=== PATIENT | male | born 1945 | race African-American/Black ===

== ENCOUNTER 2023-05-22 06:09 | Emergency (ER) | payer OTHER ==
--- OUTSIDE RECORDS SUMMARY | 2023-05-22 06:15 | XMS REPORT | Continuity of Care Document ---
:[address] [facility] t Address [address] [place] [address] Care Team Providers Name Role Phone Jada OLIVER, Yimi Primary Care Physician Kira OLIVER, Cameron Attending Clinician Cole ROD BENDING MACHINE OPERATOR, Li Attending Clinician Gualberto CASTANO, Concepcion Attending Clinician Unavailable Greg CASTANO, Jasmin Attending Clinician Unavailable Michelle Sapp RN Attending Clinician Unavailable Pob, Adc Lab Main Attending Clinician Unavailable George Holloway MD Attending Clinician GEORGE HOLLOWAY Attending Clinician Unavailable Doctor Unassigned, Minor Attending Clinician Unavailable Jose OLIVER, Zelda Attending Clinician ROBEL RAMOS Attending Clinician Unavailable WALE COLEY Attending Clinician Unavailable Wale Coley DO Attending Clinician BLANCHE BERMUDEZ Attending Clinician Unavailable Blanche Bermudez DO Attending Clinician Yimi Elias MD Attending Clinician TORI ANNE Attending Clinician Unavailable Omid OLIVER, Tori Mcnally Attending Clinician Julio CASTANO, Jennifer Attending Clinician Unavailable ROMANA ADAN Attending Clinician Unavailable Amarjit Reddy MD Attending Clinician Manohar Garcia DO Attending Clinician Romana Adan MD Attending Clinician DANTE SCOTT Attending Clinician Unavailable TESSY LOWERY Attending Clinician Unavailable Tessy Lowery NP Attending Clinician CAROLYN MCCRARY Attending Clinician Unavailable WALE RIVERA Attending Clinician Unavailable MD CAROLYN MCCRARY Attending Clinician Unavailable SANDRINE SESAY Attending Clinician Unavailable Sandrine Sesay DO Attending Clinician TODD CANCHOLA Attending Clinician Unavailable UNKNOWN, ATTENDING Attending Clinician Unavailable Unknown, Attending Attending Clinician Unavailable WALE COLEY Admitting Clinician Unavailable BLANCHE BERMUDEZ Admitting Clinician Unavailable TORI ANNE Admitting Clinician Unavailable ROMANA ADAN Admitting Clinician Unavailable Romana Adan MD Admitting Clinician TESSY LOWERY Admitting Clinician Unavailable MD CAROLYN MCCRARY Admitting Clinician Unavailable Payers Payer Name Policy Type Policy Number Effective Date Expiration Date S ource Problems Condition Condition Condition Status Onset Resolution Last Treating Co mments Source Name Details Category Date Date Treatment Clinician Date Encounter Encounter Disease Active [facility] for for 6-10 [facility] immunother immunother 00:00: [facility] apy apy 00 l Malignant Malignant Disease Active [facility] neoplasm neoplasm 2-17 [facility] upper of upper 00:00: Hospit a lobe of lobe of 00 l right lung right lung Chest pain Chest pain 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 U nivers 2-30 ity of 00:00: [place] 00 [facility] Branch Status Status 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 Methodi post post 1-[address] chemothera chemothera 00:00: [facility] py py 00 l 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[address] adenocarci adenocarci 00:00: [facility] spita noma noma 00 l Mass of Mass of 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 Methodi lower lobe lower lobe 0-25 st of left of left 00:00: Hospita lung lung 00 l Hilar Hilar 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 Methodi adenopathy adenopathy 0-25 st 00:00: Hospita 00 l Right Right Disease Active Univers sided sided 1- ity of weakness weakness 00:00: [address] Tobacco Tobacco Disease Active Methodi use use [facility]osp[facility] l Hypothyroi Hypothyroi Disease Active M ethodi dism due dism due st to to Hospita medication medication l Allergies, Adverse Reactions, Alerts Allergy Allergy Status Severity Reaction(s) Onset Inactive Treating Comm ents Source Name Type Date Date Clinician NO KNOWN Drug Active Univers ALLERGIE Class ity of S [facility] Family History Family Member Diagnosis Comments Start Date Stop Date Source Natural brother Colon cancer [facility] Natural mother Breast cancer [facility] Social History Social Habit Start Date Stop Date Quantity Comments Source History of tobacco Current smoker [facility] Sexual orientation [facility] Alcohol intake 2022-06-07 2022-06-07 Ex-drinker [facility] 00:00:00 00:00:00 (finding) Hospital History of Social 2022-06-07 2022-06-[address] function 00:00:00 00:00:00 Hospital Tobacco use and 2021-11-29 2021-11-29 Smokeless [facility] exposure 00:00:00 00:00:00 tobacco non-user Hospital Exposure to 2021-09-08 2021-10-08 Not sure [facility] SARS-CoV-2 (event) 00:00:00 09:42:00 [facility] Tobacco Comment 2021-05-31 2021-05-31 smoking for 60 [facility] 00:00:00 00:00:00 years Hospital Sex Assigned At [birth year] [facility] 00:00:00 00:00:00 Hospital Smoking Status Start Date Stop Date Source Ex-smoker 2021-11-29 00:00:00 2021-11-29 00:00:00 [facility] Current every day 2016-08-08 00:00:00 [facility] smoker [facility] Medications Ordered Filled Start Stop Current Ordering Indication Dosage Frequency Signature Comments Components Source Medication Medication Date Date Medication? Clinician (SIG) Name Name aspirin 81 2021-08 Yes 81mg Chew 81 Meth francisco mg chewable 2-[address] tablet 12:17: Hospita 02 l losartan 2021-08 Yes 25mg Take 25 mg Met hodi (COZAAR) 25 2-[address] MG tablet 12:17: Hospita 02 l acetaminoph 2021-08 Yes Take by Met hodi en 2-[address] (TYLENOL) 12:17: Hospita 500 MG 02 l tablet lisinopriL 2021-08 Yes 10mg QD Take 1 Metho di (PRINIVIL) 2-12 tablet (10 st 10 mg 12:17: mg total) Hospita tablet 02 by mouth l daily. glycerin/mi 2021- No 225mL 225 mL, U nivers neral oil 10-08 Rectal, ity of (AGLO 20:30: 19:39 ONCE, 1 [place] ENEMA) 00 :00 dose, On Medical (COMPOUNDED 10/08/21 Br anch ) Enem 225 at 1430, mL Routine iopamidol No [id number] 100mL 100 mL, Univers (ISOVUE 10-08 Intravenou ity o f 370-500 mL) 17:45: 16:57 s, ONCE, 1 [place] injection 00 :00 dose, On Medica l 100 mL Mon10/08/21 Branch at 1145, Routine methylnaltr No 12mg 12 mg, Uni vers exone 10-08 Subcutaneo ity of (RELISTOR) 16:45: 16:02 us, ONCE, [place] 12 mg/0.6 00 :00 1 dose, On Medi sonja mL Mon10/08/21 Branch injection at 1045, 12 mg Routine magnesium No 300mL 300 mL, Uni vers citrate 10-08 Oral, ity of solution 16:45: 15:57 ONCE, 1 [place] 300 mL 00 :00 dose, On Medical Mon10/08/21 Branch at 1045, DANNIE lactulose 2021- No 30mL 30 mL, Unive rs (CEPHULAC) 10-08 Oral, ity of solution 30 16:45: 15:56 ONCE, 1 [place] mL 00 :00 dose, On Medical Mon10/08/21 Branch at 1045, DANNIE NaCl 0.9% 2021- No 1000mL at 999 Uni vers (NS) bolus 3-04 03-04 mL/hr, ity of infusion 15:45: 19:22 1,000 mL, [place] as 1,000 mL 00 :00 IV Medical Infusion, Branch ONCE, 1 dose, On Mon10/08/21 at 0945, STAT benadryl/li 0 Yes 10mL Q6H Swish and M ethodi docaine/maa 09-[address] lox (MAGIC 00:00: mL every 6 H ospita MOUTHWASH) 00 (six) l 1:1:1 hours as suspension needed suspension (moderate throat pain). pantoprazol 0 Yes 40mg QD Take 1 Meth francisco e 2-22 tablet (40 st (Protonix) 00:00: mg total) Ho spita 40 MG EC 00 by mouth l tablet daily. sucralfate 0 Yes 1g Q.25D Take 1 Meth [place] (CARAFATE) 2-22 tablet (1 st 1 gram 00:00: g total) Hospita tablet 00 by mouth 4 l (four) times a day before meals and nightly. sodium 2021- No 1{enema 1 Enema, Uni vers phosphates 09-20 } Rectal, ity o f (READY-TO-U 23:15: 22:23 ONCE, 1 [place] ENEMA) 00 :00 dose, On Medica l 19-7 Mon Branch gram/118 mL 09/20/21 at enema 1 1715, Enema Routine lactulose 2021- No 30mL 30 mL, Unive rs (CEPHULAC) 09-20 Oral, ity of solution 30 23:15: 22:22 ONCE, 1 [place] mL 00 :00 dose, On Medical Mon Branch 09/20/21 at 1715, DANNIE iopamidol 2021- No [id number] 100mL 100 mL, Univers (ISOVUE 09-20 Intravenou ity o f 370-500 mL) 22:00: 20:43 s, ONCE, 1 [place] injection 00 :00 dose, On Medica l 100 mL Mon Branch 09/20/21 at 1600, Routine magnesium 2022-0 2022- No 2g 2 g, IV Univ ers sulfate in 09-20 Piggyback, it y of water 2 21:30: 22:25 ONCE, 1 [place] gram/50 mL 00 :00 dose, On Medic al (4 %) Mon Branch infusion 2 09/20/21 at g 1530, Routine famotidine 2021- No 20mg 20 mg, Univ ers (PEPCID 09-20 Slow IV ity of (PF)) 21:00: 19:52 Push, [place] injection 00 :00 ONCE, 1 Medical 20 mg dose, On Branch 09/20/21 at 1500, Routine ondansetron 2021- No 4mg 4 mg, Slow Univers (ZOFRAN 09-20 IV Push, ity of (PF)) 20:45: 19:51 ONCE, 1 [place] injection 4 00 :00 dose, On Medi sonja mg Mon Branch 09/20/21 at 1445, DANNIE NaCl 0.9% 2021- No 1000mL at 999 Uni vers (NS) bolus 09-20 mL/hr, ity of infusion 20:45: 21:10 1,000 mL, [place] as 1,000 mL 00 :00 IV Medical Infusion, Branch ONCE, 1 dose, On Mon09/20/21 at 1445, DANNIE docusate Yes [id number] 100mg Take 1 Un jn (COLACE) 2-14 capsule by ity o f 100 mg 00:00: mouth [place] capsule 00 daily. [facility] docusate Yes [id number] 100mg Take 1 Un jn (COLACE) 2-14 capsule by ity o f 100 mg 00:00: mouth [place] capsule 00 daily. [facility] docusate Yes [id number] 100mg Take 1 Un jn (COLACE) 2-14 capsule by ity o f 100 mg 00:00: mouth [place] capsule 00 daily. [facility] docusate Yes [id number] 100mg Take 1 Un jn (COLACE) 2-14 capsule by ity o f 100 mg 00:00: mouth [place] capsule 00 daily. [facility] docusate Yes [id number] 100mg Take 1 Un jn (COLACE) 2-14 capsule by ity o f 100 mg 00:00: mouth [place] capsule 00 daily. Medical Branch docusate Yes [id number] 100mg Take 1 Un jn (COLACE) 2-14 capsule by ity o f 100 mg 00:00: mouth [place] capsule 00 daily. [facility] Branch docusate Yes [id number] 100mg Take 1 Un jn (COLACE) 2-14 capsule by ity o f 100 mg 00:00: mouth [place] capsule 00 daily. Medical Branch maalox:diph 2020-08- No 15mL 15 mL, Uni vers enhydrAMINE 08-06 Oral, ity of :lidocaine 21:15: 20:15 ONCE, 1 [place] 2 % viscous 00 :00 dose, On Medi sonja 1:1:1 Fri Branch (FIRST-MOUT 08/06/21 [facility]) at 1515, oral Routine suspension 15 mL sennosides- 2020-08 Yes 1{tbl} 1 tablet, Univers docusate Oral, ity of sodium 15:00: DAILY, [place] (SENOKOT-S) 00 First dose Me dical 8.6-50 mg on Mon Branch per tablet 08/06/21 1 tablet at 0900, Until Discontinu ed, Routine polyethylen 2020-08 Yes 17g 17 g, Unive rs e glycol Oral, ity of 3350 powder 15:00: DAILY, [place] 17 g 00 First dose Medical on Mon Branch 08/06/21 at 0900, Until Discontinu ed, Routine pantoprazol 2020-08 Yes 20mg 20 mg, Univ ers e Oral, QAM, ity of (PROTONIX) 15:00: First dose [place] EC tablet 00 on Mon Medical 20 mg 08/06/21 Branch at 0900, Until Discontinu ed, Routine losartan 2020-08 Yes 25mg 25 mg, Univers (COZAAR) Oral, ity of tablet 25 15:00: DAILY, [place] mg 00 First dose Medical on Mon Branch 08/06/21 at 0900, Until Discontinu ed, Routine foLIC acid 2020-08 Yes 1mg 1 mg, Univer s (FOLATE) Oral, ity of tablet 1 mg 15:00: DAILY, [place] 00 First dose Medical on Mon Branch 08/06/21 at 0900, Until Discontinu ed, Routine aspirin 2020-08 Yes 81mg 81 mg, Univers chewable 2-31 Oral, ity of tablet 81 15:00: DAILY, [place] mg 00 First dose Medical on Mon Branch 08/06/21 at 0900, Until Discontinu ed, Routine heparin 2020-08 Yes 5000U 5,000 Univers (porcine) 2-31 Units, ity of injection 02:00: Subcutaneo [place] 5,000 Units 00 us, Q12H, Med ical First dose Branch on [place] 08/05/21 at 2000, Until Discontinu ed, Routine pantoprazol 2020-08 Yes [id number] 20mg Take 1 Univers e 20 mg EC 2-31 tablet by ity of tablet 00:00: mouth [place] 00 every Medical morning. Branch sucralfate 2020-08 Yes [id number] 1g Take 1 Univers 1 gram 2-31 tablet by ity of tablet 00:00: mouth [place] 00 before Medical meals and Branch at bedtime. pantoprazol 2020-08 Yes [id number] 20mg Take 1 Univers e 20 mg EC 2-31 tablet by ity of tablet 00:00: mouth [place] 00 every Medical morning. Branch sucralfate 2020-08 Yes [id number] 1g Take 1 Univers 1 gram 2-31 tablet by ity of tablet 00:00: mouth [place] 00 before Medical meals and Branch at bedtime. pantoprazol 2020-08 Yes [id number] 20mg Take 1 Univers e 20 mg EC 2-31 tablet by ity of tablet 00:00: mouth [place] 00 every Medical morning. Branch sucralfate 2020-08 Yes [id number] 1g Take 1 Univers 1 gram 2-31 tablet by ity of tablet 00:00: mouth [place] 00 before Medical meals and Branch at bedtime. pantoprazol 2020-08 Yes [id number] 20mg Take 1 Univers e 20 mg EC 2-31 tablet by ity of tablet 00:00: mouth [place] 00 every Medical morning. Branch sucralfate 2020-08 Yes [id number] 1g Take 1 Univers 1 gram 2-31 tablet by ity of tablet 00:00: mouth [place] 00 before Medical meals and Branch at bedtime. pantoprazol 2020-08 Yes [id number] 20mg Take 1 Univers e 20 mg EC 2-31 tablet by ity of tablet 00:00: mouth [place] 00 every Medical morning. Branch sucralfate 2020-08 Yes [id number] 1g Take 1 Univers 1 gram 2-31 tablet by ity of tablet 00:00: mouth [place] 00 before Medical meals and Branch at bedtime. pantoprazol 2020-08 Yes [id number] 20mg Take 1 Univers e 20 mg EC 2-31 tablet by ity of tablet 00:00: mouth [place] 00 every Medical morning. Branch sucralfate 2020-08 Yes [id number] 1g Take 1 Univers 1 gram 2-31 tablet by ity of tablet 00:00: mouth [place] 00 before Medical meals and Branch at bedtime. pantoprazol 2020-08 Yes [id number] 20mg Take 1 Univers e 20 mg EC 2-31 tablet by ity of tablet 00:00: mouth [place] 00 every Medical morning. Branch sucralfate 2020-08 Yes [id number] 1g Take 1 Univers 1 gram 2-31 tablet by ity of tablet 00:00: mouth [place] 00 before Medical meals and Branch at bedtime. pantoprazol 2020-08 Yes [id number] 20mg Take 1 Univers e 20 mg EC 2-31 tablet by ity of tablet 00:00: mouth [place] 00 every Medical morning. Branch sucralfate 2020-08 Yes [id number] 1g Take 1 Univers 1 gram 2-31 tablet by ity of tablet 00:00: mouth [place] 00 before Medical meals and Branch at bedtime. pantoprazol 2020-08 Yes [id number] 20mg Take 1 Univers e 20 mg EC 2-31 tablet by ity of tablet 00:00: mouth [place] 00 every Medical morning. Branch sucralfate 2020-08 Yes [id number] 1g Take 1 Univers 1 gram 2-31 tablet by ity of tablet 00:00: mouth [place] 00 before Medical meals and Branch at bedtime. pantoprazol 2020-08 Yes [id number] 20mg Take 1 Univers e 20 mg EC 2-31 tablet by ity of tablet 00:00: mouth [place] 00 every Medical morning. Branch sucralfate 2020-08 Yes [id number] 1g Take 1 Univers 1 gram 2-31 tablet by ity of tablet 00:00: mouth [place] 00 before Medical meals and Branch at bedtime. pantoprazol 2020-08 Yes [id number] 20mg Take 1 Univers e 20 mg EC 2-31 tablet by ity of tablet 00:00: mouth [place] 00 every Medical morning. Branch sucralfate 2020-08 Yes [id number] 1g Take 1 Univers 1 gram 2-31 tablet by ity of tablet 00:00: mouth [place] 00 before Medical meals and Branch at bedtime. pantoprazol 2020-08 Yes [id number] 20mg Take 1 Univers e 20 mg EC 2-31 tablet by ity of tablet 00:00: mouth [place] 00 every Medical morning. Branch sucralfate 2020-08 Yes [id number] 1g Take 1 Univers 1 gram 2-31 tablet by ity of tablet 00:00: mouth [place] 00 before Medical meals and Branch at bedtime. polyethylen 2020-08- No [id number] 17g Take 1 Univers e glycol 2-31 -16 Packet by ity o f 3350 17 00:00: 05:59 mouth [place] gram powder 00 :00 daily for Med ical 15 days. Branch sodium 2020-08- No [id number] 1{enema Insert 1 Univers phosphates 2-31 08-07 } Enema into it y of (FLEET 00:00: 05:59 rectum [place] ENEMA) 19-7 00 :00 once now Medi sonja gram/118 mL for 1 Branch enema dose. Follow package directions aspirin 81 2020-08 Yes 81mg Take 81 mg U nivers mg chewable 2-30 by mouth ity of tablet 18:33: daily. [address] dexAMETHaso 2020-08 Yes 4mg Take 4 mg U nivers ne 2-30 by mouth ity of (DECADRON) 18:33: daily. [place] 4 mg tablet [address] [place] [address] losartan 25 2020-08 Yes 25mg Take 25 mg Univers mg tablet 2-30 by mouth ity of 18:33: daily. [address] ondansetron 2020-08 Yes 8mg Take 8 mg U nivers 8 mg tablet 2-30 by mouth ity of 18:33: every 8 [place] [address] (eight) Medical hours as Branch needed for Nausea and Vomiting (N/V). aspirin 81 2020-08 Yes 81mg Take 81 mg U nivers mg chewable 2-30 by mouth ity of tablet 18:33: daily. [place] [address] Medical Branch dexAMETHaso 2020-08 Yes 4mg Take 4 mg U nivers ne 2-30 by mouth ity of (DECADRON) 18:33: daily. [place] 4 mg tablet 50 Medical Branch losartan 25 2020-08 Yes 25mg Take 25 mg Univers mg tablet 2-30 by mouth ity of 18:33: daily. [place] [address] Medical Branch ondansetron 2020-08 Yes 8mg Take 8 mg U nivers 8 mg tablet 2-30 by mouth ity of 18:33: every 8 [place] [address] (eight) Medical hours as Branch needed for Nausea and Vomiting (N/V). aspirin 81 2020-08 Yes 81mg Take 81 mg U nivers mg chewable 2-30 by mouth ity of tablet 18:33: daily. [address] Branch dexAMETHaso 2020-08 Yes 4mg Take 4 mg U nivers ne 2-30 by mouth ity of (DECADRON) 18:33: daily. [place] 4 mg tablet 50 Medical Branch losartan 25 2020-08 Yes 25mg Take 25 mg Univers mg tablet 2-30 by mouth ity of 18:33: daily. [address] Branch ondansetron 2020-08 Yes 8mg Take 8 mg U nivers 8 mg tablet 2-30 by mouth ity of 18:33: every 8 [place] [address] (eight) Medical hours as Branch needed for Nausea and Vomiting (N/V). aspirin 81 2020-08 Yes 81mg Take 81 mg U nivers mg chewable 2-30 by mouth ity of tablet 18:33: daily. [address] Branch dexAMETHaso 2020-08 Yes 4mg Take 4 mg U nivers ne 2-30 by mouth ity of (DECADRON) 18:33: daily. [place] 4 mg tablet 50 Medical Branch losartan 25 2020-08 Yes 25mg Take 25 mg Univers mg tablet 2-30 by mouth ity of 18:33: daily. [place] [address] Medical Branch ondansetron 2020-08 Yes 8mg Take 8 mg U nivers 8 mg tablet 2-30 by mouth ity of 18:33: every 8 [place] 50 (eight) Medical hours as Branch needed for Nausea and Vomiting (N/V). aspirin 81 2020-08 Yes 81mg Take 81 mg U nivers mg chewable 2-30 by mouth ity of tablet 18:33: daily. [place] [address] Medical Branch dexAMETHaso 2020-08 Yes 4mg Take 4 mg U nivers ne 2-30 by mouth ity of (DECADRON) 18:33: daily. [place] 4 mg tablet 50 Medical Branch losartan 25 2020-08 Yes 25mg Take 25 mg Univers mg tablet 2-30 by mouth ity of 18:33: daily. [place] [address] Medical Branch ondansetron 2020-08 Yes 8mg Take 8 mg U nivers 8 mg tablet 2-30 by mouth ity of 18:33: every 8 [place] [address] (eight) Medical hours as Branch needed for Nausea and Vomiting (N/V). aspirin 81 2020-08 Yes 81mg Take 81 mg U nivers mg chewable 2-30 by mouth ity of tablet 18:33: daily. [place] [address] Medical Branch dexAMETHaso 2020-08 Yes 4mg Take 4 mg U nivers ne 2-30 by mouth ity of (DECADRON) 18:33: daily. [place] 4 mg tablet 50 Medical Branch losartan 25 2020-08 Yes 25mg Take 25 mg Univers mg tablet 2-30 by mouth ity of 18:33: daily. [place] [address] Medical Branch ondansetron 2020-08 Yes 8mg Take 8 mg U nivers 8 mg tablet 2-30 by mouth ity of 18:33: every 8 [place] [address] (eight) Medical hours as Branch needed for Nausea and Vomiting (N/V). aspirin 81 2020-08 Yes 81mg Take 81 mg U nivers mg chewable 2-30 by mouth ity of tablet 18:33: daily. [place] [address] Medical Branch dexAMETHaso 2020-08 Yes 4mg Take 4 mg U nivers ne 2-30 by mouth ity of (DECADRON) 18:33: daily. [place] 4 mg tablet 50 Medical Branch losartan 25 2020-08 Yes 25mg Take 25 mg Univers mg tablet 2-30 by mouth ity of 18:33: daily. [place] [address] Medical Branch ondansetron 2020-08 Yes 8mg Take 8 mg U nivers 8 mg tablet 2-30 by mouth ity of 18:33: every 8 [place] [address] (eight) Medical hours as Branch needed for Nausea and Vomiting (N/V). aspirin 81 2020-08 Yes 81mg Take 81 mg U nivers mg chewable 2-30 by mouth ity of tablet 18:33: daily. [place] [address] Medical Branch dexAMETHaso 2020-08 Yes 4mg Take 4 mg U nivers ne 2-30 by mouth ity of (DECADRON) 18:33: daily. [place] 4 mg tablet 50 Medical Branch losartan 25 2020-08 Yes 25mg Take 25 mg Univers mg tablet 2-30 by mouth ity of 18:33: daily. [place] [address] Medical Branch ondansetron 2020-08 Yes 8mg Take 8 mg U nivers 8 mg tablet 2-30 by mouth ity of 18:33: every 8 [place] [address] (eight) Medical hours as Branch needed for Nausea and Vomiting (N/V). aspirin 81 2020-08 Yes 81mg Take 81 mg U nivers mg chewable 2-30 by mouth ity of tablet 18:33: daily. [place] [address] Medical Branch dexAMETHaso 2020-08 Yes 4mg Take 4 mg U nivers ne 2-30 by mouth ity of (DECADRON) 18:33: daily. [place] 4 mg tablet 50 Medical Branch losartan 25 2020-08 Yes 25mg Take 25 mg Univers mg tablet 2-30 by mouth ity of 18:33: daily. [place] [address] Medical Branch ondansetron 2020-08 Yes 8mg Take 8 mg U nivers 8 mg tablet 2-30 by mouth ity of 18:33: every 8 [place] [address] (eight) Medical hours as Branch needed for Nausea and Vomiting (N/V). aspirin 81 2020-08 Yes 81mg Take 81 mg U nivers mg chewable 2-30 by mouth ity of tablet 18:33: daily. [place] [address] Medical Branch dexAMETHaso 2020-08 Yes 4mg Take 4 mg U nivers ne 2-30 by mouth ity of (DECADRON) 18:33: daily. [place] 4 mg tablet 50 Medical Branch losartan 25 2020-08 Yes 25mg Take 25 mg Univers mg tablet 2-30 by mouth ity of 18:33: daily. [place] [address] Medical Branch ondansetron 2020-08 Yes 8mg Take 8 mg U nivers 8 mg tablet 2-30 by mouth ity of 18:33: every 8 [place] [address] (eight) Medical hours as Branch needed for Nausea and Vomiting (N/V). aspirin 81 2020-08 Yes 81mg Take 81 mg U nivers mg chewable 2-30 by mouth ity of tablet 18:33: daily. [place] [address] Medical Branch dexAMETHaso 2020-08 Yes 4mg Take 4 mg U nivers ne 2-30 by mouth ity of (DECADRON) 18:33: daily. [place] 4 mg tablet 50 Medical Branch losartan 25 2020-08 Yes 25mg Take 25 mg Univers mg tablet 2-30 by mouth ity of 18:33: daily. [place] [address] Medical Branch ondansetron 2020-08 Yes 8mg Take 8 mg U nivers 8 mg tablet 2-30 by mouth ity of 18:33: every 8 [place] [address] (eight) Medical hours as Branch needed for Nausea and Vomiting (N/V). aspirin 81 2020-08 Yes 81mg Take 81 mg U nivers mg chewable 2-30 by mouth ity of tablet 18:33: daily. [place] [address] Medical Branch dexAMETHaso 2020-08 Yes 4mg Take 4 mg U nivers ne 2-30 by mouth ity of (DECADRON) 18:33: daily. [place] 4 mg tablet 50 Medical Branch losartan 25 2020-08 Yes 25mg Take 25 mg Univers mg tablet 2-30 by mouth ity of 18:33: daily. [place] [address] Medical Branch ondansetron 2020-08 Yes 8mg Take 8 mg U nivers 8 mg tablet 2-30 by mouth ity of 18:33: every 8 [place] [address] (eight) Medical hours as Branch needed for Nausea and Vomiting (N/V). aspirin 81 2020-08 Yes 81mg Take 81 mg U nivers mg chewable 2-30 by mouth ity of tablet 18:33: daily. [place] [address] Medical Branch dexAMETHaso 2020-08 Yes 4mg Take 4 mg U nivers ne 2-30 by mouth ity of (DECADRON) 18:33: daily. [place] 4 mg tablet 50 Medical Branch losartan 25 2020-08 Yes 25mg Take 25 mg Univers mg tablet 2-30 by mouth ity of 18:33: daily. [place] [address] Medical Branch ondansetron 2020-08 Yes 8mg Take 8 mg U nivers 8 mg tablet 2-30 by mouth ity of 18:33: every 8 [place] [address] (eight) Medical hours as Branch needed for Nausea and Vomiting (N/V). aspirin 81 2020-08 Yes 81mg Take 81 mg U nivers mg chewable 2-30 by mouth ity of tablet 18:33: daily. [address] dexAMETHaso 2020-08 Yes 4mg Take 4 mg U nivers ne 2-30 by mouth ity of (DECADRON) 18:33: daily. [place] 4 mg tablet [address] [place] [address] Branch losartan 25 2020-08 Yes 25mg Take 25 mg Univers mg tablet 2-30 by mouth ity of 18:33: daily. [address] ondansetron 2020-08 Yes 8mg Take 8 mg U nivers 8 mg tablet 2-30 by mouth ity of 18:33: every 8 [place] [address] (eight) Medical hours as Branch needed for Nausea and Vomiting (N/V). ondansetron 2020-08 Yes 4mg 4 mg, Slow Univers (ZOFRAN 2-30 IV Push, ity of (PF)) 18:26: Q6HPRN, [place] injection 4 08 Starting Medi sonja mg on [facility] Branch 08/05/21 at 1226, Until Discontinu ed, DANNIE, Nausea and Vomiting (N/V) sucralfate 2020-08 Yes 1g 1 g, Oral, U nivers (CARAFATE) 2-30 AC+HS, ity of tablet 1 g 17:30: First dose [place] 00 on [facility] 08/05/21 Branch at 1130, Until Discontinu ed, Routine methocarbam 2020-08 Yes 500mg 500 mg, Un jn oL 2-30 Oral, TID, ity of (ROBAXIN) 17:15: First dose [place] tablet 500 00 on [facility] Medical mg 08/05/21 Branch at 1115, Until Discontinu ed, Routine glycerin/mi 2020-08 No 225mL 225 mL, U nivers neral oil 2-30 12-30 Rectal, ity of (AGLO 17:00: 18:14 ONCE, 1 [place] ENEMA) 00 :00 dose, On Medical ([facility]OUND[facility] ) Enem 225 08/05/21 mL at 1100, Routine nitroglycer 2020-08 Yes .4mg 0.4 mg, Uni vers in 2-30 Sublingual ity of (NITROSTAT) 15:39: , Q5MIN [place] as sublingual 36 PRN, Medical tablet 0.4 Starting Branc h mg on [place] 08/05/21 at 0939, Until Discontinu ed, Routine, Chest pain acetaminoph 2020-08 Yes 650mg 650 mg, Un jn en 2-30 Oral, ity of (TYLENOL) 15:39: Q6HPRN, [place] tablet 650 18 Starting Medic al mg on [facility] 08/05/21 at 0939, Until Discontinu ed, Routine, Pain (scale 1-3) albuterol 2020-08 Yes 2{puff} 2 Puff, Un jn (VENTOLIN) 2-30 Inhalation ity of inhaler 2 15:34: , Q6HPRN, [place] as Puff 28 Starting Medical on [facility] 08/05/21 at 0934, Until Discontinu ed, Routine, Shortness of Breath ondansetron 2020-08- No 4mg 4 mg, Slow Univers (ZOFRAN 2-30 12-30 IV Push, ity of (PF)) 15:00: 13:59 ONCE, 1 [place] injection 4 00 :00 dose, On Medi sonja mg [facility] 08/05/21 at 0900, DANNIE morpHINE 2020-08- No 4mg 4 mg, Slow Un jn injection 4 2-30 12-30 IV Push, ity of mg 15:00: 13:59 ONCE, 1 [place] 00 :00 dose, On Medical [facility] 08/05/21 at 0900, STAT colchicine 2020-08- No .6mg Take 0.6 Un jn 0.6 mg Cap 2-30 12-30 mg by ity of 09:42: 00:00 mouth [place] 14 :00 daily. Medical Branch methocarbam 2020-08- No [id number] 500mg Take 1 Univers oL 500 mg 2-30 01-10 tablet by ity of tablet 00:00: 05:59 mouth 3 [place] 00 :00 (three) Medical times Branch daily for 10 days. methocarbam 2020-08- No [id number] 500mg Take 1 Univers oL 500 mg 2-30 01-10 tablet by ity of tablet 00:00: 05:59 mouth 3 [place] 00 :00 (three) Medical times [place] daily for 10 days. methocarbam 2020-08- No [id number] 500mg Take 1 Univers oL 500 mg 2-30 01-10 tablet by ity of tablet 00:00: 05:59 mouth 3 [place] 00 :00 (three) Medical times Branch daily for 10 days. polyethylen 2020-08- No 17g Take 17 g Univers e glycol 10-04 by mouth ity of 3350 17 00:00: 05:59 daily. [place] gram powder 00 :00 Medical Branch sennosides- 2020-08- No 1{tbl} Take 1 U nivers docusate 10-04 tablet by ity o f sodium 00:00: 05:59 mouth [place] 8.6-50 mg 00 :00 daily. Medical per tablet Branch polyethylen 2020-08- No 17g Take 17 g Univers e glycol 10-04 by mouth ity of 3350 17 00:00: 05:59 daily. [place] gram powder 00 :00 Medical Branch [facility] 2020-08- No 1{tbl} Take 1 U nivers docusate 10-04 tablet by ity o f sodium 00:00: 05:59 mouth [place] 8.6-50 mg 00 :00 daily. Medical per tablet Branch [facility] 2020-08- No 1{tbl} Take 1 U nivers docusate 10-04 tablet by ity o f sodium 00:00: 05:59 mouth [place] 8.6-50 mg 00 :00 daily. Medical per tablet Branch polyethylen 2020-08- No 17g Take 17 g Univers e glycol 10-04 by mouth ity of 3350 17 00:00: 00:00 daily. [place] gram powder 00 :00 Medical Branch iopamidol 2020-08- No [id number] 120mL 120 mL, Univers (ISOVUE 2-25 12-25 Intravenou ity o f 370-500 mL) 19:15: 19:10 s, ONCE, 1 [place] injection 00 :00 dose, On Medica l 120 mL Sat Branch 07/31/21 at 1315, Routine colchicine 2020-08 Yes .6mg Take 0.6 Uni vers 0.6 mg Cap 2-25 mg by ity of 14:57: mouth [place] 15 daily. Medical Branch dexAMETHaso 2020-08 Yes 4mg Take 4 mg U nivers ne 2-25 by mouth ity of (DECADRON) 14:57: daily. [place] 4 mg tablet 15 Medical Branch aspirin 81 2020-08- No 81mg Take 81 mg Univers mg chewable 2-25 12-25 by mouth. it y of tablet 14:57: 00:00 [place] 15 :00 Medical Branch sucralfate 2020-08 Yes [id number] 1g Take 1 Univers 1 gram 2-25 tablet by ity of tablet 00:00: mouth [place] 00 before Medical meals and Branch at bedtime. sucralfate 2020-08 Yes [id number] 1g Take 1 Univers 1 gram 2-25 tablet by ity of tablet 00:00: mouth [place] 00 before Medical meals and Branch at bedtime. sucralfate 2020-08 Yes [id number] 1g Take 1 Univers 1 gram 2-25 tablet by ity of tablet 00:00: mouth [place] 00 before Medical meals and Branch at bedtime. pantoprazol 2020-08- No [id number] 20mg Take 1 Univers e 20 mg EC 2-25 01-16 tablet by ity of tablet 00:00: 05:59 mouth [place] 00 :00 daily for Medical 21 days. Branch pantoprazol 2020-08- No 1{tbl} Take 1 U nivers e 20 mg EC 2-25 01-16 tablet by ity of tablet 00:00: 05:59 mouth [place] 00 :00 every Medical morning. Branch pantoprazol 2020-08- No 1{tbl} Take 1 U nivers e 20 mg EC 2-25 01-16 tablet by ity of tablet 00:00: 05:59 mouth [place] 00 :00 every Medical morning. Branch sucralfate 2020-08- No [id number] 1g Take 1 Univers 1 gram 2-25 12-31 tablet by ity of tablet 00:00: 00:00 mouth [place] 00 :00 before Medical meals and Branch at bedtime. pantoprazol 2020-08- No 1{tbl} Take 1 U nivers e 20 mg EC 2-25 12-31 tablet by ity of tablet 00:00: 00:00 mouth [place] 00 :00 every Medical morning. Branch pantoprazol 2020-08- No [id number] 20mg Take 1 Univers e 20 mg EC 2-25 12-30 tablet by ity of tablet 00:00: 00:00 mouth [place] 00 :00 daily for Medical 21 days. Branch OLANZapine 2020- Yes 5mg Take 5 mg Un jn 5 mg tablet 2-01 by mouth. ity of 00:00: [place] [facility] OLANZapine 2020-1 Yes 5mg Take 5 mg Un jn 5 mg tablet 2-01 by mouth. ity of 00:00: [place] [facility] Branch OLANZapine 2020- Yes 5mg Take 5 mg Un jn 5 mg tablet 2-01 by mouth. ity of 00:00: [place] [facility] Branch OLANZapine 2020- Yes 5mg Take 5 mg Un jn 5 mg tablet 2-01 by mouth. ity of 00:00: [place] [facility] Branch OLANZapine 2020- Yes 5mg Take 5 mg Un jn 5 mg tablet 2-01 by mouth. ity of 00:00: [place] [facility] OLANZapine 2020- Yes 5mg Take 5 mg Un jn 5 mg tablet 2-01 by mouth. ity of 00:00: [place] [facility] OLANZapine 2020- Yes 5mg Take 5 mg Un jn 5 mg tablet 2-01 by mouth. ity of 00:00: [place] [facility] OLANZapine 2020- Yes 5mg Take 5 mg Un jn 5 mg tablet 2-01 by mouth. ity of 00:00: [place] [facility] Branch OLANZapine 2020- Yes 5mg Take 5 mg Un jn 5 mg tablet 2-01 by mouth. ity of 00:00: [place] [facility] OLANZapine 2020-1 Yes 5mg Take 5 mg Un jn 5 mg tablet 2-01 by mouth. ity of 00:00: [place] [facility] OLANZapine 2020- Yes 5mg Take 5 mg Un jn 5 mg tablet 2-01 by mouth. ity of 00:00: [place] [facility] Branch OLANZapine 2020- Yes 5mg Take 5 mg Un jn 5 mg tablet 2-01 by mouth. ity of 00:00: [address] Branch OLANZapine 2020- Yes 5mg Take 5 mg Un jn 5 mg tablet 2-01 by mouth. ity of 00:00: [address] Branch OLANZapine 2020-1 Yes 5mg Take 5 mg Un jn 5 mg tablet 2-01 by mouth. ity of 00:00: 00 Medical Branch OLANZapine 2020- Yes 5mg Take 5 mg Un jn 5 mg tablet 09-07 by mouth. ity of 00:00: [place] 00 Medical Branch OLANZapine 2020- Yes 5mg QD Take 1 Metho di (ZYPREXA) 5 09-07 tablet (5 st MG tablet 00:00: mg total) Hos srikanth 00 by mouth l nightly as needed (chemo-ind uced nausea). foLIC acid 2020- 2022- No 1mg Take 1 mg U nivers 1 mg tablet 09-07 by mouth. it y of 00:00: 05:59 [place] 00 :00 Medical Branch foLIC acid 2020-1 2022- No 1mg Take 1 mg U nivers 1 mg tablet 09-07 by mouth. it y of 00:00: 05:59 [place] 00 :00 Medical Branch foLIC acid 2020-1 2022- No 1mg Take 1 mg U nivers 1 mg tablet 09-07 by mouth. it y of 00:00: 05:59 [place] 00 :00 Medical Branch foLIC acid 2020-1 2022- No 1mg Take 1 mg U nivers 1 mg tablet 09-07 by mouth. it y of 00:00: 05:59 [place] 00 :00 Medical Branch foLIC acid 2020-1 2022- No 1mg Take 1 mg U nivers 1 mg tablet 09-07 by mouth. it y of 00:00: 05:59 [place] 00 :00 Medical Branch foLIC acid 202-1 2022- No 1mg Take 1 mg U nivers 1 mg tablet 09-07 by mouth. it y of 00:00: 05:59 [place] 00 :00 Medical Branch foLIC acid 2020-1 2022- No 1mg Take 1 mg U nivers 1 mg tablet 09-07 by mouth. it y of 00:00: 05:59 [place] 00 :00 Medical Branch foLIC acid 2020-1 2022- No 1mg Take 1 mg U nivers 1 mg tablet 09-07 by mouth. it y of 00:00: 05:59 [place] 00 :00 Medical Branch foLIC acid 202-1 2022- No 1mg Take 1 mg U nivers 1 mg tablet 09-07 by mouth. it y of 00:00: 05:59 [place] 00 :00 Medical Branch foLIC acid 2020-2021- No 1mg Take 1 mg U nivers 1 mg tablet 09-07 by mouth. it y of 00:00: 05:59 [place] 00 :00 Medical Branch foLIC acid 2020-2021- No 1mg Take 1 mg U nivers 1 mg tablet 09-07 by mouth. it y of 00:00: 05:59 [place] 00 :00 Medical Branch foLIC acid 2020-2021- No 1mg Take 1 mg U nivers 1 mg tablet 09-07 by mouth. it y of 00:00: 05:59 [place] 00 :00 Medical Branch foLIC acid 2020-2021- No 1mg Take 1 mg U nivers 1 mg tablet 09-07 by mouth. it y of 00:00: 05:59 [place] 00 :00 Medical Branch foLIC acid 2020-2021- No 1mg Take 1 mg U nivers 1 mg tablet 09-07 by mouth. it y of 00:00: 05:59 [place] 00 :00 Medical Branch foLIC acid 2020-2021- No 1mg Take 1 mg U nivers 1 mg tablet 09-07 by mouth. it y of 00:00: 05:59 [place] 00 :00 Medical Branch folic acid 2020-2021- No 1mg QD Take 1 Meth [place] (FOLVITE) 1 09-07 tablet (1 st MG tablet 00:00: 05:59 mg total) Ho spita 00 :00 by mouth l daily. lidocaine-p 2020-08- No Apply Meth [place] rilocaine 09-[address] (EMLA) 00:00: 05:59 as needed Hospi ta 2.5-2.5 % 00 :00 for mild l cream pain. Apply 1/2 gram to the skin over the port 1 hour prior to chemo albuterol Yes 2{puff} Inhale 2 U nivers 90 6-29 Puffs ity of mcg/actuati 00:00: every 6 [place] on inhaler 00 (six) Medical hours as Branch needed. albuterol Yes 2{puff} Inhale 2 U nivers 90 6-29 Puffs ity of mcg/actuati 00:00: every 6 [place] on inhaler 00 (six) Medical hours as Branch needed. albuterol Yes 2{puff} Inhale 2 U nivers 90 6-29 Puffs ity of mcg/actuati 00:00: every 6 [place] on inhaler 00 (six) Medical hours as Branch needed. albuterol Yes 2{puff} Inhale 2 U nivers 90 6-29 Puffs ity of mcg/actuati 00:00: every 6 [place] on inhaler 00 (six) Medical hours as Branch needed. albuterol Yes 2{puff} Inhale 2 U nivers 90 6-29 Puffs ity of mcg/actuati 00:00: every 6 [place] on inhaler 00 (six) Medical hours as Branch needed. albuterol Yes 2{puff} Inhale 2 U nivers 90 6-29 Puffs ity of mcg/actuati 00:00: every 6 [place] on inhaler 00 (six) Medical hours as Branch needed. albuterol Yes 2{puff} Inhale 2 U nivers 90 6-29 Puffs ity of mcg/actuati 00:00: every 6 [place] on inhaler 00 (six) Medical hours as Branch needed. albuterol Yes 2{puff} Inhale 2 U nivers 90 6-29 Puffs ity of mcg/actuati 00:00: every 6 [place] on inhaler 00 (six) Medical hours as Branch needed. albuterol Yes 2{puff} Inhale 2 U nivers 90 6-29 Puffs ity of mcg/actuati 00:00: every 6 [place] on inhaler 00 (six) Medical hours as Branch needed. albuterol Yes 2{puff} Inhale 2 U nivers 90 6-29 Puffs ity of mcg/actuati 00:00: every 6 [place] on inhaler 00 (six) Medical hours as Branch needed. albuterol Yes 2{puff} Inhale 2 U nivers 90 6-29 Puffs ity of mcg/actuati 00:00: every 6 [place] on inhaler 00 (six) Medical hours as Branch needed. albuterol Yes 2{puff} Inhale 2 U nivers 90 6-29 Puffs ity of mcg/actuati 00:00: every 6 [place] on inhaler 00 (six) Medical hours as Branch needed. albuterol Yes 2{puff} Inhale 2 U nivers 90 6-29 Puffs ity of mcg/actuati 00:00: every 6 [place] on inhaler 00 (six) Medical hours as Branch needed. albuterol Yes 2{puff} Inhale 2 U nivers 90 6-29 Puffs ity of mcg/actuati 00:00: every 6 [place] on inhaler 00 (six) Medical hours as Branch needed. acetaminoph 0 Yes 1{tbl} Take 1 Un jn en-codeine 3-06 tablet by ity of (TYLENOL-CO 00:00: mouth [place] DEINE #3) 00 every 8 Medical 300-30 mg (eight) Branch tablet hours as needed for Pain (scale 7-10) (MAY NOT TAKE AND WORK OR DRIVE VEHICLE). acetaminoph 2017-0 Yes 1{tbl} Take 1 Un jn en-codeine 3-06 tablet by ity of (TYLENOL-CO 00:00: mouth [place] DEINE #3) 00 every 8 Medical 300-30 mg (eight) Branch tablet hours as needed for Pain (scale 7-10) (MAY NOT TAKE AND WORK OR DRIVE VEHICLE). acetaminoph 2018-0 Yes 1{tbl} Take 1 Un jn en-codeine 3-06 tablet by ity of (TYLENOL-CO 00:00: mouth [place] DEINE #3) 00 every 8 Medical 300-30 mg (eight) Branch tablet hours as needed for Pain (scale 7-10) (MAY NOT TAKE AND WORK OR DRIVE VEHICLE). acetaminoph 2018-0 Yes 1{tbl} Take 1 Un jn en-codeine 3-06 tablet by ity of (TYLENOL-CO 00:00: mouth [place] DEINE #3) 00 every 8 Medical 300-30 mg (eight) Branch tablet hours as needed for Pain (scale 7-10) (MAY NOT TAKE AND WORK OR DRIVE VEHICLE). acetaminoph 2018-0 Yes 1{tbl} Take 1 Un jn en-codeine 3-06 tablet by ity of (TYLENOL-CO 00:00: mouth [place] DEINE #3) 00 every 8 Medical 300-30 mg (eight) Branch tablet hours as needed for Pain (scale 7-10) (MAY NOT TAKE AND WORK OR DRIVE VEHICLE). acetaminoph Yes 1{tbl} Take 1 Un jn en-codeine 3-06 tablet by ity of (TYLENOL-CO 00:00: mouth [place] DEINE #3) 00 every 8 Medical 300-30 mg (eight) Branch tablet hours as needed for Pain (scale 7-10) (MAY NOT TAKE AND WORK OR DRIVE VEHICLE). acetaminoph Yes 1{tbl} Take 1 Un jn en-codeine 3-06 tablet by ity of (TYLENOL-CO 00:00: mouth [place] DEINE #3) 00 every 8 Medical 300-30 mg (eight) Branch tablet hours as needed for Pain (scale 7-10) (MAY NOT TAKE AND WORK OR DRIVE VEHICLE). acetaminoph Yes 1{tbl} Take 1 Un jn en-codeine 3-06 tablet by ity of (TYLENOL-CO 00:00: mouth [place] DEINE #3) 00 every 8 Medical 300-30 mg (eight) Branch tablet hours as needed for Pain (scale 7-10) (MAY NOT TAKE AND WORK OR DRIVE VEHICLE). acetaminoph 2020- No 1{tbl} Take 1 U nivers en-codeine 3-06 12-30 tablet by ity of (TYLENOL-CO 00:00: 00:00 mouth [place] DEINE #3) 00 :00 every 8 Medical 300-30 mg (eight) Branch tablet hours as needed for Pain (scale 7-10) (MAY NOT TAKE AND WORK OR DRIVE VEHICLE). aspirin 81 2017- Yes 81mg Take 81 mg U nivers mg chewable 1-24 by mouth ity of tablet 03:35: daily. [address] aspirin 81 2017-0 Yes 81mg Take 81 mg U nivers mg chewable 1-24 by mouth ity of tablet 03:35: daily. [address] aspirin 81 2016-0 Yes 81mg Take 81 mg U nivers mg chewable 1-24 by mouth ity of tablet 03:35: daily. [address] aspirin 81 2016- Yes 81mg Take 81 mg U nivers mg chewable 1-24 by mouth ity of tablet 03:35: daily. [address] aspirin 81 2016- Yes 81mg Take 81 mg U nivers mg chewable 1-24 by mouth ity of tablet 03:35: daily. [address] aspirin 81 Yes 81mg Take 81 mg U nivers mg chewable 1-24 by mouth ity of tablet 03:35: daily. [address] aspirin 81 Yes 81mg Take 81 mg U nivers mg chewable 1-24 by mouth ity of tablet 03:35: daily. [address] aspirin 81 Yes 81mg Take 81 mg U nivers mg chewable 1-23 by mouth ity of tablet 21:35: daily. [address] Immunizations Ordered Immunization Filled Immunization Date Status Commen ts Source Name Name PFIZER COVID-19 MRNA Unknown Completed [facility] [facility] PFIZER COVID-19 MRNA Unknown Completed [facility] [facility] Vital Signs Vital Name Observation Time Observation Value Comments Source Systolic blood 2021-10-08 20:00:00 156 mm[Hg] Univer [facility] Diastolic blood 2021-10-08 20:00:00 88 mm[Hg] Unive rsity of [facility] Heart rate 2021-10-08 20:00:00 80 /min [facility] Respiratory rate 2021-10-08 20:00:00 22 /min [facility] Oxygen saturation in 2021-10-08 20:00:00 97 /min [facility] Arterial blood by [facility] [place] Pulse oximetry Branch Body temperature 2021-10-08 15:37:00 35.67 Carlita [facility] Body height 2021-10-08 15:37:00 182.9 cm [facility] Body weight 2021-10-08 15:37:00 68.493 kg [facility] BMI 2021-10-08 15:37:00 20.48 kg/m2 [facility] Systolic blood 2021-09-20 22:07:00 128 mm[Hg] Univer sity of pressure [place] [facility] Diastolic blood 2021-09-20 22:07:00 80 mm[Hg] Unive rsity of pressure [place] [facility] Heart rate 2021-09-20 22:00:00 64 /min [facility] [place] [facility] Respiratory rate 2021-09-20 22:00:00 15 /min [facility] [place] [facility] Oxygen saturation in 2021-09-20 22:00:00 100 /min University of Arterial blood by [place] [facility] [facility] Pulse oximetry Branch Body temperature 2021-09-20 19:32:04 36.61 Carlita [facility] [place] [facility] Body weight 2021-09-20 19:03:00 68.493 kg [facility] [place] [facility] BMI 2021-09-20 19:03:00 19.92 kg/m2 [facility] [place] [facility] Systolic blood 2021-08-06 21:19:00 149 mm[Hg] Univer sity of pressure [place] [facility] Diastolic blood 2021-08-06 21:19:00 110 mm[Hg] Unive rsity of pressure [place] [facility] Heart rate 2021-08-06 21:19:00 75 /min [facility] [place] [facility] Oxygen saturation in 2021-08-06 21:19:00 98 /min University of Arterial blood by [place] [employer] sonja Pulse oximetry Branch Respiratory rate 2021-08-06 20:00:00 23 /min [facility] [place] [facility] Body height 2021-08-06 19:59:00 185.4 cm [facility] [place] [facility] Body weight 2021-08-06 19:59:00 70.308 kg [facility] [place] [facility] BMI 2021-08-06 19:59:00 20.45 kg/m2 [facility] [place] [facility] Systolic blood 2021-08-05 20:04:00 115 mm[Hg] Univer sity of pressure [place] [facility] Diastolic blood 2021-08-05 20:04:00 64 mm[Hg] Unive rsity of pressure [place] [facility] Heart rate 2021-08-05 20:04:00 64 /min [facility] [place] [facility] Body temperature 2021-08-05 20:04:00 36.67 Carlita [facility] [place] [facility] Respiratory rate 2021-08-05 20:04:00 18 /min [facility] [place] [facility] Oxygen saturation in 2021-08-05 20:04:00 95 /min University of Arterial blood by [facility] sonja Pulse oximetry Branch Body height 2021-08-05 15:38:00 185.4 cm [facility]i [facility] of [place] [facility] [place] Body weight 2021-08-05 15:38:00 70.308 kg Universi ty of [facility] BMI 2021-08-05 15:38:00 20.45 kg/m2 Universi ty of [facility] Systolic blood 2021-07-31 20:00:00 133 mm[Hg] Univer sity of pressure [facility] Diastolic blood 2021-07-31 20:00:00 73 mm[Hg] Unive rsity of pressure [facility] Heart rate 2021-07-31 20:00:00 65 /min Universi ty of [facility] Respiratory rate 2021-07-31 20:00:00 16 /min [facility] 2021-07-31 20:00:00 100 /min University of Arterial blood by [facility] [place] Pulse oximetry Branch Body temperature 2021-07-31 17:02:00 36.28 Carlita Univ ersity of [facility] Body height 2021-07-31 17:02:00 185.4 cm Universi ty of [facility] Body weight 2021-07-31 17:02:00 75.751 kg Universi ty of [facility] BMI 2021-07-31 17:02:00 22.03 kg/m2 Universi ty [facility] Systolic blood 2022-07-18 18:15:00 111 mm[Hg] Method ist [facility] pressure Diastolic blood 2022-07-18 18:15:00 55 mm[Hg] [facility] pressure Heart rate 2022-07-18 18:15:00 75 /min [facility] Body temperature 2022-07-18 18:15:00 36.67 Carlita [facility] Body weight 2022-07-18 18:15:00 78.835 kg [facility] BMI 2022-07-18 18:15:00 22.93 kg/m2 [facility] Oxygen saturation in 2022-07-18 18:15:00 95 /min [facility] Arterial blood by Pulse oximetry Respiratory rate 2022-07-13 21:24:38 18 /min [facility] Procedures Procedure Date / Time Performing Clinician Source Performed ABSOLUTE NEUTROPHIL 2022-07-13 17:49:00 [facility] CBC WITH PLATELET AND 2022-07-13 17:49:00 Jose Manuel Mendoza [facility] DIFFERENTIAL Ovi COMPREHENSIVE METABOLIC 2022-07-13 17:49:00 Jose Manuel Mendoza [facility] PANEL Ovi MAGNESIUM LEVEL 2022-07-13 17:49:00 Jose Manuel Mendoza ossuraj Dior THYROID STIMULATING 2022-07-13 17:49:00 Jose Manuel Mendoza [facility] HORMONE Ovi T3 2022-07-13 17:49:00 Jose Manuel Mendoza T4, FREE 2022-07-13 17:49:00 Jose Manuel Mendoza ospidaquan Dior ESTIMATED GFR 2022-07-13 17:49:00 Jose Manuel Mendoza MANUAL DIFFERENTIAL 2022-07-13 17:49:00 [facility] T4, FREE 2022-06-15 17:27:00 Cameron Ceballos spital ESTIMATED GFR 2022-06-15 17:27:00 Cameron Ceballos spital MANUAL DIFFERENTIAL 2022-06-15 17:27:00 Kira [facility] [facility] ABSOLUTE NEUTROPHIL 2022-06-15 17:27:00 Kira [facility] COUNT CBC WITH PLATELET AND 2022-06-15 17:27:00 Cameron Ceballos [facility] DIFFERENTIAL COMPREHENSIVE METABOLIC 2022-06-15 17:27:00 Cameron Ceballos [facility] PANEL MAGNESIUM LEVEL 2022-06-15 17:27:00 Cameron Ceballos spital THYROID STIMULATING 2022-06-15 17:27:00 Kira [facility] HORMONE T3 2022-06-15 17:27:00 CeballosCameron perez Ho spital ASSIGNMENT OF BENEFITS 2022-02-23 21:25:46 Doctor Unassigned, No [facility] HOME HEALTH - OTHER 2022-01-17 05:01:00 Doctor Unassigned, No Un [facility]ity [facility] Medical [place] HOME HEALTH - OTHER 2021-12-13 05:01:00 Doctor Unassigned, No Un iversity of [facility] Medical [place] CT ABDOMEN PELVIS W 2021-10-08 17:02:16 Wale Coley [facility] CONTRAST Medical Branch LIPASE 2021-10-08 15:48:00 Singer [facility] [place] [facility] COMP. METABOLIC PANEL 2021-10-08 15:48:00 Wale Coley [facility] sity [facility] ([id number]) Medical Branch CBC WITH DIFF 2021-10-08 15:48:00 Coley, [facility] o [facility] URINALYSIS 2021-09-20 21:08:00 Blanche Bermudez [facility] CT ABDOMEN PELVIS W 2021-09-20 20:50:51 Blanche [facility]ermudez [facility] MAGNESIUM 2021-09-20 19:53:00 Blanche Bermudez [facility] TROPONIN I 2021-09-20 19:53:00 Blanche Bermudez [facility] COMP. METABOLIC PANEL 2021-09-20 19:53:00 [id number] [place] CBC WITH DIFF 2021-09-20 19:53:00 Blanche Bermudez [facility] NOTICE OF PRIVACY 2021-09-20 18:56:11 Doctor Unassigned, No [facility] CONSENT/REFUSAL FOR 2021-09-20 18:55:46 Doctor Unassigned, No Un [facility] [place] [facility]NOSIS [facility] TREAT[facility] HOME HEALTH - OTHER 2021-08-12 06:01:00 Doctor Unassigned, No Un [facility] [place] [facility] HOME HEALTH 485 2021-08-10 06:01:00 Doctor Unassigned, No [facility]iver [facility] [place] [facility] XR CHEST 1 VW 2021-08-06 20:19:38 Tori Anne [facility] TROPONIN I 2021-08-06 20:11:00 Tori Anne [facility] COMP. METABOLIC PANEL 2021-08-06 20:11:00 Tori Anne [facility] ([id number]) Medical Branch CBC WITH DIFF 2021-08-06 20:11:00 Tori Anne [facility] CONSENT/REFUSAL FOR 2021-08-06 20:05:45 Doctor Unassigned, No Un [facility] DIAGNOSIS AND TREATMENT Name Medical Branch TROPONIN I 2021-08-05 19:21:00 [facility] TRANSTHORACIC ECHO (TTE) 2021-08-05 16:35:[facility] XR KUB 2021-08-05 15:50:00 [facility] XR CHEST 1 VW 2021-08-05 11:41:57 Barry Amarjit [facility] LIPASE 2021-08-05 11:32:00 Amarjit Reddy [facility] TROPONIN I 2021-08-05 11:32:00 Amarjit Reddy [facility] THYROID STIMULATING 2021-08-05 11:32:00 Jose [facility] HORMONE [facility] Branch COMP. METABOLIC PANEL 2021-08-05 11:32:00 Amarjit Reddy [facility] ([id number]) [facility] Branch LIPID PANEL 2021-08-05 11:32:00 [id number] Medical Branch CHOLESTEROL, TRIGLYCERIDES, HDL) CBC WITH DIFF 2021-08-05 11:32:00 Amarijt Reddy [facility] GLYCOSYLATED HEMOGLOBIN 2021-08-05 11:32:00 Jose [facility] (A1C) Medical Branch PROTHROMBIN TIME / INR 2021-08-05 11:32:00 Amarjit Reddy [facility] ACTIVATED PARTIAL 2021-08-05 11:32:00 Amarjit Reddy [facility] THRMPLAS ANISH [facility] N-TERMINAL PRO-BNP 2021-08-05 11:32:00 Amarjit Reddy [facility] COVID-19 (ID NOW RAPID 2021-08-05 11:32:00 Amarjit Reddy [facility] TESTING) Medical Branch URINALYSIS 2021-07-31 19:44:00 Tessy Lowery [facility] CT ABDOMEN PELVIS W 2021-07-31 19:24:25 Tessy Lowery [facility] CONTRAST [facility] CT THORAX W CONTRAST 2021-07-31 19:24:25 Tessy Lowery [facility] LIPASE 2021-07-31 17:36:00 Tessy Lowery [facility] TROPONIN I 2021-07-31 17:36:00 Tessy Lowery [facility] COMP. METABOLIC PANEL 2021-07-31 17:36:00 Tessy Lowery [facility] ([id number]) [facility] CBC WITH DIFF 2021-07-31 17:36:00 Tessy Lowery [facility] CONSENT/REFUSAL FOR 2021-07-31 16:42:16 Doctor Unassigned, No [facility] DIAGNOSIS AND TREATMENT Name [facility] NOTICE OF PRIVACY 2021-07-31 16:41:28 Doctor Unassigned, No [facility] PRACTICES Name [facility] URIC ACID 2021-03-08 13:05:00 Dixie [facility] MAGNESIUM 2021-03-08 13:05:[facility] SPECIFIC 2021-03-08 13:05:00 Dixie [facility] ANTIGEN SCREEN [facility] Branch FOLATE 2021-03-08 13:05:00 abilio [facility] HEPATIC FUNCTION PANEL 2021-03-08 13:05:00 Dixie [facility] ([id number]) (ALB,T.PRO,BILI [facility] T,BU/BC,ALT,AST,ALK PHOS) BASIC METABOLIC PANEL 2021-03-08 13:05:00 [facility] (NA, K, CL, CO2, Medical [place] GLUCOSE, BUN, CREATININE, CA) SEDIMENTATION RATE 2021-03-08 13:05:00 Dixie [facility] CBC WITH DIFF 2021-03-08 13:05:00 Dixie [facility] ADV BENEFICIARY NOTICE 2021-03-08 05:01:00 Doctor Unassigned, No [facility] OF NONCOVERAGE ([facility]) Name Medical [facility] PHYSICIAN ORDERS 2021-02-09 05:01:00 Doctor Unassigned, No Unive [facility] Name Medical Branch ASSIGNMENT OF BENEFITS 2020-10-21 13:47:27 Doctor Unassigned, No [facility] Medical [place] Plan of Care Planned Activity Planned Date Details Comments Source Future Scheduled 2023-05-09 65+ PNEUMOCOCCAL Methodi [facility] Test 16:56:47 VACCINE (1 - PCV) [code = 65+ PNEUMOCOCCAL VACCINE (1 - PCV)] Future Scheduled 2023-05-[address] [facility] Test 16:56:47 (procedure) [code = 454723549] Future Scheduled 2023-05-09 SHINGLES VACCINES (1 [facility] Test 16:56:47 of 2) [code = SHINGLES VACCINES (1 of 2)] Future Scheduled 2023-05-09 COVID-19 VACCINE (3 - [facility] Test 16:56:47 Pfizer risk series) [code = COVID-19 VACCINE (3 - Pfizer risk series)] Future Scheduled 2023-05-09 INFLUENZA VACCINE (#1) [facility] Test 16:56:47 [code = INFLUENZA VACCINE (#1)] Encounters Start End Encounter Admission Attending Care Care Encounter Source Date/Time Date/Time Type Type Clinicians Facility Department ID 2022-07-22 2022-07-22 Orders Ceballos, 1.2.840.1 [id number] Methodi 00:00:00 00:00:00 Only Cameron [address]184.1.[address] 3.430.2.7 Hospit a .3.766855 l .8 2022-07-18 2022-07-18 Office Ceballos, 1.2.840.1 [id number] 9888 Methodi 11:30:00 12:20:31 Visit Cameron 18560.1.[address] 3.430.2.7 Hospit a .3.874706 l .8 2022-07-18 2022-07-18 Outpatient CEBALLOS, [facility] [id number] [place] 00:00:00 00:00:00 CAMERON [address] 2022-07-18 2022-07-18 Orders Bubela, 1.2.840.1 [id number] 0238 Methodi 00:00:00 00:00:00 [place] [address].1.[address] 3.430.2.7 Hospit a .3.138426 l .8 2022-07-18 2022-07-18 Travel 1.2.840.1 1.2.092.000 5398 882201 Methodi 00:00:00 00:00:[address] 3.430.2.7 0.2.7.3.698 Ho spita .3.834923 084.8 l .8 2022-07-13 2022-07-13 Infusion Ceballos, 1.2.840.1 [id number] Methodi 11:30:00 14:30:[address] 3.430.2.7 Hospit a .3.673961 l .8 2022-07-13 2022-07-13 Outpatient CEBALLOS, [facility] [id number] [address] [place] [address] 00:00:00 00:00:[address] CAMERON [address] 2022-07-13 2022-07-13 Travel 1.2.840.1 1.2.325.368 1771 [id number] Methodi 00:00:00 00:00:[address] 3.430.2.7 0.2.7.3.698 Ho spita .3.053672 084.8 l .8 2022-07-12 2022-07-12 Orders Gualberto, 1.2.840.1 [id number] Methodi 00:00:00 00:00:00 Only Concepcion 83773.1.[address] 3.430.2.7 Hospit a .3.627020 l .8 2022-06-15 2022-06-15 Infusion Ceballos, 1.2.840.1 [id number] 48619 Methodi 11:30:00 14:30:[address] 3.430.2.7 Hospit a .3.629850 l .8 2022-06-15 2022-06-15 Outpatient CEBALLOS, [facility] [id number] 709 [place] 00:00:00 00:00:00 CAMERON [address] 2022-06-15 2022-06-15 Oncology [place], 1.2.840.1 [id number] [id number] Methodi 00:00:00 00:00:00 [facility] Jasmin 44971.1.1 347 s t ip 3.430.2.7 Hospit a .3.845481 l .8 2022-06-15 2022-06-15 Travel 1.2.840.1 1.2.323.495 0523 733478 Methodi 00:00:00 00:00:[address] 3.430.2.7 0.2.7.3.698 spita .3.102843 084.8 l .8 2022-06-14 2022-06-14 Orders Ceballos, 1.2.840.1 [id number] 1750 Methodi 00:00:00 00:00:00 Only Cameron 05370.1.[address] 3.430.2.7 Hospit a .3.038455 l .8 2022-06-07 2022-06-07 Office Ceballos, 1.2.840.1 [id number] 2920 Methodi 09:45:00 10:40:15 Visit Cameron 00642.1.[address] 3.430.2.7 Hospit a .3.501278 l .8 2022-06-07 2022-06-07 Outpatient CEBALLOS, [facility] [id number] 701 [place] 00:00:00 00:00:00 CAMERON [address] 2022-06-07 2022-06-07 Travel 1.2.840.1 1.2.736.080 2026 [id number] Methodi 00:00:00 00:00:[address] 3.430.2.7 0.2.7.3.698 spita .3.461231 084.8 l .8 2022-06-06 2022-06-06 Orders Senait, 1.2.840.1 [id number] 3036 Methodi 00:00:00 00:00:00 Only 13966.1.1 567 3.430.2.7 Hospit a .3.573160 l .8 2022-05-11 2022-05-11 Outpatient CEBALLOS, [facility] [id number] [place] 00:00:00 00:00:00 CAMERON 949 Method i 2022-05-10 2022-05-10 Outpatient CEBALLOS, [facility] [id number] 764 [place] 00:00:00 00:00:00 CAMERON 779 Method i 2022-05-10 2022-05-10 Outpatient CEBALLOS, [facility] [id number] 786 [place] 00:00:00 00:00:00 CAMERON 631 Method i 2022-05-06 2022-05-06 Outpatient CEBALLOS, [facility] [id number] 874 [place] 00:00:00 00:00:00 CAMERON 039 Method i 2022-04-13 2022-04-13 Outpatient CEBALLOS, [facility] [id number] 420 [place] 00:00:00 00:00:00 CAMERON 239 Method i 2022-04-12 2022-04-12 Outpatient CEBALLOS, [facility] [id number] 523 [place] 00:00:00 00:00:00 CAMERON 050 Method i 2022-04-12 2022-04-12 Outpatient CEBALLOS, [facility] [id number] 768 [place] 00:00:00 00:00:00 CAMERON 581 Method i 2022-03-16 2022-03-16 Outpatient CEBALLOS, [facility] [id number] 416 [place] 00:00:00 00:00:00 CAMERON 964 Method i 2022-02-23 2022-02-23 Licsw Ofelia, Millicent Lab Main [facility] 1.2.8 40.114 [id number] [facility] 17:00:00 17:15:00 Visit George Holloway 350.1.13.10 ity of [place] PROF[place] [id number] [place] dical NAL 353 Branch [facility] 2022-02-23 2022-02-23 Outpatient R AMIE [facility] [id number] [facility] 17:00:00 17:00:00 GEORGE ity of [facility] 2022-02-23 2022-02-23 Orders Doctor DESI 1.2.840.114 [id number] Univers 00:00:00 00:00:00 Only Unassigned, BERNA 350.1.13.10 ity of Minor [facility] 4.2.7.2.686 Woody as [phone] [facility] sonja 009 [place] 2022-01-17 2022-01-17 Orders Doctor DESI 1.2.840.[id number] [place] [address] 00:00:00 00:00:00 Only Unassigned, BERNA 350.1.13.10 ity of Minor [facility] 4.2.7.2.686 [place] as [phone] [facility] sonja 009 [place] 2022-01-10 2022-01-10 Outpatient [facility], [facility] [id number] 790 [place] 00:00:00 00:00:00 CAMERON 387 Method i 2022-01-10 2022-01-10 Outpatient [facility] [id number] 915 [place] 00:00:00 00:00:00 CAMERON [address] 2021-12-13 2021-12-13 Orders Doctor WEEKS 1.2.840.114 [id number] [facility] 00:00:00 00:00:00 Only Unassigned, BERNA 350.1.13.10 ity of Minor [facility] 4.2.7.2.686 Woody as [phone] [facility] sonja 009 [place] 2021-11-30 2021-11-30 Telephone [facility] 1.2.840.114 [id number] [facility] 00:00:00 00:00:00 Zelda PRIMARY 350.1.13.10 it y of [place]2.[place].2.686 [place] [phone] [place] dical 388 Branch 2021-11-29 2021-11-29 [facility] [id number] 003 [place] 00:00:00 00:00:00 CAMERON 578 Method i 2021-11-29 2021-11-29 Outpatient CEBALLOS, [facility] [id number] [place] 00:00:00 00:00:00 CAMERON 079 Method i 2021-11-15 2021-11-15 Outpatient CEBALLOS, [facility] [id number] 298 [place] 00:00:00 00:00:00 CAMERON 460 Method i 2021-11-15 2021-11-15 Outpatient SHKEDY, [facility] [id number] 907 [place] 00:00:00 00:00:00 ROBEL 726 Method i 2021-11-02 2021-11-02 Outpatient CEBALLOS, [facility] [id number] 422 [place] 00:00:00 00:00:00 CAMERON 520 Method i 2021-10-18 2021-10-18 Outpatient CEBALLOS, [facility] [id number] 702 [place] 00:00:00 00:00:00 CAMERON 195 Method i 2021-10-08 2021-10-08 Emergency X [facility] ERT [id number] Univers 09:34:00 14:40:00 WALE crespo [facility] 2021-10-08 2021-10-08 Emergency [facility] 1.2.549.581 [id number] 4086 [facility] 09:34:00 14:40:00 Wale DIAMOND 350.1.13.10 [facility] 4.2.7.2.686 [facility] [id number] [address] 2021-10-05 2021-10-05 Outpatient SHKEDY, [facility] [id number] 647 [place] 00:00:00 00:00:00 ROBEL 880 Method i 2021-10-01 2021-10-01 Outpatient SHKEDY, [facility] [id number] 892 [place] 00:00:00 00:00:00 ROBEL 044 Method i 2021-10-01 2021-10-01 Outpatient SHKEDY, [facility] [id number] 141 [place] 00:00:00 00:00:00 ROBEL 902 Method i 2021-09-29 2021-09-29 Outpatient SHKEDY, [facility] [id number] 891 [place] 00:00:00 00:00:00 ROBEL 970 Method i 2021-09-29 2021-09-29 Outpatient SHCHRIS, [facility] [id number] 141 [place] 00:00:00 00:00:00 ROBEL 794 Method i 2021-09-28 2021-09-28 Outpatient CEBALLOS, [facility] [id number] 270 [place] 00:00:00 00:00:00 CAMERON 199 Method i 2021-09-28 2021-09-28 Outpatient CEBALLOS, [facility] [id number] 826 [place] 00:00:00 00:00:00 CAMERON 325 Method i 2021-09-27 2021-09-27 Outpatient SHCHRIS, [facility] [id number] 891 [place] 00:00:00 00:00:00 ROBEL 910 Method i 2021-09-27 2021-09-27 Outpatient RACHEL, [facility] [id number] 141 [place] 00:00:00 00:00:00 ROBEL 677 Method i 2021-09-23 2021-09-23 Outpatient SHKEDY, [facility] [id number] 891 [place] 00:00:00 00:00:00 ROBEL 908 Method i 2021-09-23 2021-09-23 Outpatient SHROSADY, [facility] [id number] 068 [place] 00:00:00 00:00:00 ROBEL 576 Method i 2021-09-21 2021-09-21 Outpatient RACHEL, [facility] [id number] 141 [place] 00:00:00 00:00:00 ROBEL 355 Method i 2021-09-20 2021-09-20 Emergency [facility] [id number] Univers 13:04:00 16:25:00 BLANCHE crespo [facility] 2021-09-20 2021-09-20 Emergency Aidan [facility] 1.2.840.114 [id number] Univers 13:04:00 16:25:00 Blanche DIAMOND 350.1.13.10 cherie [facility] 4.2.7.2.686 [facility] [id number] [place] [address] Branch 2021-09-20 2021-09-20 Orders Doctor WEEKS 1.2.840.[id number] [place] [address] 00:00:00 00:00:00 Only Unassigned, BERNA 350.1.13.10 [facility] 4.2.7.2.686 Woody alina [phone] [facility] 009 Branch 2021-09-20 2021-09-20 Outpatient CEBALLOS, [facility] [id number] 412 [place] 00:00:00 00:00:00 CAMERON 463 Method i 2021-09-15 2021-09-15 Telephone Jada, [facility] 1.2.354.576 [id number] 4274 [facility] 00:00:00 00:00:00 Yimi PRIMARY 350.1.13.10 it y of [facility] 4.2.7.2.686 Theresa KENT [phone] Oh dicri 388 [place] 2021-09-14 2021-09-14 Outpatient SHKEDY, [facility] [id number] 209 [place] 00:00:00 00:00:00 ROBEL 716 Method i 2021-09-07 2021-09-07 Outpatient SHKEDY, [facility] [id number] 789 [place] 00:00:00 00:00:00 ROBEL 999 Method i 2021-08-30 2021-08-30 Outpatient CEBALLOS, [facility] [id number] 100 [place] 00:00:00 00:00:00 CAMERON 646 Method i 2021-08-24 2021-08-24 Outpatient [facility] [id number] 201 [place] 00:00:00 00:00:00 313 Method i 2021-08-24 2021-08-24 Outpatient SHKEDY, [facility] [id number] 197 [place] 00:00:00 00:00:00 ROBEL 719 Method i 2021-08-23 2021-08-23 Outpatient CEBALLOS, [facility] [id number] 594 [place] 00:00:00 00:00:00 CAMERON [address] 2021-08-23 2021-08-23 Outpatient [facility] [id number] [place] 00:00:00 00:00:[address] 2021-08-20 2021-08-20 Outpatient SHKEDY, [facility] [id number] 776 [place] 00:00:00 00:00:00 ROBEL [address] 2021-08-19 2021-08-19 Outpatient [facility] [id number] 580 [place] 00:00:00 00:00:[address] 2021-08-18 2021-08-18 Outpatient [facility] [id number] 580 [place] 00:00:00 00:00:[address] 2021-08-17 2021-08-17 Outpatient [facility] [id number] 580 [place] 00:00:00 00:00:[address] 2021-08-16 2021-08-16 Outpatient [facility] [id number] 580 [place] 00:00:00 00:00:[address] 2021-08-16 2021-08-16 Outpatient CEBALLOS, [facility] [id number] 594 [place] 00:00:00 00:00:00 CAMERON [address] 2021-08-13 2021-08-13 Outpatient [facility] [id number] 304 [place] 00:00:00 00:00:[address] 2021-08-13 2021-08-13 Outpatient SHKEDY, [facility] [id number] 278 [place] 00:00:00 00:00:00 ROBEL [address] 2021-08-12 2021-08-12 Orders Doctor DESI 1.2.840.[id number] [place] [address] 00:00:00 00:00:00 Only Unassigned, BERNA 350.1.13.10 ity of Minor [facility] 4.2.7.2.686 Woody as [phone] Medi sonja 009 Branch 2021-08-12 2021-08-12 Outpatient [facility] [id number] 295 [place] 00:00:00 00:00:[address] 2021-08-12 2021-08-12 Outpatient CEBALLOS, [facility] [id number] [place] 00:00:00 00:00:00 CAMERON [address] 2021-08-10 2021-08-10 Orders Doctor DESI Nieves2.840.[id number] [place] [address] 00:00:00 00:00:00 Only Unassigned, BERNA 350.1.13.10 [facility] 4.2.7.2.686 Woody as [phone] Medi sonja 009 Branch 2021-08-10 2021-08-10 Outpatient [facility] [id number] 580 [place] 00:00:00 00:00:00 028 Method i 2021-08-10 2021-08-10 Outpatient SHCHRIS, [facility] [id number] 160 [place] 00:00:00 00:00:00 ROBEL 825 Method i 2021-08-09 2021-08-09 Outpatient SHCHIRS, [facility] [id number] 107 [place] 00:00:00 00:00:00 ROBEL 774 Method i 2021-08-09 2021-08-09 Outpatient SHCHRIS, [facility] [id number] 063 [place] 00:00:00 00:00:00 ROBEL 020 Method i 2021-08-09 2021-08-09 Outpatient [facility] [id number] 580 [place] 00:00:00 00:00:00 027 Method i 2021-08-06 2021-08-06 Emergency X OMID [facility] ERT [id number] Univers 13:53:00 15:20:00 TORI [facility] 2021-08-06 2021-08-06 Emergency Omid [facility] 1.2.613.854 [id number] Univers 13:53:00 15:20:00 Tori DIAMOND 350.1.13.10 ity [facility] 4.2.7.2.686 [place] [facility] [phone] [facility] 084 Branch 2021-08-06 2021-08-06 Transition BALDO Kim 1.2.840.114 [id number] Univers 00:00:00 00:00:00 of Care Jennifer SANTIAGO 350.1.13.10 it y of [place] 4.2.7.2.686 [place] [phone] [facility] 403 Branch 2021-08-05 2021-08-05 Outpatient X ANTIONETTE [facility] IVAN [id number] Univers 05:20:00 16:34:00 [facility] 2021-08-05 2021-08-05 Emergency Amarjit Reddy 1.2.840. 114 [id number] Univers 05:20:00 16:34:00 Manohar Garcia 350.1.13. 10 ity [facility] 4.2.7.2.686 [place] [phone] [facility] 094 Branch 2021-08-03 2021-08-03 Outpatient [facility] [id number] 580 [place] 00:00:00 00:00:00 024 Method i 2021-08-03 2021-08-03 Outpatient SHCHRIS, [facility] [id number] [place] 00:00:00 00:00:00 ROBEL 833 Method i 2021-08-03 2021-08-03 Emergency EGBERS, [facility] [id number] [place] 00:00:00 00:00:00 DANTE 955 Method i 2021-08-02 2021-08-02 Outpatient [facility] [id number] 580 [place] 00:00:00 00:00:00 023 Method i 2021-07-31 2021-07-31 Emergency [facility] ERT [id number] [facility] 10:57:00 14:57:00 TESSY crespo [facility] 2021-07-31 2021-07-31 [facility] 1.2.402.213 [id number] [facility] 10:57:00 14:57:00 Tessy DIAMOND 350.1.13.10 ity [facility] 4.2.7.2.686 [facility] [phone] [facility] 084 [place] 2021-07-29 2021-07-29 Outpatient [facility] [id number] 580 [place] 00:00:00 00:00:00 022 Method i 2021-07-29 2021-07-29 Outpatient SHROSADY, [facility] [id number] 322 [place] 00:00:00 00:00:00 ROBEL 573 Method i 2021-07-28 2021-07-28 Outpatient [facility] [id number] 580 [place] 00:00:00 00:00:00 021 Method i 2021-07-27 2021-07-27 Outpatient [facility] [id number] 580 [place] 00:00:00 00:00:00 020 Method i 2021-07-26 2021-07-26 Outpatient CEBALLOS, [facility] [id number] 594 [place] 00:00:00 00:00:00 CAMERON 001 Method i 2021-07-26 2021-07-26 Outpatient [facility] [id number] 580 [place] 00:00:00 00:00:[address] 2021-07-23 2021-07-23 Outpatient [facility] [id number] 580 [place] 00:00:00 00:00:[address] 2021-07-22 2021-07-22 Outpatient [facility] [id number] 580 [place] 00:00:00 00:00:[address] 2021-07-22 2021-07-22 Outpatient SHCHRIS, H [facility] [id number] [place] 00:00:00 00:00:00 ROBEL [address] 2021-07-21 2021-07-21 Outpatient [facility] [id number] 580 [place] 00:00:00 00:00:[address] 2021-07-20 2021-07-20 Outpatient [facility] [id number] 580 [place] 00:00:00 00:00:[address] 2021-07-20 2021-07-20 Outpatient CEBALLOS, H [facility] [id number] 545 [place] 00:00:00 00:00:00 CAMERON [address] 2021-07-19 2021-07-19 Outpatient [facility] [id number] 580 [place] 00:00:00 00:00:[address] 2021-07-16 2021-07-16 Outpatient [facility] [id number] 580 [place] 00:00:00 00:00:[address] 2021-07-15 2021-07-15 Outpatient [facility] [id number] 580 [place] 00:00:00 00:00:[address] 2021-07-14 2021-07-14 Outpatient [facility] [id number] 580 [place] 00:00:00 00:00:[address] 2021-07-13 2021-07-13 Outpatient HMH [facility] [id number] 580 [place] 00:00:00 00:00:[address] 2021-07-13 2021-07-13 Outpatient SHCHRIS, H [facility] [id number] 358 [place] 00:00:00 00:00:00 ROBEL [address] 2021-07-12 2021-07-12 Outpatient [facility] [id number] 580 [place] 00:00:00 00:00:[address] 2021-07-09 2021-07-09 Outpatient [facility] H [id number] 580 [place] 00:00:00 00:00:[address] 2021-07-08 2021-07-08 Outpatient [facility] [id number] 580 [place] 00:00:00 00:00:[address] 2021-07-08 2021-07-08 Outpatient SHKEDY, H [facility] [id number] 059 [place] 00:00:00 00:00:00 ROBEL [address] 2021-07-07 2021-07-07 Outpatient SHKEDY, H [facility] [id number] 753 [place] 00:00:00 00:00:[address] ROBEL [address] 2021-07-07 2021-07-07 Outpatient CEBALLOS, [facility] [id number] 593 [place] 00:00:00 00:00:00 CAMERON [address] 2021-07-07 2021-07-07 Outpatient H [facility] [id number] 580 [place] 00:00:00 00:00:[address] 2021-07-06 2021-07-06 Outpatient [facility] H [id number] 580 [place] 00:00:00 00:00:[address] 2021-07-05 2021-07-05 Outpatient H [facility] [id number] 580 [place] 00:00:00 00:00:[address] 2021-06-29 2021-06-29 Outpatient SHKEDY, [facility] [id number] 306 [place] 00:00:00 00:00:00 ROBEL [address] 2021-06-29 2021-06-29 Outpatient CEBALLOS, [facility] [id number] [place] 00:00:00 00:00:00 CAMERON [address] 2021-06-25 2021-06-25 Outpatient SHKEDY, [facility] [id number] [place] 00:00:00 00:00:00 ROBEL [address] [facility] 2021-06-25 2021-06-25 Outpatient SHKEDY, H [facility] [id number] [place] 00:00:00 00:00:00 ROBEL [address] 2021-06-23 2021-06-23 Outpatient CEBALLOS, [facility] [id number] [place] 00:00:00 00:00:00 CAMERON 566 [facility] 2021-06-23 2021-06-23 Outpatient CEBALLOS, [facility] [id number] [place] 00:00:00 00:00:00 CAMERON 565 [facility] 2021-06-21 2021-06-21 Outpatient CEBALLOS, [facility] [id number] [place] 00:00:00 00:00:00 CAMERON 895 [facility] 2021-05-31 2021-05-31 Outpatient CEBALLOS, [facility] [id number] [place] 00:00:00 00:00:00 CAMERON 026 [facility] 2021-05-31 2021-05-31 Outpatient OOLUT, [facility] [id number] [place] 00:00:00 00:00:00 CAROLYN 172 [facility] 2021-04-27 2021-04-27 Outpatient OOLUT, [facility] [id number] [place] 00:00:00 00:00:00 CAROLYN 102 [facility] 2021-04-14 2021-04-14 Outpatient OOLUT, [facility] [id number] [place] 00:00:00 00:00:00 CAROLYN 229 [facility] 2021-04-14 2021-04-14 Outpatient PARMET, [facility] [id number] [place] 00:00:00 00:00:00 WALE 629 [facility] 2021-04-13 2021-04-13 Outpatient OOLUT, [facility] [id number] [place] 00:00:00 00:00:00 CAROLYN 682 [facility] 2021-04-01 2021-04-01 Outpatient OOLUT, [facility] [id number] [place] 00:00:00 00:00:00 CAROLYN 447 [facility] 2021-03-31 2021-03-31 Outpatient OOLUT, [facility] [id number] [place] 00:00:00 00:00:00 CAROLYN 630 [facility] 2021-03-08 2021-03-08 Licsw [facility] [id number] [facility] 07:44:04 07:59:04 Visit George Holloway [id number] [facility]y [place] [id number] [id number] [place] dical nal 353 [facility] 2021-03-08 2021-03-08 Outpatient R AMIE, [facility] [id number] [facility] 07:45:00 07:45:00 GEORGE [facility] 2021-03-08 2021-03-08 Orders Doctor DESI [id number] [facility] 00:00:00 00:00:00 Only Unassigned, BERNA [id number] ity of Minor [facility] 4.2.7.2.686 Woody as [id number] [address] 2021-02-19 2021-02-19 Outpatient [facility] [id number] 961 [place] 00:00:00 00:00:00 CAROLYN 055 Method i 2021-02-09 2021-02-09 Outpatient Niesha SESAY, [facility] [id number] Univers 16:45:00 16:45:00 SANDRINE [facility] 2021-02-09 2021-02-09 Licsw Ofelia, Adc Lab Main [facility] 1.2.8 40.114 [id number] Univers 16:22:14 16:37:14 Visit Sandrine Sesay 350.1.13.10 ity of [place] 4.2.7.2.686 [place] Profess[place] [phone] Oh dical nal 353 [facility] 2021-02-09 2021-02-09 Orders Doctor WEEKS 1.2.840.114 [id number] Univers 00:00:00 00:00:00 Only Unassigned, BERNA 350.1.13.10 ity of Minor [facility] 4.2.7.2.686 [place] as [id number] [address] 2021-02-02 2021-02-02 Outpatient [facility] [id number] 530 [place] 00:00:00 00:00:00 CAROLYN [address] 2021-02-02 2021-02-02 Outpatient [facility] [id number] 010 [place] 00:00:00 00:00:[address] 2021-02-02 2021-02-02 Outpatient [facility] [id number] 010 [place] 00:00:00 00:00:[address] 2021-02-02 2021-02-02 Outpatient OOLUT, [facility] [id number] 010 [place] 00:00:00 00:00:00 CAROLYN 479 Method i 2021-01-14 2021-01-14 Outpatient SEPTIMUS, [facility] [id number] 63883 [place] 00:00:00 00:00:00 TODD 242 Method i 2020-12-24 2020-12-24 Outpatient OOLUT, [facility] [id number] 635 [place] 00:00:00 00:00:00 CAROLYN 345 Method i 2020-12-24 2020-12-24 Outpatient [facility] [id number] 012 [place] 00:00:00 00:00:00 610 Method i 2020-11-28 2020-11-28 [facility] 1.2.462.057 [id number] Univers 10:50:00 23:59:00 Encounter Sandrine Diamond 350.1.13.10 itjo-ann [place] [address] [facility] [phone] [address] 2020-11-28 2020-11-28 Outpatient R LÁZARO [facility] [id number] Univers 00:00:00 00:00:00 [facility]-10-21 2020-10-21 Outpatient R UNKNOWN, [facility] [id number] Univers 09:15:00 09:15:00 ATTENDING cherie [facility] 2020-10-21 2020-10-21 Licsw Ofelia, Millicent Lab Main [facility] 1.2.8 40.114 [id number] Univers 08:53:13 09:08:13 Visit Unknown, Desiree Diamond 350.1.13.1 0 cherie [place] 4.2.7.2.686 [facility] [id number] Oh [address] 2020-10-21 2020-10-21 Orders Doctor WEEKS 1.2.840.114 [id number] Univers 00:00:00 00:00:00 Only Unassigned, BERNA 350.1.13.10 ity of [facility] 4.2.7.2.686 [place] [id number] [place] [address] Branch Results Test Description Test Time Test Comments Results Result Comments Source CBC WITH DIFF 2021-10-08 16:30:41 Test Item Value Reference Range Interpretation Comme nts WBC (test code = 6690-2) See_Comment LL [A utomated message] The system which ge nerated this result transmit joseph reference range: 4.20 - 1 0.70 10*3/?L. The reference r costa was not used to interpr et this result as normal/abnor mal. RBC (test code = 789-8) See_Comment L [Au tomated message] The system which ge nerated this result transmit joseph reference range: 4.26 - 5 .52 10*6/?L. The reference r costa was not used to interpr et this result as normal/abnor mal. HGB (test code = 718-7) 8.4 g/dL 12.2-16.4 L HCT (test code = 4544-3) 26.6 % 38.4-49.3 L MCV (test code = 787-2) 92.7 fL 81.7-95.6 MCH (test code = 785-6) 29.3 pg 26.1-32.7 MCHC (test code = 786-4) 31.6 g/dL 31.2-35.0 RDW-SD (test code = 26192-1) 71.0 fL 38.5-51.6 H RDW-CV (test code = 788-0) 21.2 % 12.1-15.4 H PLT (test code = 777-3) See_Comment L [Au tomated message] The system which ge nerated this result transmit joseph reference range: 150 - 32 8 10*3/?L. The reference range was not used to interpret th is result as normal/abnormal . MPV (test code = 45513-3) 9.0 fL 9.8-13.0 L NRBC/100 WBC (test code = See_Comment [ Automated message] The 2300229770) system which ge nerated this result transmit joseph reference range: 0.0 - 10 .0 /100 WBCs. The reference r costa was not used to interpr et this result as normal/abnor mal. NRBC x10^3 (test code = <0.01 See_Comment [Au tomated message] The 7726855821) system which ge nerated this result transmit joseph reference range: 10*3/?L. The reference range was not u sed to interpret this result as normal/abnormal . GRAN MAT (NEUT) % (test code 55.3 % = 770-8) IMM GRAN % (test code = 0.00 % 6975262010) LYMPH % (test code = 736-9) 17.1 % MONO % (test code = 5905-5) 27.1 % EOS % (test code = 713-8) 0.5 % BASO % (test code = 706-2) 0.0 % GRAN MAT x10^3(ANC) (test 1.10 10*3/uL 1.99-6.95 L code = 2202106138) IMM GRAN x10^3 (test code = <0.03 0.00-0.06 7190733112) LYMPH x10^3 (test code = 0.34 10*3/uL 1.09-3.23 L 731-0) MONO x10^3 (test code = 0.54 10*3/uL 0.36-1.02 742-7) EOS x10^3 (test code = <0.03 0.06-0.53 L 711-2) BASO x10^3 (test code = <0.03 0.01-0.09 704-7) Lab Interpretation (test Abnormal code = 12814-5) [facility] ([id number])2021-10-08 16:25:27 Test Item Value Reference Range Interpretation Comments NA (test code = 143 mmol/L 135-145 4461899118) K (test code = 3.3 mmol/L 3.5-5.0 L 1005471483) CL (test code = 110 mmol/L 98-108 H 1378883256) CO2 TOTAL (test code = 26 mmol/L 23-31 8371144681) AGAP (test code = 2-16 5907877445) BUN (test code = 10 mg/dL 7-23 4508232367) GLUCOSE (test code = 111 mg/dL 70-110 H 5485002799) CREATININE (test code = 0.86 mg/dL 0.60-1.25 0232383103) TOTAL BILI (test code = 0.6 mg/dL 0.1-1.5 6227874478) CALCIUM (test code = 9.2 mg/dL 8.6-10.6 2868013951) T PROTEIN (test code = 7.6 g/dL 6.3-8.2 1489039013) ALBUMIN (test code = 3.6 g/dL 3.5-5.0 0373000922) ALK PHOS (test code = 98 U/L 34-122 5628656367) ALTv (test code = 15 U/L 5-50 2-6) AST(SGOT) (test code = 36 U/L 13-40 6405934153) eGFR (test code = mL/min/1.73m2 3450684633) ZOË (test code = ZOË) Association of Glomerular Filtration Rate (GFR) and Staging of Kidney Disease* + --+ --+ ------+| GFR (mL/min/1.73 m2) ?| With Kidney Damage ?| ?Without Kidney Damage+ --------+ --------+ +| ?>90 ?| ?Stage one ?| ? Normal ?+ ---+ ---+ -------+| ?60-89 ?| ?Stage two ?| ? Decreased GFR ? + --+ --+ ------+| ?30-59 ?| ?Stage three ?| ? Stage three ? + --+ --+ ------+| ?15-29 ?| ?Stage four ? | ? Stage four ?+ ---+ ---+ -------+| ?<15 (or dialysis) ? ?| ?Stage five ? | ? Stage five ?+ ---+ ---+ -------+ *Each stage assumes the associated GFR level has been in effect for at least three months. ?Stages 1 to 5, with or without kidney disease, indicate chronic kidney disease. Notes: Determination of stages one and two (with eGFR >59mL/min/1.73 m2) requires estimation of kidney damage for at least three months as defined by structural or functional abnormalities of the kidney, manifested by either:Pathological abnormalities or Markers of kidney damage (including abnormalities in the composition of the blood or urine or abnormalities in imaging tests). Lab Interpretation Abnormal (test code = 25260-1) [facility] 16:24:51 Test Item Value Reference Range Interpretation Comments LIPASE (test code = 3595052770) 53 U/L 0-220 Lab Interpretation (test code = Normal 50234-5) [facility] [id number] 20:45:09 Test Item Value Reference Range Interpretation Comments WBC (test code = See_Comment L [Automated 6690-2) message] The sy stem which generated this result transmitted reference range : 4.20 - 10.70 10*3/?L. The reference range was not used to interpret this result as normal/abnormal . RBC (test code = See_Comment L [Automated 789-8) message] The sy stem which generated this result transmitted reference range : 4.26 - 5.52 10*6/?L. The reference range was not used to interpret this result as normal/abnormal . HGB (test code = 9.4 g/dL 12.2-16.4 L 718-7) HCT (test code = 30.4 % 38.4-49.3 L 4544-3) MCV (test code = 91.8 fL 81.7-95.6 787-2) MCH (test code = 28.4 pg 26.1-32.7 785-6) MCHC (test code = 30.9 g/dL 31.2-35.0 L 786-4) RDW-SD (test code = 63.5 fL 38.5-51.6 H 67588-9) RDW-CV (test code = 19.6 % 12.1-15.4 H 788-0) PLT (test code = See_Comment L [Automated 777-3) message] The sy stem which generated this result transmitted reference range : 150 - 328 10*3/ ?L. The reference r costa was not used to interpret this result as normal/abnormal . MPV (test code = 10.3 fL 9.8-13.0 13141-6) IPF % (test code = 2.0 % 1.2-10.7 Platelet count 4884038950) measured by fluorescence method. NRBC/100 WBC (test See_Comment [Automat ed code = 8198409864) message] The system which generated this result transmitted reference range : 0.0 - 10.0 /100 WBCs. The refer ence range was not u sed to interpret th is result as normal/abnormal . NRBC x10^3 (test code <0.01 See_Comment [Auto mated = 8321731711) message] The s ystem which generated this result transmitted reference range : 10*3/?L. The reference range was not used to interpret this result as normal/abnormal . GRAN MAT (NEUT) % 33.0 % (test code = 770-8) IMM GRAN % (test code 0.40 % = 4697758359) LYMPH % (test code = 36.4 % 736-9) MONO % (test code = 29.8 % 5905-5) EOS % (test code = 0.0 % 713-8) BASO % (test code = 0.4 % 706-2) GRAN MAT x10^3(ANC) 0.74 10*3/uL 1.99-6.95 L (test code = 6937679440) IMM GRAN x10^3 (test <0.03 0.00-0.06 code = 4787216486) LYMPH x10^3 (test code 0.82 10*3/uL 1.09-3.23 L = 731-0) MONO x10^3 (test code 0.67 10*3/uL 0.36-1.02 = 742-7) EOS x10^3 (test code = <0.03 0.06-0.53 L 711-2) BASO x10^3 (test code <0.03 0.01-0.09 = 704-7) ELLIPTO/OVAL (test 2+ See_Comment A [Automat ed code = 92195-6) message] The system which generated this result transmitted reference range : (none). The reference range was not used to interpret this result as normal/abnormal . PLT ESTIMATE (test Decreased Normal A code = 9317-9) Lab Interpretation Abnormal (test code = 34120-1) [facility] [id number] 20:30:22 Test Item Value Reference Interpretation Comments Range TROPONIN I (test 0.010 ng/mL See_Comment [Automated code = 8942128800) message] The system which generated this result transmitted reference range : <=0.034. The reference range was not used to interpret this result as normal/abnormal . ZOË (test code = Reference (Normal) ZOË) Range (defined by the 99th percentile reference limit): <= 0.034 ng/mL Note: Cardiac troponin begins to rise 3-4 hours after the onset of ischemia. Repeat in 4-6 hours if the sample was drawn within 3-4 hours of the onset of the symptom and found normal. Diagnosis of myocardial injury is made with acute changes in cTn concentrations with at least one serial sample above the 99th percentile upper reference limit (URL), taken together with the patient's clinical presentation. Biotin has been reported to cause a negative bias, interpret results relative to patient's use of biotin. Lab Interpretation Normal (test code = 53992-5) [facility] 20:19:38 Test Item Value Reference Range Interpretation Comments MAGNESIUM (test code = 2516913237) 1.6 mg/dL 1.7-2.4 L Lab Interpretation (test code = Abnormal 84352-4) [facility] ([id number])2021-09-20 20:19:18 Test Item Value Reference Range Interpretation Comments NA (test code = 140 mmol/L 135-145 7687267840) K (test code = 4.4 mmol/L 3.5-5.0 5408543812) CL (test code = 108 mmol/L 98-108 6748575554) CO2 TOTAL (test code = 28 mmol/L 23-31 7914672859) AGAP (test code = 2-16 6785233979) BUN (test code = 16 mg/dL 7-23 4861654712) GLUCOSE (test code = 96 mg/dL 70-110 8984361220) CREATININE (test code = 0.76 mg/dL 0.60-1.25 6946802651) TOTAL BILI (test code = 0.5 mg/dL 0.1-1.8 3769173213) CALCIUM (test code = 10.0 mg/dL 8.6-10.6 8022483305) T PROTEIN (test code = 9.0 g/dL 6.3-8.2 H 1933839806) ALBUMIN (test code = 4.3 g/dL 3.5-5.0 0401920701) ALK PHOS (test code = 107 U/L 34-122 7201419185) ALTv (test code = 16 U/L 5-50 1742-6) AST(SGOT) (test code = 24 U/L 13-40 5339368540) eGFR (test code = mL/min/1.73m2 2976513381) ZOË (test code = ZOË) Association of Glomerular Filtration Rate (GFR) and Staging of Kidney Disease* + --+ --+ ------+| GFR (mL/min/1.73 m2) ?| With Kidney Damage ?| ?Without Kidney Damage+ --------+ --------+ +| ?>90 ?| ?Stage one ?| ? Normal ?+ ---+ ---+ -------+| ?60-89 ?| ?Stage two ?| ? Decreased GFR ? + --+ --+ ------+| ?30-59 ?| ?Stage three ?| ? Stage three ? + --+ --+ ------+| ?15-29 ?| ?Stage four ? | ? Stage four ?+ ---+ ---+ -------+| ?<15 (or dialysis) ? ?| ?Stage five ? | ? Stage five ?+ ---+ ---+ -------+ *Each stage assumes the associated GFR level has been in effect for at least three months. ?Stages 1 to 5, with or without kidney disease, indicate chronic kidney disease. Notes: Determination of stages one and two (with eGFR >59mL/min/1.73 m2) requires estimation of kidney damage for at least three months as defined by structural or functional abnormalities of the kidney, manifested by either:Pathological abnormalities or Markers of kidney damage (including abnormalities in the composition of the blood or urine or abnormalities in imaging tests). Lab Interpretation Abnormal (test code = 06874-1) [facility] [id number] 20:57:32 Test Item Value Reference Interpretation Comments Range TROPONIN I (test 0.011 ng/mL See_Comment [Automated code = 9581161381) message] The system which generated this result transmitted reference range : <=0.034. The reference range was not used to interpret this result as normal/abnormal . ZOË (test code = Reference (Normal) ZOË) Range (defined by the 99th percentile reference limit): <= 0.034 ng/mL Note: Cardiac troponin begins to rise 3-4 hours after the onset of ischemia. Repeat in 4-6 hours if the sample was drawn within 3-4 hours of the onset of the symptom and found normal. Diagnosis of myocardial injury is made with acute changes in cTn concentrations with at least one serial sample above the 99th percentile upper reference limit (URL), taken together with the patient's clinical presentation. Biotin has been reported to cause a negative bias, interpret results relative to patient's use of biotin. Lab Interpretation Normal (test code = 61267-8) [facility]. METABOLIC PANEL (10173)2021-08-06 20:46:53 Test Item Value Reference Range Interpretation Comments NA (test code = 135 mmol/L 135-145 3249556299) K (test code = 3.5 mmol/L 3.5-5.0 3316441548) CL (test code = 103 mmol/L 98-108 6430365621) CO2 TOTAL (test code = 25 mmol/L 23-31 0871905551) AGAP (test code = 2-16 9549972845) BUN (test code = 13 mg/dL 7-23 2092807833) GLUCOSE (test code = 117 mg/dL 70-110 H 2432814710) CREATININE (test code = 0.89 mg/dL 0.60-1.25 8068989875) TOTAL BILI (test code = 0.4 mg/dL 0.1-1.2 1540061298) CALCIUM (test code = 9.5 mg/dL 8.6-10.6 8567374510) T PROTEIN (test code = 8.4 g/dL 6.3-8.2 H 6723118029) ALBUMIN (test code = 3.8 g/dL 3.5-5.0 1570948389) ALK PHOS (test code = 128 U/L 34-122 H 4017589938) ALTv (test code = 17 U/L 5-50 1742-6) AST(SGOT) (test code = 21 U/L 13-40 1792457720) eGFR (test code = mL/min/1.73m2 1961961995) ZOË (test code = ZOË) Association of Glomerular Filtration Rate (GFR) and Staging of Kidney Disease* + --+ --+ ------+| GFR (mL/min/1.73 m2) ?| With Kidney Damage ?| ?Without Kidney Damage+ --------+ --------+ +| ?>90 ?| ?Stage one ?| ? Normal ?+ ---+ ---+ -------+| ?60-89 ?| ?Stage two ?| ? Decreased GFR ? + --+ --+ ------+| ?30-59 ?| ?Stage three ?| ? Stage three ? + --+ --+ ------+| ?15-29 ?| ?Stage four ? | ? Stage four ?+ ---+ ---+ -------+| ?<15 (or dialysis) ? ?| ?Stage five ? | ? Stage five ?+ ---+ ---+ -------+ *Each stage assumes the associated GFR level has been in effect for at least three months. ?Stages 1 to 5, with or without kidney disease, indicate chronic kidney disease. Notes: Determination of stages one and two (with eGFR >59mL/min/1.73 m2) requires estimation of kidney damage for at least three months as defined by structural or functional abnormalities of the kidney, manifested by either:Pathological abnormalities or Markers of kidney damage (including abnormalities in the composition of the blood or urine or abnormalities in imaging tests). Lab Interpretation Abnormal (test code = 81639-6) [facility] [place] [id number] 20:10:47 Test Item Value Reference Interpretation Comments Range TROPONIN I (test 0.011 ng/mL See_Comment [Automated code = 3812712952) message] The system which generated this result transmitted reference range : <=0.034. The reference range was not used to interpret this result as normal/abnormal . ZOË (test code = Reference (Normal) ZOË) Range (defined by the 99th percentile reference limit): <= 0.034 ng/mL Note: Cardiac troponin begins to rise 3-4 hours after the onset of ischemia. Repeat in 4-6 hours if the sample was drawn within 3-4 hours of the onset of the symptom and found normal. Diagnosis of myocardial injury is made with acute changes in cTn concentrations with at least one serial sample above the 99th percentile upper reference limit (URL), taken together with the patient's clinical presentation. Biotin has been reported to cause a negative bias, interpret results relative to patient's use of biotin. Lab Interpretation Normal (test code = 87861-3) [facility] Horm[facility] (TSH)2021-08-05 17:22:42 Test Item Value Reference Range Interpretation Comments TSH (test code = See_Comment [Automated message] 8713122505) The system Sarbari generated this result transmitted ref erence range: 0.45 - 4 .70 mIU/L. The refe rence range was not u sed to interpret this result as normal/abnor mal. Lab Interpretation (test Normal code = 45809-8) [facility] Hem[facility] (A1C)2021-08-05 16:47:01 Test Item Value Reference Range Interpretation Comments HGB A1C (test code = 6.4 % 4.0-5.7 H 4548-4) ZOË (test code = ZOË) Reference RangesNormal: <5.7%Prediabetes: 5.7 - 6.4%Diabetes: > 6.5% Lab Interpretation (test Abnormal code = 55101-8) [facility] (Total Cholesterol, Triglycerides, HDL)2021-08-05 16:46:16 Test Item Value Reference Range Interpretation Comments CHOL (test code = 156 mg/dL 120-200 4401789699) HDL (test code = 51 mg/dL >40 7852170408) HDLC RATIO (test code = See_Comment [Au tomated message] 4561718939) The system Sarbari generated this result transmit joseph reference range : <=5.0. The refe rence range was not u sed to interpret th is result as normal/abnormal . TRIG (test code = 84 mg/dL 30-170 2086982013) LDL CHOL (test code = 88 mg/dL See_Comment [Auto mated message] 12754-8) The system Sarbari generated this result transmit joseph reference range : <=160. The refe rence range was not u sed to interpret th is result as normal/abnormal . VLDL (test code = 17 mg/dL 5-60 7954860356) Lab Interpretation (test Normal code = 85854-1) [facility] WITH [id number] 12:37:41 Test Item Value Reference Range Interpretation Comments WBC (test code = See_Comment LL [Automated 6690-2) message] The sy stem which generated this result transmitted reference range : 4.20 - 10.70 10*3/?L. The reference range was not used to interpret this result as normal/abnormal . RBC (test code = See_Comment L [Automated 789-8) message] The sy stem which generated this result transmitted reference range : 4.26 - 5.52 10*6/?L. The reference range was not used to interpret this result as normal/abnormal . HGB (test code = 10.3 g/dL 12.2-16.4 L 718-7) HCT (test code = 31.5 % 38.4-49.3 L 4544-3) MCV (test code = 86.1 fL 81.7-95.6 787-2) MCH (test code = 28.1 pg 26.1-32.7 785-6) MCHC (test code = 32.7 g/dL 31.2-35.0 786-4) RDW-SD (test code = 44.4 fL 38.5-51.6 64077-5) RDW-CV (test code = 14.6 % 12.1-15.4 788-0) PLT (test code = See_Comment L [Automated 777-3) message] The sy stem which generated this result transmitted reference range : 150 - 328 10*3/ ?L. The reference r costa was not used to interpret this result as normal/abnormal . MPV (test code = 9.1 fL 9.8-13.0 L 97503-6) IPF % (test code = 1.3 % 1.2-10.7 Platelet count 4013757465) measured by fluorescence method. NRBC/100 WBC (test See_Comment [Automat ed code = 9130162710) message] The system which generated this result transmitted reference range : 0.0 - 10.0 /100 WBCs. The refer ence range was not u sed to interpret th is result as normal/abnormal . NRBC x10^3 (test code <0.01 See_Comment [Auto mated = 3144310105) message] The s [employer] which generated this result transmitted reference range : 10*3/?L. The reference range was not used to interpret this result as normal/abnormal . GRAN MAT (NEUT) % 20.9 % (test code = 770-8) IMM GRAN % (test code 0.80 % = 9860397148) LYMPH % (test code = 45.0 % 736-9) MONO % (test code = 32.5 % 5905-5) EOS % (test code = 0.8 % 713-8) BASO % (test code = 0.0 % 706-2) GRAN MAT x10^3(ANC) 0.25 10*3/uL 1.99-6.95 L (test code = 3622305023) IMM GRAN x10^3 (test <0.03 0.00-0.06 code = 7648915989) LYMPH x10^3 (test code 0.54 10*3/uL 1.09-3.23 L = 731-0) MONO x10^3 (test code 0.39 10*3/uL 0.36-1.02 = 742-7) EOS x10^3 (test code = <0.03 0.06-0.53 L 711-2) BASO x10^3 (test code <0.03 0.01-0.09 = 704-7) REACT LYMPHS (test Rare code = 8345926098) Lab Interpretation Abnormal (test code = 06454-9) [id number] 12:04:45 Test Item Value Reference Interpretation Comments Range TROPONIN I (test 0.034 ng/mL See_Comment [Automated code = 7154955180) message] The system which generated this result transmitted reference range : <=0.034. The reference range was not used to interpret this result as normal/abnormal . ZOË (test code = Reference (Normal) ZOË) Range (defined by the 99th percentile reference limit): <= 0.034 ng/mL Note: Cardiac troponin begins to rise 3-4 hours after the onset of ischemia. Repeat in 4-6 hours if the sample was drawn within 3-4 hours of the onset of the symptom and found normal. Diagnosis of myocardial injury is made with acute changes in cTn concentrations with at least one serial sample above the 99th percentile upper reference limit (URL), taken together with the patient's clinical presentation. Biotin has been reported to cause a negative bias, interpret results relative to patient's use of biotin. Lab Interpretation Normal (test code = 10938-2) [facility] [id number] 12:01:43 Test Item Value Reference Range Interpretation Comments NT-proBNP (test code 64 pg/mL See_Comment [Autom ated = 8994301768) message] The system which generated this result transmitted reference range : <=450. The reference range was not used to interpret this result as normal/abnormal . ZOË (test code = ZOË) Biotin has been reported to cause a negative bias, interpret results relative to patient's use of biotin. Lab Interpretation Normal (test code = 55286-3) [facility]OL[facility] ([id number])2021-08-05 11:52:39 Test Item Value Reference Range Interpretation Comments NA (test code = 136 mmol/L 135-145 6672602104) K (test code = 3.8 mmol/L 3.5-5.0 6134128253) CL (test code = 104 mmol/L 98-108 7357948412) CO2 TOTAL (test code = 28 mmol/L 23-31 1437117788) AGAP (test code = 2-16 1957617984) BUN (test code = 10 mg/dL 7-23 1152081896) GLUCOSE (test code = 111 mg/dL 70-110 H 8455252039) CREATININE (test code = 0.73 mg/dL 0.60-1.25 0263756943) TOTAL BILI (test code = 0.5 mg/dL 0.1-1.7 2214640996) CALCIUM (test code = 8.9 mg/dL 8.6-10.6 6098120238) T PROTEIN (test code = 7.8 g/dL 6.3-8.2 6400039250) ALBUMIN (test code = 3.4 g/dL 3.5-5.0 L 2440082535) ALK PHOS (test code = 119 U/L 34-122 4032503298) ALTv (test code = 16 U/L 5-50 1742-6) AST(SGOT) (test code = 21 U/L 13-40 8657825798) eGFR (test code = mL/min/1.73m2 7753521158) ZOË (test code = ZOË) Association of Glomerular Filtration Rate (GFR) and Staging of Kidney Disease* + --+ --+ ------+| GFR (mL/min/1.73 m2) ?| With Kidney Damage ?| ?Without Kidney Damage+ --------+ --------+ +| ?>90 ?| ?Stage one ?| ? Normal ?+ ---+ ---+ -------+| ?60-89 ?| ?Stage two ?| ? Decreased GFR ? + --+ --+ ------+| ?30-59 ?| ?Stage three ?| ? Stage three ? + --+ --+ ------+| ?15-29 ?| ?Stage four ? | ? Stage four ?+ ---+ ---+ -------+| ?<15 (or dialysis) ? ?| ?Stage five ? | ? Stage five ?+ ---+ ---+ -------+ *Each stage assumes the associated GFR level has been in effect for at least three months. ?Stages 1 to 5, with or without kidney disease, indicate chronic kidney disease. Notes: Determination of stages one and two (with eGFR >59mL/min/1.73 m2) requires estimation of kidney damage for at least three months as defined by structural or functional abnormalities of the kidney, manifested by either:Pathological abnormalities or Markers of kidney damage (including abnormalities in the composition of the blood or urine or abnormalities in imaging tests). Lab Interpretation Abnormal (test code = 67955-7) [facility] Test Item Value Reference Range Interpretation Comments LIPASE (test code = 8468195548) 42 U/L 0-220 Lab Interpretation (test code = Normal 05552-0) [facility] [id number] 11:51:04 Test Item Value Reference Range Interpretation Comments APTT Patient (test See_Comment [Automat ed code = 3173-2) message] The system which generated this result transmitted reference range : 23 - 38 Seconds . The reference range was not used to interpr et this result as normal/abnormal . ZOË (test code = ZOË) The [facility] patient population mean normal value for aPTT is 30 seconds. Lab Interpretation Normal (test code = 13449-3) [facility] / [id number] 11:49:03 Test Item Value Reference Range Interpretation Comments PROTIME PATIENT (test See_Comment [Auto mated message] code = 5964-2) The system wh ich generated this result transmitted ref erence range: 12.0 - 1 4.7 Seconds. The re ference range was not u sed to interpret this result as normal/abnor mal. INR (test code = 6301-6) Nor mal INR <1.1; Warfarin Therap eutic range 2.0 to 3. 0 or 2.5 to 3.5, dep ending upon the indica tions. Lab Interpretation (test Normal code = 26773-3) [facility] [id number] 19:12:08 Test Item Value Reference Range Interpretation Comments WBC (test code = See_Comment LL [Automated 6690-2) message] The sy stem which generated this result transmitted reference range : 4.20 - 10.70 10*3/?L. The reference range was not used to interpret this result as normal/abnormal . RBC (test code = See_Comment L [Automated 789-8) message] The sy stem which generated this result transmitted reference range : 4.26 - 5.52 10*6/?L. The reference range was not used to interpret this result as normal/abnormal . HGB (test code = 10.0 g/dL 12.2-16.4 L 718-7) HCT (test code = 30.5 % 38.4-49.3 L 4544-3) MCV (test code = 84.7 fL 81.7-95.6 787-2) MCH (test code = 27.8 pg 26.1-32.7 785-6) MCHC (test code = 32.8 g/dL 31.2-35.0 786-4) RDW-SD (test code = 45.7 fL 38.5-51.6 82699-5) RDW-CV (test code = 15.1 % 12.1-15.4 788-0) PLT (test code = See_Comment L [Automated 777-3) message] The sy stem which generated this result transmitted reference range : 150 - 328 10*3/ ?L. The reference r costa was not used to interpret this result as normal/abnormal . MPV (test code = 8.8 fL 9.8-13.0 L 19070-6) NRBC/100 WBC (test See_Comment [Automat ed code = 4221898279) message] The system which generated this result transmitted reference range : 0.0 - 10.0 /100 WBCs. The refer ence range was not u sed to interpret th is result as normal/abnormal . NRBC x10^3 (test code <0.01 See_Comment [Auto mated = 4670333687) message] The s ystem which generated this result transmitted reference range : 10*3/?L. The reference range was not used to interpret this result as normal/abnormal . SEG % (test code = 54 % 33-76 63724-9) BAND % (test code = 1 % 0-1 90657-1) LYMPH % (test code = 35 % 14-54 32477-9) ATYP LYMPH % (test 5 % See_Comment H [Automat ed code = 5563917381) message] The system which generated this result transmitted reference range : <=0. The refere nce range was not u sed to interpret th is result as normal/abnormal . MONO % (test code = 5 % 0-4 H 46926-3) ANC (test code = 0.71 10*3/uL 1.99-6.95 L 753-4) ELLIPTO/OVAL (test 2+ See_Comment A [Automat ed code = 09138-1) message] The system which generated this result transmitted reference range : (none). The reference range was not used to interpret this result as normal/abnormal . Lab Interpretation Abnormal (test code = 04108-2) [facility] [id number] 18:33:21 Test Item Value Reference Interpretation Comments Range TROPONIN I (test 0.014 ng/mL See_Comment [Automated code = 2277115318) message] The system which generated this result transmitted reference range : <=0.034. The reference range was not used to interpret this result as normal/abnormal . ZOË (test code = Reference (Normal) ZOË) Range (defined by the 99th percentile reference limit): <= 0.034 ng/mL Note: Cardiac troponin begins to rise 3-4 hours after the onset of ischemia. Repeat in 4-6 hours if the sample was drawn within 3-4 hours of the onset of the symptom and found normal. Diagnosis of myocardial injury is made with acute changes in cTn concentrations with at least one serial sample above the 99th percentile upper reference limit (URL), taken together with the patient's clinical presentation. Biotin has been reported to cause a negative bias, interpret results relative to patient's use of biotin. Lab Interpretation Normal (test code = 58260-2) [facility]. METABOLIC PANEL (19332)2021-07-31 18:21:39 Test Item Value Reference Range Interpretation Comments NA (test code = 135 mmol/L 135-145 8378625929) K (test code = 3.7 mmol/L 3.5-5.0 9128249402) CL (test code = 104 mmol/L 98-108 7194724882) CO2 TOTAL (test code = 29 mmol/L 23-31 0420088276) AGAP (test code = 2-16 5539998167) BUN (test code = 15 mg/dL 7-23 9284322496) GLUCOSE (test code = 103 mg/dL 70-110 7375818019) CREATININE (test code = 0.69 mg/dL 0.60-1.25 5854385468) TOTAL BILI (test code = 0.7 mg/dL 0.1-1.0 1670391510) CALCIUM (test code = 9.0 mg/dL 8.6-10.6 9276583839) T PROTEIN (test code = 7.3 g/dL 6.3-8.2 2406050548) ALBUMIN (test code = 3.3 g/dL 3.5-5.0 L 9797090450) ALK PHOS (test code = 103 U/L 34-122 4942553541) ALTv (test code = 17 U/L 5-50 1742-6) AST(SGOT) (test code = 22 U/L 13-40 7361781182) eGFR (test code = mL/min/1.73m2 7940411710) ZOË (test code = ZOË) Association of Glomerular Filtration Rate (GFR) and Staging of Kidney Disease* + --+ --+ ------+| GFR (mL/min/1.73 m2) ?| With Kidney Damage ?| ?Without Kidney Damage+ --------+ --------+ +| ?>90 ?| ?Stage one ?| ? Normal ?+ ---+ ---+ -------+| ?60-89 ?| ?Stage two ?| ? Decreased GFR ? + --+ --+ ------+| ?30-59 ?| ?Stage three ?| ? Stage three ? + --+ --+ ------+| ?15-29 ?| ?Stage four ? | ? Stage four ?+ ---+ ---+ -------+| ?<15 (or dialysis) ? ?| ?Stage five ? | ? Stage five ?+ ---+ ---+ -------+ *Each stage assumes the associated GFR level has been in effect for at least three months. ?Stages 1 to 5, with or without kidney disease, indicate chronic kidney disease. Notes: Determination of stages one and two (with eGFR >59mL/min/1.73 m2) requires estimation of kidney damage for at least three months as defined by structural or functional abnormalities of the kidney, manifested by either:Pathological abnormalities or Markers of kidney damage (including abnormalities in the composition of the blood or urine or abnormalities in imaging tests). Lab Interpretation Abnormal (test code = 90354-1) [facility] 18:21[facility]39 Test Item Value Reference Range Interpretation Comments LIPASE (test code = 4131504338) 53 U/L 0-220 Lab Interpretation (test code = Normal 22412-7) [facility] RNA [Presence] in Respiratory specimen by KENDRA with probe [id number] 17:25:13 Test Item Value Reference Range Interpretation Comments SARS-CoV-2 (COVID-19) RNA Not detected Not-Detected [Presence] in Respiratory specimen by KENDRA with probe detection (test code = 86858-9) Whether patient is employed in a healthcare setting (test code = 14537-1) Whether the patient has symptoms related to condition of interest (test code = 40307-5) Patient was hospitalized because of this condition (test code = 26041-1) Whether the patient was admitted to intensive care unit (ICU) for condition of interest (test code = 08222-7) Whether patient resides in a congregate care setting (test code = 98892-7) [facility] Test Item Value Reference Range Interpretation Comments FOLATE SER (test code = 5.0 ng/mL 3.0-20.0 Biot in has been 3336427033) reported to cau se a positive bias, interpret resul ts relative to patient's use o f biotin. Lab Interpretation (test Normal code = 02835-7) [facility] WITH [id number] 14:07:55 Test Item Value Reference Range Interpretation Comments WBC (test code = See_Comment L [Automated 1190-2) message] The sy stem which generated this result transmitted reference range : 4.20 - 10.70 10*3/?L. The reference range was not used to interpret this result as normal/abnormal . RBC (test code = See_Comment L [Automated 789-8) message] The sy stem which generated this result transmitted reference range : 4.26 - 5.52 10*6/?L. The reference range was not used to interpret this result as normal/abnormal . HGB (test code = 11.7 g/dL 12.2-16.4 L 718-7) HCT (test code = 37.1 % 38.4-49.3 L 4544-3) MCV (test code = 88.3 fL 81.7-95.6 787-2) MCH (test code = 27.9 pg 26.1-32.7 785-6) MCHC (test code = 31.5 g/dL 31.2-35.0 786-4) RDW-SD (test code = 52.4 fL 38.5-51.6 H 52624-6) RDW-CV (test code = 16.2 % 12.1-15.4 H 788-0) PLT (test code = See_Comment [Automated 777-3) message] The sy stem which generated this result transmitted reference range : 150 - 328 10*3/ ?L. The reference r costa was not used to interpret this result as normal/abnormal . MPV (test code = 9.0 fL 9.8-13.0 L 48584-3) NRBC/100 WBC (test See_Comment [Automat ed code = 2519450552) message] The system which generated this result transmitted reference range : 0.0 - 10.0 /100 WBCs. The refer ence range was not u sed to interpret th is result as normal/abnormal . NRBC x10^3 (test code <0.01 See_Comment [Auto mated = 8333830907) message] The s ystem which generated this result transmitted reference range : 10*3/?L. The reference range was not used to interpret this result as normal/abnormal . GRAN MAT (NEUT) % 34.1 % (test code = 770-8) IMM GRAN % (test code 0.00 % = 0620875809) LYMPH % (test code = 54.3 % 736-9) MONO % (test code = 11.0 % 5905-5) EOS % (test code = 0.3 % 713-8) BASO % (test code = 0.3 % 706-2) GRAN MAT x10^3(ANC) 1.12 10*3/uL 1.99-6.95 L (test code = 5291555022) IMM GRAN x10^3 (test <0.03 0.00-0.06 code = 7865665020) LYMPH x10^3 (test code 1.78 10*3/uL 1.09-3.23 = 731-0) MONO x10^3 (test code 0.36 10*3/uL 0.36-1.02 = 742-7) EOS x10^3 (test code = <0.03 0.06-0.53 L 711-2) BASO x10^3 (test code <0.03 0.01-0.09 = 704-7) REACT LYMPHS (test Rare code = 5495138402) Lab Interpretation Abnormal (test code = 24157-8) [facility] [id number] 14:06:34 Test Item Value Reference Range Interpretation Comments PSA (test code = 2.62 ng/mL See_Comment [Automated 3128237262) message] The system which generated this result transmitted reference range : <=4.00. The reference range was not used to interpret this result as normal/abnormal . ZOË (test code = ZOË) Biotin has been reported to cause a negative bias, interpret results relative to patient's use of biotin. Lab Interpretation Normal (test code = 49303-8) [facility]SED[facility] [id number] 13:55:57 Test Item Value Reference Range Interpretation Comments ESR (test code = See_Comment H [Automated message] 5145908756) The system Sarbari generated this result transmitted ref erence range: 0 - 10 m m/HR. The reference r costa was not used to interpret this result as normal/abnor mal. Lab Interpretation (test Abnormal code = 84587-3) [facility] 13:36:52 Test Item Value Reference Range Interpretation Comments MAGNESIUM (test code = 5905269584) 1.8 mg/dL 1.7-2.4 Lab Interpretation (test code = Normal 09684-0) [facility] METABOLIC PANEL (NA, K, CL, CO2, GLUCOSE, BUN, CREATININE, CA)2021-03-08 13:36:32 Test Item Value Reference Range Interpretation Comments NA (test code = 139 mmol/L 135-145 6507570458) K (test code = 4.0 mmol/L 3.5-5.0 3556976106) CL (test code = 107 mmol/L 98-108 0237702040) CO2 TOTAL (test code 25 mmol/L 23-31 = 1410817228) AGAP (test code = 2-16 2762241605) BUN (test code = 19 mg/dL 7-23 8403287127) GLUCOSE (test code = 101 mg/dL 70-110 6554280442) CREATININE (test code 0.83 mg/dL 0.60-1.25 = 4949323931) CALCIUM (test code = 9.7 mg/dL 8.6-10.6 7956865684) eGFR (test code = mL/min/1.73m2 0243117485) ZOË (test code = ZOË) Association of Glomerular Filtration Rate (GFR) and Staging of Kidney Disease* + + +- +| GFR (mL/min/1.73 m2) ?| With Kidney Damage ?| ?Without Kidney Damage+ ------+ ----+ ------+| ?>90 ?| ?Stage one ?| ? Normal ?+ -+ + -+| ?60-89 ?| ?Stage two ?| ? Decreased GFR ? + + +- +| ?30-59 ?| ?Stage three ?| ? Stage three ? + + +- +| ?15-29 ?| ?Stage four ? | ? Stage four ?+ -+ + -+| ?<15 (or dialysis) ? ?| ?Stage five ? | ? Stage five ?+ -+ + -+ *Each stage assumes the associated GFR level has been in effect for at least three months. ?Stages 1 to 5, with or without kidney disease, indicate chronic kidney disease. Notes: Determination of stages one and two (with eGFR >59mL/min/1.73 m2) requires estimation of kidney damage for at least three months as defined by structural or functional abnormalities of the kidney, manifested by either:Pathological abnormalities or Markers of kidney damage (including abnormalities in the composition of the blood or urine or abnormalities in imaging tests). [facility] [id number] 13:36:31 Test Item Value Reference Range Interpretation Comments URIC ACID (test code = 3596096919) 4.6 mg/dL 3.6-8.0 Lab Interpretation (test code = Normal 79326-8) [facility]HEPAT[facility] (43438[facility] (ALB,T.PRO,BILI T,BU/BC,ALT,AST,ALK PHOS)2021-03-08 13:36:31 Test Item Value Reference Range Interpretation Comments TOTAL BILI (test code = 8504175844) 0.6 mg/dL 0.1-1.1 BILI UNCON (test code = 8940246053) 0.4 mg/dL 0.1-1.1 BILI CONJ (test code = 5465747607) 0.0 mg/dL 0.0-0.3 T PROTEIN (test code = 6493073748) 8.1 g/dL 6.3-8.2 ALBUMIN (test code = 8696536181) 3.6 g/dL 3.5-5.0 ALK PHOS (test code = 5813441152) 100 U/L 34-122 ALTv (test code = 1742-6) 15 U/L 5-50 AST(SGOT) (test code = 8555819082) 21 U/L 13-40 Lab Interpretation (test code = Normal 18044-3) [facility]"
[2023-05-22] MEDS ORDERED: LORazepam 2 MG/ML VIAL ONE ×2 (06:20→06:33)
[2023-05-22] MEDS ORDERED: LEVETIRACETAM 500 MG/5 ML VIAL IV ONE (06:26)
[2023-05-22] MEDS ORDERED: NA CHLORIDE 0.9% 100 ML ONE ×2 (06:27→07:02)
[2023-05-22] MEDS ORDERED: FOSPHENYTOIN PE 500 MG/10 ML VIAL ONE (07:02)
[2023-05-22 07:06] LABS: Absolute Lymphocytes (CBC) 0.6 K/uL (0.7-4.9); Hematocrit 36.8 % (39.6-49.0); Lymphocytes % 12.6 % (15.3-44.8); MCV 91.5 fL (80-100); MPV 7.1 fL (7.6-11.3); Platelets 204 thou/uL (152-406); RBC Red Blood Cell Count 4.02 M/uL (4.33-5.43)
[2023-05-22] MEDS ORDERED: SUCCINYLCHOLINE 20 MG/ML (10 ML) IV ONE (07:07)
[2023-05-22] MEDS ORDERED: ETOMIDATE 20 MG/10 ML VIAL IV ONE (07:07)
[2023-05-22] MEDS ORDERED: propofoL 1,000 MG/100 ML VIAL IV ONE (07:14)
--- NOTE | 2023-05-22 07:19 | EDPHYS ---
Physician Documentation [facility] Name: James Calvo Age: 78 yrs Sex: Male : 1945 Arrival Date: 05/22/2023 Time: 06:09 Bed 4 Private MD: ED Physician Claudia Rg HPI: 05/22 06:24 This 78 yrs old Black Male presents to ER via Unassigned with complaints of seizure kdr like activity on right side. 06:24 EMS was called to the scene on the street where the police and encountered an kdr individual who was acting strangely. The patient appears to be having a seizure confined to the right side of his body but is still able to converse. Patient states that the seizure-like activity which involves both upper and lower extremity and his head began about 30 minutes prior to the encounter with the police. Patient states he has not had this before and he does not know what is causing it. He denies drug use or any other contributing factors including head trauma. In reviewing the patient's visit history there is no evidence of similar complaints in the past. Patient is otherwise nontoxic-appearing. Onset: The symptoms/episode began/occurred suddenly, just prior to arrival. Severity of symptoms: At their worst the symptoms were moderate severe incapacitating just prior to arrival, in the emergency department the symptoms have improved mildly. The patient has not experienced similar symptoms in the past. The patient has not recently seen a physician. Patient was given 2 mg of Ativan by EMS. They indicated this contributed to some moderate improvement of his symptoms prior to arrival in the ED. Historical: - Allergies: 06:27 No Known Allergies; jb4 - PMHx: 06:27 None; jb4 - PSHx: 06:27 None; jb4 ROS: 06:24 Constitutional: Negative for fever, chills, and weight loss, Eyes: Negative for injury, kdr pain, redness, and discharge, Neck: Negative for injury, pain, and swelling, Cardiovascular: Negative for chest pain, palpitations, and edema, Respiratory: Negative for shortness of breath, cough, wheezing, and pleuritic chest pain, Abdomen/GI: Negative for abdominal pain, nausea, vomiting, diarrhea, and constipation, Back: Negative for injury and pain, : Negative for injury, bleeding, discharge, and swelling, MS/Extremity: Negative for injury and deformity, Skin: Negative for injury, rash, and discoloration, Psych: Negative for depression, anxiety, suicide ideation, homicidal ideation, and hallucinations, Allergy/Immunology: Negative for hives, rash, and allergies, Endocrine: Negative for neck swelling, polydipsia, polyuria, polyphagia, and marked weight changes, Hematologic/Lymphatic: Negative for swollen nodes, abnormal bleeding, and unusual bruising, 06:24 Neuro: Positive for seizure activity, weakness, Seizure activity seems to be confined to the right side of his body. Patient may have decreased movement and sensation on the left but difficult to fully determine given the tremors on the right. The patient is able to move his extremities with apparently 4-5 or 5 strength on the left side. He also does not have decreased gross sensation on the left. Patient's head and eyes are deviated to the right., Exam: 06:24 Constitutional: This is a well developed, well nourished patient who is awake, alert, kdr and in moderate distress. Patient responds to questions appropriately he is moving all extremities with the right side evidencing tonic-clonic movement Head/Face: Normocephalic, atraumatic. Eyes: Pupils equal round and reactive to light, extra-ocular motions intact. Lids and lashes normal. Conjunctiva and sclera are non-icteric and not injected. Cornea within normal limits. Periorbital areas with no swelling, redness, or edema. Neck: Trachea midline, no thyromegaly or masses palpated, and no cervical lymphadenopathy. Supple, full range of motion without nuchal rigidity, or vertebral point tenderness. No Meningismus. Chest/axilla: Normal chest wall appearance and motion. Nontender with no deformity. No lesions are appreciated. Cardiovascular: Regular rate and rhythm with a normal S1 and S2. No gallops, murmurs, or rubs. Normal PMI, no JVD. No pulse deficits. Respiratory: Lungs have equal breath sounds bilaterally, clear to auscultation and percussion. No rales, rhonchi or wheezes noted. No increased work of breathing, no retractions or nasal flaring. Abdomen/GI: Soft, non-tender, with normal bowel sounds. No distension or tympany. No guarding or rebound. No evidence of tenderness throughout. Back: No spinal tenderness. No costovertebral tenderness. Full range of motion. Skin: Warm, dry with normal turgor. Normal color with no rashes, no lesions, and no evidence of cellulitis. MS/ Extremity: Pulses equal, no cyanosis. Neurovascular intact. Full, normal range of motion. Psych: Awake, alert, with orientation to person, place and time. Behavior, mood, and affect are within normal limits. 06:33 Neuro: Patient presents with right-sided tonic-clonic movements. Patient is able to kdr verbalize while evidencing this movement. Patient moves to the left side and has gross sensation on the left side. Patient's head exhibits tonic-clonic movements to the right, Vital Signs: 06:25 BP 145 / 83; Pulse 101; Resp 20; Temp 98(TE); Pulse Ox 96% on R/A; Height 6 ft. 1 in. ; jb4 Pain 0/10; 07:14 Weight 78 kg (M); jb4 07:16 BP 119 / 77; Pulse 72; Resp 16; Pulse Ox 98% on ETT vent; FiO2 100 %; jb4 07:44 BP 86 / 62; Pulse 62; Resp 18; Pulse Ox 100% on ETT vent; iw 07:47 BP 83 / 61; Pulse 61; Resp 17; Pulse Ox 100% on R/A; jb4 08:09 BP 134 / 70; Pulse 60; Resp 15; Pulse Ox 100% on ETT vent; FiO2 100 %; jb4 06:25 Pain Scale: Adult jb4 Procedures: 07:07 Intubation: Ventilated with 100% NRB prior to procedure. O2 saturation prior to kdr procedure was 97 %. Intubated orally using glidescope with 7.5 mm ETT. was successful on first attempt. Ventilated with Ambu bag. Tube secured with ETT pack Placement verified by CO2 detector with (+) color change, auscultating bilateral breath sounds, O2 saturation after procedure was 95 %. Visualized and double checked through cords. MDM: 07:09 Patient medically screened. sp3 07:15 Data reviewed: vital signs, nurses notes, radiologic studies. ED course: Patient taken sp3 over by me from night physician Dr. Gutierrez. Patient is a 78-year-old male now intubated with a left-sided parietal intraparenchymal bleed which is actively bleeding as demonstrated by air-fluid level. Laboratory values are all pending. Blood pressure is being maintained with propofol. Patient has Celebrex on Board. Vital Signs Are Otherwise within Normal Limits. We Will Initiate Transfer with Laboratory Values Pending to [facility] for Urgent Neurological Consultation and Potential Intervention. GCS Is Currently 3T.. 07:31 ED course: Patient's propofol reduced to 25 mcg. Versed drip hung and currently on hold sp3 after 2 mg bolus. Discussed case with Dr. Jack who is excepted without laboratory values being back due to urgency of bleed. We will follow-up on remaining outstanding items prior to transfer.. 05/22 06:15 Order name: Basic Metabolic Panel; Complete Time: 08:03 [facility] 05/22 06:15 Order name: CBC with Diff; Complete Time: 08:03 [facility] 05/22 06:15 Order name: LFT's; Complete Time: 08:03 kdr 05/22 06:15 Order name: Magnesium; Complete Time: 08:03 [facility] 05/22 06:15 Order name: NT PRO-BNP; Complete Time: 08:03 [facility] 05/22 06:15 Order name: Troponin HS; Complete Time: 08:03 kdr 05/22 06:32 Order name: UDS kdr 05/22 06:32 Order name: ETOH Level; Complete Time: 08:03 [facility] 05/22 06:15 Order name: XRAY Chest (1 view) kdr 05/22 06:15 Order name: CT Head Brain wo Cont kdr 05/22 06:15 Order name: EKG; Complete Time: 06:16 kdr 05/22 06:15 Order name: Cardiac monitoring; Complete Time: 06:50 [facility] 05/22 06:15 Order name: EKG - Nurse/Tech; Complete Time: 06:31 kdr 05/22 06:15 Order name: IV Saline Lock; Complete Time: 06:24 kdr 05/22 06:15 Order name: Labs collected and sent; Complete Time: 06:50 kdr 05/22 06:15 Order name: O2 Per Protocol; Complete Time: 06:24 kdr 05/22 06:15 Order name: O2 Sat Monitoring; Complete Time: 06:24 kdr Administered Medications: 08:08 Discontinued: propofol5 mcg/kg/min IV at calculated rate See Administration jb4 Instructions; Standard concentration 1000 mg / 100 mL; Recommended max rate 50 mcg/kg/min; Titrate 2 mcg/kg/min every 5 minutes to achieve goal (see titration policy); Goal parameter RASS score 0 to -2 06:08 Drug: Ativan IVP 2 mg IVP once Route: IVP; Site: left forearm; jb4 06:19 Drug: Keppra IV 1000 mg IV at calculated rate once Route: IV; Rate: calculated rate; jb4 Site: left forearm; 06:23 Drug: Ativan IVP 1 mg IVP once Route: IVP; Site: left forearm; jb4 06:34 Drug: Ativan IVP 1 mg IVP once Route: IVP; Site: left forearm; jb4 06:58 Drug: Fosphenytoin IVPB 1 grams IVPB once Route: IVPB; Site: left forearm; bp 06:58 Drug: Etomidate IVP 20 mg IVP once Route: IVP; Site: left forearm; jb4 06:58 Drug: Succinylcholine IVP 100 mg IVP once Route: IVP; Site: left forearm; jb4 07:06 Drug: Propofol IV 5 mcg/kg/min IV at calculated rate See Administration Instructions; iw Standard concentration 1000 mg / 100 mL; Recommended max rate 50 mcg/kg/min; Titrate 2 mcg/kg/min every 5 minutes to achieve goal (see titration policy); Goal parameter RASS score 0 to -2 Route: IV; Rate: calculated rate; Site: left forearm; 07:37 Follow up: IV Status: Order to discontinue infusion jb4 07:10 Drug: NS 0.9% IV 1000 ml IV at 1000 ml once Route: IV; Rate: 1000 ml; Site: left jb4 forearm; 07:35 Drug: Midazolam IVP or IV 2 mg IVP once Route: IVP; Site: left forearm; jb4 07:37 Drug: Midazolam IVP or IV 0.01 mg/kg/h IV at 4 mg/hr See Administration Instructions; jb4 (Standard concentration: 100 mg / 100 mL NS); Recommended max rate 0.1 mg/kg/hr; Titrate 0.01 mg/kg/hr as often as every 30 minutes to achieve goal (see titration policy); Goal parameter RASS 0 to -2 Route: IV; Rate: 4 mg/hr; Site: right forearm; 08:07 Drug: Midazolam IVP or IV 2 mg IVP once Route: IVP; Site: left forearm; jb4 Disposition Summary: 05/22/23 07:18 Transfer Ordered Notes: Transfer Location: [facility] sp3 Reason: Higher level of care sp3 Condition: Stable sp3 Problem: new sp3 Symptoms: have worsened sp3 Accepting Physician: 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 kdr 08:20 07:18 [facility] neurosurgical team sp3 jb4
--- NOTE | 2023-05-22 07:19 | ER ---
Nurse's Notes [facility] [place] [place] Name: James Calvo Age: 78 yrs Sex: Male : 1945 Arrival Date: 05/22/2023 Time: 06:09 Bed 4 Private MD: Diagnosis: Left parietal intraparenchymal bleed, seizure, hemorrhagic CVA, altered mental status Presentation: 05/22 06:25 Chief complaint: EMS states: Pt reports seizure like activity with tremors that started jb4 about an hour ago. Pt was given 2mg of ativan Initial b/p was 210/98. Denies pain, continues to have tremors. Coronavirus screen: At this time, the client does not indicate any symptoms associated with coronavirus-19. Ebola Screen: No symptoms or risks identified at this time. Initial Sepsis Screen: Does the patient meet any 2 criteria? HR > 90 bpm. Yes Does the patient have a suspected source of infection? No. Patient's initial sepsis screen is negative. Risk Assessment: Do you want to hurt yourself or someone else? Patient reports no desire to harm self or others. Onset of symptoms was May 22, 2023 at 05:00. Transition of care: patient was not received from another setting of care. 06:25 Method Of Arrival: EMS: [facility] jb4 06:25 Acuity: JAYA 2 jb4 Historical: - Allergies: 06:27 No Known Allergies; jb4 - PMHx: 06:27 None; jb4 - PSHx: 06:27 None; jb4 Screenin:19 [facility] ED Fall Risk Assessment (Adult) History of falling in the last 3 months, jb4 including since admission No falls in past 3 months (0 pts) Confusion or Disorientation No (0 pts) Score/Fall Risk Level 0 - 2 = Low Risk Oriented to surroundings, Maintained a safe environment. Abuse screen: Denies threats or abuse. Nutritional screening: No deficits noted. Tuberculosis screening: No symptoms or risk factors identified. Assessment: 06:25 General: Appears distressed, ill, Behavior is cooperative, anxious. Pain: Denies pain. jb4 Neuro: Pt noted to have tremors on the right, reports decreased sensation on the left, and gaze deviated to the right. Is able to turn his head to the left with difficulty, then returns to facing the right. Maintain ROM and strength on the left.. Cardiovascular: Skin is warm and diaphoretic, pt is tachycardic . Respiratory: Airway is patent Respiratory effort is even, unlabored, Respiratory pattern is regular, symmetrical. GI: No signs and/or symptoms were reported involving the gastrointestinal system. : No signs and/or symptoms were reported regarding the genitourinary system. EENT: No signs and/or symptoms were reported regarding the EENT system. Derm: Skin is intact, Skin is diaphoretic, Skin is normal, Skin temperature is warm. Musculoskeletal: Range of motion: intact in Left side. 06:45 Reassessment: Pt back to room from CT, no longer responding to verbal stimuli, jb4 difficult to arouse with painful stimuli. ER physician notified. Prepping for intubation. 07:27 Reassessment: Dr. Rg at bedside, pt on propofol 25 mcg/kg/min, NS bolus, verbal iw order for 2 mg versed IV push. 07:35 Reassessment: Pt noted to have $649 a black [employer] phone, and his wallet with cards. [facility] Personal belongings documented and witnessed by Janeen Palmer RN and Rosmery ED Director. Seal in security back. Security back ticket stapled to pt's chart. 08:08 Reassessment: Pt remains intubated. Fluids infusing without issue. Physician at the [facility] bedside. Received verbal order for another 2mg of Versed IVP. Given per physicians orders. See OCT. 08:15 Reassessment: Belongings sent with life flight. 4 Vital Signs: 06:25 BP 145 / 83; Pulse 101; Resp 20; Temp 98(TE); Pulse Ox 96% on R/A; Height 6 ft. 1 in. ; jb4 Pain 0/10; 07:14 Weight 78 kg (M); jb4 07:16 BP 119 / 77; Pulse 72; Resp 16; Pulse Ox 98% on ETT vent; FiO2 100 %; jb4 07:44 BP 86 / 62; Pulse 62; Resp 18; Pulse Ox 100% on ETT vent; iw 07:47 BP 83 / 61; Pulse 61; Resp 17; Pulse Ox 100% on R/A; jb4 08:09 BP 134 / 70; Pulse 60; Resp 15; Pulse Ox 100% on ETT vent; FiO2 100 %; jb4 06:25 Pain Scale: Adult jb4 ED Course: 06:12 Patient arrived in ED. jb4 06:12 Edin Beckman MD is Attending Physician. kdr 06:25 Ovi Caro, EYAD is Primary Nurse. jb4 06:27 Triage completed. jb4 06:27 Arm band placed on right wrist. jb4 06:36 XRAY Chest (1 view) In Process Unspecified. EDMS 06:52 CT Head Brain wo Cont In Process Unspecified. EDMS 07:09 Attending Physician role handed off by Edin Beckman MD sp3 07:09 Claudia Rg MD is Attending Physician. sp3 07:16 initiated a transfer with Dillon Cherry from the [facility]/ He says he eb will have to check beds. 07:[address] Jack the neuro preconstruction manager for [facility] with Dr. Rg for patient eb transfer consultation. 07:35 Inserted saline lock: 18 gauge in right antecubital area, using aseptic technique. jb4 forearm, using aseptic technique. 07:36 administrative approval given by Dillon Cherry/ patient has been accepted to [facility] neuro ICU bed 7405/ Dr. Jack has accepted the patient in transfer/ report to be called to the transfer center at [phone]. 07:39 [facility] called for transport ETA 26 minutes. eb 08:15 connected the patient's daughter with Dr. Rg for patient update. eb 08:19 Patient has correct armband on for positive identification. Bed in low position. Call jb4 light in reach. Side rails up X 1. 08:19 No provider procedures requiring assistance completed. Patient transferred, IV remains jb4 in place. Administered Medications: 08:08 Discontinued: propofol5 mcg/kg/min IV at calculated rate See Administration jb4 Instructions; Standard concentration 1000 mg / 100 mL; Recommended max rate 50 mcg/kg/min; Titrate 2 mcg/kg/min every 5 minutes to achieve goal (see titration policy); Goal parameter RASS score 0 to -2 06:08 Drug: Ativan IVP 2 mg IVP once Route: IVP; Site: left forearm; jb4 06:19 Drug: Keppra IV 1000 mg IV at calculated rate once Route: IV; Rate: calculated rate; jb4 Site: left forearm; 06:23 Drug: Ativan IVP 1 mg IVP once Route: IVP; Site: left forearm; jb4 06:34 Drug: Ativan IVP 1 mg IVP once Route: IVP; Site: left forearm; jb4 06:58 Drug: Fosphenytoin IVPB 1 grams IVPB once Route: IVPB; Site: left forearm; bp 06:58 Drug: Etomidate IVP 20 mg IVP once Route: IVP; Site: left forearm; jb4 06:58 Drug: Succinylcholine IVP 100 mg IVP once Route: IVP; Site: left forearm; jb4 07:06 Drug: Propofol IV 5 mcg/kg/min IV at calculated rate See Administration Instructions; iw Standard concentration 1000 mg / 100 mL; Recommended max rate 50 mcg/kg/min; Titrate 2 mcg/kg/min every 5 minutes to achieve goal (see titration policy); Goal parameter RASS score 0 to -2 Route: IV; Rate: calculated rate; Site: left forearm; 07:37 Follow up: IV Status: Order to discontinue infusion jb4 07:10 Drug: NS 0.9% IV 1000 ml IV at 1000 ml once Route: IV; Rate: 1000 ml; Site: left jb4 forearm; 07:35 Drug: Midazolam IVP or IV 2 mg IVP once Route: IVP; Site: left forearm; jb4 07:37 Drug: Midazolam IVP or IV 0.01 mg/kg/h IV at 4 mg/hr See Administration Instructions; jb4 (Standard concentration: 100 mg / 100 mL NS); Recommended max rate 0.1 mg/kg/hr; Titrate 0.01 mg/kg/hr as often as every 30 minutes to achieve goal (see titration policy); Goal parameter RASS 0 to -2 Route: IV; Rate: 4 mg/hr; Site: right forearm; 08:07 Drug: Midazolam IVP or IV 2 mg IVP once Route: IVP; Site: left forearm; jb4 Outcome: 07:18 ER care complete, transfer ordered by MD. ivan 08:19 Transferred by helicopter to [facility], Transfer form completed. jb4 X-rays sent w/ patient. 08:19 Condition: stable 08:19 Discharge instructions given to Pt intubated 08:20 Patient left the ED. jb4 Signatures: Dispatcher [employer] EDMS Edin Beckman MD MD kdr Janeen Palmer RN RN iw Bryson, James, RN RN jb4 Lito Griffith RN RN bp Botello, Elizabeth eb Patel, Setul, MD MD sp3 Corrections: (The following items were deleted from the chart) 06:28 06:27 PMHx: Unable to Obtain; jb4 jb4 07:55 06:25 BP 145 / 83; Pulse 101bpm; Resp 20bpm; Pulse Ox 96% RA; Height 6 ft. 1 in.; Pain jb4 0/10, Adult; jb4 08:05 06:13 Etomidate IVP 20 mg IVP in left forearm jb4 jb4
[2023-05-22 07:27] LABS: ALT/SGPT 20 U/L (16-61); AST/SGOT 21 U/L (15-37); Albumin 2.9 g/dL (3.4-5.0); Alkaline Phosphatase 81 U/L (45-117); BUN Blood Urea Nitrogen 21 mg/dL (7-18); Bicarbonate 26 mEq/L (21-32); Bilirubin Direct < 0.1 mg/dL (0-0.2); Bilirubin Indirect, Calculated ND mg/dL (0.2-0.8); Bilirubin Total 0.2 mg/dL (0.2-1.0); Glomerular Filtration Rate 55 ml/min (=/>90); Glucose Level 111 mg/dL (74-106); Magnesium 1.8 mg/dL (1.6-2.4); NT PRO-BNP 120 pg/mL (<450); Protein, Total 7.2 g/dL (6.4-8.2); Sodium Level 138 mEq/L (136-145); Troponin High Sensitivity 30.1 pg/mL (<58.9)
[2023-05-22] MEDS ORDERED: MIDAZOLAM HCL IN 0.9 % NACL/PF 100 MG/100 ML BAG IVPB ONE (07:35)
[2023-05-22] MEDS ORDERED: MIDAZOLAM HCL 2 MG/2 ML INJ ONE (07:36)
[2023-05-22] MEDS ORDERED: NA CHLORIDE 0.9% 1,000 ML ONE (07:36)
--- NOTE | 2023-05-22 08:22 | RAD REPORT ---
EXAM DESCRIPTION: Sheyla Single View05/22/2023 6:34 am CLINICAL HISTORY: AMS COMPARISON: No comparisons TECHNIQUE: Portable AP view of the chest. FINDINGS: Right chest wall medication port in place with catheter tip projecting at the superior cav oatrial junction. The lungs are clear. Streaky opacities in the left hilar region, favored to represe nt atelectasis/scarring. No pneumothorax or effusion. The cardiomediastinal contours are unremarkable . IMPRESSION: No acute cardiopulmonary process. Findings as above.
[2023-05-22 08:24] LABS: Barbiturates NEGATIVE (NEGATIVE); Benzodiazepines NEGATIVE (NEGATIVE); Cocaine NEGATIVE (NEGATIVE); METHAMPHETAM NEGATIVE (NEGATIVE); Opiates NEGATIVE (NEGATIVE); Phencyclidine NEGATIVE (NEGATIVE); THC Cannibis NEGATIVE (NEGATIVE)
[2023-05-22 08:35] LABS: Methadone ND (NEGATIVE)
[2023-05-22 08:47] VITALS: TEMP 98
[2023-05-22 08:49] VITALS: O2SAT 100
[2023-05-22 08:52] VITALS: BP 134/70
--- NOTE | 2023-05-22 12:28 | RAD REPORT ---
EXAM DESCRIPTION: CT - Head Brain Wo Cont - 05/22/2023 7:19 am ADDENDUM #1 These critical findings were discussed with Dr. Rg on 05/22/2023 at 7:14 AM central time. Electronically signed by: Ana Lilia Luciano POLK 05/22/2023 7:46 AM CDT End of Addendum EXAM DESCRIPTION: CT head without IV contrast CLINICAL HISTORY: 78 years Male Tremors right sided TECHNIQUE: Multiple axial CT images of the brain were performed followed by sagittal and coronal rec onstructed images. The CT study is performed according to ALARA (as low as reasonably achievable) or ALARA/IMAGE GENTLY, with automatic adjustment of mA and/or kV according to patient size. Performed on: 05/22/2023 at 6:44 AM TECHNIQUE: No prior studies were available for comparison.. FINDINGS: Brain: There is a 1.7 x 1.6 x 1.5 cm focal area of increased density in the left parietal lobe with surrounding vasogenic edema consistent with an intraparenchymal bleed. This may be due to a hemorrhagic neoplasm, vascular malformation or less likely hemorrhagic stroke. The overall size of t he bleed measures approximately 2 mL in volume. There appears to be a fluid fluid level within the he morrhagic mass concerning for active bleeding. There is no evidence of midline shift. There are no [place] extra-axial fluid collections. The cerebral sulci and ventricles are otherwise normal in size and configuration. There is mild patchy subcortical and periventricular low-attenuation likely reflectin g mild chronic microangiopathy. Paranasal Sinuses and Mastoids: There is trace mucosal thickening of the paranasal sinuses. The masto id air cells are clear. Orbits: The orbital contents are grossly unremarkable. There appears to be an old medial wall blowout fracture of the left orbit. Bones: No acute osseous abnormalities are identified. Soft Tissues: No focal soft tissue abnormalities are identified. IMPRESSION: 1. There is a 1.7 x 1.6 x 1.5 cm focal area of increased density in the left parietal lobe with surrounding vasogenic edema consistent with an intraparenchymal bleed. This may be due to a hemorrhagic neoplasm, vascular malformation or less likely hemorrhagic stroke. There appears to be a fluid fluid level within the hemorrhagic mass concerning for active bleeding. 2. Mild chronic microangiopathy. Electronically signed by: Ana Lilia Wolf DO 05/22/2023 7:13 AM CDT Due to temporary technical issues with the PACS/Fluency reporting system, reports are being signed by the in house radiologists without review as a courtesy to insure prompt reporting. The interpreting radiologist is fully responsible for the content of the report.
--- NOTE | 2023-05-23 11:22 | EKG ---
Test Date: 2023-05-22 Test Time: 06:28:04 Keyboard Teacher: SATISH MEASUREMENT RESULTS: Intervals: Rate: 165 OH: QRSD: 108 QT: 244 QTc: 404 [place]: P: OH: QRS: -59 T: 112 INTERPRETIVE STATEMENTS: Sinus tachycardia with artifact Left axis deviation Incomplete right bundle branch block Septal infarct, age undetermined Abnormal ECG Compared to ECG 07/15/2013 09:24:03 Ventricular premature complex(es) now present Left-axis deviation now present Incomplete right bundle-branch block now present Myocardial infarct finding now present Electronically Signed On 05-23-23 11:19:27 CDT by Forrest Purcell
== END 2023-05-22 08:20 | disposition short-term general hospital (02) ==
LOC: ER 06:09
PROC: 0BH17EZ Insertion of Endotracheal Airway into Trachea, Via Natural or Artificial Opening (ICD-10-PCS; principal; 2023-05-22)
PROC: 5A1935Z Respiratory Ventilation, Less than 24 Consecutive Hours (ICD-10-PCS; 2023-05-22)
DX: I61.8 Other nontraumatic intracerebral hemorrhage (principal); R56.9 Unspecified convulsions
CPT/HCPCS: 93005; 85025; 80048; 36415; 83735; 80076; 84484; 83880; 80307; 70450; 71045; 31500; 99285; 82077; 94002; J2704; Q2009; J1953; J2250 ×2; J7030

== ENCOUNTER 2023-05-30 07:20 | Inpatient (IN) | payer OTHER ==
--- OUTSIDE RECORDS SUMMARY | 2023-05-30 15:23 | XMS REPORT | Continuity of Care Document ---
:1945 Author Organization [facility] Address [address] [facility] [address] [place] [address] Care Team Providers Name Role Phone Landon MCGOWAN, Emanuel Primary Care Physician MIKE GATES Attending Clinician Unavailable TOSHIA GOLD Attending Clinician Unavailable ELISEO RICH Attending Clinician Unavailable Kira OLIVER, Cameron Attending Clinician Li Galvan NP Attending Clinician Concepcion Burciaga RN Attending Clinician Unavailable Jasmin Garza RN Attending Clinician Unavailable Michelle Sapp RN Attending Clinician Unavailable Pob, [facility] Main Attending Clinician Unavailable George Little MD Attending Clinician GEORGE LITTLE Attending Clinician Unavailable Doctor Unassigned, [place] Attending Clinician Unavailable Zelda Garcia MD Attending Clinician ROBEL RAMOS Attending Clinician Unavailable WALE BEARD Attending Clinician Unavailable Wale Beard DO Attending Clinician BLANCHE BERMUDEZ Attending Clinician Unavailable Blanche Bermudez DO Attending Clinician Yimi Elias MD Attending Clinician TORI ANNE Attending Clinician Unavailable Tori Anne MD Attending Clinician Jennifer Kim RN Attending Clinician Unavailable ROMANA ANDERSON Attending Clinician Unavailable Amarjit Reddy MD Attending Clinician Manohar Garcia DO Attending Clinician Romana Anderson MD Attending Clinician DANTE SCOTT Attending Clinician Unavailable TESSY LOWERY Attending Clinician Unavailable Tessy Lowery NP Attending Clinician CAROLYN MCCRARY Attending Clinician Unavailable WALE RIVERA Attending Clinician Unavailable MD CAROLYN MCCRARY Attending Clinician Unavailable SANDRINE MCCORD Attending Clinician Unavailable Sandrine Mccord DO Attending Clinician TODD CANCHOLA Attending Clinician Unavailable UNKNOWN, ATTENDING Attending Clinician Unavailable Unknown, Attending Attending Clinician Unavailable ELISEO RICH Admitting Clinician Unavailable WALE BEARD Admitting Clinician Unavailable BLANCHE BERMUDEZ Admitting Clinician Unavailable TORI ANNE Admitting Clinician Unavailable ROMANA ANDERSON Admitting Clinician Unavailable Romana Anderson MD Admitting Clinician TESSY LOWERY Admitting Clinician Unavailable MD CAROLYN MCCRARY Admitting Clinician Unavailable Payers Payer Name Policy Type Policy Number Effective Date Expiration Date [facility] MEDICARE A B [id number] 1992 00:00:00 Problems Condition Condition Condition Status Onset Resolution [...] Status 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 [facility]i 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 00:00: Ho spita py py 00 l 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[address] adenocarci adenocarci 00:00: Ho alden noma noma 00 l Mass of Mass of 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 [facility]i lower lobe lower lobe 0-25 st of left of left 00:00: Hospita lung lung 00 l Hilar Hilar 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 [facility]i adenopathy adenopathy 0-25 st 00:00: Hospita 00 l Right Right Disease Active Univers sided sided 08-08 ity of weakness weakness 00:00: [address] Tobacco Tobacco Disease Active Methodi use use [facility] Hospita l Hypothyroi Hypothyroi Disease Active M ethodi dism due dism due st to to Hospita medication medication l Allergies, Adverse Reactions, Alerts Allergy Allergy Status Severity Reaction(s) Onset Inactive Treating Comm ents Source Name Type Date Date Clinician NO KNOWN Drug Active Univers ALLERGIE Class ity of [facility] NO KNOWN Allergy Active [facility] Family History Family Member Diagnosis Comments Start Date Stop Date Source Natural brother Colon cancer [facility] Natural mother Breast cancer [facility] Social History Social Habit Start Date Stop Date Quantity Comments Source Sexual orientation [facility] History of tobacco Cigarette Smoker [facility] Alcohol intake 2022-06-07 2022-06-07 Ex-drinker [facility] 00:00:00 00:00:00 (finding) Hospital History of Social 2022-06-07 2022-06-07 [facility] function 00:00:00 00:00:00 Hospital Tobacco use and 2021-11-29 2021-11-29 Smokeless [facility] exposure 00:00:00 00:00:00 tobacco non-user Hospital Exposure to 2021-09-08 2021-10-08 Not sure University of SARS-CoV-2 (event) 00:00:00 09:42:00 [facility] Tobacco Comment 2021-05-31 2021-05-31 smoking for 60 [facility] 00:00:00 00:00:00 years Hospital Sex Assigned At [birth year] [facility] 00:00:00 00:00:00 Hospital Smoking Status Start Date Stop Date Source Ex-smoker 2021-11-29 00:00:00 2021-11-29 00:00:00 [facility] Current every day 2016-08-08 00:00:00 [facility] Medications Ordered Filled Start Stop Current Ordering [...] Hospita tablet 02 by mouth l daily. aspirin 81 2021-08 Yes 81mg Chew 81 [...] ENEMA) 00 :00 dose, On Medical (COMPOUNDED Mon10/08/21 Br anch ) Enem 225 at 1430, mL Routine iopamidol 2021- No [id number] 100mL 100 mL, Univers (ISOVUE 10-08 Intravenou ity o f 370-500 mL) 17:45: 16:57 s, ONCE, 1 [place] injection 00 :00 dose, On Medica l 100 mL Mon10/08/21 Branch at 1145, Routine methylnaltr 2021- No 12mg 12 mg, Uni vers exone 10-08 Subcutaneo ity of (RELISTOR) 16:45: 16:02 us, ONCE, [place] 12 mg/0.6 00 :00 1 dose, On Medi sonja mL 10/08/21 Branch injection at 1045, 12 mg Routine magnesium 2021- No 300mL 300 mL, Uni vers citrate 10-08 Oral, ity of solution 16:45: 15:57 ONCE, 1 [place] 300 mL 00 :00 dose, On Medical 10/08/21 Branch at 1045, DANNIE lactulose 2021- No 30mL 30 mL, Unive rs (CEPHULAC) 10-08 Oral, ity of solution 30 16:45: 15:56 ONCE, 1 [place] mL 00 :00 dose, On Medical Mon10/08/21 Branch at 1045, DANNIE NaCl 0.9% 2021- No 1000mL at 999 Uni vers (NS) bolus 10-08 mL/hr, ity of infusion 15:45: 19:22 1,000 mL, [place] 1,000 mL 00 :00 IV Medical Infusion, Branch ONCE, 1 dose, On Mon10/08/21 at 0945, STAT benadryl/li 0 Yes 10mL Q6H Swish and M ethodi docaine/maa 2-[address] lox (MAGIC 00:00: mL every 6 H ospita MOUTHWASH) 00 (six) l 1:1:1 hours as suspension needed suspension (moderate throat pain). pantoprazol 0 Yes 40mg QD Take 1 Meth francisco e 2-22 tablet (40 st (Protonix) 00:00: mg total) Ho spita 40 MG EC 00 by mouth l tablet daily. sucralfate 2021-0 Yes 1g Q.25D Take 1 Meth [place]isco (CARAFATE) 2-22 tablet (1 st 1 gram 00:00: g total) Hospita tablet 00 by mouth 4 l (four) times a day before meals and nightly. benadryl/li 2021-0 Yes 10mL Q6H Swish and M ethodi docaine/maa 09-[address] lox (MAGIC 00:00: mL every 6 H ospita MOUTHWASH) 00 (six) l 1:1:1 hours as suspension needed suspension (moderate throat pain). pantoprazol Yes 40mg QD Take 1 Meth francisco [...] 09/20/21 at 1715, DANNIE iopamidol 2021- No [id number] 100mL 100 mL, Univers (ISOVUE 09-20 Intravenou ity o f 370-500 mL) 22:00: 20:43 s, ONCE, 1 [place] injection 00 :00 dose, On Medica l 100 mL Mon Branch 09/20/21 at 1600, Routine magnesium 2021- No 2g 2 g, IV Univ ers [...] 1 Medical 20 mg dose, On Branch Mon09/20/21 at 1500, Routine ondansetron 2021- No 4mg 4 mg, Slow Univers (ZOFRAN 09-20 IV Push, ity of (PF)) 20:45: 19:51 ONCE, 1 [place] injection 4 00 :00 dose, On Medi sonja mg 09/20/21 at 1445, DANNIE NaCl 0.9% 2021- No 1000mL at 999 Uni vers (NS) bolus 09-20 mL/hr, ity of infusion 20:45: 21:10 1,000 mL, [place] as 1,000 mL 00 :00 IV Medical Infusion, Branch ONCE, 1 dose, On Mon09/20/21 at 1445, DANNIE docusate Yes [id number] 100mg Take 1 Un jn (COLACE) 2-14 capsule by ity o f 100 mg 00:00: mouth [place] capsule [address] [facility] docusate Yes [id number] 100mg Take 1 Un jn (COLACE) 2-14 capsule by ity o f 100 mg 00:00: mouth [place] capsule [address] [facility] docusate Yes [id number] 100mg Take 1 Un jn (COLACE) 2-14 capsule by ity o f 100 mg 00:00: mouth [place] capsule [address] [facility] docusate Yes [id number] 100mg Take 1 Un jn (COLACE) 2-14 capsule by ity o f 100 mg 00:00: mouth [place] capsule [address] [facility] docusate Yes [id number] 100mg Take 1 Un jn (COLACE) 2-14 capsule by ity o f 100 mg 00:00: mouth [place] capsule [address] [facility] docusate Yes [id number] 100mg Take 1 Un jn (COLACE) 2-14 capsule by ity o f 100 mg 00:00: mouth [place] capsule [address] [facility] docusate Yes [id number] 100mg Take 1 Un jn (COLACE) 2-14 capsule by ity o f 100 mg 00:00: mouth [place] capsule 00 daily. Medical Branch maalox:diph 2020-08 15mL 15 mL, Uni vers enhydrAMINE 08-06 Oral, ity of :lidocaine 21:15: 20:15 ONCE, 1 [place] 2 % viscous 00 :00 dose, On Medi sonja 1:1:1 Fri Branch (FIRST[facility]MOUT 08/06/21 [facility] at 1515, oral Routine suspension 15 mL [...] 2020-08 Yes 81mg 81 mg, Univers chewable Oral, ity of tablet 81 15:00: DAILY, [place] mg 00 First dose Medical on Fri Branch 08/06/21 at 0900, Until Discontinu ed, Routine heparin 2020-08 Yes 5000U 5,000 Univers (porcine) 2-31 Units, ity of injection 02:00: Subcutaneo [place] 5,000 Units 00 us, Q12H, Med ical First dose Branch on [place] 08/05/21 at 1999, Until Discontinu ed, Routine pantoprazol 2020-08 Yes [id number] 20mg Take 1 Univers e 20 mg EC 2-31 tablet by ity of tablet 00:00: mouth [place] 00 every Medical morning. Branch sucralfate 2020-08 Yes [id number] 1g Take 1 Univers 1 gram 2-31 tablet by ity of tablet 00:00: mouth [place] 00 before Medical meals and Branch at bedtime. pantoprazol 2020-08 Yes [id number] 20mg Take 1 Univers e 20 mg EC 2-31 tablet by ity of tablet 00:00: mouth [place] 00 every Medical morning. Branch sucralfate 2020-08 Yes [id number] 1g Take 1 Univers 1 gram 2-31 tablet by ity of tablet 00:00: mouth [place] 00 before Medical meals and Branch at bedtime. pantoprazol 2020-08 Yes [id number] 20mg Take 1 Univers e 20 mg EC 2-31 tablet by ity of tablet 00:00: mouth [place] 00 every Medical morning. Branch sucralfate 2020-08 Yes [id number] 1g Take 1 Univers 1 gram 2-31 tablet by ity of tablet 00:00: mouth [place] 00 before Medical meals and Branch at bedtime. pantoprazol 2020-08 Yes [id number] 20mg Take 1 Univers e 20 mg EC 2-31 tablet by ity of tablet 00:00: mouth [place] 00 every Medical morning. Branch sucralfate 2020-08 Yes [id number] 1g Take 1 Univers 1 gram 2-31 tablet by ity of tablet 00:00: mouth [place] 00 before Medical meals and Branch at bedtime. pantoprazol 2020-08 Yes [id number] 20mg Take 1 Univers e 20 mg EC 2-31 tablet by ity of tablet 00:00: mouth [place] 00 every Medical morning. Branch sucralfate 2020-08 Yes [id number] 1g Take 1 Univers 1 gram 2-31 tablet by ity of tablet 00:00: mouth [place] 00 before Medical meals and Branch at bedtime. pantoprazol 2020-08 Yes [id number] 20mg Take 1 Univers e 20 mg EC 2-31 tablet by ity of tablet 00:00: mouth [place] 00 every Medical morning. Branch sucralfate 2020-08 Yes [id number] 1g Take 1 Univers 1 gram 2-31 tablet by ity of tablet 00:00: mouth [place] 00 before Medical meals and Branch at bedtime. pantoprazol 2020-08 Yes [id number] 20mg Take 1 Univers e 20 mg EC 2-31 tablet by ity of tablet 00:00: mouth [place] 00 every Medical morning. Branch sucralfate 2020-08 Yes [id number] 1g Take 1 Univers 1 gram 2-31 tablet by ity of tablet 00:00: mouth [place] 00 before Medical meals and Branch at bedtime. pantoprazol 2020-08 Yes [id number] 20mg Take 1 Univers e 20 mg EC 2-31 tablet by ity of tablet 00:00: mouth [place] 00 every Medical morning. Branch sucralfate 2020-08 Yes [id number] 1g Take 1 Univers 1 gram 2-31 tablet by ity of tablet 00:00: mouth [place] 00 before Medical meals and Branch at bedtime. pantoprazol 2020-08 Yes [id number] 20mg Take 1 Univers e 20 mg EC 2-31 tablet by ity of tablet 00:00: mouth [place] 00 every Medical morning. Branch sucralfate 2020-08 Yes [id number] 1g Take 1 Univers 1 gram 2-31 tablet by ity of tablet 00:00: mouth [place] 00 before Medical meals and Branch at bedtime. pantoprazol 2020-08 Yes [id number] 20mg Take 1 Univers e 20 mg EC 2-31 tablet by ity of tablet 00:00: mouth [place] 00 every Medical morning. Branch sucralfate 2020-08 Yes [id number] 1g Take 1 Univers 1 gram 2-31 tablet by ity of tablet 00:00: mouth [place] 00 before Medical meals and Branch at bedtime. pantoprazol 2020-08 Yes [id number] 20mg Take 1 Univers e 20 mg EC 2-31 tablet by ity of tablet 00:00: mouth [place] 00 every Medical morning. Branch sucralfate 2020-08 Yes [id number] 1g Take 1 Univers 1 gram 2-31 tablet by ity of tablet 00:00: mouth [place] 00 before Medical meals and Branch at bedtime. pantoprazol 2020-08 Yes [id number] 20mg Take 1 Univers e 20 mg EC 2-31 tablet by ity of tablet 00:00: mouth [place] 00 every Medical morning. Branch sucralfate 2020-08 Yes [id number] 1g Take 1 Univers 1 gram 2-31 tablet by ity of tablet 00:00: mouth [place] 00 before Medical meals and Branch at bedtime. polyethylen 2020-08- No [id number] 17g Take 1 Univers e glycol 08-22 Packet by ity o f 3350 17 00:00: 05:59 mouth [place] gram powder 00 :00 daily for Med ical 15 days. Branch sodium 2020-08- No [id number] 1{enema Insert 1 Univers phosphates 08-07 } Enema into it y of (FLEET 00:00: 05:59 rectum [place] ENEMA) 19-7 00 :00 once now Medi sonja gram/118 mL for 1 Branch enema dose. Follow package directions aspirin 81 2020-08 Yes 81mg Take 81 mg U nivers mg chewable 2-30 by mouth ity of tablet 18:33: daily. [address] dexAMETHaso 2020-08 Yes 4mg Take 4 mg U nivers ne 2-30 by mouth ity of (DECADRON) 18:33: daily. [place] 4 mg tablet [address] [place] [address] losartan 25 2020-08 Yes 25mg Take 25 mg Univers mg tablet 2-30 by mouth ity of 18:33: daily. [address] ondansetron 2020-08 Yes 8mg Take 8 mg U nivers 8 mg tablet 2-30 by mouth ity of 18:33: every 8 [place] [address] (eight) Medical hours as Branch needed for Nausea and Vomiting (N/V). aspirin 81 2020-08 Yes 81mg Take 81 mg U nivers mg chewable 2-30 by mouth ity of tablet 18:33: daily. [address] dexAMETHaso 2020-08 Yes 4mg Take 4 mg U nivers ne 2-30 by mouth ity of (DECADRON) 18:33: daily. [place] 4 mg tablet [address] [place] [address] losartan 25 2020-08 Yes 25mg Take 25 mg Univers mg tablet 2-30 by mouth ity of 18:33: daily. [address] ondansetron 2020-08 Yes 8mg Take 8 mg U nivers 8 mg tablet 2-30 by mouth ity of 18:33: every 8 [place] [address] (eight) Medical hours as Branch needed for Nausea and Vomiting (N/V). aspirin 81 2020-08 Yes 81mg Take 81 mg U nivers mg chewable 2-30 by mouth ity of tablet 18:33: daily. [address] Branch dexAMETHaso 2020-08 Yes 4mg Take 4 mg U nivers ne 2-30 by mouth ity of (DECADRON) 18:33: daily. [place] 4 mg tablet 50 Medical Branch losartan 25 2020-08 Yes 25mg Take 25 mg Univers mg tablet 2-30 by mouth ity of 18:33: daily. [address] Branch ondansetron 2020-08 Yes 8mg Take 8 mg U nivers 8 mg tablet 2-30 by mouth ity of 18:33: every 8 [place] [address] (eight) Medical hours as Branch needed for Nausea and Vomiting (N/V). aspirin 2020-08 Yes 81mg Take 81 mg U nivers mg chewable 2-30 by mouth ity of tablet 18:33: daily. [address] Branch dexAMETHaso 2020-08 Yes 4mg Take 4 mg U nivers ne 2-30 by mouth ity of (DECADRON) 18:33: daily. [place] 4 mg tablet 50 Medical Branch losartan 25 2020-08 Yes 25mg Take 25 mg Univers mg tablet 2-30 by mouth ity of 18:33: daily. [address] ondansetron 2020-08 Yes 8mg Take 8 mg U nivers 8 mg tablet 2-30 by mouth ity of 18:33: every 8 [place] [address] (eight) Medical hours as Branch needed for Nausea and Vomiting (N/V). aspirin 2020-08 Yes 81mg Take 81 mg U nivers mg chewable 2-30 by mouth ity of tablet 18:33: daily. [address] Branch dexAMETHaso 2020-08 Yes 4mg Take 4 mg U nivers ne 2-30 by mouth ity of (DECADRON) 18:33: daily. [place] 4 mg tablet 50 Medical Branch losartan 25 2020-08 Yes 25mg Take 25 mg Univers mg tablet 2-30 by mouth ity of 18:33: daily. [address] ondansetron 2020-08 Yes 8mg Take 8 mg U nivers 8 mg tablet 2-30 by mouth ity of 18:33: every 8 [place] [address] (eight) Medical hours as Branch needed for Nausea and Vomiting (N/V). aspirin 81 2020-08 Yes 81mg Take 81 mg U nivers mg chewable 2-30 by mouth ity of tablet 18:33: daily. [address] Branch dexAMETHaso 2020-08 Yes 4mg Take 4 mg U nivers ne 2-30 by mouth ity of (DECADRON) 18:33: daily. [place] 4 mg tablet 50 Medical Branch losartan 25 2020-08 Yes 25mg Take 25 mg Univers mg tablet 2-30 by mouth ity of 18:33: daily. [address] Branch ondansetron 2020-08 Yes 8mg Take 8 mg U nivers 8 mg tablet 2-30 by mouth ity of 18:33: every 8 [place] [address] (eight) Medical hours as Branch needed for Nausea and Vomiting (N/V). aspirin 2020-08 Yes 81mg Take 81 mg U nivers mg chewable 2-30 by mouth ity of tablet 18:33: daily. [address] Branch dexAMETHaso 2020-08 Yes 4mg Take 4 mg U nivers ne 2-30 by mouth ity of (DECADRON) 18:33: daily. [place] 4 mg tablet 50 Medical Branch losartan 25 2020-08 Yes 25mg Take 25 mg Univers mg tablet 2-30 by mouth ity of 18:33: daily. [address] ondansetron 2020-08 Yes 8mg Take 8 mg U nivers 8 mg tablet 2-30 by mouth ity of 18:33: every 8 [place] [address] (eight) Medical hours as Branch needed for Nausea and Vomiting (N/V). aspirin 81 2020-08 Yes 81mg Take 81 mg U nivers mg chewable 2-30 by mouth ity of tablet 18:33: daily. [place] [address] Medical Branch dexAMETHaso 2020-08 Yes 4mg Take 4 mg U nivers ne 2-30 by mouth ity of (DECADRON) 18:33: daily. [place] 4 mg tablet 50 Medical Branch losartan 25 2020-08 Yes 25mg Take 25 mg Univers mg tablet 2-30 by mouth ity of 18:33: daily. [place] [address] Medical Branch ondansetron 2020-08 Yes 8mg Take 8 mg U nivers 8 mg tablet 2-30 by mouth ity of 18:33: every 8 [place] [address] (eight) Medical hours as Branch needed for Nausea and Vomiting (N/V). aspirin 81 2020-08 Yes 81mg Take 81 mg U nivers mg chewable 2-30 by mouth ity of tablet 18:33: daily. [place] [address] Medical Branch dexAMETHaso 2020-08 Yes 4mg Take 4 mg U nivers ne 2-30 by mouth ity of (DECADRON) 18:33: daily. [place] 4 mg tablet 50 Medical Branch losartan 25 2020-08 Yes 25mg Take 25 mg Univers mg tablet 2-30 by mouth ity of 18:33: daily. [place] [address] Medical Branch ondansetron 2020-08 Yes 8mg Take 8 mg U nivers 8 mg tablet 2-30 by mouth ity of 18:33: every 8 [place] [address] (eight) Medical hours as Branch needed for Nausea and Vomiting (N/V). aspirin 2020-08 Yes 81mg Take 81 mg U nivers mg chewable 2-30 by mouth ity of tablet 18:33: daily. [address] Branch dexAMETHaso 2020-08 Yes 4mg Take 4 mg U nivers ne 2-30 by mouth ity of (DECADRON) 18:33: daily. [place] 4 mg tablet 50 Medical Branch losartan 25 2020-08 Yes 25mg Take 25 mg Univers mg tablet 2-30 by mouth ity of 18:33: daily. [address] Branch ondansetron 2020-08 Yes 8mg Take 8 mg U nivers 8 mg tablet 2-30 by mouth ity of 18:33: every 8 [place] [address] (eight) Medical hours as Branch needed for Nausea and Vomiting (N/V). aspirin 81 2020-08 Yes 81mg Take 81 mg U nivers mg chewable 2-30 by mouth ity of tablet 18:33: daily. [place] [address] Medical Branch dexAMETHaso 2020-08 Yes 4mg Take 4 mg U nivers ne 2-30 by mouth ity of (DECADRON) 18:33: daily. [place] 4 mg tablet 50 Medical Branch losartan 25 2020-08 Yes 25mg Take 25 mg Univers mg tablet 2-30 by mouth ity of 18:33: daily. [address] Branch ondansetron 2020-08 Yes 8mg Take 8 mg U nivers 8 mg tablet 2-30 by mouth ity of 18:33: every 8 [place] [address] (eight) Medical hours as Branch needed for Nausea and Vomiting (N/V). aspirin 81 2020-08 Yes 81mg Take 81 mg U nivers mg chewable 2-30 by mouth ity of tablet 18:33: daily. [address] Branch dexAMETHaso 2020-08 Yes 4mg Take 4 mg U nivers ne 2-30 by mouth ity of (DECADRON) 18:33: daily. [place] 4 mg tablet 50 Medical Branch losartan 25 2020-08 Yes 25mg Take 25 mg Univers mg tablet 2-30 by mouth ity of 18:33: daily. [address] Branch ondansetron 2020-08 Yes 8mg Take 8 mg U nivers 8 mg tablet 2-30 by mouth ity of 18:33: every 8 [place] [address] (eight) Medical hours as Branch needed for Nausea and Vomiting (N/V). aspirin 2020-08 Yes 81mg Take 81 mg U nivers mg chewable 2-30 by mouth ity of tablet 18:33: daily. [address] Branch dexAMETHaso 2020-08 Yes 4mg Take 4 mg U nivers ne 2-30 by mouth ity of (DECADRON) 18:33: daily. [place] 4 mg tablet 50 Medical Branch losartan 25 2020-08 Yes 25mg Take 25 mg Univers mg tablet 2-30 by mouth ity of 18:33: daily. [address] Branch ondansetron 2020-08 Yes 8mg Take 8 mg U nivers 8 mg tablet 2-30 by mouth ity of 18:33: every 8 [place] [address] (eight) Medical hours as Branch needed for Nausea and Vomiting (N/V). aspirin 81 2020-08 Yes 81mg Take 81 mg U nivers mg chewable 2-30 by mouth ity of tablet 18:33: daily. [place] [address] Medical Branch dexAMETHaso 2020-08 Yes 4mg Take 4 mg U nivers ne 2-30 by mouth ity of (DECADRON) 18:33: daily. [place] 4 mg tablet 50 Medical Branch losartan 25 2020-08 Yes 25mg Take 25 mg Univers mg tablet 2-30 by mouth ity of 18:33: daily. [place] [address] Medical Branch ondansetron 2020-08 Yes 8mg Take 8 mg U nivers 8 mg tablet 2-30 by mouth ity of 18:33: every 8 [place] [address] (eight) Medical hours as Branch needed for Nausea and Vomiting (N/V). ondansetron 2020-08 Yes 4mg 4 mg, Slow Univers (ZOFRAN 2-30 IV Push, ity of (PF)) 18:26: Q6HPRN, [place] injection 4 08 Starting Medi sonja mg on [facility] Branch 08/05/21 at 1226, Until Discontinu ed, ADNNIE, Nausea and Vomiting (N/V) sucralfate 2020-08 Yes 1g 1 g, Oral, U nivers (CARAFATE) 2-30 AC+HS, ity of tablet 1 g 17:30: First dose [place] 00 on [facility] Medical 08/05/21 Branch at 1130, Until Discontinu ed, Routine methocarbam 2020-08 Yes 500mg 500 mg, Un jn oL 2-30 Oral, TID, ity of (ROBAXIN) 17:15: First dose [place] tablet 500 00 on [facility] Medical mg 08/05/21 Branch at 1115, Until Discontinu ed, Routine glycerin/mi 2020-08 No 225mL 225 mL, U nivers neral oil 2-30 12-30 Rectal, ity of (AGLO 17:00: 18:14 ONCE, 1 [place] ENEMA) 00 :00 dose, On Medical (COMPOUNDED [facility] ) Enem 225 08/05/21 mL at 1100, Routine nitroglycer 2020-08 Yes .4mg 0.4 mg, Uni vers in 2-30 Sublingual ity of (NITROSTAT) 15:39: , Q5MIN [place] as sublingual 36 PRN, Medical tablet 0.4 Starting Branc h mg on [facility] 08/05/21 at 0939, Until Discontinu ed, Routine, Chest pain acetaminoph 2020-08 Yes 650mg 650 mg, Un jn en 2-30 Oral, ity of (TYLENOL) 15:39: Q6HPRN, [place] tablet 650 18 Starting Medic al mg on [facility] Branch 08/05/21 at 0939, Until Discontinu ed, Routine, Pain (scale 1-3) albuterol 2020-08 Yes 2{puff} 2 Puff, Un jn (VENTOLIN) 2-30 Inhalation ity of inhaler 2 15:34: , Q6HPRN, [place] Puff 28 Starting Medical on [place] Branch 08/05/21 at 0934, Until Discontinu ed, Routine, Shortness of Breath ondansetron 2020-08- No 4mg 4 mg, Slow Univers (ZOFRAN 2-30 12-30 IV Push, ity of (PF)) 15:00: 13:59 ONCE, 1 [place] injection 4 00 :00 dose, On Medi sonja mg [facility] Branch 08/05/21 at 0900, DANNIE morpHINE 2020-08- No 4mg 4 mg, Slow Un jn injection 4 2-30 12-30 IV Push, ity of mg 15:00: 13:59 ONCE, 1 [place] 00 :00 dose, On Medical [facility] Branch 08/05/21 at 0900, STAT colchicine 2020-08- No .6mg Take 0.6 Un jn 0.6 mg Cap 2-30 12-30 mg by ity of 09:42: 00:00 mouth [place] 14 :00 daily. Medical Branch methocarbam 2020-08- No [id number] 500mg Take 1 Univers oL 500 mg 2-30 01-10 tablet by ity of tablet 00:00: 05:59 mouth 3 [place] 00 :00 (three) Medical times [place] daily for 10 days. methocarbam 2020-08- No [id number] 500mg Take 1 Univers oL 500 mg 2-30 01-10 tablet by ity of tablet 00:00: 05:59 mouth 3 [place] 00 :00 (three) Medical times [place] daily for 10 days. methocarbam 2020-08- No [id number] 500mg Take 1 Univers oL 500 mg 2-30 01-10 tablet by ity of tablet 00:00: 05:59 mouth 3 [place] 00 :00 (three) Medical times [place] daily for 10 days. polyethylen 2020-08- No 17g Take 17 g Univers e glycol -03 09- by mouth ity of 3350 17 00:00: 05:59 daily. [place] gram powder 00 :00 Medical Branch sennosides- 2020-08- No 1{tbl} Take 1 U nivers docusate -09-03 tablet by ity o f sodium 00:00: 05:59 mouth [place] 8.6-50 mg 00 :00 daily. Medical per tablet Branch polyethylen 2020-08- No 17g Take 17 g Univers e glycol 10-04- by mouth ity of 3350 17 00:00: 05:59 daily. [place] gram powder 00 :00 [facility] [place] [facility]- No 1{tbl} Take 1 U nivers docusate 10-04 tablet by ity o f sodium 00:00: 05:59 mouth [place] 8.6-50 mg 00 :00 daily. Medical [facility] No 1{tbl} Take 1 U nivers docusate 10-04 tablet by ity o f sodium 00:00: 05:59 mouth [place] 8.6-50 mg 00 :00 daily. Medical per tablet [place] polyethylen 2020-08- No 17g Take 17 g Univers e glycol -03 08-31 by mouth ity of 3350 17 00:00: 00:00 daily. [place] gram powder 00 :00 [facility] iopamidol 2020-08- No [id number] 120mL 120 mL, Univers (ISOVUE 2-25 12-25 [...] 15 :00 Medical Branch sucralfate 2020-08 Yes [id number] 1g Take 1 Univers 1 gram 2-25 tablet by ity of tablet 00:00: mouth [place] 00 before Medical meals and Branch at bedtime. sucralfate 2020-08 Yes [id number] 1g Take 1 Univers 1 gram 2-25 tablet by ity of tablet 00:00: mouth [place] 00 before Medical meals and Branch at bedtime. sucralfate 2020-08 Yes [id number] 1g Take 1 Univers 1 gram 2-25 tablet by ity of tablet 00:00: mouth [place] 00 before Medical meals and Branch at bedtime. pantoprazol 2020-08- No [id number] 20mg Take 1 Univers e 20 mg [...] every Medical morning. Branch sucralfate 2020-08- No [id number] 1g Take 1 Univers 1 gram 2-25 12-31 tablet by ity of tablet 00:00: 00:00 mouth [place] 00 :00 before Medical meals and Branch at bedtime. pantoprazol 2020-08- No 1{tbl} Take 1 U nivers e 20 mg EC 2-25 12-31 tablet by ity of tablet 00:00: 00:00 mouth [place] 00 :00 every Medical morning. Branch pantoprazol 2020-08- No [id number] 20mg Take 1 Univers e 20 mg EC 2-25 12-30 tablet by ity of tablet 00:00: 00:00 mouth [place] 00 :00 daily for Medical 21 days. Branch OLANZapine 2020-08 Yes 5mg QD Take 1 Metho di (ZYPREXA) 5 2-01 tablet (5 st MG tablet 00:00: mg total) Hos srikanth 00 by mouth l nightly as needed (chemo-ind uced nausea). OLANZapine 2020-08 Yes 5mg QD Take 1 Metho di (ZYPREXA) 5 2-01 tablet (5 st MG tablet 00:00: mg total) Hos srikanth 00 by mouth l nightly as needed (chemo-ind uced nausea). OLANZapine 2020-08 Yes 5mg Take 5 mg Un jn 5 mg tablet 2-01 by mouth. ity of 00:00: [facility] OLANZapine 2020- Yes 5mg Take 5 mg Un jn 5 mg tablet 2-01 by mouth. ity of 00:00: [facility] OLANZapine 2020- Yes 5mg Take 5 mg Un jn 5 mg tablet 2-01 by mouth. ity of 00:00: [facility] OLANZapine 2020- Yes 5mg Take 5 mg Un jn 5 mg tablet 2-01 by mouth. ity of 00:00: [place] [facility] OLANZapine 2020- Yes 5mg Take 5 mg Un jn 5 mg tablet 2-01 by mouth. ity of 00:00: [facility] OLANZapine 2020- Yes 5mg Take 5 mg Un jn 5 mg tablet 2-01 by mouth. ity of 00:00: [facility] OLANZapine 2020- Yes 5mg Take 5 mg Un nj 5 mg tablet 2-01 by mouth. ity of 00:00: [facility] OLANZapine 2020- Yes 5mg Take 5 mg Un jn 5 mg tablet 2-01 by mouth. ity of 00:00: [facility] OLANZapine 2020- Yes 5mg Take 5 mg Un jn 5 mg tablet 2-01 by mouth. ity of 00:00: [facility] OLANZapine 2020- Yes 5mg Take 5 mg Un jn 5 mg tablet 2-01 by mouth. ity of 00:00: [place] [facility] OLANZapine 2020- Yes 5mg Take 5 mg Un jn 5 mg tablet 2-01 by mouth. ity of 00:00: [facility] OLANZapine 2020- Yes 5mg Take 5 mg Un jn 5 mg tablet 2-01 by mouth. ity of 00:00: [place] [facility] OLANZapine 2020- Yes 5mg Take 5 mg Un jn 5 mg tablet 2-01 by mouth. ity of 00:00: [facility] OLANZapine 2020-08 Yes 5mg Take 5 mg Un jn 5 mg tablet 09-07 by mouth. ity of 00:00: [facility] OLANZapine 2020-08 Yes 5mg Take 5 mg Un jn 5 mg tablet 09-07 by mouth. ity of 00:00: [facility] folic acid 2020-08- No 1mg QD Take 1 Meth francisco [...] the port 1 hour prior to chemo folic acid 2020-08- No 1mg QD Take 1 Meth francisco [...] the port 1 hour prior to chemo foLIC acid 2020-08- No 1mg Take 1 mg U nivers 1 mg tablet 09-07 by mouth. it y of 00:00: 05:59 [place] 00 :00 [facility] foLIC acid 2020-08- No 1mg Take 1 mg U nivers 1 mg tablet 09-07 by mouth. it y of 00:00: 05:59 [place] 00 :00 [facility] foLIC acid 2020-08- No 1mg Take 1 mg U nivers 1 mg tablet 09-07 by mouth. it y of 00:00: 05:59 [place] 00 :00 [facility] foLIC acid 2020-2021- No 1mg Take 1 mg U nivers 1 mg tablet 09-07 by mouth. it y of 00:00: 05:59 [place] 00 :00 Medical Branch foLIC acid 2021-1 2022- No 1mg Take 1 mg U nivers 1 mg tablet 09-07 by mouth. it y of 00:00: 05:59 [place] 00 :00 Medical Branch foLIC acid 2021-1 2022- No 1mg Take 1 mg U nivers 1 mg tablet 09-07 by mouth. it y of 00:00: 05:59 [place] 00 :00 Medical Branch foLIC acid 2021-1 2022- No 1mg Take 1 mg U nivers 1 mg tablet 09-07 by mouth. it y of 00:00: 05:59 [place] 00 :00 Medical Branch foLIC acid 2021-1 2022- No 1mg Take 1 mg U nivers 1 mg tablet 09-07 by mouth. it y of 00:00: 05:59 [place] 00 :00 Medical Branch foLIC acid 2021-1 2022- No 1mg Take 1 mg U nivers 1 mg tablet 09-07 by mouth. it y of 00:00: 05:59 [place] 00 :00 Medical Branch foLIC acid 2021-1 2022- No 1mg Take 1 mg U nivers 1 mg tablet 09-07 by mouth. it y of 00:00: 05:59 [place] 00 :00 Medical Branch foLIC acid 2021-1 2022- No 1mg Take 1 mg U nivers 1 mg tablet 09-07 by mouth. it y of 00:00: 05:59 [place] 00 :00 Medical Branch foLIC acid 2021-1 2022- No 1mg Take 1 mg U nivers 1 mg tablet 09-07 by mouth. it y of 00:00: 05:59 [place] 00 :00 Medical Branch foLIC acid 2021-1 2022- No 1mg Take 1 mg U nivers 1 mg tablet 09-07 by mouth. it y of 00:00: 05:59 [place] 00 :00 Medical Branch foLIC acid 2021-1 2022- No 1mg Take 1 mg U nivers 1 mg tablet 09-07 by mouth. it y of 00:00: 05:59 [place] 00 :00 Medical Branch foLIC acid 2021-1 2022- No 1mg Take 1 mg U nivers 1 mg tablet 09-07 by mouth. it y of 00:00: 05:59 [place] 00 :00 Medical Branch albuterol Yes 2{puff} Inhale 2 U nivers [...] (six) Medical hours as Branch needed. acetaminoph 2018-0 Yes 1{tbl} Take 1 Un [...] by mouth ity of tablet 03:35: daily. [address] aspirin 81 2017- Yes 81mg Take 81 mg U nivers mg chewable 1-24 by mouth ity of tablet 03:35: daily. [address] aspirin 81 2017- Yes 81mg Take 81 mg U nivers mg chewable 1-24 by mouth ity of tablet 03:35: daily. [address] aspirin 81 2017- Yes 81mg Take 81 mg U nivers mg chewable 1-24 by mouth ity of tablet 03:35: daily. [address] aspirin 81 2017- Yes 81mg Take 81 mg U nivers mg chewable 1-24 by mouth ity of tablet 03:35: daily. [address] aspirin 81 2017- Yes 81mg Take 81 mg U nivers mg chewable 1-24 by mouth ity of tablet 03:35: daily. [address] aspirin 81 2016- Yes 81mg Take 81 mg U nivers mg chewable 1-24 by mouth ity of tablet 03:35: daily. [address] aspirin 81 2017- Yes 81mg Take 81 mg U nivers mg chewable 1-23 by mouth ity of tablet 21:35: daily. [address] Immunizations Ordered Immunization Filled Immunization Date Status Commen ts Source Name Name PFIZER COVID-19 MRNA Unknown Completed [facility] PFIZER COVID-19 MRNA Unknown Completed [facility] PFIZER COVID-19 MRNA Unknown Completed [facility] PFIZER COVID-19 MRNA Unknown Completed [facility] Vital Signs Vital Name Observation Time Observation Value Comments Source HEIGHT 2023-05-22 09:00:00 182.9 cm WEIGHT 2023-05-22 09:00:00 75 kg HEIGHT 2023-05-22 09:00:00 182.9 cm WEIGHT 2023-05-22 09:00:00 75 kg Systolic blood 2021-10-08 20:00:00 156 mm[Hg] Univer sity of pressure [facility] Diastolic blood 2021-10-08 20:00:00 88 mm[Hg] Unive rsity of pressure [facility] Heart rate 2021-10-08 20:00:00 80 /min [facility] [place] [facility] Respiratory rate 2021-10-08 20:00:00 22 /min Univ [facility] [place] [facility] Oxygen saturation in 2021-10-08 20:00:00 97 /min University of Arterial blood by [facility] Pulse oximetry Branch Body temperature 2021-10-08 15:37:00 35.67 Carlita [facility] [place] [facility] Body height 2021-10-08 15:37:00 182.9 cm [facility] [place] [facility] Body weight 2021-10-08 15:37:00 68.493 kg [facility] [place] [facility] BMI 2021-10-08 15:37:00 20.48 kg/m2 [facility] [place] [facility] Systolic blood 2021-09-20 22:07:00 128 mm[Hg] Univer sity of pressure [place] [facility] Diastolic blood 2021-09-20 22:07:00 80 mm[Hg] Unive rsity of pressure [place] [facility] Heart rate 2021-09-20 22:00:00 64 /min [facility] [place] [facility] Respiratory rate 2021-09-20 22:00:00 15 /min Univ [facility] [place] [facility] Oxygen saturation in 2021-09-20 22:00:00 100 /min University of Arterial blood by [facility] Pulse oximetry Branch Body temperature 2021-09-20 19:32:04 36.61 Carlita [facility] [place] [facility] Body weight 2021-09-20 19:03:00 68.493 kg [facility] [place] [facility] BMI 2021-09-20 19:03:00 19.92 kg/m2 [facility] [place] [facility] Systolic blood 2021-08-06 21:19:00 149 mm[Hg] Univer sity of pressure [place] [facility] Diastolic blood 2021-08-06 21:19:00 110 mm[Hg] Unive rsity of pressure [place] [facility] Heart rate 2021-08-06 21:19:00 75 /min [facility] [place] [facility] Oxygen saturation in 2021-08-06 21:19:00 98 /min University of Arterial blood by [facility] Pulse oximetry Branch Respiratory rate 2021-08-06 20:00:00 23 /min [facility] [place] [facility] Body height 2021-08-06 19:59:00 185.4 cm [facility] [place] [facility] Body weight 2021-08-06 19:59:00 70.308 kg [facility] [place] [facility] BMI 2021-08-06 19:59:00 20.45 kg/m2 [facility] [place] [facility] Systolic blood 2021-08-05 20:04:00 115 mm[Hg] Univer sity of pressure [place] [facility] Diastolic blood 2021-08-05 20:04:00 64 mm[Hg] Unive rsity of pressure [place] [facility] Heart rate 2021-08-05 20:04:00 64 /min [facility] [place] [facility] Body temperature 2021-08-05 20:04:00 36.67 Carlita [facility] [place] [facility] Respiratory rate 2021-08-05 20:04:00 18 /min [facility] [place] [facility] Oxygen saturation in 2021-08-05 20:04:00 95 /min University of Arterial blood by [place] [employer] sonja Pulse oximetry Branch Body height 2021-08-05 15:38:00 185.4 cm [facility] [place] [facility] Body weight 2021-08-05 15:38:00 70.308 kg [facility] [place] [facility] BMI 2021-08-05 15:38:00 20.45 kg/m2 [facility] [place] [facility] Systolic blood 2021-07-31 20:00:00 133 mm[Hg] Univer sity of pressure [place] [facility] Diastolic blood 2021-07-31 20:00:00 73 mm[Hg] Unive rsity of pressure [place] [facility] Heart rate 2021-07-31 20:00:00 65 /min [facility] [place] [facility] Respiratory rate 2021-07-31 20:00:00 16 /min [facility] [place] [facility] Oxygen saturation in 2021-07-31 20:00:00 100 /min University of Arterial blood by [email or web address] sonja Pulse oximetry Branch Body temperature 2021-07-31 17:02:00 36.28 Carlita [facility] [place] [facility] Body height 2021-07-31 17:02:00 185.4 cm [facility] [place] [facility] Body weight 2021-07-31 17:02:00 75.751 kg [facility] [place] [facility] BMI 2021-07-31 17:02:00 22.03 kg/m2 [facility] Systolic blood 2022-07-18 18:15:00 111 mm[Hg] [facility] pressure Diastolic blood 2022-07-18 18:15:00 55 mm[Hg] [facility] pressure Heart rate 2022-07-18 18:15:00 75 /min [facility] Body temperature 2022-07-18 18:15:00 36.67 Carlita [facility] Body weight 2022-07-18 18:15:00 78.835 kg [facility] BMI 2022-07-18 18:15:00 22.93 kg/m2 [facility] Oxygen saturation in 2022-07-18 18:15:00 95 /min [facility] Arterial blood by Pulse oximetry Respiratory rate 2022-07-13 21:24:38 18 /min [facility] Procedures Procedure Date / Time Performing Clinician Source Performed ABSOLUTE NEUTROPHIL 2022-07-13 17:49:00 Jose Manuel Mendoza [facility] COUNT Dior CBC WITH PLATELET AND 2022-07-13 17:49:00 Jose Manuel Mendoza [facility] DIFFERENTIAL Ovi COMPREHENSIVE METABOLIC 2022-07-13 17:49:00 Jose Manuel Mendoza [facility] PANEL Ovi MAGNESIUM LEVEL 2022-07-13 17:49:00 Jose Manuel Mendoza THYROID STIMULATING 2022-07-13 17:49:00 Jose Manuel Mendoza [facility] HORMONE Ovi T3 2022-07-13 17:49:00 Jose Manuel Mendoza T4, FREE 2022-07-13 17:49:00 Jose Manuel Mendoza ESTIMATED GFR 2022-07-13 17:49:00 Jose Manuel Mendoza MANUAL DIFFERENTIAL 2022-07-13 17:49:00 Jose Manuel Mendoza [facility] Ovi ABSOLUTE NEUTROPHIL 2022-06-15 17:27:00 Ceballos, [facility] COUNT CBC WITH PLATELET AND 2022-06-15 17:27:00 Kira [facility] DIFFERENTIAL COMPREHENSIVE METABOLIC 2022-06-15 17:27:00 [facility] LEV[facility] 2022-06-15 17:27:00 CeballsoRobertCameronyael Navaist Ho spital THYROID STIMULATING 2022-06-15 17:27:00 [facility] 2022-06-15 17:27:00 CeballosRobertCameronyael Navaist Julio spital T4, FREE 2022-06-15 17:27:00 CeballosRobertCameronyael Navaist Ho spital ESTIMATED GFR 2022-06-15 17:27:00 CeballosCameron [facility] Ho spital MANUAL DIFFERENTIAL 2022-06-15 17:27:00 CeballosRobertCameron [facility] ASSIGNMENT OF BENEFITS 2022-02-23 21:25:46 Doctor Unassigned, No [facility] HEALTH - OTHER 2022-01-17 05:01:00 Doctor Unassigned, No Un iversity of [facility] HEALTH - OTHER 2021-12-13 05:01:00 Doctor Unassigned, No Un iversity of [facility] CT ABDOMEN PELVIS W 2021-10-08 17:02:16 Wale Beard [facility] CONTRAST Medical Branch LIPASE 2021-10-08 15:48:00 Singer [facility] COMP. METABOLIC PANEL 2021-10-08 15:48:00 Wale Beard [facility] ([id number]) [facility] CBC WITH DIFF 2021-10-08 15:48:00 [facility] URINALYSIS 2021-09-20 21:08:00 Blanche Bermudez [facility] CT ABDOMEN PELVIS W 2021-09-20 20:50:51 Blanche Bermudez [facility] CONTRAST [facility] MAGNESIUM 2021-09-20 19:53:00 Blanche Bermudez [facility] TROPONIN I 2021-09-20 19:53:00 Blanche Bermudez [facility] COMP. METABOLIC PANEL 2021-09-20 19:53:00 Blanche Bermudez [facility] ([id number]) Medical Branch CBC WITH DIFF 2021-09-20 19:53:00 Blanche Bermudez [facility] NOTICE OF PRIVACY 2021-09-20 18:56:11 Doctor Unassigned, [facility] PR[facility]ICES Name Medical Branch CONSENT/REFUSAL FOR 2021-09-20 18:55:46 Doctor Unassigned, No Un iversity of [place] DIAGNOSIS AND TREATMENT Name Medical [place] HEALTH - OTHER 2021-08-12 06:01:00 Doctor Unassigned, No Un iversity of [facility] Medical [place] [facility] HEALTH 485 2021-08-10 06:01:00 Doctor Unassigned, No [facility] Branch XR CHEST 1 VW 2021-08-06 20:19:38 Tori Anne [facility] TROPONIN I 2021-08-06 20:11:00 Tori Anne [facility] COMP. METABOLIC PANEL 2021-08-06 20:11:00 Tori Anne [facility] ([id number]) Medical [place] CBC WITH DIFF 2021-08-06 20:11:00 Tori Anne [facility] CONSENT/REFUSAL FOR 2021-08-06 20:05:45 Doctor Unassigned, No Un iversity of [place] DI[facility]NOSIS [facility] TREATMENT [facility] TROPONIN I 2021-08-05 19:21:00 [facility] TRANSTHORACIC ECHO (TTE) 2021-08-05 16:35:00 Zelda Garcia [facility] XR KUB 2021-08-05 15:50:00 [facility] XR CHEST 1 VW 2021-08-05 11:41:57 Amarjit Reddy [facility] LIPASE 2021-08-05 11:32:00 Amarjit Redyd [facility] TROPONIN I 2021-08-05 11:32:00 Amarjit Reddy [facility] THYROID STIMULATING 2021-08-05 11:32:00 Zelda Garcia [facility] HORMONE [facility] COMP. METABOLIC PANEL 2021-08-05 11:32:00 Amarjit Reddy [facility] ([id number]) Medical Branch LIPID PANEL 2021-08-05 11:32:00 Zelda Garcia [facility] ([id number])(TOTAL Medical Branch CHOLESTEROL, TRIGLYCERIDES, HDL) CBC WITH DIFF 2021-08-05 11:32:00 Amarjit Reddy [facility] GLYCOSYLATED HEMOGLOBIN 2021-08-05 11:32:00 Zelda [facility] (A1C) [facility] PROTHROMBIN TIME / INR 2021-08-05 11:32:00 Amarjit Reddy [facility] ACTIVATED PARTIAL 2021-08-05 11:32:00 Amarjit Reddy [facility] THRMPLAS ANISH [facility] N-TERMINAL PRO-BNP 2021-08-05 11:32:00 Amarjit Reddy [facility] COVID-19 (ID NOW RAPID 2021-08-05 11:32:00 Amarjit Reddy [facility] TESTING) Medical Branch URINALYSIS 2021-07-31 19:44:00 Tessy Lowery [facility] CT ABDOMEN PELVIS W 2021-07-31 19:24:25 Tessy Lowery [facility] CONTRAST [facility] CT THORAX W CONTRAST 2021-07-31 19:24:[address] [facility] 2021-07-31 17:36:00 Tessy Lowery [facility] TROPONIN I 2021-07-31 17:36:00 Tessy Lowery [facility] COMP. METABOLIC PANEL 2021-07-31 17:36:00 Tessy Lowery [facility] ([id number]) [facility] CBC WITH DIFF 2021-07-31 17:36:00 Tessy Lowery [facility] CONSENT/REFUSAL FOR 2021-07-31 16:42:16 Doctor [facility]igned, [facility] NOTICE OF PRIVACY 2021-07-31 16:41:28 Doctor Unassigned, No [facility] PRACTICES Name Medical Branch URIC ACID 2021-03-08 13:05:00 [facility] 2021-03-08 13:05:00 Dixie [facility] PROSTATIC SPECIFIC 2021-03-08 13:05:00 Dixie [facility] ANTIGEN SCREEN Medical Branch FOLATE 2021-03-08 13:05:00 [facility] HEPATIC FUNCTION PANEL 2021-03-08 13:05:00 [facility] ([id number]) (ALB,T.PRO,BILI [facility] T,BU/BC,ALT,AST,ALK PHOS) BASIC METABOLIC PANEL 2021-03-08 13:05:00 abilio Kelsey [facility] (NA, K, CL, CO2, Medical Branch GLUCOSE, BUN, CREATININE, CA) SEDIMENTATION RATE 2021-03-08 13:05:00 [facility] CBC WITH DIFF 2021-03-08 13:05:00 [facility] ADV BENEFICIARY NOTICE 2021-03-08 05:01:00 Doctor Unassigned, No [facility] OF NONCOVERAGE ([facility]) [facility] Medical [facility] PHYSICIAN ORDERS 2021-02-09 05:01:00 Doctor Unassigned, No [facility] ASSIGNMENT OF BENEFITS 2020-10-21 13:47:27 Doctor Unassigned, No [facility] Plan of Care Planned Activity Planned Date Details Comments Source Future Scheduled 2023-05-22 65+ PNE[address]OC[address] [facility] Test 15:24:20 VACCINE (1 - PCV) [code = 65+ PNEUMOCOCCAL VACCINE (1 - PCV)] Future Scheduled 2023-05-22 Hepatitis C screening [facility] Test 15:24:20 (procedure) [code = 006199969] Future Scheduled 2023-05-22 SHINGLES VACCINES (1 Met [facility] Test 15:24:20 of 2) [code = SHINGLES VACCINES (1 of 2)] Future Scheduled 2023-05-22 RSV VACCINES > 60 YR Met [facility] Test 15:24:20 (1 - 1-dose 60+ series) [code = RSV VACCINES > 60 YR (1 - 1-dose 60+ series)] Future Scheduled 2023-05-22 COVID-19 VACCINE (3 - [facility] Test 15:24:20 Pfizer risk series) [code = COVID-19 VACCINE (3 - Pfizer risk series)] Future Scheduled 2023-05-22 INFLUENZA VACCINE (#1) [facility] Test 15:24:20 [code = INFLUENZA VACCINE (#1)] Future Scheduled 2023-05-09 65+ [facility]CCAL [facility] Test 16:56:47 VACCINE (1 - PCV) [code = 65+ PNEUMOCOCCAL VACCINE (1 - PCV)] Future Scheduled 2023-05-09 Hepatitis C screening [facility] Test 16:56:47 (procedure) [code = 529022913] Future Scheduled 2023-05-09 SHINGLES VACCINES (1 Met [facility] Test 16:56:47 of 2) [code = SHINGLES VACCINES (1 of 2)] Future Scheduled 2023-05-09 COVID-19 VACCINE (3 - [facility] Test 16:56:47 Pfizer risk series) [code = COVID-19 VACCINE (3 - Pfizer risk series)] Future Scheduled 2023-05-09 INFLUENZA VACCINE (#1) [facility] Test 16:56:47 [code = INFLUENZA VACCINE (#1)] Encounters Start End Encounter Admission Attending Care Care Encounter Source Date/Time Date/Time Type Type Clinicians Facility Department ID 2023-05-27 Inpatient EL KODY, [facility] [id number] [facility] 12:30:40 MIKE 2023-05-23 Inpatient EL [facility]H [facility] [id number] [facility] 19:16:11 2023-05-23 Inpatient EL [facility]H [facility] [id number] [facility] 19:16:00 2023-05-23 Inpatient EL SLEH [facility] [id number] [facility] 19:15:48 2023-05-23 Inpatient EL SLEH [facility] [id number] SLEH 03:56:28 2023-05-23 Inpatient EL SLEH [facility] [id number] [facility]H 03:50:55 2023-05-23 Inpatient EL SLEH [facility] [id number] SLEH 03:50:51 2023-05-22 Inpatient EL RICCARDO [facility] [id number] SLEH 14:07:24 NTOSHIA 2023-05-22 Inpatient EL SLEH [facility]H [id number] SLEH 13:46:38 2023-05-22 Inpatient EL [facility]H [facility] [id number] SLEH 13:46:16 2023-05-22 Inpatient EL SLE SLE [id number] SLE 13:46:11 2023-05-22 2023-05-30 Inpatient ER KODY, [facility] Surgery [id number] SLEH 09:08:00 13:44:00 MIKE 2023-05-22 2023-05-22 Outpatient EL [facility] SLE [id number] SLEH 18:09:30 18:09:30 A ELISEO FINCH 2023-05-22 2023-05-22 Outpatient EL [facility] SLE [id number] SLE 17:28:49 17:28:49 A ELISEO FINCH 2023-05-22 2023-05-22 Outpatient EL SLE SLE [id number] SLEH 15:40:38 15:40:38 2023-05-22 2023-05-22 Outpatient EL SLE SLE [id number] SLEH 12:38:48 12:38:48 2023-05-22 2023-05-22 Outpatient EL SLE SLE [id number] SLEH 09:21:48 09:21:48 2023-05-22 2023-05-22 Outpatient EL [facility] SLE [id number] SLEH 09:21:35 09:21:35 2022-07-22 2022-07-22 Orders Ceballos, 1.2.840.1 [id number] Methodi 00:00:00 00:00:00 Only [place] [id number] 3.430.2.7 Hospit a .3.076581 l .8 2022-07-22 2022-07-22 Orders Ceballos, 1.2.840.1 [id number] Methodi 00:00:00 00:00:00 Only [place] 92875.1.[address] 3.430.2.7 Hospit a .3.895796 l .8 2022-07-18 2022-07-18 Office Ceballos, 1.2.840.1 [id number] Methodi 11:30:00 12:20:31 Visit [place] 11978.1.[address] 3.430.2.7 Hospit a .3.580833 l .8 2022-07-18 2022-07-18 Office Ceballos, 1.2.840.1 [id number] Methodi 11:30:00 12:20:31 Visit [place] [address]9833.1.[address] 3.430.2.7 Hospit a .3.078617 l .8 2022-07-18 2022-07-18 Orders Bubela, 1.2.840.1 [id number] Methodi 00:00:00 [place]:00:[place] [address] 3.430.2.7 Hospit a .3.789701 l .8 2022-07-18 2022-07-18 Travel 1.2.840.1 1.2.280.118 [id number] Methodi 00:00:00 00:00:[address] 3.430.2.7 0.2.7.3.698 Ho spita .3.897946 084.8 l .8 2022-07-18 2022-07-18 Orders Bubela, 1.2.840.1 [id number] Methodi 00:00:00 00:00:00 [place] [address] 3.430.2.7 Hospit a .3.878385 l .8 2022-07-18 2022-07-18 Travel 1.2.840.1 1.2.408.863 [id number] Methodi 00:00:00 00:00:[address] 3.430.2.7 0.2.7.3.698 Ho spita .3.965789 084.8 l .8 2022-07-13 2022-07-13 Infusion Ceballos, 1.2.840.1 [id number] Methodi 11:30:00 14:30:[address] 3.430.2.7 Hospit a .3.882854 l .8 2022-07-13 2022-07-13 Infusion Ceballos, 1.2.840.1 [id number] 21001 05661 Methodi 11:30:00 14:30:[address] 3.430.2.7 Hospit a .3.848743 l .8 2022-07-13 2022-07-13 Travel 1.2.840.1 1.2.205.392 7304 976106 Methodi 00:00:00 00:00:[address] 3.430.2.7 0.2.7.3.698 Ho spita .3.256474 084.8 l .8 2022-07-13 2022-07-13 Travel 1.2.840.1 1.2.361.289 6466 621161 Methodi 00:00:00 00:00:[address] 3.430.2.7 0.2.7.3.698 Ho spita .3.295997 084.8 l .8 2022-07-12 2022-07-12 Orders Gualberto, 1.2.840.1 [id number] Methodi 00:00:00 00:00:00 Only Javier 27488.1.[address] 3.430.2.7 Hospit a .3.618206 l .8 2022-07-12 2022-07-12 Orders Gualberto, 1.2.840.1 48556 Methodi 00:00:00 00:00:00 Only Javier 78426.1.[address] 3.430.2.7 Hospit a .3.881146 l .8 2022-06-15 2022-06-15 Infusion Ceballos, 1.2.840.1 39218 Methodi 11:30:00 14:30:[address] 3.430.2.7 Hospit a .3.287842 l .8 2022-06-15 2022-06-15 Infusion Ceballos, 1.2.840.1 [id number] 74783 68828 Methodi 11:30:00 14:30:[address] 3.430.2.7 Hospit a .3.634393 l .8 2022-06-15 2022-06-15 Oncology Franklin, 1.2.840.1 [id number] 2099 993438 Methodi 00:00:00 00:00:00 Survivorsh Jasmin 40359.1.1 347 s t ip 3.430.2.7 Hospit a .3.740173 l .8 2022-06-15 2022-06-15 Travel 1.2.840.1 1.2.890.455 9893 096568 Methodi 00:00:00 00:00:[address] 3.430.2.7 0.2.7.3.698 Ho spita .3.697139 084.8 l .8 2022-06-15 2022-06-15 Oncology Franklin, 1.2.840.1 [id number] 2099 940402 Methodi 00:00:00 00:00:00 Survivorsh Jasmin 84381.1.1 347 s t ip 3.430.2.7 Hospit a .3.451137 l .8 2022-06-15 2022-06-15 Travel 1.2.840.1 1.2.897.240 1767 697640 Methodi 00:00:00 00:00:[address] 3.430.2.7 0.2.7.3.698 Ho spita .3.160193 084.8 l .8 2022-06-14 2022-06-14 Orders Ceballos, 1.2.840.1 [id number] 2677 Methodi 00:00:00 00:00:00 Only Cameron 26179.1.[address] 3.430.2.7 Hospit a .3.937221 l .8 2022-06-14 2022-06-14 Orders Ceballos, 1.2.840.1 [id number] 209996 2951 Methodi 00:00:00 00:00:00 Only Cameron 17163.1.[address] 3.430.2.7 Hospit a .3.786152 l .8 2022-06-07 2022-06-07 Office Ceballos, 1.2.840.1 [id number] 194319 8976 Methodi 09:45:00 10:40:15 Visit Cameron 22979.1.[address] 3.430.2.7 Hospit a .3.694189 l .8 2022-06-07 2022-06-07 Office Ceballos, 1.2.840.1 [id number] 082418 4844 Methodi 09:45:00 10:40:15 Visit Cameron 85210.1.[address] 3.430.2.7 Hospit a .3.038549 l .8 2022-06-07 2022-06-07 Travel 1.2.840.1 1.2.637.171 0071 935173 Methodi 00:00:00 00:00:[address] 3.430.2.7 0.2.7.3.698 Ho spita .3.486412 084.8 l .8 2022-06-07 2022-06-07 Travel 1.2.840.1 1.2.207.402 9885 997542 Methodi 00:00:00 00:00:[address] 3.430.2.7 0.2.7.3.698 Ho spita .3.370526 084.8 l .8 2022-06-06 2022-06-06 Orders Chable, 1.2.840.1 [id number] 387793 2134 Methodi 00:00:00 00:00:[address] 3.430.2.7 Hospit a .3.142718 l .8 2022-06-06 2022-06-06 Orders Chable, 1.2.840.1 897428033 849370 4162 Methodi 00:00:00 00:00:00 Only 76994.1.1 567 3.430.2.7 Hospit a .3.280825 l .8 2022-05-11 2022-05-11 Outpatient CEBALLOS, [facility] [id number] [place] 00:00:00 00:00:00 CAMERON 949 Method i 2022-05-10 2022-05-10 Outpatient CEBALLOS, [facility] [id number] Delta 00:00:00 00:00:00 CAMERON 779 Method i 2022-05-10 2022-05-10 Outpatient CEBALLOS, [facility] [id number] Delta 00:00:00 00:00:00 CAMERON 631 Method i 2022-05-06 2022-05-06 Outpatient CEBALLOS, [facility] [id number] Delta 00:00:00 00:00:00 CAMERON 039 Method i 2022-04-13 2022-04-13 Outpatient CEBALLOS, [facility] [id number] Delta 00:00:00 00:00:00 CAMERON 239 Method i 2022-04-12 2022-04-12 Outpatient CEBALLOS, [facility] [id number] Delta 00:00:00 00:00:00 CAMERON 050 Method i 2022-04-12 2022-04-12 Outpatient CEBALLOS, [facility] [id number] [place] 00:00:00 00:00:00 CAMERON 581 Method i 2022-03-16 2022-03-16 Outpatient CEBALLOS, [facility] [id number] [place] 00:00:00 00:00:00 CAMERON 964 Method i 2022-02-23 2022-02-23 Ferry Engineer Ofelia, Millicent Lab Main [facility] 1.2.8 40.114 [id number] [facility] 17:00:00 17:15:00 Visit George Little 350.1.13.10 [facility] 4.2.7.2.686 Theresa MCKEON [phone] [address] 2022-02-23 2022-02-23 Outpatient R [facility] [id number] [facility] 17:00:00 17:00:00 GEORGE crespo [facility] 2022-02-23 2022-02-23 Orders Doctor DESI 1.2.840.114 [id number] [facility] 00:00:00 00:00:00 Only Unassigned, BERNA 350.1.13.10 ity of [place] [facility] 4.2.7.2.686 Woody as [phone] [facility] [address] [place] 2022-01-17 2022-01-17 Orders Doctor DESI 1.2.840.114 [id number] [facility] 00:00:00 00:00:00 Only Unassigned, BERNA 350.1.13.10 [facility] [address] [facility] 4.2.7.2.686 Woody as [phone] [address] 2022-01-10 2022-01-10 Outpatient CEBALLOS, [facility] [id number] [place] 00:00:00 00:00:00 CAMERON 387 Method i 2022-01-10 2022-01-10 [facility] [id number] [place] 00:00:00 00:00:00 CAMERON 985 Method i 2021-12-13 2021-12-13 Orders Doctor DESI 1.2.840.[id number] [place] [address] 00:00:00 00:00:00 Only Unassigned, BERNA 350.1.13.10 [facility] [facility] 4.2.7.2.686 Woody as [phone] [address] 2021-11-30 2021-11-30 Telephone [facility] 1.2.840.114 [id number] [facility] 00:00:00 00:00:00 Zelda PRIMARY 350.1.13.10 it y of CARE 4.2.7.2.[place] [facility] [phone] Ar dical [address] [place] 2021-11-29 2021-11-29 Outpatient CEBALLOS, [facility] [id number] [place] 00:00:00 00:00:00 CAMERON 578 Method i 2021-11-29 2021-11-29 [facility] [id number] [place] 00:00:00 00:00:00 CAMERON 079 Method i 2021-11-15 2021-11-15 Outpatient CEBALLOS, [facility] [id number] [place] 00:00:00 00:00:00 CAMERON 460 Method i 2021-11-15 2021-11-15 Outpatient SHKESIRISHA, [facility] [id number] [place] 00:00:00 00:00:00 ROBEL 726 Method i 2021-11-02 2021-11-02 Outpatient CEBALLOS, [facility] [id number] [place] 00:00:00 00:00:00 CAMERON 520 Method i 2021-10-18 2021-10-18 Outpatient CEBALLOS, [facility] [id number] [place] 00:00:00 00:00:00 CAMERON 195 Method i 2021-10-08 2021-10-08 Emergency X SINGER [facility] ERT [id number] [facility] 09:34:00 14:40:00 WALE crespo [facility] 2021-10-08 2021-10-08 Emergency Singer [facility] 1.2.552.247 [id number] 4086 [facility] 09:34:00 14:40:00 Wale DIAMOND 350.1.13.10 i [facility] 4.2.7.2.686 [facility] [phone] [place] [id number] Branch 2021-10-05 2021-10-05 Outpatient SHCHRIS, [facility] [id number] [place] 00:00:00 00:00:00 ROBEL 880 Method i 2021-10-01 2021-10-01 Outpatient SHCHRIS, [facility] [id number] [place] 00:00:00 00:00:00 ROBEL 044 Method i 2021-10-01 2021-10-01 Outpatient SHKEDY, [facility] [id number] [place] 00:00:00 00:00:00 ROBEL 902 Method i 2021-09-29 2021-09-29 Outpatient SHKESIRISHA, [facility] [id number] [place] 00:00:00 00:00:00 ROBEL 970 Method i 2021-09-29 2021-09-29 Outpatient SHCHRIS, [facility] [id number] [place] 00:00:00 00:00:00 ROBEL 794 Method i 2021-09-28 2021-09-28 Outpatient CEBALLOS, [facility] [id number] [place] 00:00:00 00:00:00 CAMERON 199 Method i 2021-09-28 2021-09-28 Outpatient CEBALLOS, [facility] [id number] [place] 00:00:00 00:00:00 CAMERON 325 Method i 2021-09-27 2021-09-27 Outpatient SHCHRIS, [facility] [id number] [place] 00:00:00 00:00:00 ROBEL 910 Method i 2021-09-27 2021-09-27 Outpatient SHCHRIS, [facility] [id number] [place] 00:00:00 00:00:00 ROBEL 677 Method i 2021-09-23 2021-09-23 Outpatient SHCHRIS, [facility] [id number] Delta 00:00:00 00:00:00 ROBEL 908 Method i 2021-09-23 2021-09-23 Outpatient RACHEL [facility] [id number] [place] 00:00:00 00:00:00 ROBEL 576 Method i 2021-09-21 2021-09-21 Outpatient SHCHRIS, [facility] [id number] [place] 00:00:00 00:00:00 ROBEL 355 Method i 2021-09-20 2021-09-20 Emergency [facility] [id number] Univers 13:04:00 16:25:00 BLANCHE crespo [facility] 2021-09-20 2021-09-20 [facility] 1.2.840.114 [id number] Univers 13:04:00 16:25:00 Blanche DIAMOND 350.1.13.10 ity [facility] 4.2.7.2.686 [facility] [phone] [address] 2021-09-20 2021-09-20 Outpatient CEBALLOS, [facility] [id number] [place] 00:00:00 00:00:00 CAMERON 463 Method i 2021-09-20 2021-09-20 Orders Doctor WEEKS 1.2.840.[id number] [place] [address] 00:00:00 00:00:00 Only Unassigned, BERNA 350.1.13.10 ity of [facility] 4.2.7.2.686 Woody as [phone] [facility] sonja 009 Branch 2021-09-15 2021-09-15 Telephone Jada, [facility] 1.2.880.734 [id number] [facility] 00:00:00 00:00:00 Yimi PRIMARY 350.1.13.10 it y of CARE 4.2.7.2.686 [place] [phone] Ar dical [address] [place] 2021-09-14 2021-09-14 Outpatient SHKEDY, [facility] [id number] [place] 00:00:00 00:00:00 ROBEL [address] 2021-09-07 2021-09-07 Outpatient SHKEDY, [facility] [id number] [place] 00:00:00 00:00:00 ROBEL [address] 2021-08-30 2021-08-30 Outpatient CEBALLOS, [facility] [id number] [place] 00:00:00 00:00:00 CAMERON [address] 2021-08-24 2021-08-24 Outpatient [facility] [id number] [place] 00:00:00 00:00:[address] 2021-08-24 2021-08-24 Outpatient SHKEDY, [facility] [id number] [place] 00:00:00 00:00:00 ROBEL [address] 2021-08-23 2021-08-23 Outpatient CEBALLOS, [facility] [id number] [place] 00:00:00 00:00:00 CAMERON [address] 2021-08-23 2021-08-23 Outpatient [facility] [id number] [place] 00:00:00 00:00:[address] 2021-08-20 2021-08-20 Outpatient SHKEDY, [facility] [id number] [place] 00:00:00 00:00:00 ROBEL [address] 2021-08-19 2021-08-19 Outpatient [facility] [id number] [place] 00:00:00 00:00:[address] 2021-08-18 2021-08-18 Outpatient [facility] [id number] [place] 00:00:00 00:00:[address] 2021-08-17 2021-08-17 Outpatient [facility] [id number] [place] 00:00:00 00:00:[address] 2021-08-16 2021-08-16 Outpatient [facility] [id number] [place] 00:00:00 00:00:[address] 2021-08-16 2021-08-16 Outpatient CEBALLOS, [facility] [id number] [place] 00:00:00 00:00:00 CAMERON [address] 2021-08-13 2021-08-13 Outpatient [facility] [id number] [place] 00:00:00 00:00:[address] 2021-08-13 2021-08-13 Outpatient SHKEDY, [facility] [id number] [place] 00:00:00 00:00:00 ROBEL [address] 2021-08-12 2021-08-12 Outpatient [facility] [id number] [place] 00:00:00 00:00:00 889 Method i 2021-08-12 2021-08-12 Outpatient CEBALLOS, [facility] [id number] [place] 00:00:00 00:00:00 CAMERON 602 Method i 2021-08-12 2021-08-12 Orders Doctor DESI 1Mike2.840.[id number] [place] [address] 00:00:00 00:00:00 Only Unassigned, BERNA 350.1.13.10 [facility] [address] [facility] 4.2.7.2.686 Woody as [phone] [address] 2021-08-10 2021-08-10 Outpatient [facility] [id number] [place] 00:00:00 00:00:[address] 2021-08-10 2021-08-10 Outpatient SHKEDY, [facility] [id number] [place] 00:00:00 00:00:00 ROBEL [address] 2021-08-10 2021-08-10 Orders Doctor DESI Nieves2.840.[id number] [place] [address] 00:00:00 00:00:00 Only Unassigned, BERNA 350.1.13.[address] 4.2.7.2.686 Woody as [phone] [address] 2021-08-09 2021-08-09 Outpatient RACHEL, [facility] [id number] [place] 00:00:00 00:00:00 ROBEL 774 Method i 2021-08-09 2021-08-09 Outpatient RACHEL [facility] [id number] [place] 00:00:00 00:00:00 ROBEL 020 Method i 2021-08-09 2021-08-09 Outpatient [facility] [id number] [place] 00:00:00 00:00:00 027 Method i 2021-08-06 2021-08-06 Emergency [facility] [id number] Univers 13:53:00 15:20:00 TORI ity [facility] 2021-08-06 2021-08-06 Emergency Omid [facility] 1.2.233.096 [id number] Univers 13:53:00 15:20:00 Tori DIAMOND 350.1.13.10 ity [facility] 4.2.7.2.686 [facility] [phone] [facility] 084 Branch 2021-08-06 2021-08-06 Transition BALDO Kim 1.2.840.114 [id number] Univers 00:00:00 00:00:00 of Care Jennifer SANTIAGO 350.1.13.10 it y of [place] 4.2.7.2.686 [facility] [phone] [facility] 403 [address] 2021-08-05 2021-08-05 [facility] [id number] Univers 05:20:00 16:34:00 [facility] ity [facility] 2021-08-05 2021-08-05 Emergency Amarjit Reddy 1.2.840. 114 [id number] Univers 05:20:00 16:34:00 Maonhar Garcia 350.1.13. 10 [facility] 4.2.7.2.686 [place] [id number] [facility] 094 [place] 2021-08-03 2021-08-03 Outpatient [facility] [id number] [place] 00:00:00 00:00:00 024 Method i 2021-08-03 2021-08-03 Outpatient SHKEDY, [facility] [id number] [place] 00:00:00 00:00:00 ROBEL 833 Method i 2021-08-03 2021-08-03 Emergency EGBERS, [facility] [id number] [place] 00:00:00 00:00:00 DANTE 955 Method i 2021-08-02 2021-08-02 Outpatient [facility] [id number] [place] 00:00:00 00:00:00 023 Method i 2021-07-31 2021-07-31 Emergency [facility] ERT [id number] [facility] 10:57:00 14:57:00 TESSY crespo [facility] 2021-07-31 2021-07-31 [facility] 1.2.560.862 [id number] Univers 10:57:00 14:57:00 Tessy DIAMOND 350.1.13.10 cherie [facility] 4.2.7.2.686 [facility] [id number] [address] 2021-07-29 2021-07-29 Outpatient [facility] [id number] [place] 00:00:00 00:00:00 022 Method i 2021-07-29 2021-07-29 Outpatient SHROSADY, [facility] [id number] [place] 00:00:00 00:00:00 ROBEL 573 Method i 2021-07-28 2021-07-28 Outpatient [facility] [id number] [place] 00:00:00 00:00:00 021 Method i 2021-07-27 2021-07-27 Outpatient [facility] [id number] [place] 00:00:00 00:00:00 020 Method i 2021-07-26 2021-07-26 Outpatient CEBALLOS, [facility] [id number] [place] 00:00:00 00:00:00 CAMERON [address] 2021-07-26 2021-07-26 Outpatient [facility] [id number] [place] 00:00:00 00:00:[address] 2021-07-23 2021-07-23 Outpatient [facility] [id number] [place] 00:00:00 00:00:[address] 2021-07-22 2021-07-22 Outpatient [facility] [id number] [place] 00:00:00 00:00:[address] 2021-07-22 2021-07-22 Outpatient SHROSADY, [facility] [id number] [place] 00:00:00 00:00:00 ROBEL [address] 2021-07-21 2021-07-21 Outpatient [facility] [id number] [place] 00:00:00 00:00:[address] 2021-07-20 2021-07-20 Outpatient [facility] [id number] [place] 00:00:00 00:00:[address] 2021-07-20 2021-07-20 Outpatient CEBALLOS, [facility] [id number] [place] 00:00:00 00:00:00 CAMERON [address] 2021-07-19 2021-07-19 Outpatient [facility] [id number] [place] 00:00:00 00:00:[address] 2021-07-16 2021-07-16 Outpatient [facility] [id number] [place] 00:00:00 00:00:[address] 2021-07-15 2021-07-15 Outpatient [facility] [id number] [place] 00:00:00 00:00:[address] 2021-07-14 2021-07-14 Outpatient [facility] [id number] [place] 00:00:00 00:00:[address] 2021-07-13 2021-07-13 Outpatient [facility] [id number] [place] 00:00:00 00:00:[address] 2021-07-13 2021-07-13 Outpatient RACHEL, H [facility] [id number] [place] 00:00:00 00:00:00 ROBEL [address] 2021-07-12 2021-07-12 Outpatient [facility] [id number] [place] 00:00:00 00:00:[address] 2021-07-09 2021-07-09 Outpatient [facility] [id number] [place] 00:00:00 00:00:[address] 2021-07-08 2021-07-08 Outpatient [facility] [id number] [place] 00:00:00 00:00:[address] 2021-07-08 2021-07-08 Outpatient SHKEDY, [facility] [id number] [place] 00:00:00 00:00:00 ROBEL [address] 2021-07-07 2021-07-07 Outpatient SHKEDY, [facility] [id number] [place] 00:00:00 00:00:00 ROBEL [address] 2021-07-07 2021-07-07 Outpatient CEBALLOS, [facility] [id number] Delta 00:00:00 00:00:00 CAMERON [address] 2021-07-07 2021-07-07 Outpatient [facility] [id number] [place] 00:00:00 00:00:[address] 2021-07-06 2021-07-06 Outpatient [facility] [id number] [place] 00:00:00 00:00:[address] 2021-07-05 2021-07-05 Outpatient [facility] [id number] [place] 00:00:00 00:00:[address] 2021-06-29 2021-06-29 Outpatient SHKEDY, [facility] [id number] [place] 00:00:00 00:00:00 ROBEL [address] 2021-06-29 2021-06-29 Outpatient CEBALLOS, [facility] [id number] [place] 00:00:00 00:00:00 CAMERON [address] 2021-06-25 2021-06-25 Outpatient SHKEDY, [facility] [id number] [place] 00:00:00 00:00:00 ROBEL [address] 2021-06-25 2021-06-25 Outpatient SHKEDY, [facility] [id number] [place] 00:00:00 00:00:00 ROBEL [address] 2021-06-23 2021-06-23 Outpatient CEBALLOS, [facility] [id number] [place] 00:00:00 00:00:00 CAMERON [address] 2021-06-23 2021-06-23 Outpatient CEBALLOS, [facility] [id number] [place] 00:00:00 00:00:00 CAMERON [address] 2021-06-21 2021-06-21 Outpatient CEBALLOS, [facility] [id number] Delta 00:00:00 00:00:00 CAMERON 895 Method i 2021-05-31 2021-05-31 Outpatient CEBALLOS, [facility] [id number] Delta 00:00:00 00:00:00 CAMERON 026 Method i 2021-05-31 2021-05-31 Outpatient OOLUT, [facility] [id number] [place] 00:00:00 00:00:00 CAROLYN 172 Method i 2021-04-27 2021-04-27 Outpatient OOLUT, [facility] [id number] [place] 00:00:00 00:00:00 CAROLYN 102 Method i 2021-04-14 2021-04-14 Outpatient OOLUT, [facility] [id number] [place] 00:00:00 00:00:00 CAROLYN 229 Method i 2021-04-14 2021-04-14 Outpatient PARMET, [facility] [id number] Delta 00:00:00 00:00:00 WALE 629 Method i 2021-04-13 2021-04-13 Outpatient OOLUT, [facility] [id number] Delta 00:00:00 00:00:00 CAROLYN 682 Method i 2021-04-01 2021-04-01 Outpatient OOLUT, [facility] [id number] [place] 00:00:00 00:00:00 CAROLYN 447 Method i 2021-03-31 2021-03-31 Outpatient OOLUT, [facility] [id number] [place] 00:00:00 00:00:00 CAROLYN 630 Method i 2021-03-08 2021-03-08 Ferry Engineer Millicent Gilbert Lab Main [facility] 1.2.8 40.114 [id number] [facility] 07:44:04 07:59:04 Visit George Little [id number] Sal[place] [id number] Theresa Mckeon [phone] Ar dical [address] 2021-03-08 2021-03-08 Outpatient Niesha [facility] [id number] [facility] 07:45:00 07:45:00 GEORGE crespo [facility] 2021-03-08 2021-03-08 Orders Doctor DESI 1.2.840.114 [id number] [facility] 00:00:00 00:00:00 Only Unassigned, BERNA [id number] ity of [place] [facility] [id number] [place] as [phone] [address] 2021-02-19 2021-02-19 Outpatient OUT, [facility] [id number] [place] 00:00:00 00:00:00 CAROLYN 055 Method i 2021-02-09 2021-02-09 Outpatient R LÁZARO, [facility] [id number] [facility] 16:45:00 16:45:00 SANDRINE crespo [facility] 2021-02-09 2021-02-09 Ferry Engineer Ofelia, Adc Lab Main [facility] 1.2.8 40.114 [id number] Univers 16:22:14 16:37:14 Visit Sandrine Mccord [id number] ity [facility] [id number] [place] [phone] Ar dic[address] 2021-02-09 2021-02-09 Orders Doctor DESI 1.2.840.114 [id number] Univers 00:00:00 00:00:00 Only Unassigned, BERNA [id number] [facility] [address] [facility] [id number] [place] as [phone] [address] 2021-02-02 2021-02-02 Outpatient OOLUT, [facility] [id number] [place] 00:00:00 00:00:00 CAROLYN [address] 2021-02-02 2021-02-02 Outpatient [facility] [id number] [place] 00:00:00 00:00:[address] 2021-02-02 2021-02-02 Outpatient [facility] [id number] [place] 00:00:00 00:00:[address] 2021-02-02 2021-02-02 Outpatient OUT, [facility] [id number] [place] 00:00:00 00:00:00 CAROLYN [address] 2021-01-14 2021-01-14 Outpatient SEPTIMUS, [facility] [id number] [place] 00:00:00 00:00:00 TODD [address] 2020-12-24 2020-12-24 Outpatient OOLUT, [facility] [id number] [place] 00:00:00 00:00:00 CAROLYN [address] 2020-12-24 2020-12-24 Outpatient [facility] [id number] [place] 00:00:00 00:00:[address] 2020-11-28 2020-11-[address] [facility] [id number] [facility] 10:50:00 23:59:00 Encounter Sandrine Diamond [id number] ity [facility] [id number] [place] [phone] [facility] [address] 2020-11-28 2020-11-28 Outpatient R LÁZARO, [facility] [id number] Univers 00:00:00 00:00:00 SANDRINE castilloy of [facility] 2020-10-21 2020-10-21 Outpatient R UNKNOWN, [facility] [id number] Univers 09:15:00 09:15:00 ATTENDING itjo-ann [facility] 2020-10-21 2020-10-21 Ferry Engineer Ofelia, Adc Lab Main [facility] 1.2.8 40.114 [id number] Univers 08:53:13 09:08:13 Visit Unknown, Attending Brooke 350.1.13.1 0 ity [facility] [id number] [place] [phone] Ar dical nal [address] [facility] 2020-10-21 2020-10-21 Orders Doctor DESI 1.2.840.114 [id number] Univers 00:00:00 00:00:00 Only Unassigned, BERNA [id number] ity of [place] [facility] [id number] [place] as [phone] [facility] [address] Results Test Description Test Time Test Comments Results Result Comments Source POCT-GLUCOSE METER 2023-05-30 12:12:55 Test Item Value Reference Range Interpretation Comme nts POC-GLUCOSE METER (BEAKER) 126 mg/dL 70-110 H : TESTED AT [facility] [address] (test code = 1538) [place], [id number]: [employer]/Techni ranulfo ID = [id number] for Pablo Mohan (CELLAVISION MANUAL DIFF)2023-05-30 06:40:31 Test Item Value Reference Range Interpretation Comments NEUTROPHILS - REL 67 % (CELLAVISION)(BEAKER) (test code = 2816) LYMPHOCYTES - REL 2 % (CELLAVISION)(BEAKER) (test code = 2817) MONOCYTES - REL 22 % (CELLAVISION)(BEAKER) (test code = 2818) BANDS - REL (CELLAVISION)(BEAKER) 6 % 0-10 (test code = 2826) ATYPICAL LYMPHOCYTES - REL 3 % 0-0 H (CELLAVISION)(BEAKER) (test code = 2829) NEUTROPHILS - ABS 5.90 K/ul 1.78-5.38 H (CELLAVISION)(BEAKER) (test code = 2830) LYMPHOCYTES - ABS 0.18 K/ul 1.32-3.57 L (CELLAVISION)(BEAKER) (test code = 2831) MONOCYTES - ABS 1.94 K/uL 0.30-0.82 H (CELLAVISION)(BEAKER) (test code = 2832) BANDS - ABS (CELLAVISION)(BEAKER) 0.53 K/uL 0.00-0.80 (test code = 2840) ATYPICAL LYMPHOCYTES - ABS 0.26 K/uL 0.00-0.00 H (CELLAVISION)(BEAKER) (test code = 2858) TOTAL COUNTED (BEAKER) (test code = 100 1351) WBC MORPHOLOGY (BEAKER) (test code Normal = 487) PLT MORPHOLOGY (BEAKER) (test code Normal = 486) POLYCHROMATOPHILLIC RBCS(BEAKER) 1+ few (test code = 478) ANISOCYTOSIS (BEAKER) (test code = 1+ few 961) MACROCYTES (BEAKER) (test code = 1+ few 964) POIKILOCYTES (BEAKER) (test code = 1+ few 966) OVALOCYTES (BEAKER) (test code = 1+ few 477) ARTIFACT (CELLAVISION)(BEAKER) Present (test code = 3432) PLATELET CONCENTRATION Adequate (CELLAVISION)(BEAKER) (test code = 3438) [employer] ID - Cecy OverholtUser comments: Slide comments:CBC W/PLT COUNT & AUTO [id number] 06:40:30 Test Item Value Reference Range Interpretation Comments WHITE BLOOD CELL COUNT (BEAKER) 8.8 K/ L 3.5-10.5 (test code = 775) RED BLOOD CELL COUNT (BEAKER) 4.02 M/ L 4.63-6.08 L (test code = 761) HEMOGLOBIN (BEAKER) (test code = 11.6 GM/DL 13.7-17.5 L 410) HEMATOCRIT (BEAKER) (test code = 36.2 % 40.1-51.0 L 411) MEAN CORPUSCULAR VOLUME (BEAKER) 90 fL 79-92 (test code = 753) MEAN CORPUSCULAR HEMOGLOBIN 28.9 pg 25.7-32.2 (BEAKER) (test code = 751) MEAN CORPUSCULAR HEMOGLOBIN CONC 32.0 GM/DL 32.3-36.5 L (BEAKER) (test code = 752) RED CELL DISTRIBUTION WIDTH 16.5 % 11.6-14.4 H (BEAKER) (test code = 412) PLATELET COUNT (BEAKER) (test 202 K/CU MM 150-450 code = 756) MEAN PLATELET VOLUME (BEAKER) 9.6 fL 9.4-12.4 (test code = 754) NUCLEATED RED BLOOD CELLS 0 /100 WBC 0-0 (BEAKER) (test code = 413) [id number] 06:32:57 Test Item Value Reference Range Interpretation Comments PHOSPHORUS (BEAKER) 2.5 mg/dL 2.3-4.7 Specimen slightly (test code = 604) hemolyzed [employer] ID - emBASIC METABOLIC [id number] 06:32:57 Test Item Value Reference Range Interpretation Comments SODIUM (BEAKER) 136 meq/L 136-145 (test code = 381) POTASSIUM 4.6 meq/L 3.5-5.1 Specimen slight ly (BEAKER) (test hemolyzed code = 379) CHLORIDE (BEAKER) 104 meq/L 98-107 (test code = 382) CO2 (BEAKER) 25 meq/L 22-29 (test code = 355) BLOOD UREA 20 mg/dL 7-21 NITROGEN (BEAKER) (test code = 354) CREATININE 0.83 mg/dL 0.57-1.25 Specimen slight ly (BEAKER) (test hemolyzed code = 358) GLUCOSE RANDOM 98 mg/dL 70-105 (BEAKER) (test code = 652) CALCIUM (BEAKER) 10.8 mg/dL 8.4-10.2 H (test code = 697) EGFR (BEAKER) 91 Interpretatio n of eGFR (test code = mL/min/1.73 values Stage De scription 1092) sq m Result G1 Essence l or high >=90 G2 Mildly decreased 60-89 G3a Mildl y to moderately 45-5 9 G3b Moderately to s everely 30-44 G4 Severl y decreased 15-29 G5 Kidney failure <15Reported eGF R is based on the CKD-EPI 2020 equation that d oes not use a race coefficientEsti mated GFR is not as accur ate as Creatinine Millicent raquel in predicting glom erular filtration rate . Estimated GFR is not appl icable for dialysis patien ts [employer] ID - [id number] 06:32:56 Test Item Value Reference Range Interpretation Comments MAGNESIUM (BEAKER) 1.8 mg/dL 1.6-2.6 Specimen slightly (test code = 627) hemolyzed [employer] ID - emPOCT-GLUCOSE [id number] 21:47:39 Test Item Value Reference Range Interpretation Comments POC-GLUCOSE METER 119 mg/dL 70-110 H : TESTED A T [facility] 67[address] (Bench) (test code = [facility], 153) [address]: [employer]/Techni ranulfo ID = [id number] for KIRK YONASONCIPRIANOA POCT-GLUCOSE [id number] 18:13:39 Test Item Value Reference Range Interpretation Comments POC-GLUCOSE METER 97 mg/dL 70-110 : TESTED A T [facility] [address] (BEGFRANQ) (test code = [facility], 153) [address]: [employer]/Techni ranulfo ID = [id number] for Ramirez , Cathleen (Amira) POCT-GLUCOSE [id number] 17:29:46 Test Item Value Reference Range Interpretation Comments POC-GLUCOSE METER 126 mg/dL 70-110 H : TESTED A T [facility] [address] (BEAKER) (test code = [facility], 1538) [address]: [employer]/Techni ranulfo ID = [id number] for Ph am, Cathleen (Amira) POCT-GLUCOSE [id number] 08:51:08 Test Item Value Reference Range Interpretation Comments POC-GLUCOSE METER 118 mg/dL 70-110 H : TESTED A T [facility] [address] (BEAKER) (test code = [facility], 1538) [address]: [employer]/Techni ranulfo ID = [id number] for Ph am, Ctahleen (Amira) [id number] 04:44:37 Test Item Value Reference Range Interpretation Comments PHOSPHORUS (BEAKER) (test code = 2.9 mg/dL 2.3-4.7 604) [employer] ID - ADMINBASIC METABOLIC [id number] 04:44:36 Test Item Value Reference Range Interpretation Comments SODIUM (BEAKER) 135 meq/L 136-145 L (test code = 381) POTASSIUM 4.3 meq/L 3.5-5.1 (BEAKER) (test code = 379) CHLORIDE (BEAKER) 105 meq/L 98-107 (test code = 382) CO2 (BEAKER) 23 meq/L 22-29 (test code = 355) BLOOD UREA 20 mg/dL 7-21 NITROGEN (BEAKER) (test code = 354) CREATININE 0.84 mg/dL 0.57-1.25 (BEAKER) (test code = 358) GLUCOSE RANDOM 122 mg/dL 70-105 H (BEAKER) (test code = 652) CALCIUM (BEAKER) 10.9 mg/dL 8.4-10.2 H (test code = 697) EGFR (BEAKER) 91 Interpretatio n of eGFR (test code = mL/min/1.73 values Stage De scription 1092) sq m Result G1 Essence l or high >=90 G2 Mildly decreased 60-89 G3a Mildl y to moderately 45-5 9 G3b Moderately to s everely 30-44 G4 Severl y decreased 15-29 G5 Kidney failure <15Reported eGF R is based on the CKD-EPI 2020 equation that d oes not use a race coefficientEsti mated GFR is not as accur ate as Creatinine Millicent garcía in predicting glom erular filtration rate . Estimated GFR is not appl icable for dialysis patien ts [employer] ID - [id number] 04:44:36 Test Item Value Reference Range Interpretation Comments MAGNESIUM (BEAKER) (test code = 1.9 mg/dL 1.6-2.6 627) [employer] ID - ADMIN(CELLAVISION MANUAL DIFF)2023-05-29 04:27:23 Test Item Value Reference Range Interpretation Comments NEUTROPHILS - REL 68 % (CELLAVISION)(BEAKER) (test code = 2816) LYMPHOCYTES - REL 13 % (CELLAVISION)(BEAKER) (test code = 2817) MONOCYTES - REL 17 % (CELLAVISION)(BEAKER) (test code = 2818) ATYPICAL LYMPHOCYTES - REL 2 % 0-0 H (CELLAVISION)(BEAKER) (test code = 2829) NEUTROPHILS - ABS 5.92 K/ul 1.78-5.38 H (CELLAVISION)(BEAKER) (test code = 2830) LYMPHOCYTES - ABS 1.13 K/ul 1.32-3.57 L (CELLAVISION)(BEAKER) (test code = 2831) MONOCYTES - ABS 1.48 K/uL 0.30-0.82 H (CELLAVISION)(BEAKER) (test code = 2832) ATYPICAL LYMPHOCYTES - ABS 0.17 K/uL 0.00-0.00 H (CELLAVISION)(BEAKER) (test code = 2858) TOTAL COUNTED (BEAKER) (test code 100 = 1351) PLT MORPHOLOGY (BEAKER) (test Normal code = 486) SMUDGE CELLS (BEAKER) (test code Present = 1371) POLYCHROMATOPHILLIC RBCS(BEAKER) 1+ few (test code = 478) ANISOCYTOSIS (BEAKER) (test code 1+ few = 961) POIKILOCYTES (BEAKER) (test code 2+ moderate = 966) TARGET CELLS (BEAKER) (test code 1+ few = 480) OVALOCYTES (BEAKER) (test code = 1+ few 477) TEAR DROP CELLS (BEAKER) (test 1+ few code = 481) JOSE MARIA CELLS (BEAKER) (test code = 2+ moderate 474) PLATELET CONCENTRATION Adequate (CELLAVISION)(BEAKER) (test code = 3438) [employer] ID - Sid Sheehan comments: Slide comments:CBC W/PLT COUNT & AUTO [id number] 04:27:22 Test Item Value Reference Range Interpretation Comments WHITE BLOOD CELL COUNT (BEAKER) 8.7 K/ L 3.5-10.5 (test code = 775) RED BLOOD CELL COUNT (BEAKER) 4.12 M/ L 4.63-6.08 L (test code = 761) HEMOGLOBIN (BEAKER) (test code = 11.8 GM/DL 13.7-17.5 L 410) HEMATOCRIT (BEAKER) (test code = 36.4 % 40.1-51.0 L 411) MEAN CORPUSCULAR VOLUME (BEAKER) 88 fL 79-92 (test code = 753) MEAN CORPUSCULAR HEMOGLOBIN 28.6 pg 25.7-32.2 (BEAKER) (test code = 751) MEAN CORPUSCULAR HEMOGLOBIN CONC 32.4 GM/DL 32.3-36.5 (BEAKER) (test code = 752) RED CELL DISTRIBUTION WIDTH 16.9 % 11.6-14.4 H (BEAKER) (test code = 412) PLATELET COUNT (BEAKER) (test 189 K/CU MM 150-450 code = 756) MEAN PLATELET VOLUME (BEAKER) 9.3 fL 9.4-12.4 L (test code = 754) NUCLEATED RED BLOOD CELLS 0 /100 WBC 0-0 (BEAKER) (test code = 413) POCT-GLUCOSE [id number] 22:45:37 Test Item Value Reference Range Interpretation Comments POC-GLUCOSE METER 125 mg/dL 70-110 H : TESTED A T [facility] [address] (BEAKER) (test code = [place] [place], 153) [address]: [employer]/Techni ranulfo ID = [id number] for TAMIKO PAEZ POCT-GLUCOSE [id number] 17:53:50 Test Item Value Reference Range Interpretation Comments POC-GLUCOSE METER 128 mg/dL 70-110 H : TESTED A T [facility] [address] (BEAKER) (test code = [facility] [place], 1538) [address]: [employer]/Techni ranulfo ID = [id number] for FABIANO MANRIQUEZ BASIC METABOLIC [id number] 13:06:48 Test Item Value Reference Range Interpretation Comments SODIUM (BEAKER) 136 meq/L 136-145 (test code = 381) POTASSIUM 4.4 meq/L 3.5-5.1 (BEAKER) (test code = 379) CHLORIDE (BEAKER) 106 meq/L 98-107 (test code = 382) CO2 (BEAKER) 20 meq/L 22-29 L (test code = 355) BLOOD UREA 17 mg/dL 7-21 NITROGEN (BEAKER) (test code = 354) CREATININE 0.96 mg/dL 0.57-1.25 (BEAKER) (test code = 358) GLUCOSE RANDOM 131 mg/dL 70-105 H (BEAKER) (test code = 652) CALCIUM (BEAKER) 11.0 mg/dL 8.4-10.2 H (test code = 697) EGFR (BEAKER) 82 Interpretatio n of eGFR (test code = mL/min/1.73 values Stage De scription 1092) sq m Result G1 Essence l or high >=90 G2 Mildly decreased 60-89 G3a Mildl y to moderately 45-5 9 G3b Moderately to s everely 30-44 G4 Severl y decreased 15-29 G5 Kidney failure <15Reported eGF R is based on the CKD-EPI 2020 equation that d oes not use a race coefficientEsti mated GFR is not as accur ate as Creatinine Millicent garcía in predicting glom erular filtration rate . Estimated GFR is not appl icable for dialysis patien ts [employer] ID - ADMINPOCT-GLUCOSE [id number] 11:42:37 Test Item Value Reference Range Interpretation Comments POC-GLUCOSE METER 136 mg/dL 70-110 H : TESTED A T [facility] [address] (BEAKER) (test code = [facility], 153) [address]: [employer]/Techni ranulfo ID = [id number] for FABIANO MANRIQUEZ (CELLAVISION MANUAL DIFF)2023-05-28 07:08:51 Test Item Value Reference Range Interpretation Comments NEUTROPHILS - REL 78 % (CELLAVISION)(BEAKER) (test code = 2816) LYMPHOCYTES - REL 5 % (CELLAVISION)(BEAKER) (test code = 2817) MONOCYTES - REL 13 % (CELLAVISION)(BEAKER) (test code = 2818) METAMYELOCYTES - REL 1 % 0-0 H (CELLAVISION)(BEAKER) (test code = 2821) ATYPICAL LYMPHOCYTES - REL 3 % 0-0 H (CELLAVISION)(BEAKER) (test code = 2829) NEUTROPHILS - ABS 8.50 K/ul 1.78-5.38 H (CELLAVISION)(BEAKER) (test code = 2830) LYMPHOCYTES - ABS 0.55 K/ul 1.32-3.57 L (CELLAVISION)(BEAKER) (test code = 2831) MONOCYTES - ABS 1.42 K/uL 0.30-0.82 H (CELLAVISION)(BEAKER) (test code = 2832) METAMYELOCYTES - ABS 0.11 K/uL 0.00-0.00 H (CELLAVISION)(BEAKER) (test code = 2836) ATYPICAL LYMPHOCYTES - ABS 0.33 K/uL 0.00-0.00 H (CELLAVISION)(BEAKER) (test code = 2858) TOTAL COUNTED (BEAKER) (test code = 100 1351) PLT MORPHOLOGY (BEAKER) (test code Normal = 486) SMUDGE CELLS (BEAKER) (test code = Present 1371) POLYCHROMATOPHILLIC RBCS(BEAKER) 1+ few (test code = 478) ANISOCYTOSIS (BEAKER) (test code = 1+ few 961) MACROCYTES (BEAKER) (test code = 1+ few 964) POIKILOCYTES (BEAKER) (test code = 1+ few 966) OVALOCYTES (BEAKER) (test code = 1+ few 477) TEAR DROP CELLS (BEAKER) (test code 1+ few = 481) JOSE MARIA CELLS (BEAKER) (test code = 1+ few 474) PLATELET CONCENTRATION Adequate (CELLAVISION)(BEAKER) (test code = 3438) [employer] ID - namnguyenUser comments: Slide comments:CBC W/PLT COUNT & AUTO [id number] 07:08:36 Test Item Value Reference Range Interpretation Comments WHITE BLOOD CELL COUNT (BEAKER) 10.9 K/ L 3.5-10.5 H (test code = 775) RED BLOOD CELL COUNT (BEAKER) 4.15 M/ L 4.63-6.08 L (test code = 761) HEMOGLOBIN (BEAKER) (test code = 12.2 GM/DL 13.7-17.5 L 410) HEMATOCRIT (BEAKER) (test code = 37.8 % 40.1-51.0 L 411) MEAN CORPUSCULAR VOLUME (BEAKER) 91 fL 79-92 (test code = 753) MEAN CORPUSCULAR HEMOGLOBIN 29.4 pg 25.7-32.2 (BEAKER) (test code = 751) MEAN CORPUSCULAR HEMOGLOBIN CONC 32.3 GM/DL 32.3-36.5 (BEAKER) (test code = 752) RED CELL DISTRIBUTION WIDTH 16.7 % 11.6-14.4 H (BEAKER) (test code = 412) PLATELET COUNT (BEAKER) (test 164 K/CU MM 150-450 code = 756) MEAN PLATELET VOLUME (BEAKER) 8.7 fL 9.4-12.4 L (test code = 754) NUCLEATED RED BLOOD CELLS 0 /100 WBC 0-0 (BEAKER) (test code = 413) [id number] 04:48:49 Test Item Value Reference Range Interpretation Comments MAGNESIUM (BEAKER) (test code = 1.7 mg/dL 1.6-2.6 627) [employer] ID - [id number] 04:48:49 Test Item Value Reference Range Interpretation Comments PHOSPHORUS (BEAKER) (test code = 2.4 mg/dL 2.3-4.7 604) [employer] ID - ADMINBASIC METABOLIC [id number] 04:48:48 Test Item Value Reference Range Interpretation Comments SODIUM (BEAKER) 133 meq/L 136-145 L (test code = 381) POTASSIUM 4.4 meq/L 3.5-5.1 (BEAKER) (test code = 379) CHLORIDE (BEAKER) 105 meq/L 98-107 (test code = 382) CO2 (BEAKER) 19 meq/L 22-29 L (test code = 355) BLOOD UREA 11 mg/dL 7-21 NITROGEN (BEAKER) (test code = 354) CREATININE 0.80 mg/dL 0.57-1.25 (BEAKER) (test code = 358) GLUCOSE RANDOM 116 mg/dL 70-105 H (GRIFFIN) (test code = 652) CALCIUM (ISRAELAKER) 10.3 mg/dL 8.4-10.2 H (test code = 697) EGFR (GRIFFIN) 92 Interpretatio n of eGFR (test code = mL/min/1.73 values Stage De scription 1092) sq m Result G1 Essence l or high >=90 G2 Mildly decreased 60-89 G3a Mildl y to moderately 45-5 9 G3b Moderately to s everely 30-44 G4 Severl y decreased 15-29 G5 Kidney failure <15Reported eGF R is based on the CKD-EPI 2020 equation that d oes not use a race coefficientEsti mated GFR is not as accur ate as Creatinine Millicent raquel in predicting glom erular filtration rate . Estimated GFR is not appl icable for dialysis patien ts [employer] ID - ADMINPOCT-GLUCOSE [id number] 22:23:51 Test Item Value Reference Range Interpretation Comments POC-GLUCOSE METER 121 mg/dL 70-110 H : TESTED A T [facility] 6720 (GRIFFIN) (test code = [facility], 1538) [address]: [employer]/Techni ranulfo ID = [id number] for ALEXANDR REED MR BRAIN WITH & WITHOUT IV [id number] 16:44:24 [facility] 1945 Sex: MMRI Brain with and without contrastCLINICAL HISTORY: Brain mass or lesionTechnique: Multiplanar, multisequence MRI images of the brain obtainedwith and without IV contrast.Comparisons: CT head 05/23/2023, MR brain05/22/2023Findings:Status post gross total resection of left parietal lobe enhancing lesionwith incomplete trace thin marginal enhancement around the resectioncavity without nodularity. DWI signal hyperintensity along the superiormargin of the resection cavity likely related to overlying metallicartifact. Left parietal lobe edema is similar in appearance. Nosignificant midline shift or hydrocephalus.Small volume pneumocephaluswith trace Postoperative extra-axial hemorrhage. Orbits, globes, paranasal sinuses are unremarkable. IMPRESSION:Status post resection of left parietal lobe lesion without evidence ofresidual tumor. Stable left cerebral edema.No evidence of acute infarct, hemorrhage, hydrocephalus, or mass.Electronically Signed By: Edison Sharif05/27/2023 16:46 CDTWorkstation Name: [id number] 13:49:51 Test Item Value Reference Range Interpretation Comments POC-GLUCOSE METER 109 mg/dL 70-110 : TESTED A T [facility] 6720 (BEAKER) (test code = [facility], 1538) [address]: [employer]/Techni ranulfo ID = [id number] for FABIANO MANRIQUEZ POCT-GLUCOSE [id number] 07:42:10 Test Item Value Reference Range Interpretation Comments POC-GLUCOSE METER 164 mg/dL 70-110 H : TESTED A T [facility] 6720 (BEAKER) (test code = [facility], 1538) [address]: [employer]/Techni ranulfo ID = [id number] for ALEXANDR REED [id number] 04:32:10 Test Item Value Reference Range Interpretation Comments MAGNESIUM (BEAKER) (test code = 1.8 mg/dL 1.6-2.6 627) [employer] ID - [id number] 04:32:10 Test Item Value Reference Range Interpretation Comments PHOSPHORUS (BEAKER) (test code = 1.9 mg/dL 2.3-4.7 L 604) [employer] ID - ADMINBASIC METABOLIC [id number] 04:32:09 Test Item Value Reference Range Interpretation Comments SODIUM (BEAKER) 138 meq/L 136-145 (test code = 381) POTASSIUM 3.5 meq/L 3.5-5.1 (BEAKER) (test code = 379) CHLORIDE (BEAKER) 111 meq/L 98-107 H (test code = 382) CO2 (BEAKER) 22 meq/L 22-29 (test code = 355) BLOOD UREA 11 mg/dL 7-21 NITROGEN (BEAKER) (test code = 354) CREATININE 0.75 mg/dL 0.57-1.25 (BEAKER) (test code = 358) GLUCOSE RANDOM 122 mg/dL 70-105 H (BEAKER) (test code = 652) CALCIUM (BEAKER) 9.2 mg/dL 8.4-10.2 (test code = 697) EGFR (BEAKER) 93 Interpretatio n of eGFR (test code = mL/min/1.73 values Stage De scription 1092) sq m Result G1 Essence l or high >=90 G2 Mildly decreased 60-89 G3a Mildl y to moderately 45-5 9 G3b Moderately to s everely 30-44 G4 Severl y decreased 15-29 G5 Kidney failure <15Reported eGF R is based on the CKD-EPI 2020 equation that d oes not use a race coefficientEsti mated GFR is not as accur ate as Creatinine Millicent raquel in predicting glom erular filtration rate . Estimated GFR is not appl icable for dialysis patien ts [employer] ID - ADMINCBC W/PLT COUNT & AUTO [id number] 04:14:45 Test Item Value Reference Range Interpretation Comments WHITE BLOOD CELL COUNT (BEAKER) 7.2 K/ L 3.5-10.5 (test code = 775) RED BLOOD CELL COUNT (BEAKER) 3.93 M/ L 4.63-6.08 L (test code = 761) HEMOGLOBIN (BEAKER) (test code = 11.2 GM/DL 13.7-17.5 L 410) HEMATOCRIT (BEAKER) (test code = 35.5 % 40.1-51.0 L 411) MEAN CORPUSCULAR VOLUME (BEAKER) 90 fL 79-92 (test code = 753) MEAN CORPUSCULAR HEMOGLOBIN 28.5 pg 25.7-32.2 (BEAKER) (test code = 751) MEAN CORPUSCULAR HEMOGLOBIN CONC 31.5 GM/DL 32.3-36.5 L (BEAKER) (test code = 752) RED CELL DISTRIBUTION WIDTH 16.4 % 11.6-14.4 H (BEAKER) (test code = 412) PLATELET COUNT (BEAKER) (test 171 K/CU MM 150-450 code = 756) MEAN PLATELET VOLUME (BEAKER) 9.1 fL 9.4-12.4 L (test code = 754) NUCLEATED RED BLOOD CELLS 0 /100 WBC 0-0 (BEAKER) (test code = 413) NEUTROPHILS RELATIVE PERCENT 68 % (BEAKER) (test code = 429) LYMPHOCYTES RELATIVE PERCENT 13 % (BEAKER) (test code = 430) MONOCYTES RELATIVE PERCENT 19 % (BEAKER) (test code = 431) EOSINOPHILS RELATIVE PERCENT 0 % (BEAKER) (test code = 432) BASOPHILS RELATIVE PERCENT 0 % (BEAKER) (test code = 437) NEUTROPHILS ABSOLUTE COUNT 4.90 K/ L 1.78-5.38 (BEAKER) (test code = 670) LYMPHOCYTES ABSOLUTE COUNT 0.93 K/ L 1.32-3.57 L (BEAKER) (test code = 414) MONOCYTES ABSOLUTE COUNT (BEAKER) 1.33 K/ L 0.30-0.82 H (test code = 415) EOSINOPHILS ABSOLUTE COUNT 0.00 K/ L 0.04-0.54 L (BEAKER) (test code = 416) BASOPHILS ABSOLUTE COUNT (BEAKER) 0.00 K/ L 0.01-0.08 L (test code = 417) IMMATURE GRANULOCYTES-RELATIVE 0.30 % 0.00-1.00 PERCENT (BEAKER) (test code = 2801) POCT-GLUCOSE [id number] 23:58:44 Test Item Value Reference Range Interpretation Comments POC-GLUCOSE METER 109 mg/dL 70-110 : TESTED A T [facility] 6720 (BEAKER) (test code = [facility], 1538) [address]: [employer]/Techni ranulfo ID = [id number] for ALEXANDR REED POCT-GLUCOSE [id number] 16:41:01 Test Item Value Reference Range Interpretation Comments POC-GLUCOSE METER 134 mg/dL 70-110 H : TESTED A T [facility] 6720 (BEAKER) (test code = [facility], 1538) [address]: [employer]/Techni ranulfo ID = [id number] for Mitzi Bolaños POCT-GLUCOSE [id number] 13:46:07 Test Item Value Reference Range Interpretation Comments POC-GLUCOSE METER 88 mg/dL 70-110 : TESTED A T [facility] 6720 (BEAKER) (test code = [facility], 1538) [address]: [employer]/Techni ranulfo ID = [id number] for Mitzi Bolaños POCT-GLUCOSE [id number] 06:38:40 Test Item Value Reference Range Interpretation Comments POC-GLUCOSE METER 104 mg/dL 70-110 : TESTED A T [facility] 6720 (BEAKER) (test code = CIPRIANO [facility], 1538) [address]110[address]: [employer]/Techni ranulfo ID = [id number] for Tatiana Wilson BASIC METABOLIC [id number] 04:24:25 Test Item Value Reference Range Interpretation Comments SODIUM (BEAKER) 139 meq/L 136-145 (test code = 381) POTASSIUM 4.0 meq/L 3.5-5.1 (BEAKER) (test code = 379) CHLORIDE (BEAKER) 109 meq/L 98-107 H (test code = 382) CO2 (BEAKER) 24 meq/L 22-29 (test code = 355) BLOOD UREA 17 mg/dL 7-21 NITROGEN (BEAKER) (test code = 354) CREATININE 0.80 mg/dL 0.57-1.25 (BEAKER) (test code = 358) GLUCOSE RANDOM 105 mg/dL 70-105 (BEAKER) (test code = 652) CALCIUM (BEAKER) 9.9 mg/dL 8.4-10.2 (test code = 697) EGFR (BEAKER) 92 Interpretatio n of eGFR (test code = mL/min/1.73 values Stage De scription 1092) sq m Result G1 Essence l or high >=90 G2 Mildly decreased 60-89 G3a Mildl y to moderately 45-5 9 G3b Moderately to s everely 30-44 G4 Severl y decreased 15-29 G5 Kidney failure <15Reported eGF R is based on the CKD-EPI 2021 equation that d oes not use a race coefficientEsti mated GFR is not as accur ate as Creatinine Millicent raquel in predicting glom erular filtration rate . Estimated GFR is not appl icable for dialysis patien ts [employer] ID - [id number] 04:24:25 Test Item Value Reference Range Interpretation Comments MAGNESIUM (BEAKER) (test code = 1.6 mg/dL 1.6-2.6 627) [employer] ID - [id number] 04:24:25 Test Item Value Reference Range Interpretation Comments PHOSPHORUS (BEAKER) (test code = 2.4 mg/dL 2.3-4.7 604) [employer] ID - [id number] W/PLT COUNT & AUTO [id number] 04:22:48 Test Item Value Reference Range Interpretation Comments WHITE BLOOD CELL COUNT (BEAKER) 3.7 K/ L 3.5-10.5 (test code = 775) RED BLOOD CELL COUNT (BEAKER) 4.14 M/ L 4.63-6.08 L (test code = 761) HEMOGLOBIN (BEAKER) (test code = 11.8 GM/DL 13.7-17.5 L 410) HEMATOCRIT (BEAKER) (test code = 37.4 % 40.1-51.0 L 411) MEAN CORPUSCULAR VOLUME (BEAKER) 90 fL 79-92 (test code = 753) MEAN CORPUSCULAR HEMOGLOBIN 28.5 pg 25.7-32.2 (BEAKER) (test code = 751) MEAN CORPUSCULAR HEMOGLOBIN CONC 31.6 GM/DL 32.3-36.5 L (BEAKER) (test code = 752) RED CELL DISTRIBUTION WIDTH 16.4 % 11.6-14.4 H (BEAKER) (test code = 412) PLATELET COUNT (BEAKER) (test 177 K/CU MM 150-450 code = 756) MEAN PLATELET VOLUME (BEAKER) 9.4 fL 9.4-12.4 (test code = 754) NUCLEATED RED BLOOD CELLS 0 /100 WBC 0-0 (BEAKER) (test code = 413) NEUTROPHILS RELATIVE PERCENT 54 % (BEAKER) (test code = 429) LYMPHOCYTES RELATIVE PERCENT 26 % (BEAKER) (test code = 430) MONOCYTES RELATIVE PERCENT 20 % (BEAKER) (test code = 431) EOSINOPHILS RELATIVE PERCENT 0 % (BEAKER) (test code = 432) BASOPHILS RELATIVE PERCENT 0 % (BEAKER) (test code = 437) NEUTROPHILS ABSOLUTE COUNT 1.96 K/ L 1.78-5.38 (BEAKER) (test code = 670) LYMPHOCYTES ABSOLUTE COUNT 0.96 K/ L 1.32-3.57 L (BEAKER) (test code = 414) MONOCYTES ABSOLUTE COUNT (BEAKER) 0.72 K/ L 0.30-0.82 (test code = 415) EOSINOPHILS ABSOLUTE COUNT 0.01 K/ L 0.04-0.54 L (BEAKER) (test code = 416) BASOPHILS ABSOLUTE COUNT (BEAKER) 0.00 K/ L 0.01-0.08 L (test code = 417) IMMATURE GRANULOCYTES-RELATIVE 0.00 % 0.00-1.00 PERCENT (BEAKER) (test code = 2801) POCT-GLUCOSE [id number] 00:30:08 Test Item Value Reference Range Interpretation Comments POC-GLUCOSE METER 119 mg/dL 70-110 H : TESTED A T [facility] 6720 (BEAKER) (test code = [facility] Niesha [facility], 153) [address]: Cook Fish Eggs/Techni ranulfo ID = [id number] for Nadia Wilsonn [id number] 15:46:50 Test Item Value Reference Range Interpretation Comments PARTIAL THROMBOPLASTIN TIME 27.4 seconds 22.5-36.0 (BEAKER) (test code = 760) PROTHROMBIN TIME/[id number] 15:46:14 Test Item Value Reference Range Interpretation Comments PROTIME (BEAKER) (test code = 15.5 seconds 11.9-14.2 H 759) INR (BEAKER) (test code = 370) 1.23 <=5.90 RECOMMENDED COUMADIN/WARFARIN INR THERAPY RANGESSTANDARD DOSE: 2.0 - 3.0 Includes: PROPHYLAXIS for venous thrombosis, systemic embolization; TREATMENT for venous thrombosis and/or pulmonary embolus.HIGH RISK: Target INR is 2.5-3.5 for patients with mechanical heart valves.POCT-GLUCOSE [id number] 13:00:10 Test Item Value Reference Range Interpretation Comments POC-GLUCOSE METER 124 mg/dL 70-110 H : TESTED A T [facility] 6720 (BEAKER) (test code = [facility] Niesha [facility], 153) [id number]: Cook Fish Eggs/Techni ranulfo ID = [id number] for RYLAN SHERRIEAXEL, CARLOS [id number] 06:38:02 Test Item Value Reference Range Interpretation Comments MAGNESIUM (BEAKER) (test code = 1.8 mg/dL 1.6-2.6 627) [employer] ID - [id number] 06:38:02 Test Item Value Reference Range Interpretation Comments PHOSPHORUS (BEAKER) (test code = 2.2 mg/dL 2.3-4.7 L 604) [employer] ID - BSBASIC METABOLIC [id number] 06:38:01 Test Item Value Reference Range Interpretation Comments SODIUM (BEAKER) 138 meq/L 136-145 (test code = 381) POTASSIUM 3.9 meq/L 3.5-5.1 (BEAKER) (test code = 379) CHLORIDE (BEAKER) 109 meq/L 98-107 H (test code = 382) CO2 (BEAKER) 23 meq/L 22-29 (test code = 355) BLOOD UREA 14 mg/dL 7-21 NITROGEN (BEAKER) (test code = 354) CREATININE 0.81 mg/dL 0.57-1.25 (BEAKER) (test code = 358) GLUCOSE RANDOM 109 mg/dL 70-105 H (BEAKER) (test code = 652) CALCIUM (BEAKER) 9.7 mg/dL 8.4-10.2 (test code = 697) EGFR (BEAKER) 91 Interpretatio n of eGFR (test code = mL/min/1.73 values Stage De scription 1092) sq m Result G1 Essence l or high >=90 G2 Mildly decreased 60-89 G3a Mildl y to moderately 45-5 9 G3b Moderately to s everely 30-44 G4 Severl y decreased 15-29 G5 Kidney failure <15Reported eGF R is based on the CKD-EPI 1 equation that d oes not use a race coefficientEsti mated GFR is not as accur ate as Creatinine Millicent garcía in predicting glom erular filtration rate . Estimated GFR is not appl icable for dialysis patien ts [employer] ID - BSPOCT-GLUCOSE [id number] 06:01:53 Test Item Value Reference Range Interpretation Comments POC-GLUCOSE METER 98 mg/dL 70-110 : TESTED A T [facility] 6720 (BEAKER) (test code = [facility] [place], 1538) [address]: Cook [employer]/Techni ranulfo ID = [id number] for Tatiana Wright CBC W/PLT COUNT & AUTO [id number] 05:44:39 Test Item Value Reference Range Interpretation Comments WHITE BLOOD CELL COUNT (BEAKER) 4.6 K/ L 3.5-10.5 (test code = 775) RED BLOOD CELL COUNT (BEAKER) 4.34 M/ L 4.63-6.08 L (test code = 761) HEMOGLOBIN (BEAKER) (test code = 12.3 GM/DL 13.7-17.5 L 410) HEMATOCRIT (BEAKER) (test code = 39.6 % 40.1-51.0 L 411) MEAN CORPUSCULAR VOLUME (BEAKER) 91 fL 79-92 (test code = 753) MEAN CORPUSCULAR HEMOGLOBIN 28.3 pg 25.7-32.2 (BEAKER) (test code = 751) MEAN CORPUSCULAR HEMOGLOBIN CONC 31.1 GM/DL 32.3-36.5 L (BEAKER) (test code = 752) RED CELL DISTRIBUTION WIDTH 16.8 % 11.6-14.4 H (BEAKER) (test code = 412) PLATELET COUNT (BEAKER) (test 191 K/CU MM 150-450 code = 756) MEAN PLATELET VOLUME (BEAKER) 9.4 fL 9.4-12.4 (test code = 754) NUCLEATED RED BLOOD CELLS 0 /100 WBC 0-0 (BEAKER) (test code = 413) NEUTROPHILS RELATIVE PERCENT 67 % (BEAKER) (test code = 429) LYMPHOCYTES RELATIVE PERCENT 19 % (BEAKER) (test code = 430) MONOCYTES RELATIVE PERCENT 14 % (BEAKER) (test code = 431) EOSINOPHILS RELATIVE PERCENT 0 % (BEAKER) (test code = 432) BASOPHILS RELATIVE PERCENT 0 % (BEAKER) (test code = 437) NEUTROPHILS ABSOLUTE COUNT 3.07 K/ L 1.78-5.38 (BEAKER) (test code = 670) LYMPHOCYTES ABSOLUTE COUNT 0.88 K/ L 1.32-3.57 L (BEAKER) (test code = 414) MONOCYTES ABSOLUTE COUNT (BEAKER) 0.66 K/ L 0.30-0.82 (test code = 415) EOSINOPHILS ABSOLUTE COUNT 0.00 K/ L 0.04-0.54 L (BEAKER) (test code = 416) BASOPHILS ABSOLUTE COUNT (BEAKER) 0.00 K/ L 0.01-0.08 L (test code = 417) IMMATURE GRANULOCYTES-RELATIVE 0.20 % 0.00-1.00 PERCENT (BEAKER) (test code = 2801) POCT-GLUCOSE [id number] 00:54:18 Test Item Value Reference Range Interpretation Comments POC-GLUCOSE METER 99 mg/dL 70-110 : TESTED A T [facility] 6720 (GRIFFIN) (test code = [facility], 1538) [id number]: Cook Fish Eggs/Techni ranulfo ID = [id number] for Tatiana Wright POCT-GLUCOSE [id number] 17:25:03 Test Item Value Reference Range Interpretation Comments POC-GLUCOSE METER 83 mg/dL 70-110 : TESTED A T [facility] 6720 (GRIFFIN) (test code = [facility], 1538) [id number]: Cook Fish Eggs/Techni ranulfo ID = [id number] for Tony Brower MR LUMBAR SPINE WITH & WITHOUT IV [id number] 12:52:58 [facility] 1945 Sex: MMR CERVICALSPINE WITH & WITHOUT IV CONTRAST, MR THORACIC SPINE WITH& WITHOUT IV CONTRAST, MR LUMBAR SPINE WITH & WITHOUT IV CONTRASTINDICATION: Cancer of unknown primary, stagingevaluate for metastatic diseaseTECHNIQUE: Multiplanar, multisequence MR imaging of the cervical,thoracic and lumbar spine was performed with and without intravenouscontrast.COMPARISON: None.FINDINGS: CERVICAL SPINE:Alignmentof the cervical spine is within normal limits. Vertebral body height is maintained.Fusion across theand C5-C6 disc spaces.Mild multilevel disc space height loss.Marrow is heterogeneous but no enhancing metastases are demonstrated.Cervical cord is normal in signal intensityNo acute findings within theparaspinal soft tissues.Findings by level:C2/C3: No significant spinal canal or foraminal stenosis.C3/C4: Broad-based posterior disc herniation, which flattens the ventralcervical cord. Ligamentum flavum thickening. Severe spinal canalstenosis. Bilateral uncovertebral facet arthropathy with severebilateral foraminal stenosis.C4/C5: Broad-based posterior disc herniation, which flattens the ventralcervical cord. Ligamentum flavum thickening. Moderate spinal canalstenosis. Bilateral uncovertebral facetarthropathy with severebilateral foraminal stenosis.C5/C6: No significant spinal canal stenosis. No significant foraminalstenosis.C6/C7: Broad-based posterior disc herniation, which effaces the ventralthecal sac and flattens the ventral cervical cord with moderate spinalcanal stenosis. Bilateral uncovertebral and facet arthrosis with severebilateral foraminal stenosis.C7/T1: Broad-based shallow posterior disc herniation. No significantspinal canal stenosis. Bilateral uncovertebral facet arthropathy withmild bilateral foraminal stenosis.THORACIC SPINE:Alignment of the thoracic spine is within normallimits. Vertebral body height is maintained.Mild multilevel disc space height loss is present. T1 hypointense, T2 hyperintense subcentimeter foci at T6 and T2,annotated on sagittal T1 weighted images image #7. There is questionableill-defined enhancement of the T2 lesion and these are equivocal formetastatic lesions. Of note, these are small and there is no canalcompromise. The remainder of the marrow is heterogeneous without focal lesion.Thoracic cord is normal in signal intensityNo acute findings within the paraspinal soft tissues.LUMBAR SPINE:5 nonrib-bearing lumbar-type vertebral bodies are present. Alignment of the lumbar spine is within normal limits. Vertebral body height is maintained. Multilevel disc space height loss is present.Conus terminates at L1. Cauda equina demonstrates normal appearance.No acute findings in the paraspinal soft tissues.Evaluation of the individual levels demonstrates:L1/L2: No significant canal or foraminal narrowing.L2/L3: No significant canal or foraminal narrowing.L3/L4: Mild diffuse disc bulge. Moderate bilateral facet arthrosis. Mildversus moderate bilateral foraminal stenosis. No significant spinalcanal stenosis. L4/L5: Mild diffuse disc bulge. Moderatebilateral facet arthrosis.Mild versus moderate bilateral foraminal stenosis. No significant spinalcanal stenosis. L5/S1: No significant canal or foraminal narrowing. IMPRESSION:1. Mild degenerative changes of the cervical spine detailed above. Noenhancing metastases throughout the cervical levels.2. T1 hypointense, T2 hyperintense subcentimeter foci at T2 and T6,annotated on sagittal T1 weighted images image #7. There is questionableill- defined enhancement of the T2 lesion and these are equivocal forsubcentimeter metastatic lesions. Of note, these are small and there isno canal compromise. The remainder of the marrow is heterogeneouswithout focal lesion.3. Mild degenerative changes of the lumbar spine detailed above. Noenhancing metastases throughout the cervical levels.Electronically Signed By: Kinjal Ontiveros05/24/2023 12:55 CDTWorkstation Name: [id number] THORACIC SPINE WITH & WITHOUT IV [id number] 12:52:58 [facility] 1945 Sex: MMR CERVICALSPINE WITH & WITHOUT IV CONTRAST, MR THORACIC SPINE WITH& WITHOUT IV CONTRAST, MR LUMBAR SPINE WITH & WITHOUT IV CONTRASTINDICATION: Cancer of unknown primary, stagingevaluate for metastatic diseaseTECHNIQUE: Multiplanar, multisequence MR imaging of the cervical,thoracic and lumbar spine was performed with and without intravenouscontrast.COMPARISON: None.FINDINGS: CERVICAL SPINE:Alignmentof the cervical spine is within normal limits. Vertebral body height is maintained.Fusion across theand C5-C6 disc spaces.Mild multilevel disc space height loss.Marrow is heterogeneous but no enhancing metastases are demonstrated.Cervical cord is normal in signal intensityNo acute findings within theparaspinal soft tissues.Findings by level:C2/C3: No significant spinal canal or foraminal stenosis.C3/C4: Broad-based posterior disc herniation, which flattens the ventralcervical cord. Ligamentum flavum thickening. Severe spinal canalstenosis. Bilateral uncovertebral facet arthropathy with severebilateral foraminal stenosis.C4/C5: Broad-based posterior disc herniation, which flattens the ventralcervical cord. Ligamentum flavum thickening. Moderate spinal canalstenosis. Bilateral uncovertebral facetarthropathy with severebilateral foraminal stenosis.C5/C6: No significant spinal canal stenosis. No significant foraminalstenosis.C6/C7: Broad-based posterior disc herniation, which effaces the ventralthecal sac and flattens the ventral cervical cord with moderate spinalcanal stenosis. Bilateral uncovertebral and facet arthrosis with severebilateral foraminal stenosis.C7/T1: Broad-based shallow posterior disc herniation. No significantspinal canal stenosis. Bilateral uncovertebral facet arthropathy withmild bilateral foraminal stenosis.THORACIC SPINE:Alignment of the thoracic spine is within normallimits. Vertebral body height is maintained.Mild multilevel disc space height loss is present. T1 hypointense, T2 hyperintense subcentimeter foci at T6 and T2,annotated on sagittal T1 weighted images image #7. There is questionableill-defined enhancement of the T2 lesion and these are equivocal formetastatic lesions. Of note, these are small and there is no canalcompromise. The remainder of the marrow is heterogeneous without focal lesion.Thoracic cord is normal in signal intensityNo acute findings within the paraspinal soft tissues.LUMBAR SPINE:5 nonrib-bearing lumbar-type vertebral bodies are present. Alignment of the lumbar spine is within normal limits. Vertebral body height is maintained. Multilevel disc space height loss is present.Conus terminates at L1. Cauda equina demonstrates normal appearance.No acute findings in the paraspinal soft tissues.Evaluation of the individual levels demonstrates:L1/L2: No significant canal or foraminal narrowing.L2/L3: No significant canal or foraminal narrowing.L3/L4: Mild diffuse disc bulge. Moderate bilateral facet arthrosis. Mildversus moderate bilateral foraminal stenosis. No significant spinalcanal stenosis. L4/L5: Mild diffuse disc bulge. Moderatebilateral facet arthrosis.Mild versus moderate bilateral foraminal stenosis. No significant spinalcanal stenosis. L5/S1: No significant canal or foraminal narrowing. IMPRESSION:1. Mild degenerative changes of the cervical spine detailed above. Noenhancing metastases throughout the cervical levels.2. T1 hypointense, T2 hyperintense subcentimeter foci at T2 and T6,annotated on sagittal T1 weighted images image #7. There is questionableill- defined enhancement of the T2 lesion and these are equivocal forsubcentimeter metastatic lesions. Of note, these are small and there isno canal compromise. The remainder of the marrow is heterogeneouswithout focal lesion.3. Mild degenerative changes of the lumbar spine detailed above. Noenhancing metastases throughout the cervical levels.Electronically Signed By: Kinjal Ontiveros05/24/2023 12:55 CDTWorkstation Name: [id number] CERVICAL SPINE WITH & WITHOUT IV [id number] 12:52:58 [facility] 1945 Sex: MMR CERVICALSPINE WITH & WITHOUT IV CONTRAST, MR THORACIC SPINE WITH& WITHOUT IV CONTRAST, MR LUMBAR SPINE WITH & WITHOUT IV CONTRASTINDICATION: Cancer of unknown primary, stagingevaluate for metastatic diseaseTECHNIQUE: Multiplanar, multisequence MR imaging of the cervical,thoracic and lumbar spine was performed with and without intravenouscontrast.COMPARISON: None.FINDINGS: CERVICAL SPINE:Alignmentof the cervical spine is within normal limits. Vertebral body height is maintained.Fusion across theand C5-C6 disc spaces.Mild multilevel disc space height loss.Marrow is heterogeneous but no enhancing metastases are demonstrated.Cervical cord is normal in signal intensityNo acute findings within theparaspinal soft tissues.Findings by level:C2/C3: No significant spinal canal or foraminal stenosis.C3/C4: Broad-based posterior disc herniation, which flattens the ventralcervical cord. Ligamentum flavum thickening. Severe spinal canalstenosis. Bilateral uncovertebral facet arthropathy with severebilateral foraminal stenosis.C4/C5: Broad-based posterior disc herniation, which flattens the ventralcervical cord. Ligamentum flavum thickening. Moderate spinal canalstenosis. Bilateral uncovertebral facetarthropathy with severebilateral foraminal stenosis.C5/C6: No significant spinal canal stenosis. No significant foraminalstenosis.C6/C7: Broad-based posterior disc herniation, which effaces the ventralthecal sac and flattens the ventral cervical cord with moderate spinalcanal stenosis. Bilateral uncovertebral and facet arthrosis with severebilateral foraminal stenosis.C7/T1: Broad-based shallow posterior disc herniation. No significantspinal canal stenosis. Bilateral uncovertebral facet arthropathy withmild bilateral foraminal stenosis.THORACIC SPINE:Alignment of the thoracic spine is within normallimits. Vertebral body height is maintained.Mild multilevel disc space height loss is present. T1 hypointense, T2 hyperintense subcentimeter foci at T6 and T2,annotated on sagittal T1 weighted images image #7. There is questionableill-defined enhancement of the T2 lesion and these are equivocal formetastatic lesions. Of note, these are small and there is no canalcompromise. The remainder of the marrow is heterogeneous without focal lesion.Thoracic cord is normal in signal intensityNo acute findings within the paraspinal soft tissues.LUMBAR SPINE:5 nonrib-bearing lumbar-type vertebral bodies are present. Alignment of the lumbar spine is within normal limits. Vertebral body height is maintained. Multilevel disc space height loss is present.Conus terminates at L1. Cauda equina demonstrates normal appearance.No acute findings in the paraspinal soft tissues.Evaluation of the individual levels demonstrates:L1/L2: No significant canal or foraminal narrowing.L2/L3: No significant canal or foraminal narrowing.L3/L4: Mild diffuse disc bulge. Moderate bilateral facet arthrosis. Mildversus moderate bilateral foraminal stenosis. No significant spinalcanal stenosis. L4/L5: Mild diffuse disc bulge. Moderatebilateral facet arthrosis.Mild versus moderate bilateral foraminal stenosis. No significant spinalcanal stenosis. L5/S1: No significant canal or foraminal narrowing. IMPRESSION:1. Mild degenerative changes of the cervical spine detailed above. Noenhancing metastases throughout the cervical levels.2. T1 hypointense, T2 hyperintense subcentimeter foci at T2 and T6,annotated on sagittal T1 weighted images image #7. There is questionableill- defined enhancement of the T2 lesion and these are equivocal forsubcentimeter metastatic lesions. Of note, these are small and there isno canal compromise. The remainder of the marrow is heterogeneouswithout focal lesion.3. Mild degenerative changes of the lumbar spine detailed above. Noenhancing metastases throughout the cervical levels.Electronically Signed By: Kinjal Ontiveros05/24/2023 12:55 CDTWorkstation Name: [id number] METER 2023-05-24 11:56:31 Test Item Value Reference Range Interpretation Comments POC-GLUCOSE METER 112 mg/dL 70-110 H : TESTED A T [facility] 6720 (BEAKER) (test code = [facility] [place] [place], 1538) [id number]: [employer]/Techni ranulfo ID = [id number] for Jonoteresa Tony kwan [id number] 03:29:45 Test Item Value Reference Range Interpretation Comments MAGNESIUM (BEAKER) (test code = 1.8 mg/dL 1.6-2.6 627) [employer] ID - [id number] 03:29:45 Test Item Value Reference Range Interpretation Comments PHOSPHORUS (BEAKER) (test code = 2.1 mg/dL 2.3-4.7 L 604) [employer] ID - BSBASIC METABOLIC [id number] 03:29:44 Test Item Value Reference Range Interpretation Comments SODIUM (BEAKER) 139 meq/L 136-145 (test code = 381) POTASSIUM 4.0 meq/L 3.5-5.1 (BEAKER) (test code = 379) CHLORIDE (BEAKER) 109 meq/L 98-107 H (test code = 382) CO2 (BEAKER) 23 meq/L 22-29 (test code = 355) BLOOD UREA 11 mg/dL 7-21 NITROGEN (BEAKER) (test code = 354) CREATININE 0.81 mg/dL 0.57-1.25 (BEAKER) (test code = 358) GLUCOSE RANDOM 96 mg/dL 70-105 (BEAKER) (test code = 652) CALCIUM (BEAKER) 9.7 mg/dL 8.4-10.2 (test code = 697) EGFR (BEAKER) 91 Interpretatio n of eGFR (test code = mL/min/1.73 values Stage De scription 1092) sq m Result G1 Essence l or high >=90 G2 Mildly decreased 60-89 G3a Mildl y to moderately 45-5 9 G3b Moderately to s everely 30-44 G4 Severl y decreased 15-29 G5 Kidney failure <15Reported eGF R is based on the CKD-EPI 2020 equation that d oes not use a race coefficientEsti mated GFR is not as accur ate as Creatinine Millicent raquel in predicting glom erular filtration rate . Estimated GFR is not appl icable for dialysis patien ts [employer] ID - BSCBC W/PLT COUNT & AUTO [id number] 03:00:34 Test Item Value Reference Range Interpretation Comments WHITE BLOOD CELL COUNT (BEAKER) 7.2 K/ L 3.5-10.5 (test code = 775) RED BLOOD CELL COUNT (BEAKER) 4.17 M/ L 4.63-6.08 L (test code = 761) HEMOGLOBIN (BEAKER) (test code = 11.9 GM/DL 13.7-17.5 L 410) HEMATOCRIT (BEAKER) (test code = 37.3 % 40.1-51.0 L 411) MEAN CORPUSCULAR VOLUME (BEAKER) 89 fL 79-92 (test code = 753) MEAN CORPUSCULAR HEMOGLOBIN 28.5 pg 25.7-32.2 (BEAKER) (test code = 751) MEAN CORPUSCULAR HEMOGLOBIN CONC 31.9 GM/DL 32.3-36.5 L (BEAKER) (test code = 752) RED CELL DISTRIBUTION WIDTH 16.7 % 11.6-14.4 H (BEAKER) (test code = 412) PLATELET COUNT (BEAKER) (test 206 K/CU MM 150-450 code = 756) MEAN PLATELET VOLUME (BEAKER) 9.3 fL 9.4-12.4 L (test code = 754) NUCLEATED RED BLOOD CELLS 0 /100 WBC 0-0 (BEAKER) (test code = 413) NEUTROPHILS RELATIVE PERCENT 70 % (BEAKER) (test code = 429) LYMPHOCYTES RELATIVE PERCENT 18 % (BEAKER) (test code = 430) MONOCYTES RELATIVE PERCENT 12 % (BEAKER) (test code = 431) EOSINOPHILS RELATIVE PERCENT 0 % (BEAKER) (test code = 432) BASOPHILS RELATIVE PERCENT 0 % (BEAKER) (test code = 437) NEUTROPHILS ABSOLUTE COUNT 4.99 K/ L 1.78-5.38 (BEAKER) (test code = 670) LYMPHOCYTES ABSOLUTE COUNT 1.31 K/ L 1.32-3.57 L (BEAKER) (test code = 414) MONOCYTES ABSOLUTE COUNT (BEAKER) 0.87 K/ L 0.30-0.82 H (test code = 415) EOSINOPHILS ABSOLUTE COUNT 0.00 K/ L 0.04-0.54 L (BEAKER) (test code = 416) BASOPHILS ABSOLUTE COUNT (BEAKER) 0.00 K/ L 0.01-0.08 L (test code = 417) IMMATURE GRANULOCYTES-RELATIVE 0.10 % 0.00-1.00 PERCENT (BEAKER) (test code = 2801) POCT-GLUCOSE [id number] 16:27:10 Test Item Value Reference Range Interpretation Comments POC-GLUCOSE METER 136 mg/dL 70-110 H : TESTED A T [facility] 6720 (BEAKER) (test code = [facility], 153) [address]: [employer]/Techni ranulfo ID = [id number] for Eulalio Beatty POCT-GLUCOSE [id number] 11:41:17 Test Item Value Reference Range Interpretation Comments POC-GLUCOSE METER 110 mg/dL 70-110 : TESTED A T [facility] 6720 (BEAKER) (test code = [facility], 153) [address]: Cook [employer]/Techni ranulfo ID = [id number] for Eulalio Beatty POCT-GLUCOSE [id number] 06:47:20 Test Item Value Reference Range Interpretation Comments POC-GLUCOSE METER 129 mg/dL 70-110 H : TESTED A T [facility] 6720 (BEAKER) (test code = [facility], 153) [address]: [employer]/Techni ranulfo ID = [id number] for ALEXANDR REED CTA [id number] 06:32:39 [facility] : 1945 Sex: MCLINICAL HISTORY: Cerebral vascular malformation (AVM or AVF)evaluate for AVMTECHNIQUE: Contiguous contrast-enhanced axial images through the neckfollowed by axial images through the head with coronal and sagittalreformations to assess the arterial circulation. MIP technique wasperformed to better assess the vasculature. This exam was performedaccording to the departmental dose optimization program which includesautomated exposure control, adjustment of the mA and/or kV according tothe patient size, and/or use of an iterative reconstruction technique.COMPARISON: CT/MRI 05/22/2023FINDINGS:There is no large vessel occlusion. There is no critical proximal branchvessel stenosis or aneurysm. There is a right posterior communicatingartery.There is some mild hypervascularity associated with the left parietalmass, but no definite CTA evidence for AVM/AVF.The major intradural venous sinuses are patent.There is no hemodynamically significant stenosis in either cervicalinternal carotid artery by NASCET criteria.Thereis mild left vertebral artery origin stenosis. There is no rightvertebral artery stenosis. There aredorsal spondylitic changes in the cervical spine. There arescattered subcentimeter lymph nodes in the neck. There is severe biapical lung disease. A spiculated right upper lobeneoplasm measuring 1.7 cmx 1.4 cm is again seen, as described on therecent chest CT.IMPRESSION:Mild hypervascularity associated with the left parietal mass, but nodefinite CTA evidence for AVM/AVF.No large vessel occlusion.No hemodynamically significant stenosis in the cervical carotid orvertebral arteries by NASCET criteria.Right upper lobe lung mass again seen.Electronically Signed By: Jose Manuel Mata05/23/2023 06:35 CDTWorkstation Name: [id number] 06:32:39 [facility] : 1945 Sex: MCLINICAL HISTORY: Cerebral vascular malformation (AVM or AVF)evaluate for AVMTECHNIQUE: Contiguous contrast-enhanced axial images through the neckfollowed by axial images through the head with coronal and sagittalreformations to assess the arterial circulation. MIP technique wasperformed to better assess the vasculature. This exam was performedaccording to the departmental dose optimization program which includesautomated exposure control, adjustment of the mA and/or kV according tothe patient size, and/or use of an iterative reconstruction technique.COMPARISON: CT/MRI 05/22/2023FINDINGS:There is no large vessel occlusion. There is no critical proximal branchvessel stenosis or aneurysm. There is a right posterior communicatingartery.There is some mild hypervascularity associated with the left parietalmass, but no definite CTA evidence for AVM/AVF.The major intradural venous sinuses are patent.There is no hemodynamically significant stenosis in either cervicalinternal carotid artery by NASCET criteria.Thereis mild left vertebral artery origin stenosis. There is no rightvertebral artery stenosis. There aredorsal spondylitic changes in the cervical spine. There arescattered subcentimeter lymph nodes in the neck. There is severe biapical lung disease. A spiculated right upper lobeneoplasm measuring 1.7 cmx 1.4 cm is again seen, as described on therecent chest CT.IMPRESSION:Mild hypervascularity associated with the left parietal mass, but nodefinite CTA evidence for AVM/AVF.No large vessel occlusion.No hemodynamically significant stenosis in the cervical carotid orvertebral arteries by NASCET criteria.Right upper lobe lung mass again seen.Electronically Signed By: Jose Manuel Mata05/23/2023 06:35 CDTWorkstation Name: [id number] BRAIN WITHOUT IV [id number] 06:22:06[facility] 1945 Sex: MCT Head without contrastCLINICAL HISTORY: Brain mass or lesion TECHNIQUE: Contiguous axial CT images through thehead without contrast.This exam was performed according to the departmental dose optimizationprogramwhich includes automated exposure control, adjustment of the mAand/or kV according to the patient size, and/or use of an iterativereconstruction technique.COMPARISON: CT/MRI 05/22/2023FINDINGS:The 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 Mass effect narrowing the posterior horn ofthe left lateral ventricle is again seen without significant midlineshift. There is no hydrocephalus. There are no extra-axial fluidcollections. The skull is intact. The visualized paranasal sinuses arewell-aerated. IMPRESSION:Since 05/22/2023, no gross interval change in the hemorrhagic leftparietal lobe mass.Electronically Signed By: Jose Manuel Mata05/23/2023 06:24 CDTWorkstation Name: [id number] ABDOMEN/KUB 1 VIEW [id number] 04:57:08 [facility] : 1945 Sex: MCLINICAL HISTORY: NG placementCOMPARISON: Same date at 1706 hoursFINDINGS:Two supine images of the abdomen are submitted.The distal portion of a feeding tube is coiled over the left upperquadrant in the expected position of the proximal stomach. Repositioningis recommended if placement in the duodenum is intended.The abdominal bowel gas pattern is unobstructed. There is no acute bony abnormality.Electronically Signed By: Kody Francis05/23/2023 04:59 CDTWorkstation Name: [id number] 04:23:19 Test Item Value Reference Range Interpretation Comments PHOSPHORUS (BEAKER) (test code = 2.3 mg/dL 2.3-4.7 604) [employer] ID - EMBASIC METABOLIC [id number] 04:23:18 Test Item Value Reference Range Interpretation Comments SODIUM (BEAKER) 140 meq/L 136-145 (test code = 381) POTASSIUM 3.9 meq/L 3.5-5.1 (BEAKER) (test code = 379) CHLORIDE (BEAKER) 113 meq/L 98-107 H (test code = 382) CO2 (BEAKER) 23 meq/L 22-29 (test code = 355) BLOOD UREA 13 mg/dL 7-21 NITROGEN (BEAKER) (test code = 354) CREATININE 0.82 mg/dL 0.57-1.25 (BEAKER) (test code = 358) GLUCOSE RANDOM 153 mg/dL 70-105 H (BEAKER) (test code = 652) CALCIUM (BEAKER) 9.6 mg/dL 8.4-10.2 (test code = 697) EGFR (BEAKER) 91 Interpretatio n of eGFR (test code = mL/min/1.73 values Stage De scription 1092) sq m Result G1 Essence l or high >=90 G2 Mildly decreased 60-89 G3a Mildl y to moderately 45-5 9 G3b Moderately to s everely 30-44 G4 Severl y decreased 15-29 G5 Kidney failure <15Reported eGF R is based on the CKD-EPI 2020 equation that d oes not use a race coefficientEsti mated GFR is not as accur ate as Creatinine Millicent garcía in predicting glom erular filtration rate . Estimated GFR is not appl icable for dialysis patien ts [employer] ID - [id number] 04:23:18 Test Item Value Reference Range Interpretation Comments MAGNESIUM (BEAKER) (test code = 1.9 mg/dL 1.6-2.6 627) [employer] ID - EMCBC W/PLT COUNT & AUTO [id number] 04:01:52 Test Item Value Reference Range Interpretation Comments WHITE BLOOD CELL COUNT (BEAKER) 6.6 K/ L 3.5-10.5 (test code = 775) RED BLOOD CELL COUNT (BEAKER) 4.30 M/ L 4.63-6.08 L (test code = 761) HEMOGLOBIN (BEAKER) (test code = 12.4 GM/DL 13.7-17.5 L 410) HEMATOCRIT (BEAKER) (test code = 38.9 % 40.1-51.0 L 411) MEAN CORPUSCULAR VOLUME (BEAKER) 91 fL 79-92 (test code = 753) MEAN CORPUSCULAR HEMOGLOBIN 28.8 pg 25.7-32.2 (BEAKER) (test code = 751) MEAN CORPUSCULAR HEMOGLOBIN CONC 31.9 GM/DL 32.3-36.5 L (BEAKER) (test code = 752) RED CELL DISTRIBUTION WIDTH 16.5 % 11.6-14.4 H (BEAKER) (test code = 412) PLATELET COUNT (BEAKER) (test 201 K/CU MM 150-450 code = 756) MEAN PLATELET VOLUME (BEAKER) 9.5 fL 9.4-12.4 (test code = 754) NUCLEATED RED BLOOD CELLS 0 /100 WBC 0-0 (BEAKER) (test code = 413) NEUTROPHILS RELATIVE PERCENT 78 % (BEAKER) (test code = 429) LYMPHOCYTES RELATIVE PERCENT 13 % (BEAKER) (test code = 430) MONOCYTES RELATIVE PERCENT 9 % (BEAKER) (test code = 431) EOSINOPHILS RELATIVE PERCENT 0 % (BEAKER) (test code = 432) BASOPHILS RELATIVE PERCENT 0 % (BEAKER) (test code = 437) NEUTROPHILS ABSOLUTE COUNT 5.09 K/ L 1.78-5.38 (BEAKER) (test code = 670) LYMPHOCYTES ABSOLUTE COUNT 0.83 K/ L 1.32-3.57 L (BEAKER) (test code = 414) MONOCYTES ABSOLUTE COUNT (BEAKER) 0.61 K/ L 0.30-0.82 (test code = 415) EOSINOPHILS ABSOLUTE COUNT 0.00 K/ L 0.04-0.54 L (BEAKER) (test code = 416) BASOPHILS ABSOLUTE COUNT (BEAKER) 0.01 K/ L 0.01-0.08 (test code = 417) IMMATURE GRANULOCYTES-RELATIVE 0.30 % 0.00-1.00 PERCENT (BEAKER) (test code = 2801) POCT-GLUCOSE [id number] 00:52:01 Test Item Value Reference Range Interpretation Comments POC-GLUCOSE METER 148 mg/dL 70-110 H : TESTED A [facility] 6720 (BEAKER) (test code = [place], 1538) [address]: [employer]/Techni ranulfo ID = [id number] for YOBANI BOYLE XR ABDOMEN/KUB 1 VIEW [id number] 21:54:06 [facility] : 1945 Sex: MEXAM: XR ABD OMEN/KUB 1 VIEW PORTABLE, 05/22/2023 9:53 PMCLINICAL HISTORY: Enteric tube placement verificationCOMPARISON: None.FINDINGS:Two supine images of the abdomen are submitted.The abdominal bowel gas patternis nonobstructive. There is no focus ofdilated large or small bowel. Moderate colonic stool burden.There are no abnormal calcifications or evidence organomegaly..There is no acute bony abnormality.Transesophageal feeding tube tip is seen projecting over the stomach.IMPRESSION:Nonobstructive bowel gas pattern.Transesophageal feeding tube tip projects over the stomach.Electronically Signed By: Justina Wells05/22/2023 21:56 CDTWorkstation Name: [id number] 18:46:44 Test Item Value Reference Range Interpretation Comments POC-GLUCOSE METER 138 mg/dL 70-110 H : TESTED A [facility] 6720 (BEAKER) (test code = [place], 1538) [address]: [employer]/Techni ranulfo ID = [id number] for Sadia Gutierrez MR BRAIN WITH & WITHOUT IV [id number] 15:59:08 [facility] : 1945 Sex: MMR BRAIN WITH & WITHOUT IV CONTRASTINDICATION: Brain mass or lesionTechnique: MRI of the brain utilizing axial T1, T2, FLAIR, GRE, DWI,sagittal T1; and postgadolinium axial, sagittal, and coronal T1-weightedimages.COMPARISON: NoneFINDINGS:2 cm enhancing lesion (presumably metastasis) within the left parietallobe with vasogenic edema of the adjacent parietal subcortical whitematter. Mild localized mass effect without midline shift or herniation.No additional intracranial metastases.No restricted diffusion tosuggest recent infarct. No abnormalsusceptibility. Scattered T2/FLAIR hyperintense foci within theperiventricular and subcortical white matter are nonspecific, however,statistically represent chronic mi crovascular ischemic changes.No hydrocephalus.Orbits are within normal limits.No obstructive paranasal sinus disease.Additional findings: None.IMPRESSION:1. 2 cm enhancing lesion (presumably metastasis) within the leftparietal lobe with vasogenic edema of the adjacent parietal subcorticalwhite matter.Mild localized mass effect without midline shift orherniation.2. No additional intracranial metastases.Electronically Signed By: Kinjal Ontiveros05/22/2023 16:01 CDTWorkstation Name: [id number] 15:34:57 Test Item Value Reference Range Interpretation Comments RPR SCREEN (BEAKER) (test code = Nonreactive Nonreactive 420) [id number] 15:00:23 Test Item Value Reference Range Interpretation Comments PROLACTIN (BEAKER) (test code = 14.55 ng/mL 3.46-19.40 758) [employer] ID - BSHIV-1 ANTIGEN WITH HIV-1/2 [id number] 15:00:23 Test Item Value Reference Range Interpretation Comments HIV-1 ANTIGEN WITH HIV 1\\T\\2 Nonreactive Nonreactive ANTIBODY (2) (BEAKER) (test code = 2586) [employer] ID - BSCT ABDOMEN/PELVIS WITH IV [id number] 14:50:05 [facility] : 1945 Sex: MTECHNIQUE:CT of the chest, abdomen, and pelvis WITH intravenouscontrast and WITHOUT oral contrast. Dose modulation, iterativereconstruction, and/or weight-based adjustment of the mA/kV was utilizedto reduce the radiation dose to as low as reasonably achievable.INDICATION: Cancer of unknown primary, stagingnew brain metastatic lesion. Evaluate for primary.COMPARISON: None.FINDINGS:LINES/TUBES: Feeding tube terminates within the body/fundus of thestomach.LUNGS AND AIRWAYS: 1.5 x 1.3 cm irregular right upper lobe nodule withadjacent scarring. Predominantly linear scarring at the right lung apex.Mild upper lobe predominant centrilobular emphysema. Dependent areas ofconsolidation within the left lower lobe with o pacification of leftlower lobe bronchi. There is also consolidation within the posteriorsegment of the left upper lobe.PLEURA: Tiny bilateral pleural effusions.HEART AND MEDIASTINUM: The visualized thyroid gland is normal. Nosignificant mediastinal, hilar, or axillary lymphadenopathy. The heartand mc cardium are within normal limits.HEPATOBILIARY: No focal hepatic lesions. Gallbladder is unremarkable. Nobiliary ductal dilatation.SPLEEN: No splenomegaly.PANCREAS: No focal masses or ductal dilatation.ADRENALS: No adrenal nodules.KIDNEYS/URETERS: No hydronephrosis, stones, or masses. Bilateral renalco rtical cysts; no follow-up imaging recommended.PELVIC ORGANS/BLADDER: Roblero catheter within the bladder. Mildlyenlarged prostate gland..PERITONEUM/RETROPERITONEUM: No free air or fluid.LYMPH NODES: No l ymphadenopathy.VESSELS: Unremarkable.GI TRACT: Normal appendix. Circumferential wall thickening of theascending and proximal transverse colon. No bowel obstruction..BONES AND SOFT TISSUES: Unremarkable.IMPRESSION:1. Predominantly linear scarring at the right lung apex. Additionally,there are is an irregular 1.5 cm right upper lobe pulmonary nodule forwhich underlying primary bronchogenic neoplasm is not excluded.Correlation with PET/CT or tissue sampling is recommended.2. Areas of dense consolidation within the left lower lobe and to alesser extent the posterior segment of the left upper lobe. There isopacification of the left lower lobe bronchus. This may be related topneumonia. Underlying mass not excluded. No thoracic adenopathy.3. No specific evidence for metastatic disease to the abdomen or pelvis.4. Circumferential wall thickening of the ascending and proximaltransverse colon which may reflect an underlying infectious/inflammatorycolitis. No pneumatosis, obstruction, or free air.Electronically Signed By: Varinder Bell05/22/2023 14:52 CDTWorkstation Name: [id number] CHEST WITH IV [id number] 14:50:05 [facility] : 1945 Sex: MTECHNIQUE: CT of the chest, abdomen, and pelvis WITH intravenouscontrast and WITHOUT oral contrast. Dose modulation, iterativereconstruction, and/or weight-based adjustment of the mA/kV was utilizedto reduce the radiation dose to as low as reasonably achievable.INDICATION: Cancer of unknown primary, stagingnew brain metastatic lesion. Evaluate for primary.COMPARISON: None.FINDINGS:LINES/TUBES: Feeding tube terminates within the body/fundus of thestomach.LUNGS AND AIRWAYS: 1.5 x 1.3 cm irregular right upper lobenodule withadjacent scarring. Predominantly linear scarring at the right lung apex.Mild upper lobe predominant centrilobular emphysema. Dependent areas ofconsolidation within the left lower lobe with opacification of leftlower lobe bronchi. There is also consolidation within the posteriorsegment of the left upper lobe.PLEURA: Tiny bilateral pleural effusions.HEART AND MEDIASTINUM: The visualized thyroid gland is normal. Nosignificant mediastinal, hilar, or axillary lymphadenopathy. The heartand pericardium are within normal limits.HEPATOBILIARY: No focal hepatic lesions. Gallbladder is unremarkable. Nobiliary ductal dilatation.SPLEEN: No splenomegaly.PANCREAS: No focal masses or ductal dilatation.ADRENALS: No adrenal nodules.KIDNEYS/URETERS: No hydronephrosis, stones, or masses. Bilateral renalcortical cysts; no follow-up imaging recommended.PELVIC ORGANS/BLADDER: Roblero catheter within the bladder. Mildlyenlarged prostate gland..PERITONEUM/RETROPERITONEUM: No free air or fluid.LYMPH NODES: No ly mphadenopathy.VESSELS: Unremarkable.GI TRACT: Normal appendix. Circumferential wall thickening of theascending and proximal transverse colon. No bowel obstruction..BONES AND SOFT TISSUES: Unremarkable.IMPRESSION:1. Predominantly linear scarring at the right lung apex. Additionally,there are is an irregular 1.5 cm right upper lobe pulmonary nodule forwhich underlying primary bronchogenic neoplasm is not excluded.Correlation with PET/CT or tissue sampling is recommended.2. Areas of dense consolidationwithin the left lower lobe and to alesser extent the posterior segment of the left upper lobe. There isopacification of the left lower lobe bronchus. This may be related topneumonia. Underlying mass not excluded. No thoracic adenopathy.3. No specific evidence for metastatic disease to the abdomen or pelvis.4. Circumferential wall thickening of the ascending and proximaltransverse colon which may reflect an underlying infectious/inflammatorycolitis. No pneumatosis, obstruction, or free air.Electronically Signed By: Varinder Bell05/22/2023 14:52 CDTWorkstation Name: [id number] BRAIN WITHOUT IV [id number] 14:35:46 [facility] : 1945 Sex: MCT BRAIN WITHOUT IV CONTRASTCLINICAL INDICATION: Stroke, follow upMetastatic disease evaluationCOMPARISON: NoneTECHNIQUE: Noncontrast axial CT imaging of the brain and skull. Coronaland sagittal reformats obtained.DOSE REDUCTION: Dose modulation, iterative reconstruction, and/orweight-based adjustment of the mA/kV was utilized to reduce theradiation dose to as low as reasonably achievable.FINDINGS:Left parietal convexity juxtacortical, mixed hypodense and hyperdenselesion measures 2.0 x 1.8 x 2.2 cm. The lesionmay be intraparenchymalin location or extra-axial. No associated calvarial inner tablehyperostosis. There is extensive left perirolandic and parietal lobehypoattenuation compatible with vasogenic edema. No midline shift. Thereis regional sulcal effacement and mild compression of the left lateralventricle atrium. No hydrocephalus. Calvarium intact. Left orbit lamina papyracea deformity suggests oldblowout fracture. Globes intact. Left ethmoid sinus osteoma. Mastoid aircells are clear.IMPRESSION:Left parietal convexity 2.0 x 1.8 x 2.2 cm mixed density lesionsuspicious for hemorrhagic metastatic tumorwith moderate left cerebralvasogenic edema. Alternative considerations include a partiallycalcified meningioma but correlation with MRI brain with and without IVcontrast is recommended.Electronically Signed By: Edison Sharif05/22/2023 14:37 CDTWorkstation Name: [id number] 12:52:45 Test Item Value Reference Range Interpretation Comments POC-GLUCOSE METER 112 mg/dL 70-110 H : TESTED A T [facility] 6720 (BEGFRANQ) (test code = [place], 1538) [address]: [employer]/Techni ranulfo ID = [id number] for Sadia Gutierrez VITAMIN [id number] 11:45:23 Test Item Value Reference Range Interpretation Comments VITAMIN B12 (BEAKER) (test code = 261 pg/mL 213-816 774) [employer] ID - bcLACTIC ACID, [id number] 11:09:29 Test Item Value Reference Range Interpretation Comments LACTATE BLOOD 0.7 mmol/L 0.5-2.0 Specimen sligh tly ARTERIAL (2) (BEAKER) hemoly zed (test code = 2874) [employer] ID - [id number] 10:44:05 Test Item Value Reference Range Interpretation Comments PROCALCITONIN (BEAKER) (test code = < ng/mL <0.05 3036) SEPSIS RISK (ng/mL)Low: 0.05-0.50Intermediate: 0.51-2.00High: >=2.01HIGH SENSITIVITY TROPONIN [id number] 10:29:20 Test Item Value Reference Range Interpretation Comments HIGH SENSITIVITY TROPONIN I (test 31 pg/ml <=35 code = 8445963) [employer] ID - bcThe [employer]AR[employer] ATTENDANT STAT High Sensitivity Troponin-I results should be used in conjunctionwith other diagnostic information such as ECG, clinical observations and information, and patient symptoms to aid in the diagnosis of CO.PHENYTOIN LEVEL, [id number] 10:27:58 Test Item Value Reference Range Interpretation Comments PHENYTOIN (DILANTIN) (BEAKER) 12.9 ug/mL 10.0-20.0 (test code = 605) [employer] ID - bcCREATINE KINASE ([id number] 10:23:22 Test Item Value Reference Range Interpretation Comments CREATINE KINASE TOTAL (BEAKER) (test 164 U/L 29-200 code = 380) [employer] ID - bcCOMPREHENSIVE METABOLIC [id number] 10:23:21 Test Item Value Reference Range Interpretation Comments TOTAL PROTEIN 6.8 gm/dL 6.0-8.3 (BEAKER) (test code = 770) ALBUMIN (BEAKER) 3.3 g/dL 3.5-5.0 L (test code = 1145) ALKALINE 78 U/L 40-150 PHOSPHATASE (BEAKER) (test code = 346) BILIRUBIN TOTAL 0.4 mg/dL 0.2-1.2 (BEAKER) (test code = 377) SODIUM (BEAKER) 139 meq/L 136-145 (test code = 381) POTASSIUM (BEAKER) 3.7 meq/L 3.5-5.1 (test code = 379) CHLORIDE (BEAKER) 112 meq/L 98-107 H (test code = 382) CO2 (BEAKER) (test 22 meq/L 22-29 code = 355) BLOOD UREA 18 mg/dL 7-21 NITROGEN (BEAKER) (test code = 354) CREATININE 0.99 mg/dL 0.57-1.25 (BEAKER) (test code = 358) GLUCOSE RANDOM 123 mg/dL 70-105 H (BEAKER) (test code = 652) CALCIUM (BEAKER) 9.5 mg/dL 8.4-10.2 (test code = 697) AST (SGOT) 21 U/L 5-34 (BEAKER) (test code = 353) ALT (SGPT) 15 U/L 6-55 (BEAKER) (test code = 347) EGFR (BEAKER) 79 Interpretatio n of eGFR (test code = 1092) mL/min/1.[address] age Description sq m Result G1 Essence l or high >=90 G2 Mildly decreased 60-89 G3a Mildl y to moderately 45-5 9 G3b Moderately to s everely 30-44 G4 Severl y decreased 15-29 G5 Kidney failure <15Reported eGF R is based on the CKD-EPI 2020 equation that d oes not use a race coefficientEsti mated GFR is not as accur ate as Creatinine Millicent raquel in predicting glom erular filtration rate . Estimated GFR is not appl icable for dialysis patien ts [employer] ID - [id number] 10:23:21 Test Item Value Reference Range Interpretation Comments MAGNESIUM (BEAKER) (test code = 1.5 mg/dL 1.6-2.6 L 627) [employer] ID - [id number] 10:23:21 Test Item Value Reference Range Interpretation Comments PHOSPHORUS (BEAKER) (test code = 2.6 mg/dL 2.3-4.7 604) [employer] ID - [id number] 10:20:37 Test Item Value Reference Range Interpretation Comments PARTIAL THROMBOPLASTIN TIME 30.1 seconds 22.5-36.0 (BEAKER) (test code = 760) PROTHROMBIN TIME/[id number] 10:19:56 Test Item Value Reference Range Interpretation Comments PROTIME (BEAKER) (test code = 15.8 seconds 11.9-14.2 H 759) INR (BEAKER) (test code = 370) 1.27 <=5.90 RECOMMENDED COUMADIN/WARFARIN INR THERAPY RANGESSTANDARD DOSE: 2.0 - 3.0 Includes: PROPHYLAXIS for venous thrombosis, systemic embolization; TREATMENT for venous thrombosis and/or pulmonary embolus.HIGH RISK: Target INR is 2.5-3.5 for patients with mechanical heart valves.LACTIC ACID, [id number] 10:18:17 Test Item Value Reference Range Interpretation Comments LACTATE BLOOD VENOUS (2) (BEAKER) 0.63 mmol/L 0.50-2.00 (test code = 2872) [employer] ID - bcPOCT-GLUCOSE [id number] 09:58:42 Test Item Value Reference Range Interpretation Comments POC-GLUCOSE METER 119 mg/dL 70-110 H : TESTED A T [facility] 6720 (BEAKER) (test code = [place], 1538) [address]: [employer]/Techni ranulfo ID = [id number] for JOSE PICHARDO XR CHEST 1 VIEW PORTABLE / [id number] 09:56:36 [facility] 1945 Sex: MCLINICAL HISTORY: ET tube placement TECHNIQUE: 1 view of the chest.COMPARISON: NoneIMPRESSION:ETT at the clavicles and right central line at the cavoatrial junction.There is left perihilar airspace opacity. Thereare no significanteffusions or cardiomegaly.Electronically Signed By: Jose Manuel Mata05/22/2023 09:58 CD TWorkstation Name: [id number] W/PLT COUNT & AUTO [id number] 09:53:50 Test Item Value Reference Range Interpretation Comments WHITE BLOOD CELL COUNT (BEAKER) 5.0 K/ L 3.5-10.5 (test code = 775) RED BLOOD CELL COUNT (BEAKER) 3.95 M/ L 4.63-6.08 L (test code = 761) HEMOGLOBIN (BEAKER) (test code = 11.9 GM/DL 13.7-17.5 L 410) HEMATOCRIT (BEAKER) (test code = 36.8 % 40.1-51.0 L 411) MEAN CORPUSCULAR VOLUME (BEAKER) 93 fL 79-92 H (test code = 753) MEAN CORPUSCULAR HEMOGLOBIN 30.1 pg 25.7-32.2 (BEAKER) (test code = 751) MEAN CORPUSCULAR HEMOGLOBIN CONC 32.3 GM/DL 32.3-36.5 (BEAKER) (test code = 752) RED CELL DISTRIBUTION WIDTH 16.3 % 11.6-14.4 H (BEAKER) (test code = 412) PLATELET COUNT (BEAKER) (test 176 K/CU MM 150-450 code = 756) MEAN PLATELET VOLUME (BEAKER) 8.6 fL 9.4-12.4 L (test code = 754) NUCLEATED RED BLOOD CELLS 0 /100 WBC 0-0 (BEAKER) (test code = 413) NEUTROPHILS RELATIVE PERCENT 87 % (BEAKER) (test code = 429) LYMPHOCYTES RELATIVE PERCENT 10 % (BEAKER) (test code = 430) MONOCYTES RELATIVE PERCENT 3 % (BEAKER) (test code = 431) EOSINOPHILS RELATIVE PERCENT 0 % (BEAKER) (test code = 432) BASOPHILS RELATIVE PERCENT 0 % (BEAKER) (test code = 437) NEUTROPHILS ABSOLUTE COUNT 4.33 K/ L 1.78-5.38 (BEAKER) (test code = 670) LYMPHOCYTES ABSOLUTE COUNT 0.48 K/ L 1.32-3.57 L (BEAKER) (test code = 414) MONOCYTES ABSOLUTE COUNT (BEAKER) 0.16 K/ L 0.30-0.82 L (test code = 415) EOSINOPHILS ABSOLUTE COUNT 0.01 K/ L 0.04-0.54 L (BEAKER) (test code = 416) BASOPHILS ABSOLUTE COUNT (BEAKER) 0.01 K/ L 0.01-0.08 (test code = 417) IMMATURE GRANULOCYTES-RELATIVE 0.20 % 0.00-1.00 PERCENT (BEAKER) (test code = 2801) BLOOD GAS, [id number] 09:52:23 Test Item Value Reference Range Interpretation Comments PH ARTERIAL (BEAKER) (test code = 7.36 7.35-7.45 383) PCO2 ARTERIAL (BEAKER) (test code 40 mm Hg 35-45 = 384) PO2 ARTERIAL (BEAKER) (test code 186 mm Hg 80-90 H = 385) O2 SATURATION ARTERIAL (BEAKER) 99.2 % 96.0-97.0 H (test code = 386) HCO3 ARTERIAL (BEAKER) (test code 22 mmol/L 21-29 = 388) BASE EXCESS ARTERIAL (BEAKER) -2.8 mmol/L -2.0-3.0 L (test code = 387) PATIENT TEMPERATURE (BEAKER) 36.8 (test code = 1818) FIO2 (BEAKER) (test code = 1819) 30.0 CBC WITH [id number] 16:30:41 Test Item Value Reference Range Interpretation Comments [...] as normal/abnormal . HGB (test code = 8.4 g/dL 12.2-16.4 L 718-7) HCT (test code = 26.6 % 38.4-49.3 L 4544-3) MCV (test code = 92.7 fL 81.7-95.6 787-2) MCH (test code = 29.3 pg 26.1-32.7 785-6) MCHC (test code = 31.6 g/dL 31.2-35.0 786-4) RDW-SD (test code = 71.0 fL 38.5-51.6 H 60700-0) RDW-CV (test code = 21.2 % 12.1-15.4 H 788-0) PLT (test code = See_Comment L [Automated 777-3) message] The sy stem which generated this result transmitted reference range : 150 - 328 10*3/ ?L. The reference r costa was not used to interpret this result as normal/abnormal . MPV (test code = 9.0 fL 9.8-13.0 L 25724-6) NRBC/100 WBC (test See_Comment [Automat ed code = [id number]) message] The system which generated this result transmitted reference range : 0.0 - 10.0 /100 WBCs. The refer ence range was not u sed to interpret th is result as normal/abnormal . NRBC x10^3 (test code <0.01 See_Comment [Auto mated = [id number]) message] The s ystem which generated this result transmitted reference range : 10*3/?L. The reference range was not used to interpret this result as normal/abnormal . GRAN MAT (NEUT) % 55.3 % (test code = 770-8) IMM GRAN % (test code 0.00 % = 8066441408) LYMPH % (test code = 17.1 % 736-9) MONO % (test code = 27.1 % 5905-5) EOS % (test code = 0.5 % 713-8) BASO % (test code = 0.0 % 706-2) GRAN MAT x10^3(ANC) 1.10 10*3/uL 1.99-6.95 L (test code = 1711019999) IMM GRAN x10^3 (test <0.03 0.00-0.06 code = 7074433448) LYMPH x10^3 (test code 0.34 10*3/uL 1.09-3.23 L = 731-0) MONO x10^3 (test code 0.54 10*3/uL 0.36-1.02 = 742-7) EOS x10^3 (test code = <0.03 0.06-0.53 L 711-2) BASO x10^3 (test code <0.03 0.01-0.09 = 704-7) Lab Interpretation Abnormal (test code = 15347-8) [facility]. METABOLIC PANEL ([id number])2021-10-08 16:25:27 Test Item Value Reference Range Interpretation Comments NA (test code = 143 mmol/L 135-145 9519625616) K (test code = 3.3 mmol/L 3.5-5.0 L 8988535836) CL (test code = 110 mmol/L 98-108 H 8687362016) CO2 TOTAL (test code = 26 mmol/L 23-31 6263376132) AGAP (test code = 2-16 7707437630) BUN (test code = 10 mg/dL 7-23 4504179177) GLUCOSE (test code = 111 mg/dL 70-110 H 8456594445) CREATININE (test code = 0.86 mg/dL 0.60-1.25 5362151081) TOTAL BILI (test code = 0.6 mg/dL 0.1-1.2 6961353134) CALCIUM (test code = 9.2 mg/dL 8.6-10.6 0063887291) T PROTEIN (test code = 7.6 g/dL 6.3-8.2 4391618868) ALBUMIN (test code = 3.6 g/dL 3.5-5.0 9973002975) ALK PHOS (test code = 98 U/L 34-122 8040213939) ALTv (test code = 15 U/L 5-50 1742-6) AST(SGOT) (test code = 36 U/L 13-40 3779342022) eGFR (test code = mL/min/1.73m2 5079862881) ZOË (test code = ZOË) Association of [...] tests). Lab Interpretation Abnormal (test code = 13991-3) [facility] 16:24:51 Test Item Value Reference Range Interpretation Comments LIPASE (test code = 7419915837) 53 U/L 0-220 Lab Interpretation (test code = Normal 43415-4) [facility] WITH [id number] 20:45:09 Test Item Value Reference Range Interpretation [...] (test code = 63.5 fL 38.5-51.6 H 12920-0) RDW-CV (test code = 19.6 % 12.1-15.4 H 788-0) PLT (test code = See_Comment L [Automated 777-3) message] The sy stem which generated this result transmitted reference range : 150 - 328 10*3/ ?L. The reference r costa was not used to interpret this result as normal/abnormal . MPV (test code = 10.3 fL 9.8-13.0 74338-5) IPF % (test code = 2.0 % 1.2-10.7 Platelet count 7171174167) measured by fluorescence method. NRBC/100 WBC (test See_Comment [Automat ed code = 6996859019) message] The system which generated this result transmitted reference range : 0.0 - 10.0 /100 WBCs. The refer ence range was not u sed to interpret th is result as normal/abnormal . NRBC x10^3 (test code <0.01 See_Comment [Auto mated = 8529074901) message] The s ystem which generated this result transmitted reference range : 10*3/?L. The reference range was not used to interpret this result as normal/abnormal . GRAN MAT (NEUT) % 33.0 % (test code = 770-8) IMM GRAN % (test code 0.40 % = 2243434118) LYMPH % (test code = 36.4 % 736-9) MONO % (test code = 29.8 % 5905-5) EOS % (test code = 0.0 % 713-8) BASO % (test code = 0.4 % 706-2) GRAN MAT x10^3(ANC) 0.74 10*3/uL 1.99-6.95 L (test code = 7281007012) IMM GRAN x10^3 (test <0.03 0.00-0.06 code = 1199813216) LYMPH x10^3 (test code 0.82 10*3/uL 1.09-3.23 L = 731-0) MONO x10^3 (test code 0.67 10*3/uL 0.36-1.02 = 742-7) EOS x10^3 (test code = <0.03 0.06-0.53 L 711-2) BASO x10^3 (test code <0.03 0.01-0.09 = 704-7) ELLIPTO/OVAL (test 2+ See_Comment A [Automat ed code = 88136-1) message] The system which generated this result transmitted reference range : (none). The reference range was not used to interpret this result as normal/abnormal . PLT ESTIMATE (test Decreased Normal A code = 9317-9) Lab Interpretation Abnormal (test code = 29012-3) [facility]TIFFANYSHRIN[facility]IL[facility] GREENVILLERICHARD [id number] 20:30:22 Test Item Value Reference Interpretation Comments Range TROPONIN I (test 0.010 ng/mL See_Comment [Automated code = 8254924397) message] The system which generated this result [...] biotin. Lab Interpretation Normal (test code = 34720-8) [facility]MAG[facility]2022-02-14 20:19:38 Test Item Value Reference Range Interpretation Comments MAGNESIUM (test code = 2093400281) 1.6 mg/dL 1.7-2.4 L Lab Interpretation (test code = Abnormal 58549-9) [facility]COM. METABOLIC PANEL (84874)2021-09-20 20:19:18 Test Item Value Reference Range Interpretation Comments NA (test code = 140 mmol/L 135-145 3501538333) K (test code = 4.4 mmol/L 3.5-5.0 1565228267) CL (test code = 108 mmol/L 98-108 0886633040) CO2 TOTAL (test code = 28 mmol/L 23-31 4617121998) AGAP (test code = 2-16 8229562121) BUN (test code = 16 mg/dL 7-23 4572536855) GLUCOSE (test code = 96 mg/dL 70-110 9466687902) CREATININE (test code = 0.76 mg/dL 0.60-1.25 5719786894) TOTAL BILI (test code = 0.5 mg/dL 0.1-1.9 9704837014) CALCIUM (test code = 10.0 mg/dL 8.6-10.6 5807606410) T PROTEIN (test code = 9.0 g/dL 6.3-8.2 H 8094831230) ALBUMIN (test code = 4.3 g/dL 3.5-5.0 4044573475) ALK PHOS (test code = 107 U/L 34-122 4631393487) ALTv (test code = 16 U/L 5-50 1742-6) AST(SGOT) (test code = 24 U/L 13-40 9813011911) eGFR (test code = mL/min/1.73m2 9247083572) ZOË (test code = ZOË) Association of [...] tests). Lab Interpretation Abnormal (test code = 86091-5) [facility] CampusMONICA [id number] 20:57:32 Test Item Value Reference Interpretation Comments Range TROPONIN I (test 0.011 ng/mL See_Comment [Automated code = 3408573829) message] The system which generated this result [...] biotin. Lab Interpretation Normal (test code = 69789-2) [facility]. METABOLIC PANEL (78699)2021-08-06 20:46:53 Test Item Value Reference Range Interpretation Comments NA (test code = 135 mmol/L 135-145 6022200606) K (test code = 3.5 mmol/L 3.5-5.0 0245889131) CL (test code = 103 mmol/L 98-108 6465068852) CO2 TOTAL (test code = 25 mmol/L 23-31 1908930879) AGAP (test code = 2-16 0256281043) BUN (test code = 13 mg/dL 7-23 9132480755) GLUCOSE (test code = 117 mg/dL 70-110 H 1734312416) CREATININE (test code = 0.89 mg/dL 0.60-1.25 8972716940) TOTAL BILI (test code = 0.4 mg/dL 0.1-1.2 5376621055) CALCIUM (test code = 9.5 mg/dL 8.6-10.6 2105169301) T PROTEIN (test code = 8.4 g/dL 6.3-8.2 H 9392565449) ALBUMIN (test code = 3.8 g/dL 3.5-5.0 9179281347) ALK PHOS (test code = 128 U/L 34-122 H 4929521536) ALTv (test code = 17 U/L 5-50 1742-6) AST(SGOT) (test code = 21 U/L 13-40 3016410378) eGFR (test code = mL/min/1.73m2 4921720296) ZOË (test code = ZOË) Association of [...] tests). Lab Interpretation Abnormal (test code = 51908-9) [facility] CampusTrpione[facility] [id number] 20:10:47 Test Item Value Reference Interpretation Comments Range TROPONIN I (test 0.011 ng/mL See_Comment [Automated code = 4984728627) message] The system which generated this result [...] biotin. Lab Interpretation Normal (test code = 15323-2) [facility] CampusThyroid Stimulating Hormone (TSH)2021-08-05 17:22:42 Test Item Value Reference Range Interpretation Comments TSH (test code = See_Comment [Automated message] 7861905241) The system [employer] generated this result transmitted ref erence range: 0.45 - 4 .70 mIU/L. The refe rence range was not u sed to interpret this result as normal/abnor mal. Lab Interpretation (test Normal code = 15902-8) [facility] CampusGlycosylated Hemoglobin (A1C)2021-08-05 16:47:01 Test Item Value Reference Range Interpretation Comments HGB A1C (test code = 6.4 % 4.0-5.7 H 4548-4) ZOË (test code = ZOË) Reference RangesNormal: <5.7%Prediabetes: 5.7 - 6.4%Diabetes: > 6.5% Lab Interpretation (test Abnormal code = 27756-4) [facility] CampusLipid Panel (Total Cholesterol, Triglycerides, HDL)2021-08-05 16:46:16 Test Item Value Reference Range Interpretation Comments CHOL (test code = 156 mg/dL 120-200 8982812596) HDL (test code = 51 mg/dL >40 7653318712) HDLC RATIO (test code = See_Comment [Au tomated message] 1202809370) The system [employer] generated this result transmit joseph reference range : <=5.0. The refe rence range was not u sed to interpret th is result as normal/abnormal . TRIG (test code = 84 mg/dL 30-170 4071806750) LDL CHOL (test code = 88 mg/dL See_Comment [Auto mated message] 93745-4) The system [employer] generated this result transmit joseph reference range : <=160. The refe rence range was not u sed to interpret th is result as normal/abnormal . VLDL (test code = 17 mg/dL 5-60 6612816668) Lab Interpretation (test Normal code = 26518-4) [facility] CampusCBC WITH [id number] 12:37:41 Test Item Value Reference Range Interpretation [...] RDW-SD (test code = 44.4 fL 38.5-51.6 03492-8) RDW-CV (test code = 14.6 % 12.1-15.4 788-0) PLT (test code = See_Comment L [Automated 777-3) message] The sy stem which generated this result transmitted reference range : 150 - 328 10*3/ ?L. The reference r costa was not used to interpret this result as normal/abnormal . MPV (test code = 9.1 fL 9.8-13.0 L 28777-8) IPF % (test code = 1.3 % 1.2-10.7 Platelet count 0623303921) measured by fluorescence method. NRBC/100 WBC (test See_Comment [Automat ed code = 3933439819) message] The system which generated this result transmitted reference range : 0.0 - 10.0 /100 WBCs. The refer ence range was not u sed to interpret th is result as normal/abnormal . NRBC x10^3 (test code <0.01 See_Comment [Auto mated = 7954964454) message] The s ystem which generated this result transmitted reference range : 10*3/?L. The reference range was not used to interpret this result as normal/abnormal . GRAN MAT (NEUT) % 20.9 % (test code = 770-8) IMM GRAN % (test code 0.80 % = 4511846709) LYMPH % (test code = 45.0 % 736-9) MONO % (test code = 32.5 % 5905-5) EOS % (test code = 0.8 % 713-8) BASO % (test code = 0.0 % 706-2) GRAN MAT x10^3(ANC) 0.25 10*3/uL 1.99-6.95 L (test code = 8608422357) IMM GRAN x10^3 (test <0.03 0.00-0.06 code = 9064519920) LYMPH x10^3 (test code 0.54 10*3/uL 1.09-3.23 L = 731-0) MONO x10^3 (test code 0.39 10*3/uL 0.36-1.02 = 742-7) EOS x10^3 (test code = <0.03 0.06-0.53 L 711-2) BASO x10^3 (test code <0.03 0.01-0.09 = 704-7) REACT LYMPHS (test Rare code = 4066019798) Lab Interpretation Abnormal (test code = 34098-4) [facility] CampusTROPONIN [id number] 12:04:45 Test Item Value Reference Interpretation Comments Range TROPONIN I (test 0.034 ng/mL See_Comment [Automated code = 6966458841) message] The system which generated this result [...] biotin. Lab Interpretation Normal (test code = 23024-8) [facility] CampusN-TERMINAL [id number] 12:01:43 Test Item Value Reference Range Interpretation Comments NT-proBNP (test code 64 pg/mL See_Comment [Autom ated = 5072502934) message] The system which generated this result transmitted reference range : <=450. The reference range was not used to interpret this result as normal/abnormal . ZOË (test code = ZOË) Biotin has been reported to cause a negative bias, interpret results relative to patient's use of biotin. Lab Interpretation Normal (test code = 08613-7) [facility]. METABOLIC PANEL (62592)2021-08-05 11:52:39 Test Item Value Reference Range Interpretation Comments NA (test code = 136 mmol/L 135-145 4983750924) K (test code = 3.8 mmol/L 3.5-5.0 5039488272) CL (test code = 104 mmol/L 98-108 9337839649) CO2 TOTAL (test code = 28 mmol/L 23-31 4089224962) AGAP (test code = 2-16 6495699334) BUN (test code = 10 mg/dL 7-23 0248105617) GLUCOSE (test code = 111 mg/dL 70-110 H 0717819128) CREATININE (test code = 0.73 mg/dL 0.60-1.25 0723442122) TOTAL BILI (test code = 0.5 mg/dL 0.1-1.4 7095142784) CALCIUM (test code = 8.9 mg/dL 8.6-10.6 3745498569) T PROTEIN (test code = 7.8 g/dL 6.3-8.2 7550933337) ALBUMIN (test code = 3.4 g/dL 3.5-5.0 L 6629845102) ALK PHOS (test code = 119 U/L 34-122 7857172025) ALTv (test code = 16 U/L 5-50 1742-6) AST(SGOT) (test code = 21 U/L 13-40 9634206813) eGFR (test code = mL/min/1.73m2 4545157787) ZOË (test code = ZOË) Association of [...] tests). Lab Interpretation Abnormal (test code = 79557-8) [facility] CampusLIPASE2021-12-30 11:52:24 Test Item Value Reference Range Interpretation Comments LIPASE (test code = 4830782030) 42 U/L 0-220 Lab Interpretation (test code = Normal 75059-0) [facility] CampusACTIVATED PARTIAL THRMPLAS [id number] 11:51:04 Test Item Value Reference Range Interpretation Comments APTT Patient (test See_Comment [Automat ed code = 3173-2) message] The system which generated this result transmitted reference range : 23 - 38 Seconds . The reference range was not used to interpr et this result as normal/abnormal . ZOË (test code = ZOË) The [facility] patient population mean normal value for aPTT is 30 seconds. Lab Interpretation Normal (test code = 39245-9) [facility] CampusPROTHROMBIN TIME / [id number] 11:49:03 Test Item Value Reference Range Interpretation [...] tions. Lab Interpretation (test Normal code = 52047-1) [facility] WITH [id number] 19:12:08 Test Item Value Reference Range Interpretation [...] RDW-SD (test code = 45.7 fL 38.5-51.6 83112-5) RDW-CV (test code = 15.1 % 12.1-15.4 788-0) PLT (test code = See_Comment L [Automated 777-3) message] The sy stem which generated this result transmitted reference range : 150 - 328 10*3/ ?L. The reference r costa was not used to interpret this result as normal/abnormal . MPV (test code = 8.8 fL 9.8-13.0 L 43296-8) NRBC/100 WBC (test See_Comment [Automat ed code = 8538032418) message] The system which generated this result transmitted reference range : 0.0 - 10.0 /100 WBCs. The refer ence range was not u sed to interpret th is result as normal/abnormal . NRBC x10^3 (test code <0.01 See_Comment [Auto mated = 4553246880) message] The s ystem which generated this result transmitted reference range : 10*3/?L. The reference range was not used to interpret this result as normal/abnormal . SEG % (test code = 54 % 33-76 99282-2) BAND % (test code = 1 % 0-1 20171-7) LYMPH % (test code = 35 % 14-54 52851-3) ATYP LYMPH % (test 5 % See_Comment H [Automat ed code = 1340878610) message] The system which generated this result transmitted reference range : <=0. The refere nce range was not u sed to interpret th is result as normal/abnormal . MONO % (test code = 5 % 0-4 H 06440-2) ANC (test code = 0.71 10*3/uL 1.99-6.95 L 753-4) ELLIPTO/OVAL (test 2+ See_Comment A [Automat ed code = 97552-1) message] The system which generated this result transmitted reference range : (none). The reference range was not used to interpret this result as normal/abnormal . Lab Interpretation Abnormal (test code = 08165-1) [facility] [id number] 18:33:21 Test Item Value Reference Interpretation Comments Range TROPONIN I (test 0.014 ng/mL See_Comment [Automated code = 8132655650) message] The system which generated this result [...] biotin. Lab Interpretation Normal (test code = 31316-5) [facility]. METABOLIC PANEL (62206)2021-07-31 18:21:39 Test Item Value Reference Range Interpretation Comments NA (test code = 135 mmol/L 135-145 7513818219) K (test code = 3.7 mmol/L 3.5-5.0 0890066517) CL (test code = 104 mmol/L 98-108 0334926991) CO2 TOTAL (test code = 29 mmol/L 23-31 9123026147) AGAP (test code = 2-16 8074573074) BUN (test code = 15 mg/dL 7-23 0487906202) GLUCOSE (test code = 103 mg/dL 70-110 0033991877) CREATININE (test code = 0.69 mg/dL 0.60-1.25 4020920824) TOTAL BILI (test code = 0.7 mg/dL 0.1-1.2 8758493671) CALCIUM (test code = 9.0 mg/dL 8.6-10.6 8112082106) T PROTEIN (test code = 7.3 g/dL 6.3-8.2 8450119096) ALBUMIN (test code = 3.3 g/dL 3.5-5.0 L 2734260549) ALK PHOS (test code = 103 U/L 34-122 4762891923) ALTv (test code = 17 U/L 5-50 1742-6) AST(SGOT) (test code = 22 U/L 13-40 0281275946) eGFR (test code = mL/min/1.73m2 0870747306) ZOË (test code = ZOË) Association of [...] tests). Lab Interpretation Abnormal (test code = 02222-6) [facility]2021-[facility]-25 18:21:39 Test Item Value Reference Range Interpretation Comments LIPASE (test code = 3257738842) 53 U/L 0-220 Lab Interpretation (test code = Normal 99302-3) [facility] CampusSARS-CoV-2 (COVID-19) RNA [Presence] in Respiratory specimen by KENDRA with probe [id number] 17:25:13 Test Item Value Reference Range Interpretation Comments SARS-CoV-2 (COVID-19) RNA Not detected Not-Detected [Presence] in Respiratory specimen by KENDRA with probe detection (test code = 90555-6) Whether 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 is employed in a healthcare setting (test code = 51593-2) Whether the patient has symptoms related to condition of interest (test code = 17578-5) Patient was hospitalized because of this condition (test code = 17718-6) Whether the patient was admitted to intensive care unit (ICU) for condition of interest (test code = 92151-3) Whether patient resides in a congregate care setting (test code = 90282-4) [facility]2021-08-02 16:58:49 Test Item Value Reference Range Interpretation Comments FOLATE SER (test code = 5.0 ng/mL 3.0-20.0 Biot in has been 2093140738) reported to cau se a positive bias, interpret resul ts relative to patient's use o f biotin. Lab Interpretation (test Normal code = 86710-3) [facility] WITH [id number] 14:07:55 Test Item Value Reference Range Interpretation [...] (test code = 52.4 fL 38.5-51.6 H 09227-3) RDW-CV (test code = 16.2 % 12.1-15.4 H 788-0) PLT (test code = See_Comment [Automated 777-3) message] The sy stem which generated this result transmitted reference range : 150 - 328 10*3/ ?L. The reference r costa was not used to interpret this result as normal/abnormal . MPV (test code = 9.0 fL 9.8-13.0 L 79230-7) NRBC/100 WBC (test See_Comment [Automat ed code = 5482726554) message] The system which generated this result transmitted reference range : 0.0 - 10.0 /100 WBCs. The refer ence range was not u sed to interpret th is result as normal/abnormal . NRBC x10^3 (test code <0.01 See_Comment [Auto mated = 2605046420) message] The s [employer] which generated this result transmitted reference range : 10*3/?L. The reference range was not used to interpret this result as normal/abnormal . GRAN MAT (NEUT) % 34.1 % (test code = 770-8) IMM GRAN % (test code 0.00 % = 3094366716) LYMPH % (test code = 54.3 % 736-9) MONO % (test code = 11.0 % 5905-5) EOS % (test code = 0.3 % 713-8) BASO % (test code = 0.3 % 706-2) GRAN MAT x10^3(ANC) 1.12 10*3/uL 1.99-6.95 L (test code = 6039171382) IMM GRAN x10^3 (test <0.03 0.00-0.06 code = 3577809987) LYMPH x10^3 (test code 1.78 10*3/uL 1.09-3.23 = 731-0) MONO x10^3 (test code 0.36 10*3/uL 0.36-1.02 = 742-7) EOS x10^3 (test code = <0.03 0.06-0.53 L 711-2) BASO x10^3 (test code <0.03 0.01-0.09 = 704-7) REACT LYMPHS (test Rare code = 3084905922) Lab Interpretation Abnormal (test code = 39001-9) [facility] CampusPROSTATIC SPECIFIC ANTIGEN [id number] 14:06:34 Test Item Value Reference Range Interpretation Comments PSA (test code = 2.62 ng/mL See_Comment [Automated 7957933197) message] The system which generated this result transmitted reference range : <=4.00. The reference range was not used to interpret this result as normal/abnormal . ZOË (test code = ZOË) Biotin has been reported to cause a negative bias, interpret results relative to patient's use of biotin. Lab Interpretation Normal (test code = 49447-5) [facility] CampusSEDIMENTATION [id number] 13:55:57 Test Item Value Reference Range Interpretation Comments ESR (test code = See_Comment H [Automated message] 6871362687) The system [employer] generated this result transmitted ref erence range: 0 - 10 m m/HR. The reference r costa was not used to interpret this result as normal/abnor mal. Lab Interpretation (test Abnormal code = 72119-0) [facility] CampusMAGNESIUM2021-08-02 13:36:52 Test Item Value Reference Range Interpretation Comments MAGNESIUM (test code = 3914226338) 1.8 mg/dL 1.7-2.4 Lab Interpretation (test code = Normal 54601-4) [facility] METABOLIC PANEL (NA, K, CL, CO2, GLUCOSE, BUN, CREATININE, CA)2021-03-08 13:36:32 Test Item Value Reference Range Interpretation Comments NA (test code = 139 mmol/L 135-145 2640809904) K (test code = 4.0 mmol/L 3.5-5.0 9953810639) CL (test code = 107 mmol/L 98-108 6786141061) CO2 TOTAL (test code 25 mmol/L 23-31 = 7376779734) AGAP (test code = 2-16 9536383141) BUN (test code = 19 mg/dL 7-23 8501138449) GLUCOSE (test code = 101 mg/dL 70-110 1753654660) CREATININE (test code 0.83 mg/dL 0.60-1.25 = 6590266596) CALCIUM (test code = 9.7 mg/dL 8.6-10.6 5163141031) eGFR (test code = mL/min/1.73m2 4086230908) ZOË (test code = ZOË) Association of [...] or urine or abnormalities in imaging tests). [facility] CampusURIC [id number] 13:36:31 Test Item Value Reference Range Interpretation Comments URIC ACID (test code = 9181985252) 4.6 mg/dL 3.6-8.0 Lab Interpretation (test code = Normal 00148-2) [facility] CampusHEPATIC FUNCTION PANEL (86279) (ALB,T.PRO,BILI T,BU/BC,ALT,AST,ALK PHOS)2021-03-08 13:36:31 Test Item Value Reference Range Interpretation Comments TOTAL BILI (test code = 6504855090) 0.6 mg/dL 0.1-1.1 BILI UNCON (test code = 4265501559) 0.4 mg/dL 0.1-1.1 BILI CONJ (test code = 4307751081) 0.0 mg/dL 0.0-0.3 T PROTEIN (test code = 1221169900) 8.1 g/dL 6.3-8.2 ALBUMIN (test code = 5504648305) 3.6 g/dL 3.5-5.0 ALK PHOS (test code = 2118039104) 100 U/L 34-122 ALTv (test code = 1742-6) 15 U/L 5-50 AST(SGOT) (test code = 1216079064) 21 U/L 13-40 Lab Interpretation (test code = Normal 80113-2) [facility]"
[2023-05-30] MEDS ORDERED: ACETAMINOPHEN 325 MG TABLET PO PRN (16:00)
[2023-05-30] MEDS ORDERED: HYDROCODONE/APAP 5/325 MG TAB PO PRN (16:01)
[2023-05-30] MEDS ORDERED: MELATONIN 3 MG TABLET PO PRN (16:04)
[2023-05-30] MEDS ORDERED: GLUCAGON 1 MG/VIAL IM PRN (17:02)
[2023-05-30] MEDS ORDERED: D10W 250 ML BAG IV PRN (17:13)
[2023-05-30 19:21] LABS: Specific Gravity 1.024 (1.005-1.030); Urine Bacteria None Seen /HPF (<20); Urine Bilirubin NEGATIVE (Negative); Urine Blood Negative (Negative); Urine Clarity Clear (Clear); Urine Color Yellow (Yellow); Urine Crystals Unidentified Few /HPF (None Seen); Urine Glucose NEGATIVE (Negative); Urine Mucus Slight /HPF (None Seen); Urine Protein NEGATIVE (Negative); Urine RBC <5 /HPF (None Seen); Urine Urobilinogen 1+ (Normal); Urine pH 5.5 (5.0-7.0)
[2023-05-30] MEDS ORDERED: dexAMETHasone 4 MG TAB PO SCH ×2 (20:00)
[2023-05-30] MEDS: FAMOTIDINE 20 MG TAB PO SCH (20:14)
[2023-05-30] MEDS: levETIRAcetam 500 MG TAB PO SCH (20:14)
[2023-05-30] MEDS: dexAMETHasone 4 MG TAB PO SCH (20:14)
[2023-05-30] MEDS: DOCUSATE NA/SENNA CONC 1 TAB PO SCH (20:14)
[2023-05-30] MEDS: POLYETHYL GLY 3350 17 GM/DOSE PO SCH (20:15)
[2023-05-30] MEDS: INSULIN REGULAR (HUMAN) 100 UNIT/ML SQ SCH (20:15)
[2023-05-31 03:40] LABS: Absolute Lymphocytes (CBC) 0.9 K/uL (0.7-4.9); Hematocrit 34.4 % (39.6-49.0); Lymphocytes % 16.3 % (15.3-44.8); MCV 90.5 fL (80-100); MPV 6.9 fL (7.6-11.3); Platelets 209 thou/uL (152-406)
[2023-05-31 04:20] LABS: Albumin 2.4 g/dL (3.4-5.0); Magnesium 1.9 mg/dL (1.6-2.4); Phosphorus 2.6 mg/dL (2.5-4.9); Potassium 4.1 mEq/L (3.5-5.1); Prealbumin 15.2 mg/dL (20-40)
[2023-05-31 04:27] LABS: Blood Morphology Comment NOT SEEN (NOT SEEN); Platelet Estimate ADEQ
[2023-05-31] MEDS: INSULIN REGULAR (HUMAN) 100 UNIT/ML SQ SCH ×4 (07:30→19:38)
[2023-05-31] MEDS: ENOXAPARIN 40 MG/0.4 ML SQ SCH (07:36)
[2023-05-31] MEDS: POLYETHYL GLY 3350 17 GM/DOSE PO SCH ×2 (07:36→19:13)
[2023-05-31] MEDS: levETIRAcetam 500 MG TAB PO SCH ×2 (07:37→19:13)
[2023-05-31] MEDS: DOCUSATE NA/SENNA CONC 1 TAB PO SCH ×2 (07:37→19:13)
[2023-05-31] MEDS: dexAMETHasone 4 MG TAB PO SCH ×2 (07:37→19:13)
[2023-05-31] MEDS: FAMOTIDINE 20 MG TAB PO SCH ×2 (07:38→19:13)
[2023-05-31] MEDS: NICOTINE 7 MG/PAT TD SCH (07:38)
[2023-05-31] MEDS: THIAMINE HCL 100 MG TABLET PO SCH (07:38)
[2023-05-31] MEDS ORDERED: dexAMETHasone 4 MG TAB PO SCH (08:00)
--- NOTE | 2023-05-31 21:46 | HP ---
Date of Admission: 05/30/2023 Time Of Service: 12 noon. Chief Complaint: "I had a seizure and bleeding in the hand and right-sided weakness." History Of Present Illness: Mr. Calvo is a 78-year-old patient with a history of stroke 4 years ago without residual deficits and lung cancer, status post chemotherapy and radiation, was been in remiss ion for a year when he developed new symptoms on May 22 around 6:00 a.m. Symptoms consisted of s ome confusion and involuntary right arm and leg movements. The patient's daughter noted the day befo re that he had a fallen down some stairs and his right leg got tangled had difficulty going down the steps. His right arm was caught within the banister. At [facility] CT scan o f the head showed a 4 cm parietal intraparenchymal hemorrhage. He was felt to be having seizures. G iven the focal unusual findings of the patient's right arm, he was treated with Ativan, Keppra, intub ated and put on Versed 6 mg/hour. He was sent to [facility] in the [facility] where he was in th e Neuro ICU for monitoring and did have left craniotomy for resection of the mass on May 26. W angely in ICU, he did receive Zofran, antiepileptic medication. He had mild leukocytosis and had mild electrolyte derangements, which were addressed. The patient was then evaluated for his ability to re turn to baseline and found to have declined significantly in his ability to ambulate, transfer, or pe rform his activities of daily living, requiring moderate assistance to ambulate around 50 feet, maxim al assist for lower and upper body dressing, and requiring management of his recent surgery and his r ight-sided weakness and incoordination. As a result, he is admitted to inpatient rehabilitation for physical, occupational, and speech therapy. Past Medical History: Lung cancer, radiation and chemo. Previously, back surgery. Recent craniotom y on 05/26/2023 for excision of tumor done by stealth procedure. Ultrasound guided intraoperative re section. Allergies: NO KNOWN DRUG ALLERGIES. Imaging: Brain MRI with and without contrast on 05/27/2023 shows he is status post resection of a le ft parietal lobe lesion without evidence of residual tumor. There is stable left cerebral edema. No evidence of acute infarct, hemorrhage, hydrocephalus, or mass. Cervical spine without contrast and the thoracic spine with and without contrast, and lumbar spine with without contrast done on 05/24/20 23 showed mild degenerative changes of the lumbar spine. No enhancing metastases throughout the cerv ical levels. There is a T1 hypointensity and T2 hyperintensity, a subcentimeter foci noted at T2 and T6. These are noted to be questionable ill-defined enhancements and are equivocal for subcentimeter metastatic lesions. There are also mild degenerative changes lumbar spine with no enhancing metast asis of the cervical region. Social History: Patient smoked tobacco in the past. Allergies: NO KNOWN DRUG ALLERGIES. Family History: Noncontributory. Current Medications: Tylenol 650 mg every 6 hours as needed, Decadron 2 mg twice daily, Lovenox 40 m g subcutaneously daily, Pepcid 20 mg twice daily, [place] 5/325 one every 6 hours as needed, Keppra 750 mg twice daily, melatonin 3 mg at bedtime, nicotine patch 7 mg daily, Senokot S 2 at bedtime, thiami ne 100 mg daily. Laboratory Studies: White blood cell count 5.8, hemoglobin 11.7, platelets 209. Sodium 137, potassi um 4.1, chloride 106, carbon dioxide 27, BUN 23, creatinine 1.1, glucose ranged from 94 to 116. His calcium is 9.6. Magnesium 1.9. Prealbumin 15.2, albumin 2.4. Urinalysis is unremarkable except 1+ urobilirubin. He had a drug screen on 05/22/2023 that was negative. Review of Systems: Mr. Calvo is sitting in a chair. He did therapy this morning. He has no complaints, says his pain i s well managed as his sleep and bowel movements. Had lunch filling his plate and is actually feeling very good and no positives on the systems review of 10 points. Physical Examination: Vital Signs: Blood pressure 113/57, pulse of 60, respiratory rate 18, temperature 97, oxygen saturat ion 92%. General: Mr. Calvo is sitting in a chair. He is in no acute distress. Healing scar in the surface of scalp on the left. No loss of integrity. HEENT: Otherwise, atraumatic. Sclerae anicteric. Oropharynx is moist. Neck: Supple. Chest: Clear. Heart: Regular. Extremities: Show no edema, cyanosis, or clubbing. Neurological: He is alert, oriented to person, place, time, and situation. Follows commands appropr iately. Cranial nerves show no obvious focal deficits. Motor exam in the upper and lower extremitie s, no focal deficits. He has recovered very well in terms of his strength. Sensation, stocking-glov e loss, light touch temperature noted. His reflexes are symmetric. Gait, he has good stance and str bong. Current Level Of Functioning: Supervision for eating, oral hygiene. Max assist for toileting and ba thing. Moderate assistance for upper body dressing, maximal for lower body dressing, maximum with do nning and doffing footwear. Supervision for rolling [id number], [id number]. Moderate assist f or sit to stand and sliding in bed. Transfer from bed to chair, moderate assistance. Toilet transfe r mod assist. Ambulation, moderate assistance. Walking 50 feet with a rolling walker with moderate assistance. Rehabilitation And Medical Assessment And Plan: Mr. Calvo was admitted to the inpatient rehabilitati on unit with an impairment category of 03, brain dysfunction nontraumatic. His impairment group code is 02.1, nontraumatic. His etiologic diagnosis is left parietal intraparenchymal hemorrhage from tu mor and status post resection. 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 Plan: 1.He will have physical, occupational along with speech therapy. If need be, 3.5 hours, 5 of 7 days . 2.For DVT prophylaxis, continue Lovenox 40 mg subcutaneously daily. 3.For pain, [place] 5/325 every 6 hours as needed. 4.For insomnia, melatonin 3 mg at bedtime. 5.Nicotine patch for tobacco dependency. 6.Senokot S for constipation. 7.Dexamethasone, would continue a tapering course. 8.Tylenol also added for pain. Impact Of Comorbidities: He does have comorbidities, which include possibility of seizures why he is on Keppra 750 mg twice daily. He has not had additional seizure-like episodes. 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 In addition, he has tobacco dependency, will have a nicotine patch placed and continued if need be. Otherwise, comorbidities are stably managed. Rehab Specific Plan: 1.Mr. Calvo will have physical, occupational, and speech therapy for 3.5 hours, 5 of 7 days to impro ve his ability to transfer from bed to toilet, to chair. Dress his upper and lower body. To perform all of his activities such as ambulation 250 feet with modified independence, up and down 20 steps w ith modified independence. Propel a wheelchair with modified independence and to perform cognitive f unctioning with modified independence. 2.Mr. Calvo has a good understanding of the process of admission and discharge to the inpatient reha bilitation unit. He has a potential to make great improvement and will require at least physical and occupational therapy and again if need be speech to help him to optimize all of his prior level of f unctioning state. If need be services such as nutrition service, wound care, respiratory service olive l be consulted. Given his complex medical condition and risk of further complications, rehabilitatio n cannot be safely or effectively performed at the lower level of care such as [facility]. Barriers To Discharge: The patient will have to follow seizure precautions for at least 3 months. W ould not be able to drive a car or operate heavy machinery. Follow seizure precautions. At this poi nt, he is doing very well. Continue with [facility]. Estimated Length Of Stay: 10 days. Disposition: Home with family. Prognosis: Good. Rehab Goals: 1.Become independent with upper and lower body dressing, transferring, toileting. 2.Independent ambulating 500 feet with a rolling walker. 3.Independently going up and down 20 steps. 4.Independently mobilize wheelchair. 5.Independently perform all cognitive functioning. 6.The above goals were reviewed with Mr. Calvo and he is in agreement. By signing this document, I acknowledge I have personally performed a full physical examination on Mr Mike Calvo no later than 24 hours after his admission to the inpatient rehabilitation facility and deter mined that he is able to tolerate the above course of treatment at an intensive level for reasonable period of time. A detailed individualized plan of care for him will be completed by hospital day 4 b ased on the preadmission screen, history and physical, and therapy evaluations. MAINOR Voice ID: [id number]
[2023-06-01] MEDS: INSULIN REGULAR (HUMAN) 100 UNIT/ML SQ SCH ×2 (06:45→16:16)
[2023-06-01] MEDS: ENOXAPARIN 40 MG/0.4 ML SQ SCH (07:19)
[2023-06-01] MEDS: POLYETHYL GLY 3350 17 GM/DOSE PO SCH ×2 (08:00→19:59)
[2023-06-01] MEDS: DOCUSATE NA/SENNA CONC 1 TAB PO SCH ×2 (08:00→19:59)
[2023-06-01] MEDS: levETIRAcetam 500 MG TAB PO SCH ×2 (08:51→19:58)
[2023-06-01] MEDS: NICOTINE 7 MG/PAT TD SCH (08:51)
[2023-06-01] MEDS: dexAMETHasone 4 MG TAB PO SCH ×2 (08:51→19:58)
[2023-06-01] MEDS: FAMOTIDINE 20 MG TAB PO SCH ×2 (08:52→19:59)
[2023-06-01] MEDS: THIAMINE HCL 100 MG TABLET PO SCH (08:52)
[2023-06-01] MEDS: ENSURE ENLIVE 237 ML CAN PO SCH (19:59)
--- NOTE | 2023-06-01 22:43 | PN ---
Date of Progress Note: 06/01/2023 [id number] Progress Note. Time Of Service: 1 p.m. Subjective: Mr. Calvo is sitting in room, looking out the window. He is doing very well. He is in no acute distress. He is very happy with recovery from his stroke so far. Review of Systems: He denies any fevers, chills, nausea, vomiting, myalgias, arthralgias, headache, weight change, rash. Physical Examination: Vital Signs: Blood pressure is 108/60, pulse 66, respiratory rate 18, temperature 97.2, oxygen satur ation 96%. Weight 151 pounds, height 6 feet 1 inch, BMI 20. General: Mr. Calvo again is resting comfortably in his chair. He is in no significant distress. He does have some residual right-sided incoordination and weakness from his stroke. HEENT: He is normocephalic, atraumatic. Sclerae anicteric. Oropharynx is pink and moist. Neck: Supple. Chest: Clear. Heart: Regular. Extremities: Show no significant clubbing, cyanosis, or edema. Laboratory Studies: White blood cell count 5.8, hemoglobin 11.7, platelets 209. His blood sugars ra nged from 100-124. Sodium 137, potassium 4.1, chloride 106, carbon dioxide 27, BUN 23, creatinine 1. 1, prealbumin 15.2, albumin 2.4, magnesium 1.9, phosphorus 2.6, calcium 9.6. Urinalysis shows 1+ uro bilinogen, is otherwise normal. X-ray/imaging: No x-ray imaging done. Current Functional Status: Today, he did ambulate a 1000 feet, another 500 feet with contact guard a ssistance without the use of an assistive device. He was able to ascend and descend 90 steps with bi lateral handrails with contact guard assistance. He did ambulate indoors and outdoors and did very w ell. With occupational therapy, he is independent with self-propelling wheelchair, shower and baths. Independent with shower transfers, independent with bathing, upper and lower body dressing, and vita twear. Did voice to the staff, he wanted to leave to be able to take care of his car and then be [place] for [facility] on Monday. With speech therapy, he recalled 3 of 3 unrelated pictures after 7 minutes, he named 10 items per concrete category, showing improved organizational thinking skills and he used deductive reasoning with 70% accuracy. Progress Towards Rehabilitation Goals: Mr. Calvo has made excellent progress towards his goals of be coming independent with upper and lower body dressing, transferring, toileting, showering, ambulating about 1000 feet without assistive device independently, up and down 90 steps independently and mobil ized a wheelchair 250 feet independently. Again, cognitive functioning, final goal there will be ind ependence. Assessment: Mr. Calvo is a 78-year-old patient admitted to the inpatient rehabilitation unit with a left parietal intraparenchymal hemorrhage, status post craniotomy and he has some mild residual right -sided weakness with incoordination. He is doing excellent with physical, occupational and speech th era. 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 He has hyponatremia, and postoperative anemia. Plan: 1.Continue with physical, occupational and speech therapy for 3.5 hours, 5 of 7 days. 2.Lovenox for DVT prophylaxis. 3.[place] for pain. 4.Melatonin for insomnia. 5.Nicotine patch for his chronic smoking. 6.Senokot for constipation. 7.Dexamethasone or steroids may be tapered slowly. Comorbidities That Continue To Impact Rehabilitation: Currently, his comorbid conditions are not neg atively impacting his rehabilitation. He is doing very well. No cravings for tobacco or cigarettes have been voiced by the patient. He just would like to be able to go home, take care of his car and then be able to go to [facility] on Monday. There is a planned discharge for Monday as the patient is doing excellent. NIEVES/HUMBERTO Voice ID: [id number] Report ID: [id number]
[2023-06-02] MEDS: INSULIN REGULAR (HUMAN) 100 UNIT/ML SQ SCH ×2 (06:26→16:30)
[2023-06-02] MEDS: POLYETHYL GLY 3350 17 GM/DOSE PO SCH ×3 (07:07→20:00)
[2023-06-02] MEDS: DOCUSATE NA/SENNA CONC 1 TAB PO SCH ×3 (07:07→20:00)
[2023-06-02] MEDS: ENOXAPARIN 40 MG/0.4 ML SQ SCH (07:08)
[2023-06-02] MEDS: NICOTINE 7 MG/PAT TD SCH (07:55)
[2023-06-02] MEDS: THIAMINE HCL 100 MG TABLET PO SCH (07:56)
[2023-06-02] MEDS: dexAMETHasone 4 MG TAB PO SCH ×2 (07:56→19:51)
[2023-06-02] MEDS: FAMOTIDINE 20 MG TAB PO SCH ×2 (07:56→19:51)
[2023-06-02] MEDS: levETIRAcetam 500 MG TAB PO SCH ×2 (07:56→19:52)
[2023-06-02] MEDS: ENSURE ENLIVE 237 ML CAN PO SCH ×2 (07:59→19:53)
--- NOTE | 2023-06-02 14:05 | P.RH.PN ---
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: Mobility, Transfers, Self Care Vital Signs: Last Vital Signs Temp 96.8 F 06/02/23 06:46 Pulse 57 06/02/23 06:46 Resp 16 06/02/23 06:46 BP 108/62 06/02/23 06:46 Pulse Ox 98 06/02/23 06:46 Laboratory: Laboratory Last Values WBC 5.80 thou/uL (4.3-10.9) 05/31/23 03:12 RBC 3.80 M/uL (4.33-5.43) L 05/31/23 03:12 Hgb 11.7 g/dL (13.6-17.9) L 05/31/23 03:12 Hct 34.4 % (39.6-49.0) L 05/31/23 03:12 MCV 90.5 fL (80-100) 05/31/23 03:12 MCH 30.8 pg (27.0-35.0) 05/31/23 03:12 MCHC 34.0 g/dL (32.0-36.0) 05/31/23 03:12 RDW 16.2 % (12.1-15.2) H 05/31/23 03:12 Plt Count 209 thou/uL (152-406) 05/31/23 03:12 MPV 6.9 fL (7.6-11.3) L 05/31/23 03:12 Neutrophils % 63.9 % (41.7-73.7) 05/31/23 03:12 Lymphocytes % 16.3 % (15.3-44.8) 05/31/23 03:12 Monocytes % 19.2 % (3.3-12.3) H 05/31/23 03:12 Eosinophils % 0.2 % (0-4.4) 05/31/23 03:12 Basophils % 0.4 % (0-1.3) 05/31/23 03:12 Absolute Neutrophils 3.7 K/uL (1.8-8.0) 05/31/23 03:12 Segmented Neutrophils 69 % (40-80) 05/31/23 03:12 Band Neutrophils 5 % (0-1) H 05/31/23 03:12 Absolute Lymphocytes 0.9 K/uL (0.7-4.9) 05/31/23 03:12 Lymphocytes 20 % (15-42) 05/31/23 03:12 Monocytes 5 % (0-10) 05/31/23 03:12 Absolute Monocytes 1.1 K/uL (0.1-1.3) 05/31/23 03:12 Absolute Eosinophils 0.0 K/uL (0-0.5) 05/31/23 03:12 Absolute Basophils 0.0 K/uL (0-0.5) 05/31/23 03:12 Nucleated RBCs 1 /100WBC 05/31/23 03:12 Reactive Lymphocytes 1 % 05/31/23 03:12 Platelet Estimate Adeq 05/31/23 03:12 Morphology Comment Not seen (NOT SEEN) 05/31/23 03:12 Sodium 137 mEq/L (136-145) 05/31/23 03:12 Potassium 4.1 mEq/L (3.5-5.1) 05/31/23 03:12 Chloride 106 mEq/L (98-107) 05/31/23 03:12 Carbon Dioxide 27 mEq/L (21-32) 05/31/23 03:12 Anion Gap 8.1 mEq/L (5.0-15.0) 05/31/23 03:12 BUN 23 mg/dL (7-18) H 05/31/23 03:12 Creatinine 1.10 mg/dL (0.70-1.30) 05/31/23 03:12 Est GFR (CKD-EPI) 69 ml/min (=/>90) L 05/31/23 03:12 Glucose 116 mg/dL (74-106) H 05/31/23 03:12 POC Glucose 113 mg/dL (65-120) 06/02/23 06:25 Calcium 9.6 mg/dL (8.5-10.1) 05/31/23 03:12 Phosphorus 2.6 mg/dL (2.5-4.9) 05/31/23 03:12 Magnesium 1.9 mg/dL (1.6-2.4) 05/31/23 03:12 Albumin 2.4 g/dL (3.4-5.0) L 05/31/23 03:12 Prealbumin 15.2 mg/dL (20-40) L 05/31/23 03:12 Urine Color Yellow (Yellow) 05/30/23 18:45 Urine Clarity Clear (Clear) 05/30/23 18:45 Urine pH 5.5 (5.0-7.0) 05/30/23 18:45 Ur Specific [place] 1.024 (1.005-1.030) 05/30/23 18:45 Glucose (UA)(Auto) Negative (Negative) 05/30/23 18:45 Urine Ketones Negative (Negative) 05/30/23 18:45 Urine Blood Negative (Negative) 05/30/23 18:45 Urine Nitrite Negative (Negative) 05/30/23 18:45 Urine Bilirubin Negative (Negative) 05/30/23 18:45 Urine Urobilinogen 1+ (Normal) H 05/30/23 18:45 Ur Leukocyte Esterase Negative Cuco/uL (Negative) 05/30/23 18:45 Urine RBC <5 /HPF (None Seen) 05/30/23 18:45 Urine WBC <5 /HPF (<5) 05/30/23 18:45 Ur Squamous Epith Cells None seen /HPF (None Seen) 05/30/23 18:45 U Non-Squamous Epi Cells <5 /HPF (None Seen) 05/30/23 18:45 Unidentified Crystals Few /HPF (None Seen) 05/30/23 18:45 Urine Bacteria None seen /HPF (<20) 05/30/23 18:45 Urine Mucus Slight /HPF (None Seen) 05/30/23 18:45 Urine Culture Reflexed Not needed 05/30/23 18:45 Urine Total Protein Negative (Negative) 05/30/23 18:45 Weight: 151 lb 11.2 oz Closed Surgical Incision Present: Yes Negative Pressure Wound Therapy Present: No Physician Update: Labs reviewed and are stable. He is making very good progress with all therapy. BIMS 11 improved to 15 in two days. Improved to independent with gait, transfers and all ADLs. Comment: Non access portacath noted at the right chest. Summary: Patient's care plan and shelter goals have been reviewed and revised as necessary. Please see the Rehabilitation Signature page for all necessary signatures.
[2023-06-03] MEDS: INSULIN REGULAR (HUMAN) 100 UNIT/ML SQ SCH (06:32)
[2023-06-03] MEDS: ENOXAPARIN 40 MG/0.4 ML SQ SCH (06:37)
[2023-06-03] MEDS: POLYETHYL GLY 3350 17 GM/DOSE PO SCH (06:37)
[2023-06-03] MEDS: THIAMINE HCL 100 MG TABLET PO SCH (06:37)
[2023-06-03] MEDS: FAMOTIDINE 20 MG TAB PO SCH (06:37)
[2023-06-03] MEDS: DOCUSATE NA/SENNA CONC 1 TAB PO SCH (06:37)
[2023-06-03] MEDS: levETIRAcetam 500 MG TAB PO SCH (06:38)
[2023-06-03] MEDS: NICOTINE 7 MG/PAT TD SCH (06:38)
[2023-06-03] MEDS: ENSURE ENLIVE 237 ML CAN PO SCH (06:38)
[2023-06-03 07:56] VITALS: BP 118/61; TEMP 97.2
== END 2023-06-03 07:15 | disposition home or self-care (01) | DRG 949 ==
LOC: 5TH 13:15
PROVIDERS: ADMIT Psychiatry & Neurology Neurology with Special Qualifications in Child Neurology; ATTEND Psychiatry & Neurology Neurology with Special Qualifications in Child Neurology
DX: Z48.3 Aftercare following surgery for neoplasm (principal); C79.31 Secondary malignant neoplasm of brain; E87.1 Hypo-osmolality and hyponatremia; G40.209 Localization-related (focal) (partial) symptomatic epilepsy and epileptic syndromes with complex partial seizures, not intractable, without status epilepticus; R73.9 Hyperglycemia, unspecified; D64.89 Other specified anemias; G47.00 Insomnia, unspecified; F17.200 Nicotine dependence, unspecified, uncomplicated; K59.00 Constipation, unspecified
CPT/HCPCS: 36415; 80048; 81001; 82040; 82947; 83735; 84100; 84134; 85025; 87077; 87086; 87088; 87186; 92523; 97110; 97112; 97116; 97129; 97163; 97165; 97530; J1650; J1815; J8540

== ENCOUNTER 2023-06-16 12:10 | Observation (INO) | payer OTHER ==
--- OUTSIDE RECORDS SUMMARY | 2023-06-16 12:19 | XMS REPORT | Continuity of Care Document ---
:1945 Author Organization [facility] t Address [address] [facility] [address] [place] [address] Care Team Providers Name Role Phone Landon MCGOWAN, Emanuel Primary Care Physician CLAUDE GATES Attending Clinician Unavailable TOSHIA TORRES Attending Clinician Unavailable Mica WU, Christy Attending Clinician Unavailable Refugio WU, Beatriz Attending Clinician Unavailable Piero Perkins MD Attending Clinician Cameron Ceballos MD Attending Clinician ELISEO RICH Attending Clinician Unavailable Jamal Orellana MD Attending Clinician Roxanna Rivera Attending Clinician Mode Garrett Attending Clinician Cole MCGOWAN, Li Attending Clinician Gualberto CASTANO, Concepcion Attending Clinician Unavailable Greg CASTANO, Jasmin Attending Clinician Unavailable Michelle Sapp RN Attending Clinician Unavailable Pob, [facility] Main Attending Clinician Unavailable George Little MD Attending Clinician GEORGE LITTLE Attending Clinician Unavailable Doctor Unassigned, Nada Attending Clinician Unavailable Zelda Garcia MD Attending Clinician WALE BEARD Attending Clinician Unavailable Wale Beard DO Attending Clinician BLANCHE BERMUDEZ Attending Clinician Unavailable Blanche Bermudez DO Attending Clinician Jada OLIVER, Yimi Attending Clinician TORI ANNE Attending Clinician Unavailable Omid OLIVER, Tori Mcnally Attending Clinician Jennifer Kim RN Attending Clinician [...] Unavailable Romana Anderson MD Admitting Clinician TESSY LOEWRY Admitting Clinician Unavailable MD CAROLYN MCCRARY Admitting Clinician Unavailable Payers Payer Name Policy Type Policy Number Effective Date Expiration Date Ermelinda azul MEDICARE A B [id number] 1992 00:00:00 Problems Condition Condition Condition Status Onset Resolution Last Treating Co mments Source Name Details Category Date Date Treatment Clinician Date 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 Hypophosph Hypophosph Disease Active 2022-[address] [facility]emia [facility] Intracrani Intracrani Disease Active 2022-[address] al al 0[facility]16 [facility] hemorrhage hemorrhage 00:[facility] Me d[facility] 00 Center Status Status Disease Active 2022-[address] [facility] epilepticu epilepticu 0-16 [facility] s s 00:00: Medical 00 Center Cerebral Cerebral Disease Active 2022[facility] Acute Acute Disease Active 2022-[address] respirator respirator 0-16 Sweta kes y failure y failure 00:00: Medi sonja with with 00 Center hypoxia hypoxia Acute Acute Disease Active 2022-[address] encephalop encephalop 0-16 Sweta kes athy athy 00:00: Medical [place] 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 0-16 [facility] 00:00: [facility] 00 Center Encounter Encounter Disease Active Met hodi for for 6-10 [facility] immunother immunother 00:00: Julio ruano apy apy 00 l Malignant Malignant Disease Active [facility] neoplasm neoplasm 2-17 st of upper of upper 00:00: Hospit a lobe of lobe of 00 l right lung right lung Chest pain Chest pain 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 U nivers 2-30 ity of 00:00: [address] Status Status 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 Methodi post post 1-[address] chemothera chemothera 00:00: Julio ruano py py 00 l 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 00 l Mass of Mass of 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 [facility]i lower lobe lower lobe 0-25 st of left of left 00:00: Hospita lung lung 00 l Hilar Hilar 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 [facility]i adenopathy adenopathy 0-25 st 00:00: Hospita 00 l Right Right Disease Active Univers sided sided 1-02 ity of weakness weakness 00:00: [place] [address] Medical Branch Tobacco Tobacco Disease Active Methodi use use [facility] Hospita l Hypothyroi Hypothyroi Disease Active M ethodi dism due dism due st to to Hospita medication medication l Allergies, Adverse Reactions, Alerts Allergy Allergy Status Severity Reaction(s) Onset Inactive Treating Comm ents Source Name Type Date Date Clinician NO KNOWN Allergy Active [facility] NO KNOWN Drug Active [facility] ALLERGGreater [facility] annay [facility] [place] [facility] Family History Family Member Diagnosis Comments Start Date Stop Date Source Natural brother Colon cancer [facility] Natural mother Breast cancer [facility] Social History Social Habit Start Date Stop Date Quantity Comments Source History [facility] History of tobacco Current smoker [facility] Sexual orientation [facility] Tobacco use and 2023-06-13 2023-06-13 Smokeless Protestant exposure 00:00:00 00:00:00 tobacco non-user Hospital Alcohol intake 2023-06-13 2023-06-13 Ex-drinker Protestant 00:00:00 00:00:00 (finding) Hospital History of Social 2023-06-13 2023-06-[address] function 00:00:00 00:00:00 Hospital Tobacco Comment 2023-06-13 2023-06-13 smoking for 60 [facility] dist 00:00:00 00:00:00 years Hospital Exposure to 2023-05-12 2023-05-[address] [facility] SARS-CoV-2 (event) 00:00:00 17:02:00 Medica l Center History [facility] 2023-05-22 2023-05-[address] [facility] Transport Med 00:00:00 00:00:[address] History [facility] 2023-05-22 2023-05-[address] [facility] Housing Unable to 00:00:00 00:00:00 Medical Center Pay History [facility] 2023-05-22 2023-05-[address] [facility] Housing Places 00:00:00 00:00:00 Medical Ce nter Lived History [facility] 2023-05-22 2023-05-[address] [facility] Housing Homeless 00:00:00 00:00:00 Medical Center Last Year Sex [birth year] At [birth year] Protestant 00:00:00 00:00:00 Hospital Smoking Status Start Date Stop Date Source Ex-smoker 2023-06-13 00:00:00 2023-06-13 00:00:00 [facility] Smokes tobacco daily 2023-05-22 00:00:00 [facility] Medications Ordered Filled Start Stop Current Ordering Indication Dosage Frequency Signature Comments Components Source Medication Medication Date Date Medication? Clinician (SIG) Name Name losartan 2022-08- No 25mg Take 25 mg Me thodi (COZAAR) 25 08-[address] MG tablet 13:51: 00:00 Hospita 27 :00 l lisinopriL 2022-08- No 10mg QD Take 1 Meth francisco (PRINIVIL) 08-13 tablet (10 st 10 mg 13:51: 00:00 mg total) Hospit a tablet 26 :00 by mouth l daily. aspirin 81 2022-08- No 81mg Chew 81 Met hodi mg chewable 08-[address] tablet 13:51: 00:00 Hospita 19 :00 l acetaminoph 2022-08- [facility] (TYLENOL) 13:51: 00:00 Hospita 500 MG 16 :00 l tablet thiamine 2022-08- Yes 100mg QD Take 1 [facility] 100 MG 0-25 10-24 tablet [facility] tablet 00:00: 23:59 (100 mg Medical 00 :00 total) by Center mouth daily. famotidine 2022-08 Yes 20mg Take 1 [facility] (PEPCID) 20 0-24 tablet (20 Sweta kes MG tablet 00:00: mg total) Med ical 00 by mouth Center every 12 (twelve) hours. levETIRAcet 2022-08- Yes 750mg Q.5D Take 1 Me thodi am (KEPPRA) 0-24 10-[address] 750 MG 00:00: 04:59 (750 mg Hospita tablet 00 :00 total) by l mouth 2 (two) times a day. levETIRAcet 2022-08- Yes 750mg Q.5D Take [address] am (KEPPRA) 0-24 10-23 tablet [facility] 750 MG 00:00: 23:59 (750 mg Medical tablet 00 :00 total) by Center mouth 2 (two) times daily . dexAMETHaso 2022-08- Yes Take [address] ne 0-24 10-29 tablet (2 [facility] (DECADRON) 00:00: 23:59 mg total) M edical 2 MG tablet 00 :00 by mouth Cent er every 12 (twelve) hours for 2 days, THEN 0.5 tablets (1 mg total) every 12 (twelve) hours for 2 days, THEN 0.5 tablets (1 mg total) daily with breakfast for 1 day. aspirin 81 2021-08 Yes 81mg Chew 81 [...] at 1430, mL Routine iopamidol 2021- No [id number] 100mL 100 mL, Univers (ISOVUE 10-08 Intravenou [...] dose, On Mon10/08/21 at 0945, STAT benadryl/li Yes 10mL Q6H Swish and M ethodi docaine/maa 09-[address] lox (MAGIC 00:00: mL every 6 H ospita MOUTHWASH) 00 (six) l 1:1:1 hours as suspension needed suspension (moderate throat pain). pantoprazol Yes 40mg QD Take 1 Meth francisco e 2-22 tablet (40 st (Protonix) 00:00: mg total) Ho spita 40 MG EC 00 by mouth l tablet daily. sucralfate Yes 1g Q.25D Take 1 Meth francisco [...] 40mg QD Take 1 Meth francisco e 09-28 tablet (40 st (Protonix) 00:00: mg total) Ho spita 40 MG EC 00 by mouth l tablet daily. sucralfate 2021-0 Yes 1g Q.25D Take 1 Meth francisco (CARAFATE) 09-28 tablet (1 st 1 gram 00:00: g total) Hospita tablet 00 by mouth 4 l (four) times a day before meals and nightly. benadryl/li 2022- No 10mL Q6H Swish and Methodi docaine/maa 09-28 swallow 10 s t lox (MAGIC 00:00: 00:00 mL every 6 Hospita MOUTHWASH) 00 :00 (six) l 1:1:1 hours as suspension needed suspension (moderate throat pain). pantoprazol 2021-2022- No 40mg QD Take 1 Met hodi e 09-28 tablet (40 st (Protonix) 00:00: 00:00 mg total) H ospita 40 MG EC 00 :00 by mouth l tablet daily. sucralfate 2021-0 2022- No 1g Q.25D Take 1 Met hodi (CARAFATE) 09-28 tablet (1 st 1 gram 00:00: 00:00 g total) Hospit a tablet 00 :00 by mouth 4 l (four) times a day before meals and nightly. sodium 2021-2021- No 1{enema 1 Enema, Uni vers phosphates [...] [place] mL 00 :00 dose, On Medical [facility] Branch 09/20/21 at 1715, DANNIE iopamidol 2021- No [id number] 100mL 100 mL, Univers (ISOVUE 09-20 Intravenou ity o f 370-500 mL) 22:00: 20:43 s, ONCE, 1 [place] injection 00 :00 dose, On Medica l 100 mL [facility] 09/20/21 at 1600, Routine magnesium No 2g 2 g, IV Univ ers [...] 1 Medical 20 mg dose, On Branch [facility] 09/20/21 at 1500, Routine ondansetron 2021- No 4mg 4 mg, Slow Univers (ZOFRAN 09-20 IV Push, ity of (PF)) 20:45: 19:51 ONCE, 1 [place] injection 4 00 :00 dose, On Medi sonja mg [facility] 09/20/21 at 1445, DANNIE NaCl 0.9% 2021- No 1000mL at 999 Uni vers (NS) bolus 09-20 mL/hr, ity of infusion 20:45: 21:10 1,000 mL, [place] as 1,000 mL 00 :00 IV Medical Infusion, Branch ONCE, 1 dose, On [facility] 09/20/21 at 1445, DANNIE docusate Yes [id number] 100mg Take 1 Un jn (COLACE) 09-20 capsule by ity o f 100 mg 00:00: mouth [place] capsule 00 daily. [facility] docusate Yes [id number] 100mg Take 1 Un jn (COLACE) 2-14 capsule by ity o f 100 mg 00:00: mouth [place] capsule 00 daily. [facility] docusate Yes [id number] 100mg Take 1 Un jn (COLACE) 2-14 capsule by ity o f 100 mg 00:00: mouth [place] capsule 00 daily. [facility] docusate Yes [id number] 100mg Take 1 Un jn (COLACE) 2-14 capsule by ity o f 100 mg 00:00: mouth [place] capsule 00 daily. [facility] docusate Yes [id number] 100mg Take 1 Un jn (COLACE) 2-14 capsule by ity o f 100 mg 00:00: mouth [place] capsule 00 daily. [facility] docusate Yes [id number] 100mg Take 1 Un jn (COLACE) 2-14 capsule by ity o f 100 mg 00:00: mouth [place] capsule 00 daily. [facility] docusate Yes [id number] 100mg Take 1 Un jn (COLACE) 2-14 capsule by ity o f 100 mg 00:00: mouth [place] capsule 00 daily. Medical Branch maalox:diph 2020-08 No 15mL 15 mL, Uni vers enhydrAMINE 08-06 Oral, ity of :lidocaine 21:15: 20:15 ONCE, 1 [place] as 2 % viscous 00 :00 dose, On [facility] sonja 1:1:1 Mon Branch (FIRST-MOUT 08/06/21 [facility]) at 1515, oral Routine suspension 15 mL [...] Yes 20mg 20 mg, Univ ers e 2-31 Oral, QAM, ity of (PROTONIX) 15:00: First dose [place] EC tablet 00 on Mon Medical 20 mg 08/06/21 Branch at 0900, Until Discontinu ed, Routine losartan 2020-08 Yes 25mg 25 mg, Univers (COZAAR) 2-31 Oral, ity of tablet 25 15:00: DAILY, [place] mg 00 First dose Medical on Mon Branch 08/06/21 at 0900, Until Discontinu ed, Routine foLIC acid 2020-08 Yes 1mg 1 mg, Univer s (FOLATE) 2-31 Oral, ity of tablet 1 mg 15:00: [...] Q12H, Med ical First dose Branch on Mon08/05/21 at 2000, Until Discontinu ed, Routine pantoprazol 2020-08 Yes [id number] 20mg Take 1 Univers e 20 mg EC 2-31 tablet by ity of tablet 00:00: mouth [place] 00 every Medical morning. Branch sucralfate 2020-08 Yes [id number] 1g Take 1 Univers 1 gram 2-31 tablet by ity of tablet 00:00: mouth [place] 00 before Medical meals and Branch at bedtime. pantoprazol 2020-08 Yes [id number] 20mg Take 1 Univers e 20 mg EC 2-31 tablet by ity of tablet 00:00: mouth [place] 00 every Medical morning. Branch sucralfate 2020-08 Yes [id number] 1g Take 1 Univers 1 gram 2-31 tablet by ity of tablet 00:00: mouth [place] 00 before Medical meals and Branch at bedtime. pantoprazol 2020-08 Yes [id number] 20mg Take 1 Univers e 20 mg EC 2-31 tablet by ity of tablet 00:00: mouth [place] 00 every Medical morning. Branch sucralfate 2020-08 Yes [id number] 1g Take 1 Univers 1 gram 2-31 tablet by ity of tablet 00:00: mouth [place] 00 before Medical meals and Branch at bedtime. pantoprazol 2020-08 Yes [id number] 20mg Take 1 Univers e 20 mg EC 2-31 tablet by ity of tablet 00:00: mouth [place] 00 every Medical morning. Branch sucralfate 2020-08 Yes [id number] 1g Take 1 Univers 1 gram 2-31 tablet by ity of tablet 00:00: mouth [place] 00 before Medical meals and Branch at bedtime. pantoprazol 2020-08 Yes [id number] 20mg Take 1 Univers e 20 mg EC 2-31 tablet by ity of tablet 00:00: mouth [place] 00 every Medical morning. Branch sucralfate 2020-08 Yes [id number] 1g Take 1 Univers 1 gram 2-31 tablet by ity of tablet 00:00: mouth [place] 00 before Medical meals and Branch at bedtime. pantoprazol 2020-08 Yes [id number] 20mg Take 1 Univers e 20 mg EC 2-31 tablet by ity of tablet 00:00: mouth [place] 00 every Medical morning. Branch sucralfate 2020-08 Yes [id number] 1g Take 1 Univers 1 gram 2-31 tablet by ity of tablet 00:00: mouth [place] 00 before Medical meals and Branch at bedtime. pantoprazol 2020-08 Yes [id number] 20mg Take 1 Univers e 20 mg EC 2-31 tablet by ity of tablet 00:00: mouth [place] 00 every Medical morning. Branch sucralfate 2020-08 Yes [id number] 1g Take 1 Univers 1 gram 2-31 tablet by ity of tablet 00:00: mouth [place] 00 before Medical meals and Branch at bedtime. pantoprazol 2020-08 Yes [id number] 20mg Take 1 Univers e 20 mg EC 2-31 tablet by ity of tablet 00:00: mouth [place] 00 every Medical morning. Branch sucralfate 2020-08 Yes [id number] 1g Take 1 Univers 1 gram 2-31 tablet by ity of tablet 00:00: mouth [place] 00 before Medical meals and Branch at bedtime. pantoprazol 2020-08 Yes [id number] 20mg Take 1 Univers e 20 mg EC 2-31 tablet by ity of tablet 00:00: mouth [place] 00 every Medical morning. Branch sucralfate 2020-08 Yes [id number] 1g Take 1 Univers 1 gram 2-31 tablet by ity of tablet 00:00: mouth [place] 00 before Medical meals and Branch at bedtime. pantoprazol 2020-08 Yes [id number] 20mg Take 1 Univers e 20 mg EC 2-31 tablet by ity of tablet 00:00: mouth [place] 00 every Medical morning. Branch sucralfate 2020-08 Yes [id number] 1g Take 1 Univers 1 gram 2-31 tablet by ity of tablet 00:00: mouth [place] 00 before Medical meals and Branch at bedtime. pantoprazol 2020-08 Yes [id number] 20mg Take 1 Univers e 20 mg EC 2-31 tablet by ity of tablet 00:00: mouth [place] 00 every Medical morning. Branch sucralfate 2020-08 Yes [id number] 1g Take 1 Univers 1 gram 2-31 tablet by ity of tablet 00:00: mouth [place] 00 before Medical meals and Branch at bedtime. pantoprazol 2020-08 Yes [id number] 20mg Take 1 Univers e 20 mg EC 2-31 tablet by ity of tablet 00:00: mouth [place] 00 every Medical morning. Branch sucralfate 2020-08 Yes [id number] 1g Take 1 Univers 1 gram 2-31 tablet by ity of tablet 00:00: mouth [place] 00 before Medical meals and Branch at bedtime. polyethylen 2020-08- No [id number] 17g Take 1 Univers e glycol 08-22 Packet by ity o f 3350 17 00:00: 05:59 mouth [place] gram powder 00 :00 daily for Med ical 15 days. Branch sodium 2020-08- No [id number] 1{enema Insert 1 Univers phosphates 08-07 } Enema into it y of (FLEET 00:00: 05:59 rectum [place] ENEMA) 19-7 00 :00 once now Medi sonja gram/118 mL for 1 Branch enema dose. Follow package directions aspirin 81 2020-08 Yes 81mg Take 81 mg U nivers mg chewable 2-30 by mouth ity of tablet 18:33: daily. [place] [address] Medical Branch dexAMETHaso 2020-08 Yes 4mg Take 4 mg U nivers ne 2-30 by mouth ity of (DECADRON) 18:33: daily. [place] 4 mg tablet 50 Medical Branch losartan 25 2020-08 Yes 25mg Take 25 mg Univers mg tablet 2-30 by mouth ity of 18:33: daily. [address] Branch ondansetron 2020-08 Yes 8mg Take 8 mg U nivers 8 mg tablet 2-30 by mouth ity of 18:33: every 8 [place] [address] (eight) Medical hours as Branch needed for Nausea and Vomiting (N/V). aspirin 81 2020-08 Yes 81mg Take 81 mg U nivers mg chewable 2-30 by mouth ity of tablet 18:33: daily. [address] Branch dexAMETHaso 2020-08 Yes 4mg Take 4 mg U nivers ne 2-30 by mouth ity of (DECADRON) 18:33: daily. [place] 4 mg tablet 50 Medical Branch losartan 25 2020-08 Yes 25mg Take 25 mg Univers mg tablet 2-30 by mouth ity of 18:33: daily. [address] Branch ondansetron 2020-08 Yes 8mg Take 8 mg U nivers 8 mg tablet 2-30 by mouth ity of 18:33: every 8 [place] [address] (eight) Medical hours as Branch needed for Nausea and Vomiting (N/V). aspirin 81 2020-08 Yes 81mg Take 81 mg U nivers mg chewable 2-30 by mouth ity of tablet 18:33: daily. [address] Branch dexAMETHaso 2020-08 Yes 4mg Take 4 mg U nivers ne 2-30 by mouth ity of (DECADRON) 18:33: daily. [place] 4 mg tablet 50 Medical Branch losartan 25 2020-08 Yes 25mg Take 25 mg Univers mg tablet 2-30 by mouth ity of 18:33: daily. [place] [address] Medical Branch ondansetron 2020-08 Yes 8mg Take 8 mg U nivers 8 mg tablet 2-30 by mouth ity of 18:33: every 8 [place] 50 (eight) Medical hours as Branch needed for Nausea and Vomiting (N/V). aspirin 81 2020-08 Yes 81mg Take 81 mg U nivers mg chewable 2-30 by mouth ity of tablet 18:33: daily. [place] [address] Medical Branch dexAMETHaso 2020-08 Yes 4mg Take 4 mg U nivers ne 2-30 by mouth ity of (DECADRON) 18:33: daily. [place] 4 mg tablet 50 Medical Branch losartan 25 2020-08 Yes 25mg Take 25 mg Univers mg tablet 2-30 by mouth ity of 18:33: daily. [place] [address] Medical Branch ondansetron 2020-08 Yes 8mg Take 8 mg U nivers 8 mg tablet 2-30 by mouth ity of 18:33: every 8 [place] [address] (eight) Medical hours as Branch needed for Nausea and Vomiting (N/V). aspirin 81 2020-08 Yes 81mg Take 81 mg U nivers mg chewable 2-30 by mouth ity of tablet 18:33: daily. [place] [address] Medical Branch dexAMETHaso 2020-08 Yes 4mg Take 4 mg U nivers ne 2-30 by mouth ity of (DECADRON) 18:33: daily. [place] 4 mg tablet 50 Medical Branch losartan 25 2020-08 Yes 25mg Take 25 mg Univers mg tablet 2-30 by mouth ity of 18:33: daily. [place] [address] Medical Branch ondansetron 2020-08 Yes 8mg Take 8 mg U nivers 8 mg tablet 2-30 by mouth ity of 18:33: every 8 [place] [address] (eight) Medical hours as Branch needed for Nausea and Vomiting (N/V). aspirin 81 2020-08 Yes 81mg Take 81 mg U nivers mg chewable 2-30 by mouth ity of tablet 18:33: daily. [place] [address] Medical Branch dexAMETHaso 2020-08 Yes 4mg Take 4 mg U nivers ne 2-30 by mouth ity of (DECADRON) 18:33: daily. [place] 4 mg tablet 50 Medical Branch losartan 25 2020-08 Yes 25mg Take 25 mg Univers mg tablet 2-30 by mouth ity of 18:33: daily. [place] [address] Medical Branch ondansetron 2020-08 Yes 8mg Take 8 mg U nivers 8 mg tablet 2-30 by mouth ity of 18:33: every 8 [place] [address] (eight) Medical hours as Branch needed for Nausea and Vomiting (N/V). aspirin 81 2020-08 Yes 81mg Take 81 mg U nivers mg chewable 2-30 by mouth ity of tablet 18:33: daily. [place] [address] Medical Branch dexAMETHaso 2020-08 Yes 4mg Take 4 mg U nivers ne 2-30 by mouth ity of (DECADRON) 18:33: daily. [place] 4 mg tablet 50 Medical Branch losartan 25 2020-08 Yes 25mg Take 25 mg Univers mg tablet 2-30 by mouth ity of 18:33: daily. [place] [address] Medical Branch ondansetron 2020-08 Yes 8mg Take 8 mg U nivers 8 mg tablet 2-30 by mouth ity of 18:33: every 8 [place] [address] (eight) Medical hours as Branch needed for Nausea and Vomiting (N/V). aspirin 81 2020-08 Yes 81mg Take 81 mg U nivers mg chewable 2-30 by mouth ity of tablet 18:33: daily. [place] [address] Medical Branch dexAMETHaso 2020-08 Yes 4mg Take 4 mg U nivers ne 2-30 by mouth ity of (DECADRON) 18:33: daily. [place] 4 mg tablet 50 Medical Branch losartan 25 2020-08 Yes 25mg Take 25 mg Univers mg tablet 2-30 by mouth ity of 18:33: daily. [place] [address] Medical Branch ondansetron 2020-08 Yes 8mg Take 8 mg U nivers 8 mg tablet 2-30 by mouth ity of 18:33: every 8 [place] [address] (eight) Medical hours as Branch needed for Nausea and Vomiting (N/V). aspirin 81 2020-08 Yes 81mg Take 81 mg U nivers mg chewable 2-30 by mouth ity of tablet 18:33: daily. [place] [address] Medical Branch dexAMETHaso 2020-08 Yes 4mg Take 4 mg U nivers ne 2-30 by mouth ity of (DECADRON) 18:33: daily. [place] 4 mg tablet 50 Medical Branch losartan 25 2020-08 Yes 25mg Take 25 mg Univers mg tablet 2-30 by mouth ity of 18:33: daily. [place] [address] Medical Branch ondansetron 2020-08 Yes 8mg Take 8 mg U nivers 8 mg tablet 2-30 by mouth ity of 18:33: every 8 [place] [address] (eight) Medical hours as Branch needed for Nausea and Vomiting (N/V). aspirin 81 2020-08 Yes 81mg Take 81 mg U nivers mg chewable 2-30 by mouth ity of tablet 18:33: daily. [place] [address] Medical Branch dexAMETHaso 2020-08 Yes 4mg Take 4 mg U nivers ne 2-30 by mouth ity of (DECADRON) 18:33: daily. [place] 4 mg tablet 50 Medical Branch losartan 25 2020-08 Yes 25mg Take 25 mg Univers mg tablet 2-30 by mouth ity of 18:33: daily. [place] [address] Medical Branch ondansetron 2020-08 Yes 8mg Take 8 mg U nivers 8 mg tablet 2-30 by mouth ity of 18:33: every 8 [place] [address] (eight) Medical hours as Branch needed for Nausea and Vomiting (N/V). aspirin 81 2020-08 Yes 81mg Take 81 mg U nivers mg chewable 2-30 by mouth ity of tablet 18:33: daily. [place] [address] Medical Branch dexAMETHaso 2020-08 Yes 4mg Take 4 mg U nivers ne 2-30 by mouth ity of (DECADRON) 18:33: daily. [place] 4 mg tablet 50 Medical Branch losartan 25 2020-08 Yes 25mg Take 25 mg Univers mg tablet 2-30 by mouth ity of 18:33: daily. [place] [address] Medical Branch ondansetron 2020-08 Yes 8mg Take 8 mg U nivers 8 mg tablet 2-30 by mouth ity of 18:33: every 8 [place] [address] (eight) Medical hours as Branch needed for Nausea and Vomiting (N/V). aspirin 81 2020-08 Yes 81mg Take 81 mg U nivers mg chewable 2-30 by mouth ity of tablet 18:33: daily. [place] [address] Medical Branch dexAMETHaso 2020-08 Yes 4mg Take 4 mg U nivers ne 2-30 by mouth ity of (DECADRON) 18:33: daily. [place] 4 mg tablet 50 Medical Branch losartan 25 2020-08 Yes 25mg Take 25 mg Univers mg tablet 2-30 by mouth ity of 18:33: daily. [place] [address] Medical Branch ondansetron 2020-08 Yes 8mg Take 8 mg U nivers 8 mg tablet 2-30 by mouth ity of 18:33: every 8 [place] [address] (eight) Medical hours as Branch needed for Nausea and Vomiting (N/V). aspirin 81 2021-1 Yes 81mg Take 81 mg U nivers mg chewable 2-30 by mouth ity of tablet 18:33: daily. [address] dexAMETHaso 2020-08 Yes 4mg Take 4 mg U nivers ne 2-30 by mouth ity of (DECADRON) 18:33: daily. [place] 4 mg tablet [address] [place] [address] losartan 25 2020-08 Yes 25mg Take 25 mg Univers mg tablet 2-30 by mouth ity of 18:33: daily. [address] ondansetron 2020-08 Yes 8mg Take 8 mg U nivers 8 mg tablet 2-30 by mouth ity of 18:33: every 8 [place] [address] (eight) Medical hours as Branch needed for Nausea and Vomiting (N/V). aspirin 81 2020-08 Yes 81mg Take 81 mg U nivers mg chewable 2-30 by mouth ity of tablet 18:33: daily. [address] dexAMETHaso 2020-08 Yes 4mg Take 4 mg U nivers ne 2-30 by mouth ity of (DECADRON) 18:33: daily. [place] 4 mg tablet [address] [place] [address] losartan 25 2020-08 Yes 25mg Take 25 mg Univers mg tablet 2-30 by mouth ity of 18:33: daily. [address] ondansetron 2020-08 Yes 8mg Take 8 mg U nivers 8 mg tablet 2-30 by mouth ity of 18:33: every 8 [place] [address] (eight) Medical hours as Branch needed for Nausea and Vomiting (N/V). ondansetron 2020-08 Yes 4mg 4 mg, Slow Univers (ZOFRAN 2-30 IV Push, ity of (PF)) 18:26: Q6HPRN, [place] injection 4 08 Starting Medi sonja mg on [facility] Branch 08/05/21 at 1226, Until Discontinu ed, DANNIE, Nausea and Vomiting (N/V) sucralfate 2020-08 Yes 1g 1 g, Oral, U nivers (CARAFATE) 2-30 AC+HS, ity of tablet 1 g 17:30: [place] 00 on [facility] 08/05/21 Branch at 1130, Until Discontinu ed, Routine methocarbam 2020-08 Yes 500mg 500 mg, Un jn oL 2-30 Oral, TID, ity of (ROBAXIN) 17:15: [place] 500 00 on [facility] mg 08/05/21 Branch at 1115, Until Discontinu ed, Routine glycerin/mi 2020-08- No 225mL 225 mL, U nivers neral oil 2-30 12-30 Rectal, ity of (AGLO 17:00: 18:14 ONCE, 1 [place] ENEMA) 00 :00 dose, On Medical (COMPOUNDED [facility] ) Enem 225 08/05/21 mL at 1100, Routine nitroglycer 2020-08 Yes .4mg 0.4 mg, Uni vers in 2-30 Sublingual ity of (NITROSTAT) 15:39: , Q5MIN [place] as sublingual 36 PRN, Medical tablet 0.4 Starting Branc h mg on [facility] 08/05/21 at 0939, Until Discontinu ed, Routine, Chest pain acetaminoph 2020-08 Yes 650mg 650 mg, Un jn en 2-30 Oral, ity of (TYLENOL) 15:39: Q6HPRN, [place] tablet 650 18 Starting Medic al mg on [facility] 08/05/21 at 0939, Until Discontinu ed, Routine, Pain (scale 1-3) albuterol 2020-08 Yes 2{puff} 2 Puff, Un jn (VENTOLIN) 2-30 Inhalation ity of inhaler 2 15:34: , Q6HPRN, [place] Puff 28 Starting Medical on [facility] 08/05/21 at 0934, Until Discontinu ed, Routine, Shortness of Breath ondansetron 2020-08- No 4mg 4 mg, Slow Univers (ZOFRAN 2-30 12-30 IV Push, ity of (PF)) 15:00: 13:59 ONCE, 1 [place] injection 4 00 :00 dose, On Medi sonja mg [facility] Branch 08/05/21 at 0900, DANNIE morpHINE 2020-08- No 4mg 4 mg, Slow Un jn injection 4 2-30 12-30 IV Push, ity of mg 15:00: 13:59 ONCE, 1 [place] 00 :00 dose, On Medical [facility] 08/05/21 at 0900, STAT colchicine 2020-08- No .6mg Take 0.6 Un jn 0.6 mg Cap 2-30 12-30 mg by ity of 09:42: 00:00 mouth [place] 14 :00 daily. Medical Branch methocarbam 2020-08- No [id number] 500mg Take 1 Univers oL 500 mg 2-05 09-10 tablet by ity of tablet 00:00: 05:59 mouth 3 [place] 00 :00 (three) Medical times [place] daily for 10 days. methocarbam 2020-08- No [id number] 500mg Take 1 Univers oL 500 mg 2-05 09-10 tablet by ity of tablet 00:00: 05:59 mouth 3 [place] 00 :00 (three) Medical times [place]ner daily for 10 days. methocarbam 2020-08- No [id number] 500mg Take 1 Univers oL 500 mg 2-05 09- tablet by ity of tablet 00:00: 05:59 mouth 3 [place] 00 :00 (three) Medical times Verner daily for 10 days. [facility] centernoside- 2020-08- No 1{tbl} Take 1 U nivers [...] No 1{tbl} Take 1 U nivers docusate -03 09- tablet by ity o f sodium 00:00: 05:59 mouth [place] 8.6-50 mg 00 :00 daily. Medical per tablet Branch sennosides- 2020-08- No 1{tbl} Take 1 U nivers docusate -03 09- tablet by ity o f sodium 00:00: 05:59 mouth [place] 8.6-50 mg 00 :00 daily. Medical per tablet Branch polyethylen 2020-08- No 17g Take 17 g Univers e glycol 10-04 by mouth ity of 3350 17 00:00: 05:59 daily. [place] gram powder 00 :00 Medical Branch polyethylen 2020-08- No 17g Take 17 g Univers e glycol 2-28 12-31 by mouth ity of 3350 17 00:00: 00:00 daily. [place] gram powder 00 :00 Medical Branch iopamidol 2020-08- No [id number] 120mL 120 mL, Univers (ISOVUE 2-25 12-25 [...] 15 :00 Medical Branch sucralfate 2020-08 Yes [id number] 1g Take 1 Univers 1 gram 2-25 tablet by ity of tablet 00:00: mouth [place] 00 before Medical meals and Branch at bedtime. sucralfate 2020-08 Yes [id number] 1g Take 1 Univers 1 gram 2-25 tablet by ity of tablet 00:00: mouth [place] 00 before Medical meals and Branch at bedtime. sucralfate 2020-08 Yes [id number] 1g Take 1 Univers 1 gram 2-25 tablet by ity of tablet 00:00: mouth [place] 00 before Medical meals and Branch at bedtime. pantoprazol 2020-08- No [id number] 20mg Take 1 Univers e 20 mg [...] every Medical morning. Branch sucralfate 2020-08- No [id number] 1g Take 1 Univers 1 gram 2-25 12-31 tablet by ity of tablet 00:00: 00:00 mouth [place] 00 :00 before Medical meals and Branch at bedtime. pantoprazol 2020-08- No 1{tbl} Take 1 U nivers e 20 mg EC 2-25 12-31 tablet by ity of tablet 00:00: 00:00 mouth [place] 00 :00 every Medical morning. Branch pantoprazol 2020-08- No [id number] 20mg Take 1 Univers e 20 mg EC 2-25 12-30 tablet by ity of tablet 00:00: 00:00 mouth [place] 00 :00 daily for Medical 21 days. Branch OLANZapine 2020-08 Yes 5mg Take 5 mg Un jn 5 mg tablet 2-01 by mouth. ity of 00:00: [place] [facility] OLANZapine 2020-08 Yes 5mg Take 5 mg Un jn 5 mg tablet 2-01 by mouth. ity of 00:00: [place] [facility] OLANZapine 2020- Yes 5mg Take 5 mg Un jn 5 mg tablet 2-01 by mouth. ity of 00:00: [address] OLANZapine 2020- Yes 5mg Take 5 mg Un jn 5 mg tablet 2-01 by mouth. ity of 00:00: [place] [facility] OLANZapine 2020- Yes 5mg Take 5 mg Un jn 5 mg tablet 2-01 by mouth. ity of 00:00: [place] [facility] OLANZapine 2020- Yes 5mg Take 5 mg Un jn 5 mg tablet 2-01 by mouth. ity of 00:00: [place] [facility] OLANZapine 2020- Yes 5mg Take 5 mg Un jn 5 mg tablet 2-01 by mouth. ity of 00:00: [address] OLANZapine 2020- Yes 5mg Take 5 mg Un jn 5 mg tablet 2-01 by mouth. ity of 00:00: [address] OLANZapine 2020- Yes 5mg Take 5 mg Un jn 5 mg tablet 2-01 by mouth. ity of 00:00: [facility] OLANZapine 2020-08 Yes 5mg Take 5 mg Un jn 5 mg tablet 2-01 by mouth. ity of 00:00: [facility] OLANZapine 2020-08 Yes 5mg Take 5 mg Un jn 5 mg tablet 2-01 by mouth. ity of 00:00: [facility] OLANZapine 2020-08 Yes 5mg Take 5 mg Un jn 5 mg tablet 2-01 by mouth. ity of 00:00: [facility] OLANZapine 2020-08 Yes 5mg Take 5 mg Un jn 5 mg tablet 2-01 by mouth. ity of 00:00: [facility] OLANZapine 2020-08 Yes 5mg Take 5 mg Un jn 5 mg tablet 2-01 by mouth. ity of 00:00: [facility] OLANZapine 2020-08 Yes 5mg Take 5 mg Un jn 5 mg tablet 2- by mouth. ity of 00:00: [facility] OLANZapine 2020-08 Yes 5mg QD Take 1 [...] nightly as needed (chemo-ind uced nausea). OLANZapine 2020-08- No 5mg QD Take 1 Meth [place] (ZYPREXA) 5 2-08 17-07 tablet (5 st MG tablet 00:00: 00:00 mg total) [facility] 00 :00 by mouth l nightly as needed (chemo-ind uced nausea). foLIC acid 2020-08- No 1mg Take 1 mg U nivers 1 mg tablet 09-07 by mouth. it y of 00:00: 05:59 [place] 00 :00 [facility] foLIC acid 2020-08- No 1mg Take 1 mg U nivers 1 mg tablet 09-07 by mouth. it y of 00:00: 05:59 [place] : Medical Branch foLIC acid 2021-1 2022- No 1mg Take 1 mg U nivers 1 mg tablet 09-07 by mouth. it y of 00:00: 05:59 [place] 00 :00 Medical Branch foLIC acid 2021-1 2022- No 1mg Take 1 mg U nivers 1 mg tablet 09-07 by mouth. it y of 00:00: 05:59 [place] 00 :00 Medical Branch foLIC acid 2021-1 2022- No 1mg Take 1 mg U nivers 1 mg tablet 09-07 by mouth. it y of 00:00: 05:59 [place] 00 :00 Medical Branch foLIC acid 2021-1 2022- No 1mg Take 1 mg U nivers 1 mg tablet 09-07 by mouth. it y of 00:00: 05:59 [place] 00 :00 Medical Branch foLIC acid 2021-1 2022- No 1mg Take 1 mg U nivers 1 mg tablet 09-07 by mouth. it y of 00:00: 05:59 [place] 00 :00 Medical Branch foLIC acid 2021-1 2022- No 1mg Take 1 mg U nivers 1 mg tablet 09-07 by mouth. it y of 00:00: 05:59 [place] 00 :00 Medical Branch foLIC acid 2021-1 2022- No 1mg Take 1 mg U nivers 1 mg tablet 09-07 by mouth. it y of 00:00: 05:59 [place] 00 :00 Medical Branch foLIC acid 2021-1 2022- No 1mg Take 1 mg U nivers 1 mg tablet 09-07 by mouth. it y of 00:00: 05:59 [place] 00 :00 Medical Branch foLIC acid 2021-1 2022- No 1mg Take 1 mg U nivers 1 mg tablet 09-07 by mouth. it y of 00:00: 05:59 [place] 00 :00 Medical Branch foLIC acid 2021-1 2022- No 1mg Take 1 mg U nivers 1 mg tablet 09-07 by mouth. it y of 00:00: 05:59 [place] 00 :00 Medical Branch foLIC acid 2021-1 2022- No 1mg Take 1 mg U nivers 1 mg tablet 09-07 by mouth. it y of 00:00: 05:59 [place] 00 :00 Medical Branch foLIC acid 2021-1 2022- No 1mg Take 1 mg U nivers 1 mg tablet 09-07 by mouth. it y of 00:00: 05:59 [place] 00 :00 [facility] foLIC acid 2020-08- No 1mg Take 1 mg U nivers 1 mg tablet 09-07 by mouth. it y of 00:00: 05:59 [place] 00 :00 [facility] folic acid 2020-08- No 1mg QD Take [...] 1 hour prior to chemo folic acid 2020-08 No 1mg QD Take 1 Meth francisco [...] (six) Medical hours as Branch needed. acetaminoph 2017-0 Yes 1{tbl} Take 1 Un [...] AND WORK OR DRIVE VEHICLE). aspirin 81 Yes 81mg Take 81 mg U nivers mg chewable 1-24 by mouth ity of tablet 03:35: daily. [place] 40 Medical Branch aspirin 81 2016- Yes 81mg Take 81 mg U nivers mg chewable 1-24 by mouth ity of tablet 03:35: daily. [address] aspirin 81 2016- Yes 81mg Take 81 mg U nivers mg chewable 1-24 by mouth ity of tablet 03:35: daily. [address] aspirin 81 Yes 81mg Take 81 mg U nivers mg chewable 1-24 by mouth ity of tablet 03:35: daily. [address] aspirin 81 Yes 81mg Take 81 mg U nivers mg chewable 1-24 by mouth ity of tablet 03:35: daily. [address] aspirin 81 2016- Yes 81mg Take 81 mg U nivers mg chewable 1-24 by mouth ity of tablet 03:35: daily. [address] aspirin 81 Yes 81mg Take 81 mg U nivers mg chewable 1-24 by mouth ity of tablet 03:35: daily. [address] aspirin 81 Yes 81mg Take 81 mg U nivers mg chewable 1-23 by mouth ity of tablet 21:35: daily. [address] Immunizations Ordered Immunization Filled Immunization Date Status Commen ts Source Name Name PFIZER COVID-19 MRNA Unknown Completed [facility] PFIZER COVID-19 MRNA Unknown Completed [facility] PFIZER COVID-19 MRNA Unknown Completed [facility] PFIZER COVID-19 MRNA Unknown Completed [facility] PFIZER COVID-19 MRNA Unknown Completed [facility] VACC[facility]ATION [facility] PFIZER COVID-19 MRNA Unknown Completed [facility] Vital Signs Vital Name Observation Time Observation Value Comments Source HEIGHT 2023-05-22 09:00:00 182.9 cm WEIGHT 2023-05-22 09:00:00 75 kg HEIGHT 2023-05-22 09:00:00 182.9 cm WEIGHT 2023-05-22 09:00:00 75 kg Systolic blood 2021-10-08 20:00:00 156 mm[Hg] Univer sity of pressure [facility] Diastolic blood 2021-10-08 20:00:00 88 mm[Hg] Unive rsity of pressure [facility] Heart rate 2021-10-08 20:00:00 80 /[facility] Respiratory rate 2021-10-08 20:00:00 22 /min Univ [facility] [place] [facility] Oxygen saturation in 2021-10-08 20:00:00 97 /min University of Arterial blood by [place] beneSol sonja Pulse oximetry Branch Body temperature 2021-10-08 15:37:00 35.67 Carlita [facility] [place] [facility] Body height 2021-10-08 15:37:00 182.9 cm [facility] [place] [facility] Body weight 2021-10-08 15:37:00 68.493 kg [facility] [place] [facility] BMI 2021-10-08 15:37:00 20.48 kg/m2 [facility] [place] [facility] Systolic blood 2021-09-20 22:07:00 128 mm[Hg] Univer sity of pressure [place] [facility] Diastolic blood 2021-09-20 22:07:00 80 mm[Hg] Unive rsity of pressure [place] [facility] Heart rate 2021-09-20 22:00:00 64 /min [facility] [place] [facility] Respiratory rate 2021-09-20 22:00:00 15 /min [facility] [place] [facility] Oxygen saturation in 2021-09-20 22:00:00 100 /min University of Arterial blood by [place] beneSol sonja Pulse oximetry Branch Body temperature 2021-09-20 19:32:04 36.61 [place]ita [facility] [place] [facility] Body weight 2021-09-20 19:03:00 68.493 kg [facility] [place] [facility] BMI 2021-09-20 19:03:00 19.92 kg/m2 [facility] [place] [facility] Systolic blood 2021-08-06 21:19:00 149 mm[Hg] Univer sity of pressure [place] [facility] Diastolic blood 2021-08-06 21:19:00 110 mm[Hg] Unive rsity of pressure [place] [facility] Heart rate 2021-08-06 21:19:00 75 /min [facility] [place] [facility] Oxygen saturation in 2021-08-06 21:19:00 98 /min University of Arterial blood by [place] beneSol sonja Pulse oximetry Branch Respiratory rate 2021-08-06 20:00:00 23 /min [facility] [place] [facility] Body height 2021-08-06 19:59:00 185.4 cm [facility] [place] [facility] Body weight 2021-08-06 19:59:00 70.308 kg [facility] [place] [facility] BMI 2021-08-06 19:59:00 20.45 kg/m2 [facility] [place] [facility] Systolic blood 2021-08-05 20:04:00 115 mm[Hg] Univer sity of pressure [place] [facility] Diastolic blood 2021-08-05 20:04:00 64 mm[Hg] Unive rsity of pressure [place] [facility] Heart rate 2021-08-05 20:04:00 64 /min [facility] [place] [facility] Body temperature 2021-08-05 20:04:00 36.67 [place] [facility] [place] [facility] Respiratory rate 2021-08-05 20:04:00 18 /min [facility] [place] [facility] Oxygen saturation in 2021-08-05 20:04:00 95 /min University of Arterial blood by [place] beneSol sonja Pulse oximetry Branch Body height 2021-08-05 15:38:00 185.4 cm [facility] [place] [facility] Body weight 2021-08-05 15:38:00 70.308 kg [facility] [place] [facility] BMI 2021-08-05 15:38:00 20.45 kg/m2 [facility] [place] [facility] Systolic blood 2021-07-31 20:00:00 133 mm[Hg] Univer sity of pressure [place] [facility] Diastolic blood 2021-07-31 20:00:00 73 mm[Hg] Unive rsity of pressure [place] [facility] Heart rate 2021-07-31 20:00:00 65 /min [facility] [place] [facility] Respiratory rate 2021-07-31 20:00:00 16 /min [facility] [place] [facility] Oxygen saturation in 2021-07-31 20:00:00 100 /min [facility] of Arterial blood by [place] beneSol sonja Pulse oximetry Branch Body temperature 2021-07-31 17:02:00 36.28 [place] [facility] [place] [facility] Body height 2021-07-31 17:02:00 185.4 cm [facility] [place] [facility] Body weight 2021-07-31 17:02:00 75.751 kg [facility] [place] [facility] BMI 2021-07-31 17:02:00 22.03 kg/m2 [facility] [place] [facility] Systolic blood 2023-06-13 20:43:00 107 mm[Hg] [facility] Di[facility] blood 2023-06-13 20:43:00 65 mm[Hg] [facility] pressure Heart rate 2023-06-13 20:43:00 62 /min [facility] Body temperature 2023-06-13 20:43:00 36.56 Carlita [facility] Respiratory rate 2023-06-13 20:43:00 20 /min [facility] Body weight 2023-06-13 20:43:00 71.305 kg [facility] BMI 2023-06-13 20:43:00 20.74 kg/m2 [facility] Oxygen saturation in 2023-06-13 20:43:00 97 /min [facility] Arterial blood by Pulse oximetry Systolic blood 2023-05-30 11:20:00 111 mm[Hg] [facility] Diastolic blood 2023-05-30 11:20:00 64 mm[Hg] [facility] Heart rate 2023-05-30 11:20:00 59 /min [facility] Body temperature 2023-05-30 11:20:00 36.72 [place] [facility] Respiratory rate 2023-05-30 11:20:00 18 /min [facility] Oxygen saturation in 2023-05-30 11:20:00 98 /min [facility] Arterial blood by Medical Ce nter Pulse oximetry Body height 2023-05-22 09:00:00 182.9 cm [facility] Body weight 2023-05-22 09:00:00 75 kg [facility] BMI 2023-05-22 09:00:00 22.42 kg/m2 [facility] Systolic blood 2022-07-18 18:15:00 111 mm[Hg] [facility] pressure Diastolic blood 2022-07-18 18:15:00 55 mm[Hg] [facility] pressure Heart rate 2022-07-18 18:15:00 75 /min [facility] Body temperature 2022-07-18 18:15:00 36.67 [place] [facility] Body weight 2022-07-18 18:15:00 78.835 kg [facility] BMI 2022-07-18 18:15:00 22.93 kg/m2 [facility] Oxygen saturation in 2022-07-18 18:15:00 95 /min [facility] Arterial blood by Pulse oximetry Respiratory rate 2022-07-13 21:24:38 18 /min [facility] Procedures Procedure Date / Time Performing Clinician Source Performed POCT-GLUCOSE METER 2023-05-30 11:39:00 [facility] BASIC METABOLIC PANEL 2023-05-30 05:14:00 [facility] MAGNESIUM 2023-05-30 05:14:00 [facility] PHOSPHORUS 2023-05-30 05:14:00 [facility] CBC W/PLT COUNT & AUTO 2023-05-30 05:14:00 [facility] CBC W/PLT COUNT & AUTO 2023-05-30 05:14:00 [facility] (CELLAVISION MANUAL 2023-05-30 05:14:00 [facility] POCT-GLUCOSE METER 2023-05-29 21:35:00 [facility] POCT-GLUCOSE METER 2023-05-29 17:18:00 [facility] POCT-GLUCOSE METER 2023-05-29 11:18:00 [facility] POCT-GLUCOSE METER 2023-05-29 08:39:00 [facility] BASIC METABOLIC PANEL 2023-05-29 03:47:00 Jimi [facility] MAGNESIUM 2023-05-29 03:47:00 Jimi [facility] PHOSPHORUS 2023-05-29 03:47:00 [facility] CBC W/PLT COUNT & AUTO 2023-05-29 03:03:[address] [facility] CBC W/PLT COUNT & AUTO 2023-05-29 03:03:00 [facility] (CELL[facility] 2023-05-29 03:03:00 [facility] POCT-GLUCOSE METER 2023-05-28 22:34:00 [facility]SE METER 2023-05-28 17:39:00 [facility] BASIC METABOLIC PANEL 2023-05-28 12:36:00 Yane Vickers [facility] POCT-GLUCOSE METER 2023-05-28 11:30:00 [facility] BASIC METABOLIC PANEL 2023-05-28 03:50:00 Scot Krausedip [facility] MAGNESIUM 2023-05-28 03:50:00 [facility] 2023-05-28 03:50:00 [facility] CBC W/PLT COUNT & AUTO 2023-05-28 03:50:00 Scot Krause [facility] CBC W/PLT COUNT & AUTO 2023-05-28 03:50:[address] [facility] (CELLAVISION MANUAL 2023-05-28 03:50:00 Snehatra [facility] DIFF) [facility] POCT-GLUCOSE METER 2023-05-27 22:12:00 [facility] POCT-GLUCOSE METER 2023-05-27 13:35:00 Terry Fischer [facility] MR BRAIN WITH & WITHOUT 2023-05-27 13:25:00 [facility] POCT-GLUCOSE METER 2023-05-27 06:06:00 [facility] BASIC METABOLIC PANEL 2023-05-27 03:55:00 Scot Krausedip [facility] MAGNESIUM 2023-05-27 03:55:00 Scot Krausedip [facility] PHOSPHORUS 2023-05-27 03:55:00 Scot Krausedip [facility] CBC W/PLT COUNT & AUTO 2023-05-27 03:55:00 [facility] W/PLT COUNT & AUTO 2023-05-27 03:55:00 KodyAngelic [facility]kinsSt[facility] POCT-GLUCOSE METER 2023-05-26 23:45:00 [facility] POCT-GLUCOSE METER 2023-05-26 16:29:00 [facility] POCT-GLUCOSE METER 2023-05-26 13:34:00 [facility] CRANIECTOMY OR 2023-05-26 09:29:00 Jamal Orellana [facility] CRANIOTOMY, FOR [facility] OF BRAIN NEOPLASM CRANIOTOMY, USING 2023-05-26 09:29:00 Jamal Orellana [facility] FRAMELESS STEREOTAXY Medical Doni ter US INTRAOPERATIVE 2023-05-26 09:29:00 Jamal Orellana [facility] POCT-GLUCOSE METER 2023-05-26 06:26:00 Claude Gates [facility] BASIC METABOLIC PANEL 2023-05-26 03:45:00 Scot Krausedip [facility] MAGNESIUM 2023-05-26 03:45:00 Scot Krause Jerardo [facility] PHOSPHORUS 2023-05-26 03:45:00 [facility] CBC W/PLT COUNT & AUTO 2023-05-26 03:45:00 Scot [facility]use [facility] CBC W/PLT COUNT & AUTO 2023-05-26 03:45:[address] [facility] POCT-GLUCOSE METER 2023-05-26 00:18:00 Cash Gateshil [facility] ABORH, MANUAL 2023-05-25 16:24:00 Alexia Red [facility] TYPE AND SCREEN, 2023-05-25 15:38:00 [facility] APTT 2023-05-25 15:21:[address] [facility] PROTHROMBIN TIME/INR 2023-05-25 15:21:00 Wernerhalisaint elizabeth [place], [facility] ECG 12-LEAD 2023-05-25 14:42:24 Kelby Yan [facility] ECG 12-LEAD 2023-05-25 14:42:24 Unknown, Hl7 Doctor [facility] ECG 12-LEAD 2023-05-25 14:40:[address] [facility] ECG 12-LEAD 2023-05-25 14:40:56 Unknown, Hl7 [facility] POCT-GLUCOSE METER 2023-05-25 12:11:00 Kody [facility] POCT-GLUCOSE METER 2023-05-25 05:50:00 Kody [facility] BASIC METABOLIC PANEL 2023-05-25 04:30:00 RogerioScot lyn Jerardo [facility] MAGNESIUM 2023-05-25 04:30:00 RogerioScot lyn Jerardo [facility] PHOSPHORUS 2023-05-25 04:30:00 Scot Krause [facility] CBC W/PLT COUNT & AUTO 2023-05-25 04:30:00 Rogerioriki [facility] CBC W/PLT COUNT & AUTO 2023-05-25 04:30:00 Scot Krause [facility] POCT-GLUCOSE METER 2023-05-25 00:42:00 Kody [facility] POCT-GLUCOSE METER 2023-05-24 17:13:00 Kody [facility] POCT-GLUCOSE METER 2023-05-24 11:45:00 Kody [facility] BASIC METABOLIC PANEL 2023-05-24 02:33:00 Jimi, Scot Jerardo [facility] MAGNESIUM 2023-05-24 02:33:00 Scot Krause Jerardo [facility] PHOSPHORUS 2023-05-24 02:33:00 Noe Krauseal Jerardo [facility] CBC W/PLT COUNT & AUTO 2023-05-24 02:33:[address] [facility] CBC W/PLT COUNT & AUTO 2023-05-24 02:33:00 [facility] THORACIC SPINE WITH & 2023-05-23 22:42:24 Jimi, Scot Mitchelld ip [facility] Medical Cent er MR LUMBAR SPINE WITH & 2023-05-23 21:43:00 Jimi, Scot Jerardo [facility] CONTRAST Medical Cent er MR CERVICAL SPINE WITH & 2023-05-23 20:35:00 Jimi, Scot Prad ip [facility] IV CONTRAST Medical Cent er POCT-GLUCOSE METER 2023-05-23 16:15:00 Cindi Mcmahon [facility] POCT-GLUCOSE METER 2023-05-23 11:28:00 Terry Fischer [facility] POCT-GLUCOSE METER 2023-05-23 06:34:00 Terry Fischer [facility] CTA CAROTID 2023-05-23 04:10:16 Scot Krausep [facility] CTA BRAIN 2023-05-23 04:08:39 Scot Krausedip [facility] CT BRAIN WITHOUT IV 2023-05-23 04:08:00 Scot Krausep I [facility] BASIC METABOLIC PANEL 2023-05-23 03:25:00 Scot Krause [facility] MAGNESIUM 2023-05-23 03:25:00 Scot Krause [facility] PHOSPHORUS 2023-05-23 03:25:00 [facility] W/[facility]T COUNT & AUTO 2023-05-23 03:25:[address] [facility] CBC W/PLT COUNT & AUTO 2023-05-23 03:25:00 Scot Krause [facility] POCT-GLUCOSE METER 2023-05-23 00:40:00 Reyes Finch [facility] POCT-GLUCOSE METER 2023-05-22 18:34:00 Reyes Finch [facility] Ce nter XR ABDOMEN/KUB 1 VIEW 2023-05-22 17:51:[address] [facility] XR ABDOMEN/KUB 1 VIEW 2023-05-22 17:49:30 Dennise Boo [facility] MR BRAIN WITH & WITHOUT 2023-05-22 15:27:00 Toshia Torres [facility] IV CONTRAST [facility] CT CHEST WITH IV 2023-05-22 14:00:00 Scot Krausedip [facility] CONTRAST [facility] CT ABDOMEN/PELVIS WITH 2023-05-22 13:55:00 Scot Krausedip [facility] IV CONTRAST [facility] CT BRAIN WITHOUT IV 2023-05-22 13:45:00 Scot Krausedip I [facility] POCT-GLUCOSE METER 2023-05-22 12:31:00 Reyes Finch [facility] Ce nter RPR 2023-05-22 10:23:00 [facility] LACTIC ACID, ARTERIAL 2023-05-22 10:23:00 James Hemphill [facility] I [facility] POCT-GLUCOSE METER 2023-05-22 09:46:00 Reyes Finch [facility] nter PROTHROMBIN TIME/INR 2023-05-22 09:45:00 RogerioScot lyn [facility] APTT 2023-05-22 09:45:00 Scot Krause [facility] COMPREHENSIVE METABOLIC 2023-05-22 09:43:[address] [facility] CBC W/PLT COUNT & AUTO 2023-05-22 09:43:[address] [facility] MAGNESIUM 2023-05-22 09:43:00 Scot Krause [facility] PHOSPHORUS 2023-05-22 09:43:00 Scot Krause [facility] CREATINE KINASE (CK) 2023-05-22 09:43:00 Scot Krause [facility] PHENYTOIN LEVEL, TOTAL 2023-05-22 09:43:00 Scot Krause [facility] HIGH SENSITIVITY 2023-05-22 09:43:00 Scot Krause [facility] TROPONIN I [facility] PROLACTIN 2023-05-22 09:43:00 Scot Krause [facility] PROCALCITONIN 2023-05-22 09:43:00 Scot Krause [facility] LACTIC ACID, VENOUS 2023-05-22 09:43:00 Scot Krause [facility] VITAMIN B12 2023-05-22 09:43:00 Scot Krause [facility] HC LAB HIV-1 AG 2023-05-22 09:43:00 Scot Krause [facility] W/HIV-1&2 [facility] CBC W/PLT COUNT & AUTO 2023-05-22 09:43:00 Scot Krause Jerardo [facility] BLOOD GAS, ARTERIAL 2023-05-22 09:42:00 Jimi Scot Kurtz [facility] I [facility] XR CHEST 1 VIEW PORTABLE 2023-05-22 09:27:00 RogeriokaylanScot hannah Carlee ip [facility] ABSOLUTE NEUTROPHIL 2022-07-13 17:49:00 Jose Manuel [facility] COUNT CBC WITH PLATELET AND 2022-07-13 17:49:00 eRji [facility] DIFFERENTIAL COMPREHENSIVE METABOLIC 2022-07-13 17:49:00 Jose Manuel Mendoza [facility] PANEL MAGNESIUM LEVEL 2022-07-13 17:49:00 Reji [facility] THYROID STIMULATING 2022-07-13 17:49:00 Reji [facility] HORMONE T3 2022-07-13 17:49:00 Reji [facility] T4, FREE 2022-07-13 17:49:00 Reji [facility] ESTIMATED GFR 2022-07-13 17:49:00 Reji [facility] MANUAL DIFFERENTIAL 2022-07-13 17:49:00 Reji [facility] ABSOLUTE NEUTROPHIL 2022-06-15 17:27:00 Kira [facility] COUNT CBC WITH PLATELET AND 2022-06-15 17:27:00 Kira [facility] DIFFERENTIAL COMPREHENSIVE METABOLIC 2022-06-15 17:27:00 Kira [facility] PANEL MAGNESIUM LEVEL 2022-06-15 17:27:00 Te[facility] THYROID STIMULATING 2022-06-15 17:27:00 Kira [facility] HORMONE T3 2022-06-15 17:27:00 Cameron [facility] T4, FREE 2022-06-15 17:27:00 Kira [facility] spital ESTIMATED GFR 2022-06-15 17:27:00 Cameron Ceballos spital MANUAL DIFFERENTIAL 2022-06-15 17:27:00 Cameron Ceballos [facility] ASSIGNMENT OF BENEFITS 2022-02-23 21:25:46 Doctor Unassigned, No [facility] HOME HEALTH - OTHER 2022-01-17 05:01:00 Doctor Unassigned, No Un [facility]ity [facility] HOME HEALTH - OTHER 2021-12-13 05:01:00 Doctor Unassigned, No Un iversity of [facility] CT ABDOMEN PELVIS W 2021-10-08 17:02:16 Singer [facility] CONTRAST Medical Branch LIPASE 2021-10-08 15:48:00 Singer [facility] COMP. METABOLIC PANEL 2021-10-08 15:48:00 Wale Beard [facility] ([id number]) Medical Branch CBC WITH DIFF 2021-10-08 15:48:00 Singer [facility] URINALYSIS 2021-09-20 21:08:00 [facility] ABDOMEN PELVIS W 2021-09-20 20:50:51 [facility] MAGNESIUM 2021-09-20 19:53:00 [facility] TROPONIN I 2021-09-20 19:53:00 [facility] COMP. METABOLIC PANEL 2021-09-20 19:53:00 Blanche Bermudez [facility] ([id number]) Medical [place] CBC WITH DIFF 2021-09-20 19:53:00 Blanche [facility] NOTICE OF PRIVACY 2021-09-20 18:56:11 Doctor Unassigned, No [facility] [place] PRACTICES [facility] CONSENT/REFUSAL FOR 2021-09-20 18:55:46 Doctor Unassigned, No [facility] [place] DIAGNOSIS AND TREATMENT [facility] HOME HEALTH - OTHER 2021-08-12 06:01:00 Doctor Unassigned, No Un [facility] HOME HEALTH 485 2021-08-10 06:01:00 Doctor Unassigned, No [facility] [place] Name Medical Branch XR CHEST 1 VW 2021-08-06 20:19:38 Tori Anne [facility] TROPONIN I 2021-08-06 20:11:00 Tori Anne [facility] COMP. METABOLIC PANEL 2021-08-06 20:11:00 Tori Anne [facility] ([id number]) Medical Branch CBC WITH DIFF 2021-08-06 20:11:00 Tori Anne [facility] CONSENT/REFUSAL FOR 2021-08-06 20:05:45 Doctor Unassigned, No [facility] DIAGNOSIS AND TREATMENT Name Medical Branch TROPONIN I 2021-08-05 19:21:00 Jose [facility] TRANSTHORACIC ECHO (TTE) 2021-08-05 16:35:00 Zelda Garcia [facility] COMPLETE [facility] XR KUB 2021-08-05 15:50:00 Jose [facility] XR CHEST 1 VW 2021-08-05 11:41:57 Amarjit Reddy [facility] LIPASE 2021-08-05 11:32:00 Barry Amarjit [facility] TROPONIN I 2021-08-05 11:32:00 Barry Amarjit [facility] THYROID STIMULATING 2021-08-05 11:32:00 Zelda Garcia [facility] HORMONE [facility] COMP. METABOLIC PANEL 2021-08-05 11:32:00 Amarjit Reddy [facility] ([id number]) [facility] LIPID PANEL 2021-08-05 11:32:00 [id number]TOTAL Medical Branch CHOLESTEROL, TRIGLYCERIDES, HDL) CBC WITH DIFF 2021-08-05 11:32:00 Amarjit Reddy [facility] GLYCOSYLATED HEMOGLOBIN 2021-08-05 11:32:00 Jose [facility] (A1C) [facility] PROTHROMBIN TIME / INR 2021-08-05 11:32:00 Amarjit Reddy [facility] ACTIVATED PARTIAL 2021-08-05 11:32:00 Amarjit Reddy [facility] THRMPLAS [facility] N-TERMINAL PRO-BNP 2021-08-05 11:32:00 Amarjit [facility] COVID-19 (ID NOW RAPID 2021-08-05 11:32:00 Amarjit Reddy [facility] TESTING) Medical Branch URINALYSIS 2021-07-31 19:44:00 Tessy Lowery [facility] CT ABDOMEN PELVIS W 2021-07-31 19:24:25 Tessy Lowery [facility] CONTRAST [facility] CT THORAX W CONTRAST 2021-07-31 19:24:25 Tessy Lowery [facility] LIPASE 2021-07-31 17:36:00 Tessy Lowery [facility] TROPONIN I 2021-07-31 17:36:00 Tessy Lowery [facility] COMP. METABOLIC PANEL 2021-07-31 17:36:00 Tessy Lowery [facility] ([id number]) Medical Branch CBC WITH DIFF 2021-07-31 17:36:00 Tessy Lowery [facility] CONSENT/REFUSAL FOR 2021-07-31 16:42:16 Doctor Unassigned, No [facility] DIAGNOSIS AND TREATMENT Name [facility] NOTICE OF PRIVACY 2021-07-31 16:41:28 Doctor Unassigned, No [facility] PRACTICES Name [facility] URIC ACID 2021-03-08 13:05:00 Dixie [facility] MAGNESIUM 2021-03-08 13:05:00 Dixie [facility] PROSTATIC SPECIFIC 2021-03-08 13:05:00 Dixie [facility] ANTIGEN SCREEN Medical Branch FOLATE 2021-03-08 13:05:00 [facility] HEPATIC FUNCTION PANEL 2021-03-08 13:05:00 [facility] ([id number]) (ALB,T.PRO,BILI Medical Branch T,BU/BC,ALT,AST,ALK PHOS) BASIC METABOLIC PANEL 2021-03-08 13:05:00 marion [facility] (NA, K, CL, CO2, Medical Branch GLUCOSE, BUN, CREATININE, CA) SEDIMENTATION RATE 2021-03-08 13:05:00 Kelsey Colin of [facility] CBC WITH DIFF 2021-03-08 13:05:00 Dixie [facility] o f [facility] ADV BENEFICIARY NOTICE 2021-03-08 05:01:00 Doctor Unassigned, No [facility] OF NONCOVERAGE ([facility]) Name Medical [facility] PHYSICIAN ORDERS 2021-02-09 05:01:00 Doctor Unassigned, No [facility] ASSIGNMENT OF BENEFITS 2020-10-21 13:47:27 Doctor Unassigned, No [facility] Plan of Care Planned Activity Planned Date Details Comments Source Future Scheduled 2024-05-[address] [facility] Test 00:00:00 [facility] r Screening (12+) [code = Tobacco Cessation Counseling and Screening (12+)] Future Scheduled 2023-06-16 65+ [facility]UMOCOCCAL [facility] Test 07:06:14 VACCINE (1 - PCV) [code = 65+ PNEUMOCOCCAL VACCINE (1 - PCV)] Future Scheduled 2023-06-16 Hepatitis C screening [facility] Test 07:06:14 (procedure) [code = 467365422] Future Scheduled 2023-06-16 SHINGLES VACCINES (1 Met [facility] Test 07:06:14 of 2) [code = SHINGLES VACCINES (1 of 2)] Future Scheduled 2023-06-16 COVID-19 VACCINE (3 - [facility] Test 07:06:14 Pfizer risk series) [code = COVID-19 VACCINE (3 - Pfizer risk series)] Future Scheduled 2023-06-16 INFLUENZA VACCINE (#1) [facility] Test 07:06:14 [code = INFLUENZA VACCINE (#1)] Future Scheduled 2023-05-22 65+ [facility]UMOCOCCAL [facility] Test 15:24:20 VACCINE (1 - PCV) [code = 65+ PNEUMOCOCCAL VACCINE (1 - PCV)] Future Scheduled 2023-05-22 Hepatitis C screening [facility] Test 15:24:20 (procedure) [code = 765863751] Future Scheduled 2023-05-22 SHINGLES VACCINES (1 Met [facility] Test 15:24:20 of 2) [code = SHINGLES VACCINES (1 of 2)] Future Scheduled 2023-05-22 RSV VACCINES > 60 YR Met [facility] Test 15:24:20 (1 - 1-dose 60+ series) [code = RSV VACCINES > 60 YR (1 - 1-dose 60+ series)] Future Scheduled 2023-05-22 COVID-19 VACCINE (3 - [facility] Test 15:24:20 Pfizer risk series) [code = COVID-19 VACCINE (3 - Pfizer risk series)] Future Scheduled 2023-05-22 INFLUENZA VACCINE (#1) [facility] Test 15:24:20 [code = INFLUENZA VACCINE (#1)] Future Scheduled 2023-05-09 65+ PNEUMOCOCCAL Methodi [facility] Test 16:56:47 VACCINE (1 - PCV) [code = 65+ PNEUMOCOCCAL VACCINE (1 - PCV)] Future Scheduled 2023-05-09 Hepatitis C screening [facility] Test 16:56:47 (procedure) [code = [id number]] Future Scheduled 2023-05-09 SHINGLES VACCINES (1 Met [facility] Test 16:56:47 of 2) [code = SHINGLES VACCINES (1 of 2)] Future Scheduled 2023-05-09 COVID-19 VACCINE (3 - [facility] Test 16:56:47 Pfizer risk series) [code = COVID-19 VACCINE (3 - Pfizer risk series)] Future Scheduled 2023-05-09 INFLUENZA VACCINE (#1) [facility] Test 16:56:47 [code = INFLUENZA VACCINE (#1)] Future Scheduled 2023-04-07 Influenza Vaccine (#1) [facility] Test 00:[facility]00 [code = Influenza Medical Ce nter Vaccine (#1)] Future Scheduled 2022-08-[address] [facility] Test 00:00:00 (12+) [code = Medical Center DEPRESSION SCREENING (12+)] Future Scheduled 2022-08-07 FALLS RISK SCREENING [facility] Test 00:00:00 [code = FALLS RISK Medical C enter SCREENING] Future Scheduled 2021-02-11 COVID-19 VACCINE (3 - [facility] Test 00[facility]00[facility]00 Pfizer risk series) Medical Center [code = COVID-19 VACCINE (3 - Pfizer risk series)] Future Scheduled 1993-09-[address] [facility] Test 00:00:00 WELLNESS (YEAR 2 or Medical Center FIRST YEAR if no IPPE) [code = MEDICARE ANNUAL WELLNESS (YEAR 2 or FIRST YEAR if no IPPE)] Future Scheduled 1965 DTAP/TDAP/TD VACCINES [facility] Test 00:00:00 (1 - Tdap) [code = Medical C enter DTAP/TDAP/TD VACCINES (1 - Tdap)] Future Scheduled 1965 SHINGLES VACCINES ([address] [facility] Test 00:00:00 of 2) [code = SHINGLES Medic al Center VACCINES (1 of 2)] Future Scheduled 1964-01-25 HEPATITIS C SCREENING [facility] Test 00:00:00 [code = HEPATITIS C Medical Center SCREENING] Future Scheduled 1952-01-25 PNEUMOCOCCAL 65+ YRS [facility] Test 00:00:00 (1 - PCV) [code = Medical Ce nter PNEUMOCOCCAL 65+ YRS (1 - PCV)] Encounters Start End Encounter Admission Attending Care Care Encounter Source Date/Time Date/Time Type Type Clinicians Facility Department ID 2023-06-16 Outpatient [facility] [id number] Common 09:23:01 [id number] [facility] 2023-05-27 Inpatient EL KODY, SLE [facility]H [id number] SLEH 12:30:40 CLAUDE 2023-05-23 Inpatient EL SLEH SLEH [id number] SLEH 19:16:11 2023-05-23 Inpatient EL SLEH SLEH [id number] SLEH 19:16:00 2023-05-23 Inpatient EL SLEH SLEH [id number] SLEH 19:15:48 2023-05-23 Inpatient EL SLEH SLEH [id number] SLEH 03:56:28 2023-05-23 Inpatient EL SLEH SLEH [id number] SLEH 03:50:55 2023-05-23 Inpatient EL SLEH SLEH [id number] SLEH 03:50:51 2023-05-22 Inpatient EL RICCARDO SLEH SLEH [id number] SLEH 14:07:24 TOSHIA Nieves 2023-05-22 Inpatient EL SLEH SLEH [id number] SLEH 13:46:38 2023-05-22 Inpatient EL [facility] [id number] SLE 13:46:16 2023-05-22 Inpatient [facility] [id number] SLE 13:46:11 2023-06-16 2023-06-16 Orders Mica, 1.2.840.1 [id number] Methodi 00:00:00 00:00:00 Only Christy 66682.1.[address] 3.430.2.7 Hospit a .3.584127 l .8 2023-06-16 2023-06-16 Orders Refugio, 1.2.840.1 [id number] [id number] Methodi 00:00:00 00:00:00 Only Beatriz 22996.1.[address] 3.430.2.7 Hospit a .3.067448 l .8 2023-06-13 2023-06-13 [facility] 1.2.840.1 [id number] Methodi 14:30:22 14:30:22 Encounter Piero Leonides 92922.1.[address] 3.430.2.7 Hospit a .3.336245 l .8 2023-06-13 2023-06-13 [facility], 1.2.840.1 [id number] 0155 Methodi 14:00:00 14:15:00 Visit Cameron 75344.1.[address] 3.430.2.7 Hospit a .3.704653 l .8 2023-06-13 2023-06-13 Outpatient [facility] [id number] 115 [place] 00:00:00 00:00:00 CAMERON [address] 2023-06-13 2023-06-13 Outpatient [facility] [id number] 398 [place] 00:00:00 00:00:00 PIREO [address] 2023-06-09 2023-06-09 Telephone Mica, 1.2.840.1 [id number] Methodi 00:00:00 00:00:[address] 3.430.2.7 Hospit a .3.684299 l .8 2023-05-22 2023-05-30 Inpatient ER KODY, SLE Surgery [id number] SLEH 09:08:00 13:44:00 CLAUDE 2023-05-26 2023-05-26 Surgery Reyna [facility] [id number] 09:00:00 15:04:00 Jamal Vincent [facility] 2023-05-26 2023-05-26 Anesthesia Roxanna Rivera [facility] [id number] 09:29:00 12:34:00 Event [facility]23-[facility] 2023-05-25 Orders [facility] [id number] 00:00:00 00:00:[address] [facility] 2023-05-22 2023-05-22 Outpatient EL [facility] SLE SLE [id number] SLEH 18:09:30 18:09:30 A ELISEO FINCH 2023-05-22 2023-05-22 Outpatient EL [facility] SLE SLEH [id number] SLEH 17:28:49 17:28:49 A ELISEO FINCH 2023-05-22 2023-05-22 Outpatient EL SLE SLEH [id number] SLEH 15:40:38 15:40:38 2023-05-22 2023-05-22 Outpatient EL SLE SLEH [id number] SLEH 12:38:48 12:38:48 2023-05-22 2023-05-22 Outpatient EL SLEH SLEH [id number] SLEH 09:21:48 09:21:48 2023-05-22 2023-05-22 Outpatient EL SLEH SLEH [id number] SLEH 09:21:35 09:21:35 2023-05-22 2023-05-22 Travel [facility] [id number] [facility]00 00:[facility]:00 [facility] 2022-07-22 2022-07-22 Orders Kira 1.2.840.1 [id number] Methodi 00:00:00 00:00:00 Only Cameron 65959.1.[address] 3.430.2.7 Hospit a .3.356194 l .8 2022-07-22 2022-07-22 Orders Ceballos, 1.2.840.1 [id number] 2141 Methodi 00:00:00 00:00:00 Only Cameron 28368.1.[address] 3.430.2.7 Hospit a .3.621646 l .8 2022-07-18 2022-07-18 Office Ceballos, 1.2.840.1 [id number] 8042 Methodi 11:30:00 12:20:31 Visit Cameron 13585.1.[address] 3.430.2.7 Hospit a .3.561160 l .8 2022-07-18 2022-07-18 Office Ceballos, 1.2.840.1 [id number] 1473 Methodi 11:30:00 12:20:31 Visit Cameron 79237.1.[address] 3.430.2.7 Hospit a .3.965299 l .8 2022-07-18 2022-07-18 Travel 1.2.840.1 1.2.240.455 2804 [id number] Methodi 00:00:00 00:00:[address] 3.430.2.7 0.2.7.3.698 Ho spita .3.031214 084.8 l .8 2022-07-18 2022-07-18 Orders Bubela, 1.2.840.1 [id number] 6362 Methodi 00:00:00 00:00:00 [place] 9[address]49.1.[address] 3.430.2.7 Hospit a .3.649272 l .8 2022-07-18 2022-07-18 Orders Bubela, 1.2.840.1 [id number] 4311 Methodi 00:00:00 00:00:00 [place] [address]16.1.[address] 3.430.2.7 Hospit a .3.300150 l .8 2022-07-18 2022-07-18 Travel 1.2.840.1 1.2.530.024 8944 139978 Methodi 00:00:00 00:00:[address] 3.430.2.7 0.2.7.3.698 Ho spita .3.932116 084.8 l .8 2022-07-13 2022-07-13 Infusion Ceballos, 1.2.840.1 [id number] Methodi 11:30:00 14:30:[address] 3.430.2.7 Hospit a .3.176007 l .8 2022-07-13 2022-07-13 Infusion Ceballos, 1.2.840.1 [id number] 21001 54835 Methodi 11:30:00 14:30:[address] 3.430.2.7 Hospit a .3.989907 l .8 2022-07-13 2022-07-13 Travel 1.2.840.1 1.2.080.755 5586 264936 Methodi 00:00:00 00:00:[address] 3.430.2.7 0.2.7.3.698 Ho spita .3.812390 084.8 l .8 2022-07-13 2022-07-13 Travel 1.2.840.1 1.2.333.403 2125 562380 Methodi 00:00:00 00:00:[address] 3.430.2.7 0.2.7.3.698 Ho spita .3.789094 084.8 l .8 2022-07-12 2022-07-12 Orders Gualberto, 1.2.840.1 [id number] Methodi 00:00:00 00:00:00 Only Javier 91719.1.[address] 3.430.2.7 Hospit a .3.446182 l .8 2022-07-12 2022-07-12 Orders Gualberto, 1.2.840.1 [id number] 84594 Methodi 00:00:00 00:00:00 Only Concepcion 07841.1.[address] 3.430.2.7 Hospit a .3.450525 l .8 2022-06-15 2022-06-15 Infusion Ceballos, 1.2.840.1 [id number] 46072 Methodi 11:30:00 14:30:[address] 3.430.2.7 Hospit a .3.034259 l .8 2022-06-15 2022-06-15 Oncology Greg, 1.2.840.1 [id number] [id number] Methodi 00:00:00 00:00:00 [facility] Jasmin 92493.1.1 347 s t ip 3.430.2.7 Hospit a .3.241703 l .8 2022-06-15 2022-06-15 Travel 1.2.840.1 1.2.496.144 9517 272150 Methodi 00:00:00 00:00:[address] 3.430.2.7 0.2.7.3.698 Ho spita .3.502366 084.8 l .8 2022-06-14 2022-06-14 Orders Kira, 1.2.840.1 [id number] 6302 Methodi 00:00:00 00:00:00 Only Cameron 68900.1.[address] 3.430.2.7 Hospit a .3.714402 l .8 2022-06-07 2022-06-07 Office Ceballos, 1.2.840.1 [id number] 1871 Methodi 09:45:00 10:40:15 Visit Cameron 34558.1.[address] 3.430.2.7 Hospit a .3.680813 l .8 2022-06-07 2022-06-07 Travel 1.2.840.1 1.2.934.305 6455 281624 Methodi 00:00:00 00:00:[address] 3.430.2.7 0.2.7.3.698 Ho spita .3.030634 084.8 l .8 2022-06-06 2022-06-06 Orders Chable, 1.2.840.1 [id number] 3826 Methodi 00:00:00 00:00:[address] 3.430.2.7 Hospit a .3.245480 l .8 2022-05-11 2022-05-11 Outpatient CEBALLOS, [facility] [id number] [place] 00:00:00 00:00:00 CAMERON 949 Method i 2022-05-10 2022-05-10 Outpatient CEBALLOS, [facility] [id number] 764 [place] 00:00:00 00:00:00 CAMERON 779 Method i 2022-05-10 2022-05-10 Outpatient CEBALLOS, [facility] [id number] 786 [place] 00:00:00 00:00:00 CAMERON 631 Method i 2022-05-06 2022-05-06 Outpatient CEBALLOS, [facility] [id number] 874 [place] 00:00:00 00:00:00 CAMERON 039 Method i 2022-04-13 2022-04-13 Outpatient CEBALLOS, [facility] [id number] 420 [place] 00:00:00 00:00:00 CAMERON 239 Method i 2022-04-12 2022-04-12 Outpatient CEBALLOS, [facility] [id number] 523 [place] 00:00:00 00:00:00 CAMERON 050 Method i 2022-04-12 2022-04-12 Outpatient CEBALLOS, [facility] [id number] 768 [place] 00:00:00 00:00:00 CAMERON 581 Method i 2022-03-16 2022-03-16 Outpatient CEBALLOS, [facility] [id number] 416 [place] 00:00:00 00:00:00 CAMERON 964 Method i 2022-02-23 2022-02-23 Physician Obstetrician Pob, Adc Lab Main [facility] 1.2.8 40.114 [id number] Univers 17:00:00 17:15:00 Visit George Little 350.1.13.10 ity of [place].2.[place] [id number] Tn dical [address] 2022-02-23 2022-02-23 Outpatient R AMIE [facility] [id number] Univers 17:00:00 17:00:00 GEORGE itjo-ann [facility] 2022-02-23 2022-02-23 Orders Doctor DESI 1.2.840.114 [id number] Univers 00:00:00 00:00:00 Only Unassigned, BERNA 350.1.13.10 [facility] 4.2.7.2.686 Woody as [phone] [address] 2022-01-17 2022-01-17 Orders Doctor WEEKS 1.2.840.114 [id number] Univers 00:00:00 00:00:00 Only Unassigned, BERNA 350.1.13.10 [facility] [place] 4.2.7.2.686 Woody as [id number] [address] 2022-01-10 2022-01-10 Outpatient CEBALLOS, [facility] [id number] 790 [place] 00:00:00 00:00:00 CAMERON 387 Method i 2022-01-10 2022-01-10 Outpatient CEBALLOS, [facility] [id number] 915 [place] 00:00:00 00:00:00 CAMERON 985 Method i 2021-12-13 2021-12-13 Orders Doctor DESI [id number] [facility] 00:00:00 00:00:00 Only Unassigned, BERNA 350.1.13.10 [facility] 4.2.7.2.686 Woody as [phone] [address] 2021-11-30 2021-11-30 Telephone [facility] [id number] Univers 00:00:00 00:00:00 Zelda PRIMARY [id number] it y of CARE 4.2.7.2.686 [facility] [phone] Tn dical [address] 2021-11-29 2021-11-29 Outpatient CEBALLOS, [facility] [id number] 003 [place] 00:00:00 00:00:00 CAMERON 578 Method i 2021-11-29 2021-11-29 Outpatient CEBALLOS, [facility] [id number] 7[address] [place] 00:00:00 00:00:00 CAMERON 079 Method i 2021-11-15 2021-11-15 Outpatient SHKEDY, [facility] [id number] 907 [place] 00:00:00 00:00:00 PIERO 726 Method i 2021-11-15 2021-11-15 Outpatient CEBALLOS, [facility] [id number] 298 [place] 00:00:00 00:00:00 CAMERON 460 Method i 2021-11-02 2021-11-02 Outpatient CEABLLOS, [facility] [id number] 422 [place] 00:00:00 00:00:00 CAMERON 520 Method i 2021-10-18 2021-10-18 Outpatient CEBALLOS, [facility] [id number] 702 [place] 00:00:00 00:00:00 CAMERON 195 Method i 2021-10-08 2021-10-08 Emergency X [facility] ERT [id number] Univers 09:34:00 14:40:00 WALE crespo [facility] 2021-10-08 2021-10-08 Emergency [facility] [id number] [facility] 09:34:00 14:40:00 Wale DIAMOND 350.1.13.10 [facility] 4.2.7.2.686 [facility] [phone] [facility] [address] 2021-10-05 2021-10-05 Outpatient SHKEDY, [facility] [id number] 647 [place] 00:00:00 00:00:00 PIERO 880 Method i 2021-10-01 2021-10-01 Outpatient SHKEDY, [facility] [id number] 892 [place] 00:00:00 00:00:00 PIERO 044 Method i 2021-10-01 2021-10-01 Outpatient SHKEDY, [facility] [id number] [address] [place] 00:00:00 00:00:00 PIERO 902 Method i 2021-09-29 2021-09-29 Outpatient SHKEDY, [facility] [id number] 891 [place] 00:00:00 00:00:00 PIERO 970 Method i 2021-09-29 2021-09-29 Outpatient SHCHRIS, [facility] [id number] 141 [place] 00:00:00 00:00:00 PIERO 794 Method i 2021-09-28 2021-09-28 Outpatient CEBALLOS, [facility] [id number] 270 [place] 00:00:00 00:00:00 CAMERON 199 Method i 2021-09-28 2021-09-28 Outpatient CEBALLOS, [facility] [id number] 826 [place] 00:00:00 00:00:00 CAMERON 325 Method i 2021-09-27 2021-09-27 Outpatient SHCHRIS, [facility] [id number] 891 [place] 00:00:00 00:00:00 PIERO 910 Method i 2021-09-27 2021-09-27 Outpatient SHKEDY, [facility] [id number] 141 [place] 00:00:00 00:00:00 PIERO 677 Method i 2021-09-23 2021-09-23 Outpatient SHKEDY, [facility] [id number] 891 [place] 00:00:00 00:00:00 PIERO 908 Method i 2021-09-23 2021-09-23 Outpatient SHKEDY, [facility] [id number] 068 [place] 00:00:00 00:00:00 PIERO 576 Method i 2021-09-21 2021-09-21 Outpatient SHKEDY, [facility] [id number] 141 [place] 00:00:00 00:00:00 PIERO 355 Method i 2021-09-20 2021-09-20 Emergency X AIDAN CTJORDYN ERT [id number] Univers 13:04:00 16:25:00 BLANCHE crespo [facility] 2021-09-20 2021-09-20 Emergency Aidan [facility] 1.2.840.114 [id number] Univers 13:04:00 16:25:00 Blanche DIAMOND 350.1.13.10 ity [facility] [place] [phone] [facility] sonja 084 Branch 2021-09-20 2021-09-20 Outpatient CEBALLOS, [facility] [id number] 412 [place] 00:00:00 00:00:00 CAMERON [address] 2021-09-20 2021-09-20 Orders Doctor DESI 1.2.840.114 [id number] Univers 00:00:00 00:00:00 Only Unassigned, BERNA 350.1.13.10 ity of [facility] 4.2.7.2.686 [place] [phone] [facility] 009 Branch 2021-09-15 2021-09-15 Telephone Jada, [facility] 1.2.539.215 [id number] [facility] 00:00:00 00:00:00 Yimi PRIMARY 350.1.13.10 it y of [facility] 4.2.7.2.[place] [phone] Tn dical 388 Branch 2021-09-14 2021-09-14 Outpatient SHKEDY, [facility] [id number] 209 [place] 00:00:00 00:00:00 PIERO 716 Method i 2021-09-07 2021-09-07 Outpatient SHROSADY, [facility] [id number] 789 [place] 00:00:00 00:00:00 PIERO 999 Method i 2021-08-30 2021-08-30 Outpatient CEBALLOS, [facility] [id number] 100 [place] 00:00:00 00:00:00 CAMERON 646 Method i 2021-08-24 2021-08-24 Outpatient [facility] [id number] 201 [place] 00:00:00 00:00:00 313 Method i 2021-08-24 2021-08-24 Outpatient SHKEDY, [facility] [id number] 197 [place] 00:00:00 00:00:00 PIERO 719 Method i 2021-08-23 2021-08-23 Outpatient CEBALLOS, [facility] [id number] 594 [place] 00:00:00 00:00:00 CAMERON 278 Method i 2021-08-23 2021-08-23 Outpatient [facility] [id number] 105 [place] 00:00:00 00:00:[address] 2021-08-20 2021-08-20 Outpatient RACHEL, [facility] [id number] 776 [place] 00:00:00 00:00:00 PIERO [address] 2021-08-19 2021-08-19 Outpatient [facility] [id number] 580 [place] 00:00:00 00:00:[address] 2021-08-18 2021-08-18 Outpatient [facility] [id number] 580 [place] 00:00:00 00:00:[address] 2021-08-17 2021-08-17 Outpatient [facility] [id number] 580 [place] 00:00:00 00:00:[address] 2021-08-16 2021-08-16 Outpatient [facility] [id number] 580 [place] 00:00:00 00:00:[address] 2021-08-16 2021-08-16 Outpatient CEBALLOS, [facility] [id number] 594 [place] 00:00:00 00:00:00 CAMERON [address] 2021-08-13 2021-08-13 Outpatient [facility] [id number] 304 [place] 00:00:00 00:00:[address] 2021-08-13 2021-08-13 Outpatient RACHEL, [facility] [id number] 278 [place] 00:00:00 00:00:00 PIERO [address] 2021-08-12 2021-08-12 Outpatient [facility] [id number] 295 [place] 00:00:00 00:00:[address] 2021-08-12 2021-08-12 Outpatient CEBALLOS, [facility] [id number] 916 [place] 00:00:00 00:00:00 CAMERON [address] 2021-08-12 2021-08-12 Orders Doctor DESI 1.2.840.114 [id number] [facility] 00:00:00 00:00:00 Only Unassigned, BERNA 350.1.13.10 it[facility] 4.2.7.2.686 [place] [phone] [facility] 009 Branch 2021-08-10 2021-08-10 Outpatient [facility] [id number] 580 [place] 00:00:00 00:00:[address] 2021-08-10 2021-08-10 Outpatient [facility], [facility] [id number] 160 [place] 00:00:00 00:00:00 PIERO 825 Method i 2021-08-10 2021-08-10 Orders Doctor DESI 1.2.840.114 [id number] [facility] 00:00:00 00:00:00 Only Unassigned, BERNA 350.1.13.10 it[facility] 4.2.7.2.686 [place] [phone] [facility] 009 [place] 2021-08-09 2021-08-09 Outpatient [facility] [id number] 107 [place] 00:00:00 00:00:00 PIERO 774 Method i 2021-08-09 2021-08-09 Outpatient [facility] [id number] 063 [place] 00:00:00 00:00:00 PIERO 020 Method i 2021-08-09 2021-08-09 Outpatient [facility] [id number] 580 [place] 00:00:00 00:00:00 027 Method i 2021-08-06 2021-08-06 [facility] [id number] Univers 13:53:00 15:20:00 TORI [facility] 2021-08-06 2021-08-06 [facility] 1.2.230.794 [id number] Univers 13:53:00 15:20:00 Tori DIAMOND 350.1.13.10 ity of [place] [phone] [facility] 084 Branch 2021-08-06 2021-08-06 Transition BALDO Kim 1.2.840.114 [id number] Univers 00:00:00 00:00:00 of Care Jennifer SANTIAGO 350.1.13.10 it y of [place] [phone] [facility] 403 Branch 2021-08-05 2021-08-05 Outpatient X ANTIONETTE [facility] IVAN [id number] Univers 05:20:00 16:34:00 [facility] 2021-08-05 2021-08-05 Emergency Amarjit Reddy 1.2.840. 114 [id number] [facility] 05:20:00 16:34:00 Manohar Garcia 350.1.13. 10 ity [facility] 4.2.7.2.686 [place] [phone] [facility] 094 Branch 2021-08-03 2021-08-03 Outpatient [facility] [id number] 580 [place] 00:00:00 00:00:00 024 Method i 2021-08-03 2021-08-03 Outpatient SHCHRIS, [facility] [id number] 792 [place] 00:00:00 00:00:00 PIERO 833 Method i 2021-08-03 2021-08-03 Emergency EGBERS, [facility] [id number] 96 [place] 00:00:00 00:00:00 DANTE 955 Method i 2021-08-02 2021-08-02 Outpatient [facility] [id number] 580 [place] 00:00:00 00:00:00 023 Method i 2021-07-31 2021-07-31 Emergency X [facility] ERT [id number] Univers 10:57:00 14:57:00 TESSY crespo of [facility] 2021-07-31 2021-07-31 Emergency [facility] 1.2.037.208 [id number] Univers 10:57:00 14:57:00 Tessy DIAMOND 350.1.13.10 ity natalie GUTIERREZ 4.2.7.2.686 [facility] [phone] [facility] 084 Branch 2021-07-29 2021-07-29 Outpatient [facility] [id number] 580 [place] 00:00:00 00:00:00 022 Method i 2021-07-29 2021-07-29 Outpatient SHCHRIS, [facility] [id number] 322 [place] 00:00:00 00:00:00 PIERO [address] 2021-07-28 2021-07-28 Outpatient [facility] [id number] 580 [place] 00:00:00 00:00:00 021 Method i 2021-07-27 2021-07-27 Outpatient [facility] [id number] 580 [place] 00:00:00 00:00:[address] 2021-07-26 2021-07-26 Outpatient CEBALLOS, [facility] [id number] 594 [place] 00:00:00 00:00:00 CAMERON [address] 2021-07-26 2021-07-26 Outpatient [facility] [id number] 580 [place] 00:00:00 00:00:[address] 2021-07-23 2021-07-23 Outpatient [facility] [id number] 580 [place] 00:00:00 00:00:[address] 2021-07-22 2021-07-22 Outpatient [facility] [id number] 580 [place] 00:00:00 00:00:[address] 2021-07-22 2021-07-22 Outpatient SHKEDY, H [facility] [id number] 111 [place] 00:00:00 00:00:00 PIERO [address] 2021-07-21 2021-07-21 Outpatient [facility] [id number] 580 [place] 00:00:00 00:00:[address] 2021-07-20 2021-07-20 Outpatient [facility] [id number] 580 [place] 00:00:00 00:00:[address] 2021-07-20 2021-07-20 Outpatient CEBALLOS, H [facility] [id number] 545 [place] 00:00:00 00:00:00 CAMERON [address] 2021-07-19 2021-07-19 Outpatient [facility] [id number] 580 [place] 00:00:00 00:00:[address] 2021-07-16 2021-07-16 Outpatient [facility] [id number] 580 [place] 00:00:00 00:00:[address] 2021-07-15 2021-07-15 Outpatient [facility] [id number] 580 [place] 00:00:00 00:00:[address] 2021-07-14 2021-07-14 Outpatient [facility] [id number] 580 [place] 00:00:00 00:00:[address] 2021-07-13 2021-07-13 Outpatient [facility] [id number] 580 [place] 00:00:00 00:00:[address] 2021-07-13 2021-07-13 Outpatient SHKEDY, H [facility] [id number] 358 [place] 00:00:00 00:00:00 PIERO [address] 2021-07-12 2021-07-12 Outpatient [facility] [id number] 580 [place] 00:00:00 00:00:[address] 2021-07-09 2021-07-09 Outpatient [facility] [id number] 580 [place] 00:00:00 00:00:[address] 2021-07-08 2021-07-08 Outpatient [facility] [id number] 580 [place] 00:00:00 00:00:[address] 2021-07-08 2021-07-08 Outpatient SHKEDY, H H [id number] 059 [place] 00:00:00 00:00:00 PIERO [address] 2021-07-07 2021-07-07 Outpatient SHKEDY, [facility] [id number] 753 [place] 00:00:00 00:00:00 PIERO [address] 2021-07-07 2021-07-07 Outpatient CEBALLOS, H H [id number] 593 [place] 00:00:00 00:00:00 CAMERON [address] 2021-07-07 2021-07-07 Outpatient [facility] H [id number] 580 [place] 00:00:00 00:00:[address] 2021-07-06 2021-07-06 Outpatient [facility] [id number] 580 [place] 00:00:00 00:00:[address] 2021-07-05 2021-07-05 Outpatient [facility] [id number] 580 [place] 00:00:00 00:00:[address] 2021-06-29 2021-06-29 Outpatient SHKEDY, H H [id number] 306 [place] 00:00:00 00:00:00 PIERO [address] 2021-06-29 2021-06-29 Outpatient CEBALLOS, [facility] H [id number] 565 [place] 00:00:00 00:00:00 CAMERON [address] 2021-06-25 2021-06-25 Outpatient SHKEDY, [facility] H [id number] 643 [place] 00:00:00 00:00:00 PIERO [address] 2021-06-25 2021-06-25 Outpatient SHKEDY, [facility] [id number] 643 [place] 00:00:00 00:00:00 PIERO [address] 2021-06-23 2021-06-23 Outpatient CEBALLOS, [facility] [id number] 564 [place] 00:00:00 00:00:00 CAMERON [address] 2021-06-23 2021-06-23 Outpatient CEBALLOS, [facility] [id number] 564 [place] 00:00:00 00:00:00 CAMERON [address] 2021-06-21 2021-06-21 Outpatient CEBALLOS, [facility] [id number] 963 [place] 00:00:00 00:00:00 CAMERON 895 Method i 2021-05-31 2021-05-31 Outpatient CEBALLOS, [facility] [id number] 097 [place] 00:00:00 00:00:00 CAMERON [address] 2021-05-31 2021-05-31 Outpatient OOLUT, [facility] [id number] 472 [place] 00:00:00 00:00:00 CAROLYN [address] 2021-04-27 2021-04-27 Outpatient OOLUT, [facility] [id number] 535 [place] 00:00:00 00:00:00 CAROLYN [address] 2021-04-14 2021-04-14 Outpatient OOLUT, [facility] [id number] 200 [place] 00:00:00 00:00:00 CAROLYN [address] 2021-04-14 2021-04-14 Outpatient PARMET, [facility] [id number] 082 [place] 00:00:00 00:00:00 WALE [address] 2021-04-13 2021-04-13 Outpatient OOLUT, [facility] [id number] 954 [place] 00:00:00 00:00:00 CAROLYN [address] 2021-04-01 2021-04-01 Outpatient OOLUT, [facility] [id number] 838 [place] 00:00:00 00:00:00 CAROLYN [address] 2021-03-31 2021-03-31 Outpatient OOLUT, [facility] [id number] 154 [place] 00:00:00 00:00:00 CAROLYN 630 Method i 2021-03-08 2021-03-08 Physician Obstetrician Pob, Adc Lab Main [facility] 1.2.8 40.114 [id number] Univers 07:44:04 07:59:04 Visit George Little 350.1.13.10 ity of [place] [phone] Tn dical nal [address] [employer] 2021-03-08 2021-03-08 Outpatient R AMIE, [facility] [id number] Univers 07:45:00 07:45:00 GEORGE crespo [facility] 2021-03-08 2021-03-08 Orders Doctor DESI 1.2.840.114 [id number] Univers 00:00:00 00:00:00 Only Unassigned, BERNA 350.1.13.10 ity of [facility] 4.2.7.2.686 [place] [phone] [address] 2021-02-19 2021-02-19 Outpatient [facility] [id number] [address] [place] [address] 00:00:00 00:00:[address] CAROLYN [address] 2021-02-09 2021-02-09 Outpatient R LÁZARO, [facility] [id number] Univers 16:45:00 16:45:00 SANDRINE crespo [facility] 2021-02-09 2021-02-09 Physician Obstetrician Ofelia, Adc Lab Main [facility] 1.2.8 40.114 [id number] Univers 16:22:14 16:37:14 Visit Sandrine Mccord 350.1.13.10 it[place] [phone] Tn dical nal [address] [employer] [employer] 2021-02-09 2021-02-09 Orders Doctor DSEI 1.2.840.114 [id number] Univers 00:00:00 00:00:00 Only Unassigned, BERNA 350.1.13.10 it[facility] 4.2.7.2.686 [place] [phone] [address] 2021-02-02 2021-02-02 Outpatient [facility] [id number] [address] [place] [address] 00:00:00 00:00:00 CAROLYN [address] 2021-02-02 2021-02-02 Outpatient [facility] [id number] 010 [place] 00:00:00 00:00:[address] 2021-02-02 2021-02-02 Outpatient [facility] [id number] 010 [place] 00:00:00 00:00:[address] 2021-02-02 2021-02-02 Outpatient OOLUT, [facility] [id number] 010 [place] 00:00:00 00:00:00 CAROLYN [address] 2021-01-14 2021-01-14 Outpatient SEPTIMUS, [facility] [id number] [place] 00:00:00 00:00:00 TODD [address] 2020-12-24 2020-12-24 Outpatient OOLUT, [facility] [id number] 635 [place] 00:00:00 00:00:00 CAROLYN [address] 2020-12-24 2020-12-24 Outpatient [facility] [id number] 012 [place] 00:00:00 00:00:[address] 2020-11-28 2020-11-28 [facility] 1.2.794.940 [id number] [facility] 10:50:00 23:59:00 Encounter Sandrine Diamond 350.1.13.10 ity natalie Gutierrez 4.2.7.2.686 [facility] [phone] [address] 2020-11-28 2020-11-28 Outpatient R LÁZARO, [facility] [id number] Univers 00:00:00 00:00:00 SANDRINE crespo [facility] 2020-10-21 2020-10-21 Outpatient R UNKNOWN, [facility] [id number] Univers 09:15:00 09:15:00 ATTENDING cherie [facility] 2020-10-21 2020-10-21 Physician Obstetrician Millicent Gilbert Lab Main [facility] 1.2.8 40.114 [id number] [facility] 08:53:13 09:08:13 Visit Unknown, Desiree Diamond 350.1.13.1 0 itjo-ann [place] 4.2.7.2.686 [facility] [phone] Tn dical nal 353 [address] Building 2020-10-21 2020-10-21 Orders Doctor DESI 1.2.840.114 [id number] Univers 00:00:00 00:00:00 Only Unassigned, BERNA 350.1.13.10 ity of [place] [facility] 4.2.7.2.686 [place] as [phone] [facility] 009 Branch Results Test Description Test Time Test Comments Results Result Sour e Comments TISSUE EXAM 2023-05-31 Surgical Pathology Report 15:17:28 Case: [id number] Authorizing Provider: Jamal Orellana MD Collected: 05/26/2023 11:20 AM Ordering Location: [facility] Received: 05/26/2023 02:46 PM SERVICES Pathologist: Zoltan Sol MD Specimen: Brain, left parietal brain metastasis Brain, left parietal tumor, excision: - 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 Correlation with clinical and imaging findings is necessary to determine the primary site. Dr. Haydee Dunn reviewed the case and agrees.Block A2 has adequate tumor cellularity for additional ancillary studies.67340, 68705, [id number] patient is a 78-year-old man with a history of lung adenocarcinoma (slides not reviewed) who presented with a hemorrhagic lesion in the left parietal area.A. BrainReceived in formalin labeled with the patient's name, accession number and "left parietal brain metastasis" is a 2.5 x 2.0 x 0.6 cm portion of hicks-pink soft tissue, which is entirely submitted in A1-A3.ESMER Ghotra, HT (ASCP)PerformedBlock A1- CK7: Positive in tumor- CK20: Negative in tumorBlock A2- TTF1: Patchy positive in tumor- NapsinA: Negative in tumor- CDX2: Patchy positive in tumor- Synaptophysin: Rare positive cells in tumor- Chromogranin: Negative in tumorThe interpretation of this case included the use of immunohistochemistry or special stains.Control Slides Examined: In-house known positive controls were evaluated along with the test tissue. These control slides run alongside of the patients sample show appropriate staining. Internal positive and negative controls when available are evaluated Immunohistochemistry technical testing was performed at [facility], Pathology Laboratory where it was developed and its performance characteristics were determined. It has not been cleared or approved by the U.S. Food and Drug Administration. The FDA has determined that such clearance or approval is not necessary. The test is used for clinical purposes. It should not be regarded as investigational or for research. This laboratory is certified under the Clinical Laboratory Improvement Amendments of 1988 (CLIA-88) as qualified to perform high complexity clinical laboratory testing.[facility], Department of Pathology, [address] [place] [address] 20332, [facility], [address] [place] [address] 04392, [facility], [facility] of [facility], [address] [place] [address] 51771, POC-Glucose meter 2023-05-30 12:12:55 Test Item Value Reference Range Interpretation Comme nts POC-Glucose Meter (test code = 126 mg/dL 70-110 H : TESTED AT [facility] 67[address] [facility] 1538) [facility], 770 30: Silver Plater/Techni ranulfo ID = [id number] for UmMyrna hornu Lab Interpretation (test code = Abnormal 07808-6) [facility] [id number] 12:12:55 Test Item Value Reference Range Interpretation Comments POC-GLUCOSE METER 126 mg/dL 70-110 H : TESTED A T [facility] 6720 (BEAKER) (test code = BERTNE R [facility], 1538) 71327: Silver Plater/Techni ranulfo ID = [id number] for eh, Hipolitoumbu (CELLAVISION MANUAL DIFF)2023-05-30 06:40:31 Test Item Value [...] CONCENTRATION Adequate (CELLAVISION)(BEAKER) (test code = 3438) Silver Plater ID - Cecy OverholtUser comments: Slide comments:CBC W/PLT COUNT & AUTO [id number] 06:40:30 Test Item Value Reference Range Interpretation [...] WBC 0-0 (BEAKER) (test code = 413) [id number] 06:32:57 Test Item Value Reference Range Interpretation Comments PHOSPHORUS (BEAKER) 2.5 mg/dL 2.3-4.7 Specimen slightly (test code = 604) hemolyzed Silver Plater ID - emBASIC METABOLIC [id number] 06:32:57 Test Item Value Reference Range Interpretation [...] not appl icable for dialysis patien ts Silver Plater ID - [id number] 06:32:56 Test Item Value Reference Range Interpretation Comments MAGNESIUM (BEAKER) 1.8 mg/dL 1.6-2.6 Specimen slightly (test code = 627) hemolyzed Silver Plater ID - emPOCT-GLUCOSE [id number] 21:47:39 Test Item Value Reference Range Interpretation Comments POC-GLUCOSE METER 119 mg/dL 70-110 H : TESTED A T [facility] 6720 (BEAKER) (test code = [facility], [facility]) 50565: Silver Plater/Techni ranulfo ID = [id number] for KIRK HNSON, CIPRIANOA POCT-GLUCOSE [id number] 18:13:39 Test Item Value Reference Range Interpretation Comments POC-GLUCOSE METER 97 mg/dL 70-110 : TESTED A T [facility] 6720 (BEAKER) (test code = [facility], 153) 30900: Silver Plater/Techni ranulfo ID = [id number] for Ramirez , Cathleen (Amira) POCT-GLUCOSE [id number] 17:29:46 Test Item Value Reference Range Interpretation Comments POC-GLUCOSE METER 126 mg/dL 70-110 H : TESTED A T [facility] 6720 (BEAKER) (test code = [facility], 153) 58723: Silver Plater/Techni ranulfo ID = [id number] for Ph am, Cathleen (Amira) POCT-GLUCOSE [id number] 08:51:08 Test Item Value Reference Range Interpretation Comments POC-GLUCOSE METER 118 mg/dL 70-110 H : TESTED A T [facility] 6720 (BEAKER) (test code = [facility], 1538) 15241: Silver Plater/Techni ranulfo ID = [id number] for Ph am, Cathleen (Amira) [id number] 04:44:37 Test Item Value Reference Range Interpretation Comments PHOSPHORUS (BEAKER) (test code = 2.9 mg/dL 2.3-4.7 604) Silver Plater ID - ADMINBASIC METABOLIC [id number] 04:44:36 Test Item Value Reference Range Interpretation [...] not appl icable for dialysis patien ts Silver Plater ID - [id number] 04:44:36 Test Item Value Reference Range Interpretation Comments MAGNESIUM (BEAKER) (test code = 1.9 mg/dL 1.6-2.6 627) Silver Plater ID - ADMIN(CELLAVISION MANUAL DIFF)2023-05-29 04:27:23 Test [...] CONCENTRATION Adequate (CELLAVISION)(BEAKER) (test code = 3438) Silver Plater ID - Sid Sheehan comments: Slide comments:CBC W/PLT COUNT & AUTO [id number] 04:27:22 Test Item Value Reference Range Interpretation [...] 0-0 (BEAKER) (test code = 413) POCT-GLUCOSE [id number] 22:45:37 Test Item Value Reference Range Interpretation Comments POC-GLUCOSE METER 125 mg/dL 70-110 H : TESTED A T [facility] 6720 (BEAKER) (test code = CIPRIANO Scherer [facility], 1538) 17325: Silver Plater/Techni ranulfo ID = [id number] for TAMIKO PAEZ POCT-GLUCOSE [id number] 17:53:50 Test Item Value Reference Range Interpretation Comments POC-GLUCOSE METER 128 mg/dL 70-110 H : TESTED A T [facility] 6720 (BEAKER) (test code = CIPRIANO Niesha [facility], 153) [address]75: Silver Plater/Techni ranulfo ID = [id number] for FABIANO MANRIQUEZ BASIC METABOLIC [id number] 13:06:48 Test Item Value Reference Range Interpretation [...] De scription 1092) sq m Result G1 Norm al or high >=90 G2 Mildly decreased 60-89 G3a Mildl y to moderately 45-5 9 G3b Moderately to s everely 30-44 G4 Severl y decreased 15-29 G5 Kidne y failure <15Reported eGF R is based on the CKD-EPI 2020 equation that d oes not use a race coefficientEsti mated GFR is not as accur ate as Creatinine Millicent raquel in predicting glom erular filtration rate . Estimated GFR is not appl icable for dialysis patien ts Silver Plater ID - ADMINPOCT-GLUCOSE [id number] 11:42:37 Test Item Value Reference Range Interpretation Comments POC-GLUCOSE METER 136 mg/dL 70-110 H : TESTED A T [facility] 6720 (BEAKER) (test code = CIPRIANO GALVAN [place], 1538) [address]882: Silver Plater/Techni ranulfo ID = [id number] for FABIANO MANRIQUEZ (CELLAVISION MANUAL DIFF)2023-05-28 07:08:51 [...] CONCENTRATION Adequate (CELLAVISION)(BEAKER) (test code = 3438) Silver Plater ID - [id number] comments: Slide comments:CBC W/PLT COUNT & AUTO [id number] 07:08:36 Test Item Value Reference Range Interpretation [...] WBC 0-0 (BEAKER) (test code = 413) [id number] 04:48:49 Test Item Value Reference Range Interpretation Comments MAGNESIUM (BEAKER) (test code = 1.7 mg/dL 1.6-2.6 627) Silver Plater ID - [id number] 04:48:49 Test Item Value Reference Range Interpretation Comments PHOSPHORUS (BEAKER) (test code = 2.4 mg/dL 2.3-4.7 604) Silver Plater ID - ADMINBASIC METABOLIC [id number] 04:48:48 Test Item Value Reference Range Interpretation [...] 358) GLUCOSE RANDOM 116 mg/dL 70-105 H (BEAKER) (test code = 652) CALCIUM (BEAKER) 10.3 mg/dL 8.4-10.2 H (test code = 697) EGFR (BEAKER) 92 [...] not appl icable for dialysis patien ts Silver Plater ID - ADMINPOCT-GLUCOSE [id number] 22:23:51 Test Item Value Reference Range Interpretation Comments POC-GLUCOSE METER 121 mg/dL 70-110 H : TESTED A T [facility] 6720 (GRIFFIN) (test code = CIPRIANO Scherer [facility], 1538) [address]: Silver Plater/Techni ranulfo ID = [id number] for ALEXANDR REED MR BRAIN WITH & WITHOUT IV [id number] 16:44:24 [facility] : 1945 Sex: MMRI [...] Signed By: Edison Sharif05/27/2023 16:46 CDTWorkstation Name: [id number] 13:49:51 Test Item Value Reference Range Interpretation Comments POC-GLUCOSE METER 109 mg/dL 70-110 : TESTED A T [facility] 6720 (BEAKER) (test code = CIPRIANO Scherer [place], 1538) [address]: Silver Plater/Techni ranulfo ID = [id number] for FABIANO MANRIQUEZ POCT-GLUCOSE [id number] 07:42:10 Test Item Value Reference Range Interpretation Comments POC-GLUCOSE METER 164 mg/dL 70-110 H : TESTED A T [facility] 6720 (BEAKER) (test [facility] = [facility], 1538) [address]: Silver Plater/Techni ranulfo ID = [id number] for ALEXANDR REED [id number] 04:32:10 Test Item Value Reference Range Interpretation Comments MAGNESIUM (BEAKER) (test code = 1.8 mg/dL 1.6-2.6 627) Silver Plater ID - [id number] 04:32:10 Test Item Value Reference Range Interpretation Comments PHOSPHORUS (BEAKER) (test code = 1.9 mg/dL 2.3-4.7 L 604) Silver Plater ID - ADMINBASIC METABOLIC [id number] 04:32:09 Test Item Value Reference Range Interpretation [...] G3b Moderately to s everely 30-44 G4 Sever ly decreased 15-29 G5 Kidney failure <15Repo rted eGFR is based on the CKD-EPI 2020 equation t hat does not use a race coefficientEsti mated GFR is not as accur ate as Creatinine Millicent raquel in predicting glom erular filtration rate . Estimated GFR is not appl icable for dialysis patien ts Silver Plater ID - ADMINCBC W/PLT COUNT & AUTO [id number] 04:14:45 Test Item Value Reference Range Interpretation [...] PERCENT (BEAKER) (test code = 2801) POCT-GLUCOSE [id number] 23:58:44 Test Item Value Reference Range Interpretation Comments POC-GLUCOSE METER 109 mg/dL 70-110 : TESTED A T [facility] 6720 (BEAKER) (test code = [facility], [facility]) [address]: Silver Plater/Techni ranulfo ID = [id number] for ALEXANDR REED POCT-GLUCOSE [id number] 16:41:01 Test Item Value Reference Range Interpretation Comments POC-GLUCOSE METER 134 mg/dL 70-110 H : TESTED A T [facility] 6720 (BEAKER) (test code = [facility], [facility]) [address]: Silver Plater/Techni ranulfo ID = [id number] for Jeremiah-Archie, Mitzi POCT-GLUCOSE [id number] 13:46:07 Test Item Value Reference Range Interpretation Comments POC-GLUCOSE METER 88 mg/dL 70-110 : TESTED A T [facility] 6720 (BEAKER) (test code = [facility], [facility]) [address]: Silver Plater/Techni ranulfo ID = [id number] for Jeremiah-Archie, Mitzi POCT-GLUCOSE [id number] 06:38:40 Test Item Value Reference Range Interpretation Comments POC-GLUCOSE METER 104 mg/dL 70-110 : TESTED A T [facility] 6720 (BEAKER) (test code = [facility], [facility]) [address]: Silver Plater/Techni ranulfo ID = [id number] for Tatiana Wilson BASIC METABOLIC [id number] 04:24:25 Test Item Value Reference Range Interpretation [...] not appl icable for dialysis patien ts Silver Plater ID - [id number] 04:24:25 Test Item Value Reference Range Interpretation Comments MAGNESIUM (BEAKER) (test code = 1.6 mg/dL 1.6-2.6 627) Silver Plater ID - [id number] 04:24:25 Test Item Value Reference Range Interpretation Comments PHOSPHORUS (BEAKER) (test code = 2.4 mg/dL 2.3-4.7 604) Silver Plater ID - MARCOCBC W/PLT COUNT & AUTO [id number] 04:22:48 Test Item Value Reference Range Interpretation [...] PERCENT (BEAKER) (test code = 2801) POCT-GLUCOSE [id number] 00:30:08 Test Item Value Reference Range Interpretation Comments POC-GLUCOSE METER 119 mg/dL 70-110 H : TESTED A T [facility] 6720 (BEAKER) (test code = CIPRIANO Scherer [facility], 1538) [address]: Silver Plater/Techni ranulfo ID = [id number] for Tatiana Wilson [id number] 15:46:50 Test Item Value Reference Range Interpretation Comments PARTIAL THROMBOPLASTIN TIME 27.4 seconds 22.5-36.0 (BEAKER) (test code = 760) PROTHROMBIN TIME/[id number] 15:46:14 Test Item Value Reference Range Interpretation Comments PROTIME (BEAKER) (test code = 15.5 seconds 11.9-14.2 H 759) INR (BEAKER) (test code = 370) 1.23 <=5.90 RECOMMENDED COUMADIN/WARFARIN INR THERAPY RANGESSTANDARD DOSE: 2.0 - 3.0 Includes: PROPHYLAXIS for venous thrombosis, systemic embolization; TREATMENT for venous thrombosis and/or pulmonary embolus.HIGH RISK: Target INR is 2.5-3.5 for patients with mechanical heart valves.POCT-GLUCOSE [id number] 13:00:10 Test Item Value Reference Range Interpretation Comments POC-GLUCOSE METER 124 mg/dL 70-110 H : TESTED A T [facility] 6720 (BEAKER) (test code = [facility] Niesha [facility], 1538) [address]: Silver Plater/Techni ranulfo ID = [id number] for CARLOS RUSHING [id number] 06:38:02 Test Item Value Reference Range Interpretation Comments MAGNESIUM (BEAKER) (test code = 1.8 mg/dL 1.6-2.6 627) Silver Plater ID - [id number] 06:38:02 Test Item Value Reference Range Interpretation Comments PHOSPHORUS (BEAKER) (test code = 2.2 mg/dL 2.3-4.7 L 604) Silver Plater ID - BSBASIC METABOLIC [id number] 06:38:01 Test Item Value Reference Range Interpretation [...] not appl icable for dialysis patien ts Silver Plater ID - BSPOCT-GLUCOSE [id number] 06:01:53 Test Item Value Reference Range Interpretation Comments POC-GLUCOSE METER 98 mg/dL 70-110 : TESTED A T [facility] 6720 (BEAKER) (test code = CIPRIANO Scherer [facility], 1538) [address]: Silver Plater/Techni ranulfo ID = [id number] for Tatiana Wright CBC W/PLT COUNT & AUTO [id number] 05:44:39 Test Item Value Reference Range Interpretation [...] PERCENT (BEAKER) (test code = 2801) POCT-GLUCOSE [id number] 00:54:18 Test Item Value Reference Range Interpretation Comments POC-GLUCOSE METER 99 mg/dL 70-110 : TESTED Darrel Mcnally [facility] 6720 (BEAKER) (test code = [place], 1538) [address]: Silver Plater/Techni ranulfo ID = [id number] for Tatiana Wright POCT-GLUCOSE [id number] 17:25:03 Test Item Value Reference Range Interpretation Comments POC-GLUCOSE METER 83 mg/dL 70-110 : TESTED A T [facility] 6720 (GRIFFIN) (test code = [place], 1538) [address]: Silver Plater/Techni ranulfo ID = [id number] for Tony Brower MR LUMBAR SPINE WITH & WITHOUT IV [id number] 12:52:58 [facility] : 1945 Sex: MMR CERVICAL SPINE WITH & WITHOUT IV CONTRAST, MR THORACIC SPINE WITH& WITHOUT IV CONTRAST, MR LUMBAR SPINE WITH & WITHOUT IV CONTRASTINDICATION: Cancer of unknown primary, stagingevaluate for metastatic diseaseTECHNIQUE: Multiplanar, multisequence MR imaging of the cervical,thoracic and lumbar spine was performed with and without intravenouscontrast.COMPARISON: None.FINDINGS: CERVICAL SPINE:Alignment of the cervical spine is within normal limits. Vertebral body height is maintained.Fusion across the and C5-C6 disc spaces.Mild multilevel disc space height loss.Marrow is heterogeneous but no enhancing metastases are demonstrated.Cervical cord is normal in signal intensityNo acute findings within the paraspinal soft tissues.Findings by level:C2/C3: No significant spinal canal or foraminal stenosis.C3/C4: Broad-based posterior disc herniation, which flattens the ventralcervical cord. Ligamentum flavum thickening. Severe spinal canalstenosis. Bilateral uncovertebral facet arthropathy with severebilateral foraminal stenosis.C4/C5: Broad-based posterior disc herniation, which flattens the ventralcervical cord. Ligamentum flavum thickening. Moderate spinal canalstenosis. Bilateral uncovertebral facet arthropathy with severebilateral foraminal stenosis.C5/C6: No significant spinal canal stenosis. Nosignificant foraminalstenosis.C6/C7: Broad-based posterior disc herniation, which effaces the ventralthecal sac and flattens the ventral cervical cord with moderate spinalcanal stenosis. Bilateral uncovertebral and facet arthrosis with severebilateral foraminal stenosis.C7/T1: Broad-based shallow posterior disc herniation. No significantspinal canal stenosis. Bilateral uncovertebral facet arthropathywithmild bilateral foraminal stenosis.THORACIC SPINE:Alignment of the thoracic spine is within normal limits. Vertebral body height is maintained.Mild multilevel disc [...] cord is normal in signal intensityNo acute findingswithin the paraspinal soft tissues.LUMBAR SPINE:5 nonrib-bearing lumbar-type [...] spinalcanal stenosis. L4/L5: Mild diffuse disc bulge. Moderate bilateral facet arthrosis.Mild versus moderate bilateral foraminal stenosis. No significant spinalcanal stenosis. L5/S1: No significant canal or foraminal narrowing. IMPRESSION:1. Mild degenerative changes of the cervical spine detailed above. Noenhancing metastases throughout the cervical levels.2. T 1 hypointense, T2 hyperintense subcentimeter foci at T2 [...] Noenhancing metastases throughout the cervical levels.Electronically Signed By:Kinjal Ontiveros05/24/2023 12:55 CDTWorkstation Name: [id number] THORACIC SPINE WITH & WITHOUT IV CONTRAST 2023-05-24 12:52:58 [facility] : 1945 Sex: MMR CERVICALSPINE [...] Signed By: Kinjal Ontiveros05/24/2023 12:55 CDTWorkstation Name: [id number] CERVICAL SPINE WITH & WITHOUT IV [id number] 12:52:58 [facility] : 1945 Sex: MMR CERVICALSPINE [...] Signed By: Kinjal Ontiveros05/24/2023 12:55 CDTWorkstation Name: [id number] METER 2023-05-24 11:56:31 Test Item Value Reference Range Interpretation Comments POC-GLUCOSE METER 112 mg/dL 70-110 H : [facility] [place] [facility] ([place]ER[place] (test code = [place], 1538) [address]: Silver Plater/Techni ranulfo ID = [id number] for Tony Brower [id number] 03:29:45 Test Item Value Reference Range Interpretation Comments MAGNESIUM (BEAKER) (test code = 1.8 mg/dL 1.6-2.6 627) Silver Plater ID - [id number] 03:29:45 Test Item Value Reference Range Interpretation Comments PHOSPHORUS (BEAKER) (test code = 2.1 mg/dL 2.3-4.7 L 604) Silver Plater ID - BSBASIC METABOLIC [id number] 03:29:44 Test Item Value Reference Range Interpretation [...] not appl icable for dialysis patien ts Silver Plater ID - BSCBC W/PLT COUNT & AUTO [id number] 03:00:34 Test Item Value Reference Range Interpretation [...] PERCENT (BEAKER) (test code = 2801) POCT-GLUCOSE [id number] 16:27:10 Test Item Value Reference Range Interpretation Comments POC-GLUCOSE METER 136 mg/dL 70-110 H : TESTED A T [facility] 6720 (BEAKER) (test code = [facility], 1538) [address]: Silver Plater/Techni ranulfo ID = [id number] for Eulalio Beatty POCT-GLUCOSE [id number] 11:41:17 Test Item Value Reference Range Interpretation Comments POC-GLUCOSE METER 110 mg/dL 70-110 : TESTED A T [facility] 6720 (BEAKER) (test code = [facility], 1538) [address]: Silver Plater/Techni ranulfo ID = [id number] for Eulalio Beatty POCT-GLUCOSE [id number] 06:47:20 Test Item Value Reference Range Interpretation Comments POC-GLUCOSE METER 129 mg/dL 70-110 H : TESTED A T [facility] 6720 (BEAKER) (test code = [facility], 1538) [address]: Silver Plater/Techni ranulfo ID = [id number] for ALEXANDR REED CTA [id number] 06:32:39 [facility] : 1945 Sex: MCLINICAL HISTORY: [...] By: Jose Manuel Mata05/23/2023 06:35 CDTWorkstation Name: [id number] 06:32:39 [facility] : 1945 Sex: MCLINICAL [...] By: Jose Manuel Mata05/23/2023 06:35 CDTWorkstation Name: [id number] BRAIN WITHOUT IV [id number] 06:22:06[facility] : 1945 Sex: MCT Head [...] By: Jose Manuel Mata05/23/2023 06:24 CDTWorkstation Name: [id number] ABDOMEN/KUB 1 VIEW [id number] 04:57:08 [facility] : 1945 Sex: MCLINICAL [...] Signed By: Kody Francis05/23/2023 04:59 CDTWorkstation Name: [id number] 04:23:19 Test Item Value Reference Range Interpretation Comments PHOSPHORUS (BEAKER) (test code = 2.3 mg/dL 2.3-4.7 604) Silver Plater ID - EMBASIC METABOLIC [id number] 04:23:18 Test Item Value Reference Range Interpretation [...] De scription 1092) sq m Result G1 Esesnce l or high >=90 G2 Mildly decreased [...] not appl icable for dialysis patien ts Silver Plater ID - [id number] 04:23:18 Test Item Value Reference Range Interpretation Comments MAGNESIUM (BEAKER) (test code = 1.9 mg/dL 1.6-2.6 627) Silver Plater ID - EMCBC W/PLT COUNT & AUTO [id number] 04:01:52 Test Item Value Reference Range Interpretation [...] PERCENT (BEAKER) (test code = 2801) POCT-GLUCOSE [id number] 00:52:01 Test Item Value Reference Range Interpretation Comments POC-GLUCOSE METER 148 mg/dL 70-110 H : TESTED A T [facility] 6720 (GRIFFIN) (test code = CIPRIANO Scherer [place], 1538) [address]: Silver Plater/Techni ranulfo ID = [id number] for YOBANI BOYLE XR ABDOMEN/KUB 1 VIEW [id number] 21:54:06 [facility] : 1945 Sex: MEXAM: XR [...] Signed By: Justina Wells05/22/2023 21:56 CDTWorkstation Name: [id number] 18:46:44 Test Item Value Reference Range Interpretation Comments POC-GLUCOSE METER 138 mg/dL 70-110 H : TESTED A T [facility] 6720 (GRIFFIN) (test code = CIPRIANO Scherer [facility], 1538) 15[address]: Silver Plater/Techni ranulfo ID = [id number] for Sadia Gutierrez MR BRAIN WITH & WITHOUT IV [id number] 15:59:08 [facility] : 1945 Sex: MMR BRAIN [...] Signed By: Kinjal Ontiveros05/22/2023 16:01 CDTWorkstation Name: [id number] 15:34:57 Test Item Value Reference Range Interpretation Comments RPR SCREEN (BEAKER) (test code = Nonreactive Nonreactive 420) [id number] 15:00:23 Test Item Value Reference Range Interpretation Comments PROLACTIN (BEAKER) (test code = 14.55 ng/mL 3.46-19.40 758) Silver Plater ID - BSHIV-1 ANTIGEN WITH HIV-1/2 [id number] 15:00:23 Test Item Value Reference Range Interpretation Comments HIV-1 ANTIGEN WITH HIV 1\\T\\2 Nonreactive Nonreactive ANTIBODY (2) (GRIFFIN) (test code = 2586) Silver Plater ID - BSCT ABDOMEN/PELVIS WITH IV [id number] 14:50:05 [facility] : 1945 Sex: MTECHNIQUE: CT [...] Signed By: Varinder Bell05/22/2023 14:52 CDTWorkstation Name: [id number] CHEST WITH IV [id number] 14:50:05 [facility] : 1945 Sex: MTECHNIQUE: CT [...] Signed By: Varinder Bell05/22/2023 14:52 CDTWorkstation Name: [id number] BRAIN WITHOUT IV [id number] 14:35:46 [facility] : 1945 Sex: MCT BRAIN [...] Signed By: Edison Sharif05/22/2023 14:37 CDTWorkstation Name: [id number] 12:52:45 Test Item Value Reference Range Interpretation Comments POC-GLUCOSE METER 112 mg/dL 70-110 H : TESTED A T [facility] 6720 (BEAKER) (test code = [place], 1538) [address]: Silver Plater/Techni ranulfo ID = [id number] for Sadia Gutierrez VITAMIN [id number] 11:45:23 Test Item Value Reference Range Interpretation Comments VITAMIN B12 (BEAKER) (test code = 261 pg/mL 213-816 774) Silver Plater ID - bcLactic Acid, Inhwwocg0748-35-40 11:09:29 Test Item Value Reference Range Interpretation Comments Lactate, Art (test 0.7 mmol/L 0.5-2.0 Specimen code = 2874) slightly hemolyzed ZOË (test code = ZOË) Silver Plater ID - bc Lab Interpretation Normal (test code = 80971-2) [facility] [id number] 11:09:29 Test Item Value Reference Range Interpretation Comments LACTATE BLOOD 0.7 mmol/L 0.5-2.0 Specimen sligh tly ARTERIAL (2) (BEAKER) hemoly zed (test code = 2874) Silver Plater ID - [id number] 10:44:05 Test Item Value Reference Range Interpretation Comments PROCALCITONIN (BEAKER) (test code = < ng/mL <0.05 3036) SEPSIS RISK (ng/mL)Low: 0.05-0.50Intermediate: 0.51-2.00High: >=2.01HIGH SENSITIVITY TROPONIN [id number] 10:29:20 Test Item Value Reference Range Interpretation Comments HIGH SENSITIVITY TROPONIN I (test 31 pg/ml <=35 code = 0285103) Silver Plater ID - bcThe SAFETY INTERN STAT High Sensitivity Troponin-I results should be used in conjunctionwith other diagnostic information such as ECG, clinical observations and information, and patient symptoms to aid in the diagnosis of AR.PHENYTOIN LEVEL, [id number] 10:27:58 Test Item Value Reference Range Interpretation Comments PHENYTOIN (DILANTIN) (BEAKER) 12.9 ug/mL 10.0-20.0 (test code = 605) Silver Plater ID - bcCREATINE KINASE (CK)2023-05-22 10:23:22 Test Item Value Reference Range Interpretation Comments CREATINE KINASE TOTAL (BEAKER) (test 164 U/L 29-200 code = 380) Silver Plater ID - bcCOMPREHENSIVE METABOLIC [id number] 10:23:21 Test Item Value Reference Range Interpretation [...] 30-44 G4 Severl y decreased 15-29 G5 Kidne y failure <15Reported eGF R is based on the CKD-EPI 2020 equation that d oes not use a race coefficientEsti mated GFR is not as accur ate as Creatinine Millicent raquel in predicting glom erular filtration rate . Estimated GFR is not appl icable for dialysis patien ts Silver Plater ID - ovRLIDGUCZE3620-65-30 10:23:21 Test Item Value Reference Range Interpretation Comments MAGNESIUM (BEAKER) (test code = 1.5 mg/dL 1.6-2.6 L 627) Silver Plater ID - [id number] 10:23:21 Test Item Value Reference Range Interpretation Comments PHOSPHORUS (BEAKER) (test code = 2.6 mg/dL 2.3-4.7 604) Silver Plater ID - [id number] 10:20:37 Test Item Value Reference Range Interpretation Comments PARTIAL THROMBOPLASTIN TIME 30.1 seconds 22.5-36.0 (BEAKER) (test code = 760) PROTHROMBIN [id number] 10:19:56 Test Item Value Reference Range Interpretation Comments PROTIME (BEAKER) (test code = 15.8 seconds 11.9-14.2 H 759) INR (BEAKER) (test code = 370) 1.27 <=5.90 RECOMMENDED COUMADIN/WARFARIN INR THERAPY RANGESSTANDARD DOSE: 2.0 - 3.0 Includes: PROPHYLAXIS for venous thrombosis, systemic embolization; TREATMENT for venous thrombosis and/or pulmonary embolus.HIGH RISK: Target INR is 2.5-3.5 for patients with mechanical heart valves.LACTIC ACID, [id number] 10:18:17 Test Item Value Reference Range Interpretation Comments LACTATE BLOOD VENOUS (2) (BEAKER) 0.63 mmol/L 0.50-2.00 (test code = 2872) Silver Plater ID - bcPOCT-GLUCOSE [id number] 09:58:42 Test Item Value Reference Range Interpretation Comments POC-GLUCOSE METER 119 mg/dL 70-110 H : TESTED A T [facility] 6720 (BEAKER) (test code = [place], 1538) [address]: Silver Plater/Techni ranulfo ID = [id number] for JOSE PICHARDO XR CHEST 1 VIEW PORTABLE / [id number] 09:56:36 [facility] : 1945 Sex: MCLINICAL HISTORY: ET tube placement TECHNIQUE: 1 view of the chest.COMPARISON: NoneIMPRESSION:ETT at the clavicles and right central line at the cavoatrial junction.There is left perihilar airspace opacity. There are no significanteffusions or cardiomegaly.Electronically Signed By: Jose Manuel Mata05/22/2023 09:58 CDT Workstation Name: [id number] W/PLT COUNT & AUTO [id number] 09:53:50 Test Item Value Reference Range Interpretation [...] 0.00-1.00 PERCENT (BEAKER) (test code = 2801) Blood gas, [id number] 09:52:23 Test Item Value Reference Range Interpretation Comments pH, Arterial (test code 7.36 7.35-7.45 = 2744-1) pCO2, Arterial (test 40 See_Comment [Autom ated code = 2019-) message] The system which generated this result transmitted reference range : 35 - 45 mm Hg. The reference range was not used to interpret this result as normal/abnormal . pO2, Arterial (test 186 See_Comment H [Automa joseph code = 2703-7) message] The system which generated this result transmitted reference range : 80 - 90 mm Hg. The reference range was not used to interpret this result as normal/abnormal . O2 Sat, Arterial (test 99.2 % 96.0-97.0 H code = 2708-6) HCO3, Arterial (test 22 mmol/L 21-29 code = 1960-4) Base Excess, Arterial -2.8 mmol/L -2.0-3.0 L (test code = 1925-7) Patient Temperature 36.8 (test code = 8310-5) FIO2 (test code = 1819) 30.0 Lab Interpretation Abnormal (test code = 03276-6) [facility] [id number] 09:52:23 Test Item Value Reference Range Interpretation [...] (test code = 1819) 30.0 CBC WITH [id number] 16:30:41 Test Item Value Reference Range Interpretation Comments WBC (test code = See_Comment LL [Automated 7490-2) message] The sy stem which generated this result transmitted reference range : 4.20 - 10.70 10*3/?L. The reference range was not used to interpret this result as normal/abnormal . RBC (test code = See_Comment L [Automated 219-8) message] The sy stem which generated this [...] (test code = 71.0 fL 38.5-51.6 H 08120-7) RDW-CV (test code = 21.2 % 12.1-15.4 H 788-0) PLT (test code = See_Comment L [Automated 777-3) message] The sy stem which generated this result transmitted reference range : 150 - 328 10*3/ ?L. The reference r costa was not used to interpret this result as normal/abnormal . MPV (test code = 9.0 fL 9.8-13.0 L 80255-6) NRBC/100 WBC (test See_Comment [Automat ed code = 8684115373) message] The system which generated this result transmitted reference range : 0.0 - 10.0 /100 WBCs. The refer ence range was not u sed to interpret th is result as normal/abnormal . NRBC x10^3 (test code <0.01 See_Comment [Auto mated = 7559424594) message] The s ystem which generated this result transmitted reference range : 10*3/?L. The reference range was not used to interpret this result as normal/abnormal . GRAN MAT (NEUT) % 55.3 % (test code = 770-8) IMM GRAN % (test code 0.00 % = 8082258467) LYMPH % (test code = 17.1 % 736-9) MONO % (test code = 27.1 % 5905-5) EOS % (test code = 0.5 % 713-8) BASO % (test code = 0.0 % 706-2) GRAN MAT x10^3(ANC) 1.10 10*3/uL 1.99-6.95 L (test code = 7884517797) IMM GRAN x10^3 (test <0.03 0.00-0.06 code = 6653418385) LYMPH x10^3 (test code 0.34 10*3/uL 1.09-3.23 L = 731-0) MONO x10^3 (test code 0.54 10*3/uL 0.36-1.02 = 742-7) EOS x10^3 (test code = <0.03 0.06-0.53 L 711-2) BASO x10^3 (test code <0.03 0.01-0.09 = 704-7) Lab Interpretation Abnormal (test code = 88221-5) [facility][id number][facility] 16:25:27 Test Item Value Reference Range Interpretation Comments NA (test code = 143 mmol/L 135-145 [id number]) K (test code = 3.3 mmol/L 3.5-5.0 L [id number]) CL (test code = 110 mmol/L 98-108 H [id number]) CO2 TOTAL (test code = 26 mmol/L 23-31 2269627876) AGAP (test code = 2-16 [id number]) BUN (test code = 10 mg/dL 7-23 6669268540) GLUCOSE (test code = 111 mg/dL 70-110 H [id number]) CREATININE (test code = 0.86 mg/dL 0.60-1.25 9383649062) TOTAL BILI (test code = 0.6 mg/dL 0.1-1.3 5031673169) CALCIUM (test code = 9.2 mg/dL 8.6-10.6 7091963030) T PROTEIN (test code = 7.6 g/dL 6.3-8.2 3631960640) ALBUMIN (test code = 3.6 g/dL 3.5-5.0 4735326008) ALK PHOS (test code = 98 U/L 34-122 0581501229) ALTv (test code = 15 U/L 5-50 1742-6) AST(SGOT) (test code = 36 U/L 13-40 2342651459) eGFR (test code = mL/min/1.73m2 9329931111) ZOË (test code = ZOË) Association of [...] tests). Lab Interpretation Abnormal (test code = 81295-2) [facility] 16[facility]24:51 Test Item Value Reference Range Interpretation Comments LIPASE (test code = 8303073689) 53 U/L 0-220 Lab Interpretation (test code = Normal 65248-9) [facility] WITH [id number] 20:45:09 Test Item Value Reference Range Interpretation [...] (test code = 63.5 fL 38.5-51.6 H 16867-0) RDW-CV (test code = 19.6 % 12.1-15.4 H 788-0) PLT (test code = See_Comment L [Automated 777-3) message] The sy stem which generated this result transmitted reference range : 150 - 328 10*3/ ?L. The reference r costa was not used to interpret this result as normal/abnormal . MPV (test code = 10.3 fL 9.8-13.0 54567-8) IPF % (test code = 2.0 % 1.2-10.7 Platelet count 7158746386) measured by fluorescence method. NRBC/100 WBC (test See_Comment [Automat ed code = 7696309181) message] The system which generated this result transmitted reference range : 0.0 - 10.0 /100 WBCs. The refer ence range was not u sed to interpret th is result as normal/abnormal . NRBC x10^3 (test code <0.01 See_Comment [Auto mated = 1232310971) message] The s ystem which generated this result transmitted reference range : 10*3/?L. The reference range was not used to interpret this result as normal/abnormal . GRAN MAT (NEUT) % 33.0 % (test code = 770-8) IMM GRAN % (test code 0.40 % = 8805729276) LYMPH % (test code = 36.4 % 736-9) MONO % (test code = 29.8 % 5905-5) EOS % (test code = 0.0 % 713-8) BASO % (test code = 0.4 % 706-2) GRAN MAT x10^3(ANC) 0.74 10*3/uL 1.99-6.95 L (test code = 8839617211) IMM GRAN x10^3 (test <0.03 0.00-0.06 code = 9267650572) LYMPH x10^3 (test code 0.82 10*3/uL 1.09-3.23 L = 731-0) MONO x10^3 (test code 0.67 10*3/uL 0.36-1.02 = 742-7) EOS x10^3 (test code = <0.03 0.06-0.53 L 711-2) BASO x10^3 (test code <0.03 0.01-0.09 = 704-7) ELLIPTO/OVAL (test 2+ See_Comment A [Automat ed code = 43293-2) message] The system which generated this result transmitted reference range : (none). The reference range was not used to interpret this result as normal/abnormal . PLT ESTIMATE (test Decreased Normal A code = 9317-9) Lab Interpretation Abnormal (test code = 69548-8) [facility] [id number] 20:30:22 Test Item Value Reference Interpretation Comments Range TROPONIN I (test 0.010 ng/mL See_Comment [Automated code = 3189521359) message] The system which generated this result [...] biotin. Lab Interpretation Normal (test code = 95669-0) [facility]2022[facility]14 20:19:38 Test Item Value Reference Range Interpretation Comments MAGNESIUM (test code = 6868874525) 1.6 mg/dL 1.7-2.4 L Lab Interpretation (test code = Abnormal 35952-1) [facility] METABOLIC PANEL (51322)2021-09-20 20:19:18 Test Item Value Reference Range Interpretation Comments NA (test code = 140 mmol/L 135-145 8329704088) K (test code = 4.4 mmol/L 3.5-5.0 3194506821) CL (test code = 108 mmol/L 98-108 9062905852) CO2 TOTAL (test code = 28 mmol/L 23-31 0804205444) AGAP (test code = 2-16 8127084479) BUN (test code = 16 mg/dL 7-23 1458664476) GLUCOSE (test code = 96 mg/dL 70-110 7138504255) CREATININE (test code = 0.76 mg/dL 0.60-1.25 7681392913) TOTAL BILI (test code = 0.5 mg/dL 0.1-1.5 8291801057) CALCIUM (test code = 10.0 mg/dL 8.6-10.6 0303772077) T PROTEIN (test code = 9.0 g/dL 6.3-8.2 H 3599121177) ALBUMIN (test code = 4.3 g/dL 3.5-5.0 2746202187) ALK PHOS (test code = 107 U/L 34-122 4117698976) ALTv (test code = 16 U/L 5-50 2-6) AST(SGOT) (test code = 24 U/L 13-40 4040879883) eGFR (test code = mL/min/1.73m2 6277291608) ZOË (test code = ZOË) Association of [...] tests). Lab Interpretation Abnormal (test code = 70030-7) [facility] CampusAALIYAHN [id number] 20:57:32 Test Item Value Reference Interpretation Comments Range TROPONIN I (test 0.011 ng/mL See_Comment [Automated code = 1962499649) message] The system which generated this result [...] biotin. Lab Interpretation Normal (test code = 88857-1) [facility]. METABOLIC PANEL ([id number])2021-08-06 20:46:53 Test Item Value Reference Range Interpretation Comments NA (test code = 135 mmol/L 135-145 4730646972) K (test code = 3.5 mmol/L 3.5-5.0 9606604606) CL (test code = 103 mmol/L 98-108 1263180019) CO2 TOTAL (test code = 25 mmol/L 23-31 4643343906) AGAP (test code = 2-16 0749551987) BUN (test code = 13 mg/dL 7-23 4957386923) GLUCOSE (test code = 117 mg/dL 70-110 H 2324026894) CREATININE (test code = 0.89 mg/dL 0.60-1.25 6372529968) TOTAL BILI (test code = 0.4 mg/dL 0.1-1.4 8240660894) CALCIUM (test code = 9.5 mg/dL 8.6-10.6 6582738736) T PROTEIN (test code = 8.4 g/dL 6.3-8.2 H 0429494675) ALBUMIN (test code = 3.8 g/dL 3.5-5.0 0595310649) ALK PHOS (test code = 128 U/L 34-122 H 8349896905) ALTv (test code = 17 U/L 5-50 1742-6) AST(SGOT) (test code = 21 U/L 13-40 9729017168) eGFR (test code = mL/min/1.73m2 3622105928) ZOË (test code = ZOË) Association of [...] tests). Lab Interpretation Abnormal (test code = 87746-9) [facility] CampusMonica [id number] 20:10:47 Test Item Value Reference Interpretation Comments Range TROPONIN I (test 0.011 ng/mL See_Comment [Automated code = 6148417284) message] The system which generated this result [...] biotin. Lab Interpretation Normal (test code = 09835-8) [facility] CampusThyroid Stimulating Hormone (TSH)2021-08-05 17:22:42 Test Item Value Reference Range Interpretation Comments TSH (test code = See_Comment [Automated message] 5168247401) The system [employer] generated this result transmitted ref erence range: 0.45 - 4 .70 mIU/L. The refe rence range was not u sed to interpret this result as normal/abnor mal. Lab Interpretation (test Normal code = 12519-2) [facility] CampusGlycosylated Hemoglobin (A1C)2021-08-05 16:47:01 Test Item Value Reference Range Interpretation Comments HGB A1C (test code = 6.4 % 4.0-5.7 H 4548-4) ZOË (test code = ZOË) Reference RangesNormal: <5.7%Prediabetes: 5.7 - 6.4%Diabetes: > 6.5% Lab Interpretation (test Abnormal code = 88895-3) [facility] CampusLipid Panel (Total Cholesterol, Triglycerides, HDL)2021-08-05 16:46:16 Test Item Value Reference Range Interpretation Comments CHOL (test code = 156 mg/dL 120-200 5069736313) HDL (test code = 51 mg/dL >40 7877196708) HDLC RATIO (test code = See_Comment [Au tomated message] 1121075433) The system whic h generated this result transmit joseph reference range : <=5.0. The refe rence range was not u sed to interpret th is result as normal/abnormal . TRIG (test code = 84 mg/dL 30-170 6634406860) LDL CHOL (test code = 88 mg/dL See_Comment [Auto mated message] 95829-7) The system [employer] generated this result transmit joseph reference range : <=160. The refe rence range was not u sed to interpret th is result as normal/abnormal . VLDL (test code = 17 mg/dL 5-60 7272111593) Lab Interpretation (test Normal code = 94307-3) [facility] WITH [id number] 12:37:41 Test Item Value Reference Range Interpretation [...] RDW-SD (test code = 44.4 fL 38.5-51.6 19296-2) RDW-CV (test code = 14.6 % 12.1-15.4 788-0) PLT (test code = See_Comment L [Automated 777-3) message] The sy stem which generated this result transmitted reference range : 150 - 328 10*3/ ?L. The reference r costa was not used to interpret this result as normal/abnormal . MPV (test code = 9.1 fL 9.8-13.0 L 49995-5) IPF % (test code = 1.3 % 1.2-10.7 Platelet count 2384572345) measured by fluorescence method. NRBC/100 WBC (test See_Comment [Automat ed code = 4420002877) message] The system which generated this result transmitted reference range : 0.0 - 10.0 /100 WBCs. The refer ence range was not u sed to interpret th is result as normal/abnormal . NRBC x10^3 (test code <0.01 See_Comment [Auto mated = 4597499516) message] The s ystem which generated this result transmitted reference range : 10*3/?L. The reference range was not used to interpret this result as normal/abnormal . GRAN MAT (NEUT) % 20.9 % (test code = 770-8) IMM GRAN % (test code 0.80 % = 3290033631) LYMPH % (test code = 45.0 % 736-9) MONO % (test code = 32.5 % 5905-5) EOS % (test code = 0.8 % 713-8) BASO % (test code = 0.0 % 706-2) GRAN MAT x10^3(ANC) 0.25 10*3/uL 1.99-6.95 L (test code = 8627558194) IMM GRAN x10^3 (test <0.03 0.00-0.06 code = 0177803154) LYMPH x10^3 (test code 0.54 10*3/uL 1.09-3.23 L = 731-0) MONO x10^3 (test code 0.39 10*3/uL 0.36-1.02 = 742-7) EOS x10^3 (test code = <0.03 0.06-0.53 L 711-2) BASO x10^3 (test code <0.03 0.01-0.09 = 704-7) REACT LYMPHS (test Rare code = 3662657506) Lab Interpretation Abnormal (test code = 33830-4) [facility] CampusMONICA [id number] 12:04:45 Test Item Value Reference Interpretation Comments Range TROPONIN I (test 0.034 ng/mL See_Comment [Automated code = 0369309573) message] The system which generated this result [...] biotin. Lab Interpretation Normal (test code = 88539-0) [facility] CampusN-TERMINAL [id number] 12:01:43 Test Item Value Reference Range Interpretation Comments NT-proBNP (test code 64 pg/mL See_Comment [Autom ated = 5927629176) message] The system which generated this result transmitted reference range : <=450. The reference range was not used to interpret this result as normal/abnormal . ZOË (test code = ZOË) Biotin has been reported to cause a negative bias, interpret results relative to patient's use of biotin. Lab Interpretation Normal (test code = 40803-3) [facility] CampusCOMP. METABOLIC PANEL (21957)2021-08-05 11:52:39 Test Item Value Reference Range Interpretation Comments NA (test code = 136 mmol/L 135-145 4821287044) K (test code = 3.8 mmol/L 3.5-5.0 3773552875) CL (test code = 104 mmol/L 98-108 2383938621) CO2 TOTAL (test code = 28 mmol/L 23-31 2264127177) AGAP (test code = 2-16 0297296113) BUN (test code = 10 mg/dL 7-23 2435696820) GLUCOSE (test code = 111 mg/dL 70-110 H 8177175340) CREATININE (test code = 0.73 mg/dL 0.60-1.25 7890541089) TOTAL BILI (test code = 0.5 mg/dL 0.1-1.5 0546906300) CALCIUM (test code = 8.9 mg/dL 8.6-10.6 6975215422) T PROTEIN (test code = 7.8 g/dL 6.3-8.2 7595863723) ALBUMIN (test code = 3.4 g/dL 3.5-5.0 L 6727611926) ALK PHOS (test code = 119 U/L 34-122 9231518199) ALTv (test code = 16 U/L 5-50 1742-6) AST(SGOT) (test code = 21 U/L 13-40 7258039775) eGFR (test code = mL/min/1.73m2 8361494466) ZOË (test code = ZOË) Association of [...] tests). Lab Interpretation Abnormal (test code = 06783-8) [facility]2021-[facility]-30 11:52:24 Test Item Value Reference Range Interpretation Comments LIPASE (test code = 8038135269) 42 U/L 0-220 Lab Interpretation (test code = Normal 93457-7) [facility] CampusACTIVATED PARTIAL THRMPLAS [id number] 11:51:04 Test Item Value Reference Range Interpretation Comments APTT Patient (test See_Comment [Automat ed code = 3173-2) message] The system which generated this result transmitted reference range : 23 - 38 Seconds . The reference range was not used to interpr et this result as normal/abnormal . ZOË (test code = ZOË) The [facility] patient population mean normal value for aPTT is 30 seconds. Lab Interpretation Normal (test code = 21248-8) [facility] CampusPROTHROMBIN TIME / [id number] 11:49:03 Test Item Value Reference Range Interpretation [...] tions. Lab Interpretation (test Normal code = 98962-5) [facility] CampusCBC WITH [id number] 19:12:08 Test Item Value Reference Range Interpretation Comments WBC (test code = See_Comment LL [Automated 9990-2) message] The sy stem which generated this result transmitted reference range : 4.20 - 10.70 10*3/?L. The reference range was not used to interpret this result as normal/abnormal . RBC (test code = See_Comment L [Automated 989-8) message] The sy stem which generated this [...] RDW-SD (test code = 45.7 fL 38.5-51.6 42528-0) RDW-CV (test code = 15.1 % 12.1-15.4 788-0) PLT (test code = See_Comment L [Automated 777-3) message] The sy stem which generated this result transmitted reference range : 150 - 328 10*3/ ?L. The reference r costa was not used to interpret this result as normal/abnormal . MPV (test code = 8.8 fL 9.8-13.0 L 81645-6) NRBC/100 WBC (test See_Comment [Automat ed code = 5644807739) message] The system which generated this result transmitted reference range : 0.0 - 10.0 /100 WBCs. The refer ence range was not u sed to interpret th is result as normal/abnormal . NRBC x10^3 (test code <0.01 See_Comment [Auto mated = 5072166797) message] The s ystem which generated this result transmitted reference range : 10*3/?L. The reference range was not used to interpret this result as normal/abnormal . SEG % (test code = 54 % 33-76 74928-3) BAND % (test code = 1 % 0-1 74671-5) LYMPH % (test code = 35 % 14-54 41630-9) ATYP LYMPH % (test 5 % See_Comment H [Automat ed code = 0676280066) message] The system which generated this result transmitted reference range : <=0. The refere nce range was not u sed to interpret th is result as normal/abnormal . MONO % (test code = 5 % 0-4 H 43321-1) ANC (test code = 0.71 10*3/uL 1.99-6.95 L 753-4) ELLIPTO/OVAL (test 2+ See_Comment A [Automat ed code = 52562-0) message] The system which generated this result transmitted reference range : (none). The reference range was not used to interpret this result as normal/abnormal . Lab Interpretation Abnormal (test code = 89860-8) [facility] CampusTROPONIN [id number] 18:33:21 Test Item Value Reference Interpretation Comments Range TROPONIN I (test 0.014 ng/mL See_Comment [Automated code = 5572043262) message] The system which generated this result [...] biotin. Lab Interpretation Normal (test code = 73091-7) [facility] CampusCOM. METABOLIC PANEL (12818)2021-07-31 18:21:39 Test Item Value Reference Range Interpretation Comments NA (test code = 135 mmol/L 135-145 4067114693) K (test code = 3.7 mmol/L 3.5-5.0 1087210524) CL (test code = 104 mmol/L 98-108 2715904252) CO2 TOTAL (test code = 29 mmol/L 23-31 2476925427) AGAP (test code = 2-16 8766111462) BUN (test code = 15 mg/dL 7-23 3741020000) GLUCOSE (test code = 103 mg/dL 70-110 7421132274) CREATININE (test code = 0.69 mg/dL 0.60-1.25 6299270655) TOTAL BILI (test code = 0.7 mg/dL 0.1-1.4 3790182371) CALCIUM (test code = 9.0 mg/dL 8.6-10.6 2316942737) T PROTEIN (test code = 7.3 g/dL 6.3-8.2 1844070358) ALBUMIN (test code = 3.3 g/dL 3.5-5.0 L 5881980281) ALK PHOS (test code = 103 U/L 34-122 7534298548) ALTv (test code = 17 U/L 5-50 1742-6) AST(SGOT) (test code = 22 U/L 13-40 5535925161) eGFR (test code = mL/min/1.73m2 9955184922) ZOË (test code = ZOË) Association of [...] tests). Lab Interpretation Abnormal (test code = 72901-9) [facility]2021-[facility] 18:21:39 Test Item Value Reference Range Interpretation Comments LIPASE (test code = 4770377049) 53 U/L 0-220 Lab Interpretation (test code = Normal 56788-3) [facility] CampusSARS-CoV-2 (COVID-19) RNA [Presence] in Respiratory specimen by KENDRA with probe [id number] 17:25:13 Test Item Value Reference Range Interpretation Comments SARS-CoV-2 (COVID-19) RNA Not detected Not-Detected [Presence] in Respiratory specimen by KENDRA with probe detection (test code = 85842-4) Whether patient is employed in a healthcare setting (test code = 18894-0) Whether the patient has symptoms related to condition of interest (test code = 65267-5) Patient was hospitalized because of this condition (test code = 58731-6) Whether the patient was admitted to intensive care unit (ICU) for condition of interest (test code = 96838-1) Whether patient resides in a congregate care setting (test code = 57174-1) [facility] 16:58:49 Test Item Value Reference Range Interpretation Comments FOLATE SER (test code = 5.0 ng/mL 3.0-20.0 Biot in has been 0986223381) reported to cau se a positive bias, interpret resul ts relative to patient's use o f biotin. Lab Interpretation (test Normal code = 93436-7) [facility] WITH [id number] 14:07:55 Test Item Value Reference Range Interpretation Comments WBC (test code = See_Comment L [Automated 4890-2) message] The sy stem which generated this result transmitted reference range : 4.20 - 10.70 10*3/?L. The reference range was not used to interpret this result as normal/abnormal . RBC (test code = See_Comment L [Automated 769-8) message] The sy stem which generated this [...] (test code = 52.4 fL 38.5-51.6 H 46355-5) RDW-CV (test code = 16.2 % 12.1-15.4 H 788-0) PLT (test code = See_Comment [Automated 777-3) message] The sy stem which generated this result transmitted reference range : 150 - 328 10*3/ ?L. The reference r costa was not used to interpret this result as normal/abnormal . MPV (test code = 9.0 fL 9.8-13.0 L 28125-4) NRBC/100 WBC (test See_Comment [Automat ed code = 7871242278) message] The system which generated this result transmitted reference range : 0.0 - 10.0 /100 WBCs. The refer ence range was not u sed to interpret th is result as normal/abnormal . NRBC x10^3 (test code <0.01 See_Comment [Auto mated = 5634481510) message] The s ystem which generated this result transmitted reference range : 10*3/?L. The reference range was not used to interpret this result as normal/abnormal . GRAN MAT (NEUT) % 34.1 % (test code = 770-8) IMM GRAN % (test code 0.00 % = 2080308366) LYMPH % (test code = 54.3 % 736-9) MONO % (test code = 11.0 % 5905-5) EOS % (test code = 0.3 % 713-8) BASO % (test code = 0.3 % 706-2) GRAN MAT x10^3(ANC) 1.12 10*3/uL 1.99-6.95 L (test code = 6087035911) IMM GRAN x10^3 (test <0.03 0.00-0.06 code = 5337985105) LYMPH x10^3 (test code 1.78 10*3/uL 1.09-3.23 = 731-0) MONO x10^3 (test code 0.36 10*3/uL 0.36-1.02 = 742-7) EOS x10^3 (test code = <0.03 0.06-0.53 L 711-2) BASO x10^3 (test code <0.03 0.01-0.09 = 704-7) REACT LYMPHS (test Rare code = 3197229047) Lab Interpretation Abnormal (test code = 08604-1) [facility] CampusPROSTATIC SPECIFIC ANTIGEN [id number] 14:06:34 Test Item Value Reference Range Interpretation Comments PSA (test code = 2.62 ng/mL See_Comment [Automated 5259691652) message] The system which generated this result transmitted reference range : <=4.00. The reference range was not used to interpret this result as normal/abnormal . ZOË (test code = ZOË) Biotin has been reported to cause a negative bias, interpret results relative to patient's use of biotin. Lab Interpretation Normal (test code = 59279-3) [facility] CampusSEDIMENTATION [id number] 13:55:57 Test Item Value Reference Range Interpretation Comments ESR (test code = See_Comment H [Automated message] 4836671034) The system [employer] generated this result transmitted ref erence range: 0 - 10 m m/HR. The reference r costa was not used to interpret this result as normal/abnor mal. Lab Interpretation (test Abnormal code = 21838-0) [facility] CampusMAGNESIUM2021-08-02 13:36:52 Test Item Value Reference Range Interpretation Comments MAGNESIUM (test code = 8655223013) 1.8 mg/dL 1.7-2.4 Lab Interpretation (test code = Normal 95841-1) [facility] CampusBASI METABOLIC PANEL (NA, K, CL, CO2, GLUCOSE, BUN, CREATININE, CA)2021-03-08 13:36:32 Test Item Value Reference Range Interpretation Comments NA (test code = 139 mmol/L 135-145 2403158886) K (test code = 4.0 mmol/L 3.5-5.0 9846840987) CL (test code = 107 mmol/L 98-108 3483101381) CO2 TOTAL (test code 25 mmol/L 23-31 = 1538988861) AGAP (test code = 2-16 7829335738) BUN (test code = 19 mg/dL 7-23 7329719651) GLUCOSE (test code = 101 mg/dL 70-110 3668188105) CREATININE (test code 0.83 mg/dL 0.60-1.25 = 9056443657) CALCIUM (test code = 9.7 mg/dL 8.6-10.6 0563946309) eGFR (test code = mL/min/1.73m2 5460235689) ZOË (test code = ZOË) Association of [...] in imaging tests). [facility] CampusURIC [id number] 13:36:31 Test Item Value Reference Range Interpretation Comments URIC ACID (test code = 9632500234) 4.6 mg/dL 3.6-8.0 Lab Interpretation (test code = Normal 13314-5) [facility] CampusHEPATIC FUNCTION PANEL (15719) (ALB,T.PRO,BILI T,BU/BC,ALT,AST,ALK PHOS)2021-03-08 13:36:31 Test Item Value Reference Range Interpretation Comments TOTAL BILI (test code = 5635458352) 0.6 mg/dL 0.1-1.1 BILI UNCON (test code = 3753341270) 0.4 mg/dL 0.1-1.1 BILI CONJ (test code = 5924503805) 0.0 mg/dL 0.0-0.3 T PROTEIN (test code = 8996018793) 8.1 g/dL 6.3-8.2 ALBUMIN (test code = 9618271276) 3.6 g/dL 3.5-5.0 ALK PHOS (test code = 1773287080) 100 U/L 34-122 ALTv (test code = 1742-6) 15 U/L 5-50 AST(SGOT) (test code = 1164781884) 21 U/L 13-40 Lab Interpretation (test code = Normal 98817-6) [facility]
[2023-06-16 13:31] LABS: Specific Gravity 1.019 (1.005-1.030); Urine Bacteria None Seen /HPF (<20); Urine Bilirubin NEGATIVE (Negative); Urine Blood Negative (Negative); Urine Clarity Clear (Clear); Urine Color Light-Yellow (Yellow); Urine Glucose NEGATIVE (Negative); Urine Mucus Slight /HPF (None Seen); Urine Protein NEGATIVE (Negative); Urine RBC <5 /HPF (None Seen); Urine Urobilinogen Normal (Normal)
[2023-06-16 14:10] LABS: Absolute Lymphocytes (CBC) 0.9 K/uL (0.7-4.9); Hematocrit 43.8 % (39.6-49.0); Lymphocytes % 12.4 % (15.3-44.8); MCV 92.8 fL (80-100); MPV 6.8 fL (7.6-11.3); Platelets 240 thou/uL (152-406); RBC Red Blood Cell Count 4.72 M/uL (4.33-5.43)
[2023-06-16 15:18] LABS: Bilirubin Total 0.5 mg/dL (0.2-1.0); Protein, Total 8.1 g/dL (6.4-8.2)
--- NOTE | 2023-06-16 15:32 | EDPHYS ---
Physician Documentation [facility] Name: James Calvo Age: 78 yrs Sex: Male : 1945 Arrival Date: 06/16/2023 Time: 12:10 Bed 15 Private MD: ED Physician Claudia Rg HPI: 06/16 12:56 This 78 yrs old Black Male presents to ER via Wheelchair with complaints of Leg Problem.sp3 12:56 78-year-old male with no significant past medical history presents to the ED referred sp3 by his primary care physician who initially sent him to Dr. Francis local urologist for cyst/abscess structures in his left thigh/groin. Dr. Francis saw patient in his office and referred him to the ED for CT scan evaluation and assessment for possible abscess and/or perirectal abscess. Patient states his symptoms have been there for greater than 1 week. He denies any fever, abdominal pain, back pain, chest pain, shortness of breath, known sick contacts, travel history, trauma or any other signs or symptoms on ROS at this time.. Historical: - Allergies: 12:46 No Known Allergies; iw - Home Meds: 12:46 None [Active]; iw - PMHx: 12:46 None; iw - PSHx: 12:46 None; iw - Immunization history:: Adult Immunizations. - Social history:: Smoking status: Patient denies any tobacco usage or history of. ROS: 12:57 Constitutional: Negative for fever, chills, and weight loss, Eyes: Negative for injury, sp3 pain, redness, and discharge, ENT: Negative for injury, pain, and discharge, Neck: Negative for injury, pain, and swelling, Cardiovascular: Negative for chest pain, palpitations, and edema, Respiratory: Negative for shortness of breath, cough, wheezing, and pleuritic chest pain, Back: Negative for injury and pain, MS/Extremity: Negative for injury and deformity, Neuro: Negative for headache, weakness, numbness, tingling, and seizure, Allergy/Immunology: Negative for hives, rash, and allergies, Endocrine: Negative for neck swelling, polydipsia, polyuria, polyphagia, and marked weight changes, Hematologic/Lymphatic: Negative for swollen nodes, abnormal bleeding, and unusual bruising, 12:57 All other systems are negative, Exam: 12:57 Constitutional: This is a well developed, well nourished patient who is awake, alert, sp3 and in no acute distress. Head/Face: Normocephalic, atraumatic. Chest/axilla: Normal chest wall appearance and motion. Nontender with no deformity. No lesions are appreciated. Cardiovascular: Regular rate and rhythm with a normal S1 and S2. No gallops, murmurs, or rubs. Normal PMI, no JVD. No pulse deficits. Respiratory: Lungs have equal breath sounds bilaterally, clear to auscultation and percussion. No rales, rhonchi or wheezes noted. No increased work of breathing, no retractions or nasal flaring. Abdomen/GI: Soft, non-tender, with normal bowel sounds. No distension or tympany. No guarding or rebound. No evidence of tenderness throughout. MS/ Extremity: Pulses equal, no cyanosis. Neurovascular intact. Full, normal range of motion. Neuro: Awake and alert, GCS 15, oriented to person, place, time, and situation. Cranial nerves II-XII grossly intact. Motor strength 5/5 in all extremities. Sensory grossly intact. Cerebellar exam normal. Normal gait. 12:57 Skin: Groin/skin exam deferred until patient is in a room.. Vital Signs: 12:46 BP 133 / 69; Pulse 88; Resp 16; Temp 98.4; Weight 75.75 kg; Height 6 ft. 1 in. ; iw 13:45 BP 146 / 65; Pulse 72; Resp 18; Pulse Ox 99% on R/A; eh3 14:45 BP 143 / 68; Pulse 79; Resp 18; Pulse Ox 99% on R/A; eh3 12:46 Body Mass Index 22.03 (75.75 kg, 185.42 cm) iw MDM: 12:42 Patient medically screened. sp3 12:57 Data reviewed: vital signs, nurses notes, lab test result(s), radiologic studies. ED sp3 course: 78-year-old male with cyst/abscess in the groin. We will assess with laboratory values and CT scan of the abdomen pelvis with coverage of that area. We will add antibiotics if indicated. Differential includes cyst versus cellulitis versus abscess.. 15:31 ED course: Patient has large prerectal abscess on examination once he was examined in sp3 the room. Dr. Huff at bedside and states he will be taking patient to the OR in the morning after overnight antibiotics. CT scan is not necessary and has been canceled.. 06/16 12:52 Order name: CBC with Diff; Complete Time: 15:25 sp3 06/16 12:52 Order name: CMP; Complete Time: 15:25 sp3 06/16 12:52 Order name: Urinalysis w/ reflexes; Complete Time: 15:25 3 06/16 15:43 Order name: CONS Physician Consult EDSC 06/16 12:52 Order name: IV Saline Lock; Complete Time: 14:05 sp3 06/16 12:52 Order name: Labs collected and sent; Complete Time: 14:05 3 06/16 14:15 Order name: Labs - recollect needed; Complete Time: 14:25 eb Administered Medications: 15:30 Drug: Piperacillin-Tazobactam IVPB 3.375 grams IVPB once over 60 mins; (mix in NS 100 eh3 mL) Route: IVPB; Infused Over: 60 mins; Site: right antecubital; 16:30 Follow up: Response: No adverse reaction; IV Status: Completed infusion; IV Intake: eh3 100ml Disposition Summary: 06/16/23 15:31 Hospitalization Ordered Notes: Hospitalization Status: Inpatient Admission sp3 Provider: Tylor Gomes sp3 Condition: Stable sp3 Problem: new sp3 Symptoms: have worsened sp3 Bed/Room Type: Standard sp3 Location: Telemetry/MedSurg (Inpatient)(06/16/23 18:25) eb Room Assignment: [facility](06/16/23 18:25) eb Diagnosis - Perirectal abscess sp3 Forms: - Medication Reconciliation Form sp3 - SBAR form sp3 - Leadership Thank You Letter sp3 Signatures: Dispatcher [employer] EDSC Janeen Palmer RN RN iw Leal, Jahala, RN RN jl7 Dena Pompa Setul, MD MD sp3 Saadia Louis RN RN 3 Corrections: (The following items were deleted from the chart) 15:35 12:53 Abdomen Pelvis W Con+CT.RAD.BRZ ordered. EDSC EDSC 16:00 15:31 Telemetry/MedSurg (Inpatient) sp3 jl7 16:00 15:31 sp3 jl7 18:25 16:00 [facility] ER HOLD jl7 eb 18:25 16:00 ERHOLD- jl7 eb
--- NOTE | 2023-06-16 15:32 | ER ---
Nurse's Notes [facility] Name: James Calvo Age: 78 yrs Sex: Male : 1945 Arrival Date: 06/16/2023 Time: 12:10 Bed 15 Private MD: Diagnosis: Perirectal abscess Presentation: 06/16 12:39 Chief complaint: Patient states: was sent by Dr. Francis for surgery on a "cyst in his iw right groin". Coronavirus screen: At this time, the client does not indicate any symptoms associated with coronavirus-19. Ebola Screen: Patient negative for fever greater than or equal to 101.5 degrees Fahrenheit, and additional compatible Ebola Virus Disease symptoms Patient denies exposure to infectious person. Patient denies travel to an Ebola-affected area in the 21 days before illness onset. Initial Sepsis Screen: Does the patient meet any 2 criteria? No. Patient's initial sepsis screen is negative. Does the patient have a suspected source of infection? No. Patient's initial sepsis screen is negative. Risk Assessment: Do you want to hurt yourself or someone else?. 12:39 Method Of Arrival: Wheelchair iw 12:39 Acuity: JAYA 3 iw 13:15 Onset of symptoms was June 16, 2023. eh3 Historical: - Allergies: 12:46 No Known Allergies; iw - Home Meds: 12:46 None [Active]; iw - PMHx: 12:46 None; iw - PSHx: 12:46 None; iw - Immunization history:: Adult Immunizations. - Social history:: Smoking status: Patient denies any tobacco usage or history of. Screenin:15 [facility] ED Fall Risk Assessment (Adult) Score/Fall Risk Level 0 - 2 = Low Risk. Abuse eh3 screen: Denies threats or abuse. Denies injuries from another. Nutritional screening: No deficits noted. Tuberculosis screening: No symptoms or risk factors identified. Assessment: 13:15 General: Appears in no apparent distress. uncomfortable, Behavior is calm, cooperative, eh3 appropriate for age. Pain: Denies pain. Neuro: Level of Consciousness is awake, alert, obeys commands, Oriented to person, place, time, situation. Cardiovascular: Capillary refill < 3 seconds Patient's skin is warm and dry. Respiratory: Airway is patent Respiratory effort is even, unlabored, Respiratory pattern is regular, symmetrical. GI: Abdomen is round non-distended. Derm: Skin is pink, warm \\T\\ dry. Derm: Abscess located on groin. Musculoskeletal: Circulation, motion, and sensation intact. Range of motion: intact in all extremities. 13:45 Reassessment: Patient appears in no apparent distress at this time. Patient and/or 3 family updated on plan of care and expected duration. Pain level reassessed. Patient is alert, oriented x 3, equal unlabored respirations, skin warm/dry/pink. 14:40 Reassessment: Dr. Huff at bedside assessing pt and discussing POC. jl7 14:45 Reassessment: Patient appears in no apparent distress at this time. Patient and/or 3 family updated on plan of care and expected duration. Pain level reassessed. Patient is alert, oriented x 3, equal unlabored respirations, skin warm/dry/pink. 18:39 Reassessment: Failed attempt to call report to 4th floor, Shaina RN states there is no [facility] hospital bed in room 409 and she'll call back once they find a bed. Vital Signs: 12:46 BP 133 / 69; Pulse 88; Resp 16; Temp 98.4; Weight 75.75 kg; Height 6 ft. 1 in. ; iw 13:45 BP 146 / 65; Pulse 72; Resp 18; Pulse Ox 99% on R/A; eh3 14:45 BP 143 / 68; Pulse 79; Resp 18; Pulse Ox 99% on R/A; eh3 12:46 Body Mass Index 22.03 (75.75 kg, 185.42 cm) iw ED Course: 12:11 Patient arrived in ED. mg5 12:20 Claudia Rg MD is Attending Physician. sp3 12:39 Triage completed. iw 12:46 Arm band placed on. iw 13:08 Zain Knight, EYAD is Primary Nurse. jl7 13:15 Patient has correct armband on for positive identification. Placed in gown. Bed in low eh3 position. Call light in reach. Side rails up X2. Provided Education on: use of call de la cruz. Pulse ox on. NIBP on. 13:20 Missed attempt(s): 22 gauge in left wrist. antecubital area. Bleeding controlled, band eh3 aid applied, catheter tip intact. 14:05 CBC with Diff Sent. 6 14:05 CMP Sent. 6 14:05 Missed attempt(s): 20 gauge in right antecubital area. 6 14:05 Inserted saline lock: 20 gauge in right wrist, using aseptic technique. Blood collected.6 15:30 No provider procedures requiring assistance completed. Patient admitted, IV remains in [address] 15:31 Tylor Gomes MD is Hospitalizing Provider. sp3 Administered Medications: 15:30 Drug: Piperacillin-Tazobactam IVPB 3.375 grams IVPB once over 60 mins; (mix in NS 100 eh3 mL) Route: IVPB; Infused Over: 60 mins; Site: right antecubital; 16:30 Follow up: Response: No adverse reaction; IV Status: Completed infusion; IV Intake: eh3 100ml Medication: 14:40 VIS not applicable for this client. jl7 Intake: 16:30 IV: 100ml; Total: 100ml. [facility] Outcome: 15:30 Admitted to ER Hold. Please see [facility] for further documentation. [facility] 15:30 Condition: stable 15:30 Instructed on the need for admit, 15:31 Decision to Hospitalize by Provider. sp3 20:00 Admitted to Tele accompanied by nurse, via wheelchair, room 409, Report called to [facility] Maria Del Rosario 20:01 Patient left the ED. [facility] Signatures: Janeen Palmer, RN Zain Prabhakar RN RN jl7 Claudia Rg MD MD 3 Saadia Louis RN RN [facility] Fany Multani [facility] Pricilla Torres 5
--- NOTE | 2023-06-16 15:36 | P.HP ---
Certification for Inpatient Patient admitted to: Observation With expected LOS: <2 Midnights Patient will require the following post-hospital care: None Practitioner: I am a practitioner with admitting privileges, knowledge of patient current condition, hospital course, and medical plan of care. Services: Services provided to patient in accordance with Admission requirements found in Title 42 Section 412.3 of the Code of Federal Regulations Patient History Date of Service: 06/16/23 History of Present Illness: 78-year-old -Azerbaijani male with no significant past medical history presents to the emergency room with abscess to the left groin. Patient was seen in Dr. Francis office and was referred to the emergency room for a CT scan and surgical evaluation for perirectal abscess. He reports symptoms started 1 week ago. He denies fever, chills, nausea vomiting diarrhea. Plan to admit for perirectal abscess, consult Dr. Huff for surgical evaluation. Per Dr. Hufftaking patient to the OR in the morning after overnight antibiotics. CT scan is not necessary and has been canceled.ER laboratory evaluation no leukocytosis mild left shift 78.6 CMP normal, hypoalbumin 3.0, Allergies No Known Drug Allergies Allergy (Verified 05/30/23 20:14) Unknown Home Medications: Acetaminophen [Tylenol] 325 mg PO Q6H PRN 05/30/23 Famotidine [Pepcid*] 20 mg PO BID 05/30/23 Levetiracetam [Keppra] 750 mg PO BID 05/30/23 Polyethyl Gly 3350 [Glycolax*] 17 gm PO BID 05/30/23 Senosides [Senokot*] 2 tab PO BID 05/30/23 Sodium,Potassium Phosphates [Phos-Nak Packet] 1 each PO AC 05/30/23 Thiamine HCl 100 mg PO DAILY 05/30/23 - Past Medical/Surgical History Diabetic: No Past Medical History: Patient denies medical history - Social History CD- Drugs: No Caffeine use: No Review of Systems 10-point ROS is otherwise unremarkable Physical Examination - Physical Exam General: Alert, In no apparent distress, Oriented x3 HEENT: Atraumatic, Normocephalic, PERRLA Neck: Supple, 2+ carotid pulse no bruit, JVD not distended Respiratory: Clear to auscultation bilaterally, Normal air movement Cardiovascular: No edema, Normal pulses Capillary refill: <2 Seconds Gastrointestinal: Normal bowel sounds, Soft and benign Musculoskeletal: No clubbing, No swelling Integumentary: Other (perirectal absess, tender to touch) Neurological: Normal gait, Normal speech - Studies Laboratory Data (last 24 hrs) 06/16/23 06/16/23 14:39 14:00 WBC 7.30 Hgb 14.2 Hct 43.8 Plt Count 240 Sodium 138 Potassium 4.0 BUN 13 Creatinine 0.84 Glucose 92 Total Bilirubin 0.5 AST 12 L ALT 22 Alkaline Phosphatase 111 Assessment and Plan - Plan Assesment/Plan perirectal abscess, consult Dr. Huff for surgical evaluation. OR in the morning after overnight antibiotics. Zosyn CT scan is not necessary and has been canceled.ER laboratory evaluation no leukocytosis mild left shift 78.6 CMP normal, hypoalbumin 3.0, Diet NPO after MN Full Code DVT scd Discharge Plan: Home - Advance Directives Does patient have a Living Will: No Does patient have a Durable POA for Healthcare: No - Code Status/Comfort Care Code Status: Full Code Critical Care: No Time Spent Managing Pts Care (In Minutes): 60
[2023-06-16] MEDS ORDERED: NA CHLORIDE 0.9% 100 ML ONE (15:48)
[2023-06-16] MEDS ORDERED: PIPERACIL/TAZO 3.375 GM VIAL IV ONE (15:48)
[2023-06-16] MEDS ORDERED: MORPHINE 2 MG/ML SYR IV PRN (16:14)
[2023-06-16] MEDS ORDERED: ZOLPIDEM TARTRATE 5 MG TABLET PO PRN (16:14)
[2023-06-16] MEDS ORDERED: TRAMADOL HCL 50 MG TAB PO PRN (16:14)
[2023-06-16] MEDS ORDERED: ONDANSETRON 4 MG/2 ML VIAL IV PRN (16:14)
[2023-06-16] MEDS: PIPER TAZO 3.375 GM in NA CHLORIDE 0.9% 100 ML IV SCH (17:00)
--- NOTE | 2023-06-16 22:25 | CON ---
Date of Consultation: 06/16/2023 Diagnosis: Perineal abscess. History Of Present Illness: This is a case of a 78-year-old patient sent to the ER by the urologist after found to have a possible perirectal abscess. The patient was seen in the ER, evaluated by the ER physician who called me for a consult with the patient has a perineal abscess. It is near the per ianal region. I do not see any connection in that area. The patient states no drainage. Allergies: NONE. Medical History: None. Medications: Pepcid, Keppra, Glycolax, Senokot, thiamine. Social History: He does not smoke. He does not drink alcohol. Family History: Noncontributory. Review of Systems: No shortness of breath. No chest pain. No fever. He does not remember his last colonoscopy, was ad vised the importance of it. No dysuria, hematuria, hematochezia, or melena. Ten points otherwise un remarkable. Physical Examination: General: The patient is awake, alert. HEENT: Pupils are equal and reactive. Anicteric. Neck: Supple. Chest: Clear. Heart: S1, S2. Abdomen: Soft and depressible. No guarding or rebound. No peritoneal signs. Skin: Perirectal area shows an abscess anteriorly in the perineum. Cannot rule out rectal involveme nt. No melena. Extremities: Good capillary refill. Laboratory Data: Blood work shows WBC count of 7.3, hemoglobin of 14.2, and platelets of 240. Potas sium 4.0, creatinine is 0.84. Imaging: Still pending, chest x-ray specifically. EKG is still pending too. Assessment: 78-year-old patient with a perianal/perineal abscess. We are going to offer him examina tion under anesthesia, anoscopy, proctoscopy, incision and drainage of perianal/perineal abscess with benefits, alternatives, and risks including, but not limited to, infection, bleeding, damage to [place] structures, anesthesia complication, nonhealing wound, VA, and even . He also understands this may not relieve symptoms. He might need more than one surgical intervention. He understood. S igned a consent. CHAPARRO/HUMBERTO Voice ID: [id number] Report ID: [id number]
[2023-06-17] MEDS: PIPER TAZO 3.375 GM in NA CHLORIDE 0.9% 100 ML IV SCH ×2 (01:59→08:40)
[2023-06-17 06:55] LABS: Absolute Lymphocytes (CBC) 1.6 K/uL (0.7-4.9); Hematocrit 36.8 % (39.6-49.0); Lymphocytes % 20.3 % (15.3-44.8); MCV 91.7 fL (80-100); MPV 7.1 fL (7.6-11.3); Platelets 200 thou/uL (152-406); RBC Red Blood Cell Count 4.02 M/uL (4.33-5.43)
[2023-06-17 07:09] LABS: Magnesium 1.9 mg/dL (1.6-2.4); Potassium 4.1 mEq/L (3.5-5.1)
[2023-06-17 07:21] LABS: Blood Morphology Comment NOT SEEN (NOT SEEN); Platelet Estimate ADEQ; White Blood Cell Scan OK (OK)
[2023-06-17] MEDS ORDERED: Ringers Lactate 1,000 ML IV ONE (11:41)
[2023-06-17] MEDS ORDERED: MIDAZOLAM HCL 2 MG/2 ML INJ ONE (12:28)
[2023-06-17] MEDS ORDERED: LIDOCAINE 1% MPF 5 ML VIAL ONE (12:28)
[2023-06-17] MEDS ORDERED: propofoL 200 MG/20 ML VIAL IV ONE (12:28)
[2023-06-17] MEDS ORDERED: ONDANSETRON 4 MG/2 ML VIAL ONE (12:28)
[2023-06-17] MEDS ORDERED: FENTANYL CITR 100 MCG/2 ML ONE (12:28)
[2023-06-17] MEDS ORDERED: dexAMETHasone 10 MG/ML VIAL ONE (12:31)
--- NOTE | 2023-06-17 13:22 | P.BOP ---
Preoperative diagnosis: perianal/perineal abscess Postoperative diagnosis: same Primary procedure: EAU, anoscopy, rigid proctoscopy, I&D perianal abscess Estimated blood loss: <10cc Specimen: pus Findings: perianal/perineal abscess Anesthesia: General Complications: None Drain(s): Other (/" nugauze) Transferred to: Recovery Room Condition: Good
[2023-06-17 13:45] VITALS: O2SAT 100
[2023-06-17 13:49] VITALS: TEMP 97
[2023-06-17] MEDS ORDERED: TRAMADOL HCL 50 MG TAB PO PRN (14:00)
--- NOTE | 2023-06-17 14:12 | P.DS ---
Admission Date: 06/16/23 Discharge Date: 06/17/23 Primary Care Provider: Dr. Burton Disposition: ROUTINE DISCHARGE Discharge Condition: GOOD - Problems (1) Sharmin-rectal abscess Current Visit: Yes Status: Acute Brief History of Present Illness: 78-year-old -Bulgarian male with no significant past medical history presents to the emergency room with abscess to the left groin. Patient was seen in Dr. Francis office and was referred to the emergency room for a CT scan and surgical evaluation for perirectal abscess. He reports symptoms started 1 week ago. He denies fever, chills, nausea vomiting diarrhea. Plan to admit for perirectal abscess, consult Dr. Huff for surgical evaluation. Per Dr. Hufftaking patient to the OR in the morning after overnight antibiotics. CT scan is not necessary and has been canceled.ER laboratory evaluation no leukocytosis mild left shift 78.6 CMP normal, hypoalbumin 3.0, - Physical Exam General: Alert, In no apparent distress, Oriented x3 HEENT: Atraumatic, Normocephalic, PERRLA Neck: Supple, 2+ carotid pulse no bruit, JVD not distended Respiratory: Clear to auscultation bilaterally, Normal air movement Cardiovascular: No edema, Normal pulses Capillary refill: <2 Seconds Gastrointestinal: Normal bowel sounds, Soft and benign Musculoskeletal: No clubbing, No swelling Integumentary: Other (perirectal absess surgical incision, CDI) Neurological: Normal gait, Normal speech Hospital Course: Presented to the emergency room with perirectal abscess, Dr. Huff from surgery was consulted to evaluate patient. Patient kept n.p.o. after midnight. Surgical incision and drainage was performed, abscess packing with dry dressing, applied post I&D. Dr. Huff spoke with patient and family after procedure. Patient can discharge home on p.o. antibiotics to take as directed. As needed analgesics prescribed for home. Advance diet as tolerated Recommend bedrest/no aggressive physical activity to ensure surgical dressing stays intact. Patient needs to follow-up with Dr. Huff on Monday for dressing change. Return to the emergency room for worsening symptoms Follow-up with primary care in 7 to 10 days Resume prior home medications. Vital Signs/Physical Exam: Temp Pulse Resp BP Pulse Ox 97.0 F 57 16 90/42 L 96 06/17/23 13:48 06/17/23 13:48 06/17/23 13:48 06/17/23 13:48 06/17/23 08:00 Laboratory Data at Discharge: WBC 8.00 thou/uL (4.3-10.9) 06/17/23 06:32 Hgb 12.2 g/dL (13.6-17.9) L D 06/17/23 06:32 Hct 36.8 % (39.6-49.0) L 06/17/23 06:32 Plt Count 200 thou/uL (152-406) 06/17/23 06:32 Sodium 139 mEq/L (136-145) 06/17/23 06:32 Potassium 4.1 mEq/L (3.5-5.1) 06/17/23 06:32 BUN 10 mg/dL (7-18) 06/17/23 06:32 Creatinine 0.88 mg/dL (0.70-1.30) 06/17/23 06:32 Glucose 95 mg/dL (74-106) 06/17/23 06:32 Magnesium 1.9 mg/dL (1.6-2.4) 06/17/23 06:32 Total Bilirubin 0.5 mg/dL (0.2-1.0) 06/16/23 14:39 AST 12 U/L (15-37) L 06/16/23 14:39 ALT 22 U/L (16-61) 06/16/23 14:39 Alkaline Phosphatase 111 U/L (45-117) 06/16/23 14:39 Home Medications: Acetaminophen [Tylenol] 325 mg PO Q6H PRN 05/30/23 Famotidine [Pepcid*] 20 mg PO BID 05/30/23 Levetiracetam [Keppra] 750 mg PO BID 05/30/23 Polyethyl Gly 3350 [Glycolax*] 17 gm PO BID 05/30/23 Senosides [Senokot*] 2 tab PO BID 05/30/23 Sodium,Potassium Phosphates [Phos-Nak Packet] 1 each PO AC 05/30/23 Thiamine HCl 100 mg PO DAILY 05/30/23 Ciprofloxacin HCl 500 mg PO BID 10 Days #20 tab 06/17/23 metroNIDAZOLE [Flagyl*] 500 mg PO Q8HR 10 Days #30 cap 06/17/23 traMADol HCL [Ultram*] 50 mg PO TID PRN 7 Days #30 tab 06/17/23 New Medications: Ciprofloxacin HCl 500 mg PO BID 10 Days #20 tab metroNIDAZOLE [Flagyl*] 500 mg PO Q8HR 10 Days #30 cap traMADol HCL [Ultram*] 50 mg PO TID PRN 7 Days #30 tab PRN Reason: Pain Scale 2-4 (Mild) Physician Discharge Instructions: Leave dressing intact until monday. Call Dr Huff office monday to make an apppointment for the afternoon [phone] Dressing with packing, wear secure underwear to keep dressing secure, Follow up on Monday with Dr Huff to change dressing. Follow up with PCP in 7-10 days Bedrest, no strenuous activity to keep dressing secure Take Flagyl, Cipro as prescribed until gone take yogurt daily or probiotic while on antibiotics Return to ER for worsening of symptoms Diet: AHA Activity: Bedrest Followup: NONE,NONE [Primary Care Provider] -
[2023-06-17 16:27] VITALS: BMI 22.0
[2023-06-17 16:38] VITALS: BP 116/55
[2023-06-17] MEDS ORDERED: metroNIDAZOLE 500 MG TABLET PO SCH (17:00)
--- NOTE | 2023-06-17 20:01 | OP ---
Date of Procedure: 06/17/2023 Surgeon: Giovanny Huff MD Preoperative Diagnoses: Perianal, perirectal abscess, perianal pain. Postoperative Diagnoses: Perianal, perirectal abscess, perianal pain. Procedures: Examination under anesthesia, anoscopy, proctoscopy, incision and drainage of perianal a nd perineal abscess. Complications: None. Estimated Blood Loss: Less than 10 cc. Indication: This is a case of a 78-year-old patient referred by urologist to the ER due to the possi bility of a perianal abscess. The benefits, alternatives, and risks of EUA, anoscopy, proctoscopy in cision and drainage of perianal/perineal abscess fully explained, which include, but not limited to, infection, bleeding, damage to adjacent structures, anesthesia complication, recurrence, ID, and even . He also understands this may not relieve any symptoms. He might need more than one surgical intervention. He has a colonoscopy planned for the next several weeks. He was advised importance o f that since this will not substitute that colonoscopy. The patient and the daughter were present an d they agreed with the plan, signed the consent. Description Of Procedure: The patient was brought to the operating room, placed in supine position. Anesthesia was done without complication. Patient was placed in lithotomy position with proper prot ection. Rectal examination was done by rigid proctoscopy all the way to about only 12 cm since large amount of stools does not let me go more than that. Anoscopy and rigid proctoscopy were done. The anoscopy we did not see any fistula connecting to the rectum, but we saw this perianal abs cess that tracked into the perineal region near the base of the scrotum. The abscess was drained, cu ltured, and then this perianal abscess was then packed with half an inch Nu Gauze. The patient noni ated the procedure well. The patient sent to Recovery in stable condition. I discussed the case wit h the primary doctor that he may need to do wound care, but we are going to leave it like that for e next 48 hours. In 48 hours, they are going to show in my office and then I am going to change the dressings for them and then proceed accordingly. He will be eventually sent home on p.o. antibiotics and pain medication. HM/MODL Voice ID: [id number] Report ID: [id number]
[2023-06-17] MEDS ORDERED: CIPROFLOXACIN HCL 500 MG TAB PO SCH (21:00)
== END 2023-06-17 18:23 | disposition home or self-care (01) ==
LOC: ER 12:10 → ERHOLD 15:40 → 4TH 19:13
PROVIDERS: ADMIT Internal Medicine Nephrology; ATTEND Internal Medicine Nephrology
PROC: 0DJD8ZZ Inspection of Lower Intestinal Tract, Via Natural or Artificial Opening Endoscopic (ICD-10-PCS; 2023-06-17)
PROC: 0D9Q0ZX Drainage of Anus, Open Approach, Diagnostic (ICD-10-PCS; principal; 2023-06-17 12:00)
DX: K61.0 Anal abscess (principal); L02.215 Cutaneous abscess of perineum
CPT/HCPCS: 96365; 87070; 85025 ×2; 81001; 80048; 36415; 83735; 87205; 87075; 80053; 99285; 10060; 45300; J2704; J2001; J2543 ×3; J2250; J3010; J1100; J2405; J7120

== ENCOUNTER 2023-06-23 13:24 | Emergency (ER) | payer OTHER ==
--- OUTSIDE RECORDS SUMMARY | 2023-06-23 13:34 | XMS REPORT | Continuity of Care Document ---
:1945 Author Organization [facility] t Address [address] [facility] [address] [place] [address] Care Team Providers Name Role Phone Emanuel Navarrete NP Primary Care Physician CLAUDE GATES Attending Clinician Unavailable TOSHIA TORRES Attending Clinician Unavailable Christy Nino MA Attending Clinician Unavailable Beatriz Huff MA Attending Clinician Unavailable Rachel OLIVER, Piero Coyle Attending Clinician Cameron Ceballos MD Attending Clinician Reyes Jack MD, Eliseo Lanier Attending Clinici an Terry Fischer MD Attending Clinician Unavailable Cindi Mcmahon MD Attending Clinician Claude Gates MD Attending Clinician Jamal Orellana MD Attending Clinician Roxanna Rivera Attending Clinician Mode Garrett Attending Clinician ELISEO RICH Attending Clinician Unavailable Li Galvan NP Attending Clinician Gualberto CASTANO, Concepcion Attending Clinician Unavailable Jasmin Garza RN Attending Clinician Unavailable Michelle Sapp RN Attending Clinician Unavailable lolis, [facility] Main Attending Clinician Unavailable Sidney OLIVER, George Attending Clinician GEORGE LITTLE Attending Clinician Unavailable Doctor Unassigned, Socastee Attending Clinician Unavailable Jose OLIVER, Zelda Attending Clinician WALE BEARD Attending Clinician Unavailable Wale Beard DO Attending Clinician BLANCHE BERMUDEZ Attending Clinician Unavailable Blanche Bermudez DO Attending Clinician Jada OLIVER, Yimi Attending Clinician TORI ANNE Attending Clinician Unavailable Clifton OLIVER, Tori Mcnally Attending Clinician Julio CASTANO, Jennifer Attending Clinician Unavailable ROMANA ANDERSON Attending Clinician [...] Number Effective Date Expiration Date S ource MEDICARE A B [id number] 1992 00:00:00 Problems Condition Condition Condition Status Onset Resolution Last Treating Co mments Source Name Details Category Date Date Treatment Clinician Date 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 Hypophosph Hypophosph Disease Active 2022-[address] [facility] Intracrani Intracrani Disease Active 2022-[address] al al 0[facility]16 [facility] hemorrhage hemorrhage 00:00: Ok dical 00 Center Status Status Disease Active 2022-[address] [facility] [address] epilepticu epilepticu 0-16 [facility] s s 00:00: Medical 00 Hugo Cerebral Cerebral Disease Active 2022[facility] Acute Acute Disease Active 2022-[address] respirator respirator 0-16 Sweta kes y failure y failure 00:00: Medi sonja with with 00 Center hypoxia hypoxia Acute Acute Disease Active 2022-[address] encephalop encephalop 0-16 Sweta kes athy athy 00:00: Medical 00 [place] 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 0-16 [facility] Encounter Encounter Disease Active [facility] for for 6-10 st immunother immunother 00:00: Julio ruano apy apy 00 l Malignant Malignant Disease Active [facility] neoplasm neoplasm 2-17 [facility] upper of upper 00:00: Hospit a lobe of lobe of 00 l right lung right lung Chest pain Chest pain 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 U nivers 2-30 ity of 00:00: [place] [id number] Medical Branch Status Status 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 [...] lung 00 l Hilar Hilar Disease Active 2021-1 Methodi adenopathy adenopathy 0-25 [facility] 00:[facility]: Hospita 00 l Right Right Disease Active 2017-0 Univers sided sided 1-02 ity of weakness weakness 00:00: [address] Tobacco Tobacco Disease Active Methodi use use [facility]ospita l Hypothyroi Hypothyroi Disease Active M ethodi dism due dism due st to to Hospita medication medication l Allergies, Adverse Reactions, Alerts Allergy Allergy Status Severity Reaction(s) Onset Inactive Treating Comm ents Source Name Type Date Date Clinician NO KNOWN Drug Active Univers ALLERGIE Class ity of [facility] NO KNOWN Allergy Active [facility] Family History Family Member Diagnosis Comments Start Date Stop Date Source Natural brother Colon cancer [facility] Natural mother Breast cancer [facility] Social History Social Habit Start Date Stop Date Quantity Comments Source History [facility] Center Sexual orientation [facility] History of tobacco Cigarette Smoker [facility] Alcohol intake 2023-06-13 2023-06-13 Ex-drinker [facility] 00:00:00 00:00:00 (finding) Hospital History of Social 2023-06-13 2023-06-[address] function 00:00:00 00:00:00 Hospital Tobacco Comment 2023-06-13 2023-06-13 smoking for 60 [facility] dist 00:00:00 00:00:00 years Hospital Tobacco use and 2023-06-13 2023-06-13 Smokeless [facility] exposure 00:00:00 00:00:00 tobacco non-user Hospital Exposure to 2023-05-12 2023-05-[address] [facility] SARS-CoV-2 (event) 00:00:00 17:02:00 Medica l Center History [facility] 2023-05-22 2023-05-[address] [facility] Transport Med - In 00:00:00 00:00:00 Medica l Center the past 12 months, has lack of transportation kept you from medical appointments or from getting medications? History [facility] Housing 2023-05-22 2023-05-[address] [facility] Unable to Pay - In 00:00:00 00:00:00 Medica l Center the last 12 months, was there a time when you were not able to pay the mortgage or rent on time? History [facility] Housing 2023-05-22 2023-05-22 2 [facility] Places Lived 00:00:00 00:00:00 Medical Cent er History [facility] Housing 2023-05-22 2023-05-22 No [facility] Homeless Last Year - 00:00:00 00:00:00 [facility] In the last 12 months, was there a time when you did not have a steady place to sleep or slept in a chcf (including now)? Sex Ass[birth year] At [birth year] [facility] 00:[facility] 00:00:00 Hospital Smoking Status Start Date Stop Date Source Ex-smoker 2023-06-13 00:00:00 2023-06-13 00:00:00 [facility] Smokes tobacco daily 2023-05-22 00:00:00 [facility] Medications Ordered Filled Start Stop Current Ordering Indication Dosage Frequency Signature Comments Components Source Medication Medication Date Date Medication? Clinician (SIG) Name Name losartan 2022-08- No 25mg Take 25 mg Me [facility]odi (COZAAR) 25 08-[address] MG tablet 13:51: 00:00 Hospita 27 :00 l losartan 2022-08- No 25mg Take 25 mg Me thodi (COZAAR) 25 08-[address] MG tablet 13:51: 00:00 Hospita 27 :00 l lisinopriL 2022-08- No 10mg QD Take 1 Meth francisco (PRINIVIL) 08-13 tablet (10 st 10 mg 13:51: 00:00 mg total) Hospit a tablet 26 :00 by mouth l daily. lisinopriL 2022-08- No 10mg QD Take 1 Meth francisco (PRINIVIL) 08-13 tablet (10 st 10 mg 13:51: 00:00 mg total) Hospit a tablet 26 :00 by mouth l daily. aspirin 81 2022-08- No 81mg Chew 81 [facility] mg chewable 08-13 11-[address] tablet 13:51: 00:00 Hospita 19 :00 l aspirin 81 2022-08- No 81mg Chew 81 [facility] mg chewable 08-13 11-[address] tablet 13:51: 00:00 Hospita 19 :00 l acetaminoph 2022-08- No Take by Me thodi en 08-[address] (TYLENOL) 13:51: 00:00 Hospita 500 MG 16 :00 l tablet acetaminoph 2022-08- No Take by Me thodi en 08-[address] (TYLENOL) 13:51: 00:00 Hospita 500 MG 16 :00 l tablet thiamine 2022-08- Yes 100mg QD Take 1 [facility] 100 MG 0-25 10-24 tablet [facility] tablet 00:00: 23:59 (100 mg Medical 00 :00 total) by Center mouth daily. thiamine 2022-08- Yes 100mg QD Take 1 [facility] t 100 MG 0-25 10-24 tablet [facility] tablet 00:00: 23:59 (100 mg Medical 00 :00 total) by Center mouth daily. famotidine 2022-08 Yes 20mg Take 1 [facility] t (PEPCID) 20 0-24 tablet (20 Sweta kes MG tablet 00:00: mg total) Med ical 00 by mouth Center every 12 (twelve) hours. famotidine 2022-08 Yes 20mg Take 1 CHI [...] Center mouth 2 (two) times daily . levETIRAcet 2022-08- Yes 750mg Q.5D Take [address] (KEPPRA) 0-24 - tablet [facility] 750 MG 00:00: 23:59 (750 mg Medical tablet 00 :00 total) by Center mouth 2 (two) times daily . dexAMETHaso 2022-08- Yes Take [address] ne 0-24 - tablet (2 [facility] (DECADRON) 00:00: 23:59 mg total) M edical 2 MG tablet 00 :00 by mouth Cent er every 12 (twelve) hours for 2 days, THEN 0.5 tablets (1 mg total) every 12 (twelve) hours for 2 days, THEN 0.5 tablets (1 mg total) daily with breakfast for 1 day. dexAMETHaso 2022-08- No Take [address] ne 0-24 - tablet (2 [facility] (DECADRON) 00:00: 23:59 mg [...] at 1430, mL Routine iopamidol 2021- No [id number] 100mL 100 mL, Univers (ISOVUE 10-08 Intravenou [...] 1000mL at 999 Uni vers (NS) bolus 10-08- mL/hr, ity of infusion 15:45: 19:22 1,000 mL, Woody as 1,000 mL 00 :00 IV Medical Infusion, Branch ONCE, 1 dose, On Mon10/08/21 at 0945, STAT benadryl/li 2022-0 Yes 10mL Q6H Swish and M ethodi docaine/maa 2- swallow 10 st lox (MAGIC 00:00: mL every 6 H ospita MOUTHWASH) 00 (six) l 1:1:1 hours as suspension needed suspension (moderate throat pain). pantoprazol 2022-0 Yes 40mg QD Take 1 Meth francisco e 2-22 tablet (40 st (Protonix) 00:00: mg total) Ho spita 40 MG EC 00 by mouth l tablet daily. sucralfate 2022-0 Yes 1g Q.25D Take 1 Meth francisco (CARAFATE) 2-22 tablet (1 st 1 gram 00:00: g total) Hospita tablet 00 by mouth 4 l (four) times a day before meals and nightly. benadryl/li 2022-0 Yes 10mL Q6H Swish and M ethodi docaine/maa 2- swallow 10 st lox (MAGIC 00:00: mL every 6 H ospita MOUTHWASH) 00 (six) l 1:1:1 hours as suspension needed suspension (moderate throat pain). pantoprazol 2022-0 Yes 40mg QD Take 1 Meth francisco e 2-22 tablet (40 st (Protonix) 00:00: mg total) Ho spita 40 MG EC 00 by mouth l tablet daily. sucralfate 2022-0 Yes 1g Q.25D Take 1 Meth francisco (CARAFATE) 2-22 tablet (1 st 1 gram 00:00: g total) Hospita tablet 00 by mouth 4 l (four) times a day before meals and nightly. benadryl/li 2022-0 2023- No 10mL Q6H Swish and Methodi docaine/maa 2- 11-07 swallow 10 s t lox (MAGIC 00:00: 00:00 mL every 6 Hospita MOUTHWASH) 00 :00 (six) l 1:1:1 hours as suspension needed suspension (moderate throat pain). pantoprazol 2022-0 2023- No 40mg QD Take 1 Met hodi e 09-28 tablet (40 st (Protonix) 00:00: 00:00 mg total) H ospita 40 MG EC 00 :00 by mouth l tablet daily. sucralfate 2022- No 1g Q.25D Take 1 Met [...] suspension needed suspension (moderate throat pain). pantoprazol No 40mg QD Take 1 Met hodi e 09-28 tablet (40 st (Protonix) 00:00: 00:00 mg total) H ospita 40 MG EC 00 :00 by mouth l tablet daily. sucralfate 2022- No 1g Q.25D Take 1 Met [...] 09/20/21 at 1715, DANNIE iopamidol 2021- No [id number] 100mL 100 mL, Univers (ISOVUE 09-20 Intravenou [...] 00 :00 dose, On Medi sonja mg [facility] Branch 09/20/21 at 1445, DANNIE NaCl 0.9% 2021- No 1000mL at 999 Uni vers (NS) bolus 09-20 mL/hr, ity of infusion 20:45: 21:10 1,000 mL, Woody as 1,000 mL 00 :00 IV Medical Infusion, Branch ONCE, 1 dose, On Mon09/20/21 at 1445, DANNIE docusate Yes [id number] 100mg Take 1 Un jn (COLACE) 2-14 capsule by ity o f 100 mg 00:00: mouth [place] capsule 00 daily. Medical Branch docusate Yes [id number] 100mg Take 1 Un jn (COLACE) 2-14 capsule by ity o f 100 mg 00:00: mouth [place] capsule 00 daily. [facility] docusate Yes [id number] 100mg Take 1 Un jn (COLACE) 2-14 capsule by ity o f 100 mg 00:00: mouth [place] capsule 00 daily. Medical Branch docusate Yes [id number] 100mg Take 1 Un jn (COLACE) 2-14 capsule by ity o f 100 mg 00:00: mouth [place] capsule 00 daily. [facility] Branch docusate Yes [id number] 100mg Take 1 Un jn (COLACE) 2-14 capsule by ity o f 100 mg 00:00: mouth [place] capsule 00 daily. [facility] Branch docusate Yes [id number] 100mg Take 1 Un jn (COLACE) 2-14 capsule by ity o f 100 mg 00:00: mouth [place] capsule 00 daily. [facility] Branch docusate Yes [id number] 100mg Take 1 Un jn (COLACE) 2-14 capsule by ity o f 100 mg 00:00: mouth [place] capsule 00 daily. [facility] Branch maalox:diph 2020-08 No 15mL 15 mL, Uni vers enhydrAMINE 08-06 Oral, ity of :lidocaine 21:15: 20:15 ONCE, 1 Woody as 2 % viscous 00 :00 dose, On Medi sonja 1:1:1 Fri Branch (FIRST-MOUT 08/06/21 [facility]) at 1515, oral Routine suspension 15 mL [...] 17 g 00 First dose Medical on Fri Branch [...] [place] 00 First dose Medical on Fri Branch [...] Until Discontinu ed, Routine pantoprazol 2020-08 Yes [id number] 20mg Take 1 Univers e 20 mg EC 2-31 tablet by ity of tablet 00:00: mouth [place] 00 every Medical morning. Branch sucralfate 2020-08 Yes [id number] 1g Take 1 Univers 1 gram 2-31 tablet by ity of tablet 00:00: mouth [place] 00 before Medical meals and Branch at bedtime. pantoprazol 2020-08 Yes [id number] 20mg Take 1 Univers e 20 mg EC 2-31 tablet by ity of tablet 00:00: mouth [place] 00 every Medical morning. Branch sucralfate 2020-08 Yes [id number] 1g Take 1 Univers 1 gram 2-31 tablet by ity of tablet 00:00: mouth [place] 00 before Medical meals and Branch at bedtime. pantoprazol 2020-08 Yes [id number] 20mg Take 1 Univers e 20 mg EC 2-31 tablet by ity of tablet 00:00: mouth [place] 00 every Medical morning. Branch sucralfate 2020-08 Yes [id number] 1g Take 1 Univers 1 gram 2-31 tablet by ity of tablet 00:00: mouth [place] 00 before Medical meals and Branch at bedtime. pantoprazol 2020-08 Yes [id number] 20mg Take 1 Univers e 20 mg EC 2-31 tablet by ity of tablet 00:00: mouth [place] 00 every Medical morning. Branch sucralfate 2020-08 Yes [id number] 1g Take 1 Univers 1 gram 2-31 tablet by ity of tablet 00:00: mouth [place] 00 before Medical meals and Branch at bedtime. pantoprazol 2020-08 Yes [id number] 20mg Take 1 Univers e 20 mg EC 2-31 tablet by ity of tablet 00:00: mouth [place] 00 every Medical morning. Branch sucralfate 2020-08 Yes [id number] 1g Take 1 Univers 1 gram 2-31 tablet by ity of tablet 00:00: mouth [place] 00 before Medical meals and Branch at bedtime. pantoprazol 2020-08 Yes [id number] 20mg Take 1 Univers e 20 mg EC 2-31 tablet by ity of tablet 00:00: mouth [place] 00 every Medical morning. Branch sucralfate 2020-08 Yes [id number] 1g Take 1 Univers 1 gram 2-31 tablet by ity of tablet 00:00: mouth [place] 00 before Medical meals and Branch at bedtime. pantoprazol 2020-08 Yes [id number] 20mg Take 1 Univers e 20 mg EC 2-31 tablet by ity of tablet 00:00: mouth [place] 00 every Medical morning. Branch sucralfate 2020-08 Yes [id number] 1g Take 1 Univers 1 gram 2-31 tablet by ity of tablet 00:00: mouth [place] 00 before Medical meals and Branch at bedtime. pantoprazol 2020-08 Yes [id number] 20mg Take 1 Univers e 20 mg EC 2-31 tablet by ity of tablet 00:00: mouth [place] 00 every Medical morning. Branch sucralfate 2020-08 Yes [id number] 1g Take 1 Univers 1 gram 2-31 tablet by ity of tablet 00:00: mouth [place] 00 before Medical meals and Branch at bedtime. pantoprazol 2020-08 Yes [id number] 20mg Take 1 Univers e 20 mg EC 2-31 tablet by ity of tablet 00:00: mouth [place] 00 every Medical morning. Branch sucralfate 2020-08 Yes [id number] 1g Take 1 Univers 1 gram 2-31 tablet by ity of tablet 00:00: mouth [place] 00 before Medical meals and Branch at bedtime. pantoprazol 2020-08 Yes [id number] 20mg Take 1 Univers e 20 mg EC 2-31 tablet by ity of tablet 00:00: mouth [place] 00 every Medical morning. Branch sucralfate 2020-08 Yes [id number] 1g Take 1 Univers 1 gram 2-31 tablet by ity of tablet 00:00: mouth [place] 00 before Medical meals and Branch at bedtime. pantoprazol 2020-08 Yes [id number] 20mg Take 1 Univers e 20 mg EC 2-31 tablet by ity of tablet 00:00: mouth [place] 00 every Medical morning. Branch sucralfate 2020-08 Yes [id number] 1g Take 1 Univers 1 gram 2-31 tablet by ity of tablet 00:00: mouth [place] 00 before Medical meals and Branch at bedtime. pantoprazol 2020-08 Yes [id number] 20mg Take 1 Univers e 20 mg EC 2-31 tablet by ity of tablet 00:00: mouth [place] 00 every Medical morning. Branch sucralfate 2020-08 Yes [id number] 1g Take 1 Univers 1 gram 2-31 tablet by ity of tablet 00:00: mouth [place] 00 before Medical meals and Branch at bedtime. polyethylen 2020-08- No [id number] 17g Take 1 Univers e glycol 2-31 08-22 Packet by ity o f 3350 17 00:00: 05:59 mouth [place] gram powder 00 :00 daily for Med ical 15 days. Branch sodium 2020-08- No [id number] 1{enema Insert 1 Univers phosphates -08-07 } Enema into it y of (FLEET 00:00: 05:59 rectum [place] ENEMA) 19-7 00 :00 once now Medi sonja gram/118 mL for 1 Branch enema dose. Follow package directions aspirin 81 2020-08 Yes 81mg Take 81 mg U nivers mg chewable 2-30 by mouth ity of tablet 18:33: daily. [address] dexAMETHaso 2020-08 Yes 4mg Take 4 mg U nivers ne 2-30 by mouth ity of (DECADRON) 18:33: daily. [place] 4 mg tablet [address] [place] [address] losartan 25 2020-08 Yes 25mg Take 25 mg Univers mg tablet 2-30 by mouth ity of 18:33: daily. [address] ondansetron 2020-08 Yes 8mg Take 8 mg U nivers 8 mg tablet 2-30 by mouth ity of 18:33: every 8 [place] [address] (eight) Medical hours as Branch needed for Nausea and Vomiting (N/V). aspirin 81 2020-08 Yes 81mg Take 81 mg U nivers mg chewable 2-30 by mouth ity of tablet 18:33: daily. [address] Branch dexAMETHaso 2020-08 Yes 4mg Take 4 mg U nivers ne 2-30 by mouth ity of (DECADRON) 18:33: daily. [place] 4 mg tablet 50 Medical Branch losartan 25 2020-08 Yes 25mg Take 25 mg Univers mg tablet 2-30 by mouth ity of 18:33: daily. [address] Branch ondansetron 2020-08 Yes 8mg Take 8 mg U nivers 8 mg tablet 2-30 by mouth ity of 18:33: every 8 [place] [address] (eight) Medical hours as Branch needed for Nausea and Vomiting (N/V). aspirin 2020-08 Yes 81mg Take 81 mg U nivers mg chewable 2-30 by mouth ity of tablet 18:33: daily. [address] Branch dexAMETHaso 2020-08 Yes 4mg Take 4 mg U nivers ne 2-30 by mouth ity of (DECADRON) 18:33: daily. [place] 4 mg tablet 50 Medical Branch losartan 25 2020-08 Yes 25mg Take 25 mg Univers mg tablet 2-30 by mouth ity of 18:33: daily. [address] ondansetron 2020-08 Yes 8mg Take 8 mg U nivers 8 mg tablet 2-30 by mouth ity of 18:33: every 8 [place] [address] (eight) Medical hours as Branch needed for Nausea and Vomiting (N/V). aspirin 81 2020-08 Yes 81mg Take 81 mg U nivers mg chewable 2-30 by mouth ity of tablet 18:33: daily. [place] [address] Medical Branch dexAMETHaso 2020-08 Yes 4mg Take 4 mg U nivers ne 2-30 by mouth ity of (DECADRON) 18:33: daily. [place] 4 mg tablet 50 Medical Branch losartan 25 2020-08 Yes 25mg Take 25 mg Univers mg tablet 2-30 by mouth ity of 18:33: daily. [place] [address] Medical Branch ondansetron 2020-08 Yes 8mg Take 8 mg U nivers 8 mg tablet 2-30 by mouth ity of 18:33: every 8 [place] [address] (eight) Medical hours as Branch needed for Nausea and Vomiting (N/V). aspirin 81 2020-08 Yes 81mg Take 81 mg U nivers mg chewable 2-30 by mouth ity of tablet 18:33: daily. [place] [address] Medical Branch dexAMETHaso 2020-08 Yes 4mg Take 4 mg U nivers ne 2-30 by mouth ity of (DECADRON) 18:33: daily. [place] 4 mg tablet 50 Medical Branch losartan 25 2020-08 Yes 25mg Take 25 mg Univers mg tablet 2-30 by mouth ity of 18:33: daily. [place] [address] Medical Branch ondansetron 2020-08 Yes 8mg Take 8 mg U nivers 8 mg tablet 2-30 by mouth ity of 18:33: every 8 [place] [address] (eight) Medical hours as Branch needed for Nausea and Vomiting (N/V). aspirin 2020-08 Yes 81mg Take 81 mg U nivers mg chewable 2-30 by mouth ity of tablet 18:33: daily. [address] Branch dexAMETHaso 2020-08 Yes 4mg Take 4 mg U nivers ne 2-30 by mouth ity of (DECADRON) 18:33: daily. [place] 4 mg tablet 50 Medical Branch losartan 25 2020-08 Yes 25mg Take 25 mg Univers mg tablet 2-30 by mouth ity of 18:33: daily. [address] Branch ondansetron 2020-08 Yes 8mg Take 8 mg U nivers 8 mg tablet 2-30 by mouth ity of 18:33: every 8 [place] [address] (eight) Medical hours as Branch needed for Nausea and Vomiting (N/V). aspirin 81 2020-08 Yes 81mg Take 81 mg U nivers mg chewable 2-30 by mouth ity of tablet 18:33: daily. [place] [address] Medical Branch dexAMETHaso 2020-08 Yes 4mg Take 4 mg U nivers ne 2-30 by mouth ity of (DECADRON) 18:33: daily. [place] 4 mg tablet 50 Medical Branch losartan 25 2020-08 Yes 25mg Take 25 mg Univers mg tablet 2-30 by mouth ity of 18:33: daily. [address] Branch ondansetron 2020-08 Yes 8mg Take 8 mg U nivers 8 mg tablet 2-30 by mouth ity of 18:33: every 8 [place] [address] (eight) Medical hours as Branch needed for Nausea and Vomiting (N/V). aspirin 81 2020-08 Yes 81mg Take 81 mg U nivers mg chewable 2-30 by mouth ity of tablet 18:33: daily. [address] Branch dexAMETHaso 2020-08 Yes 4mg Take 4 mg U nivers ne 2-30 by mouth ity of (DECADRON) 18:33: daily. [place] 4 mg tablet 50 Medical Branch losartan 25 2020-08 Yes 25mg Take 25 mg Univers mg tablet 2-30 by mouth ity of 18:33: daily. [address] Branch ondansetron 2020-08 Yes 8mg Take 8 mg U nivers 8 mg tablet 2-30 by mouth ity of 18:33: every 8 [place] [address] (eight) Medical hours as Branch needed for Nausea and Vomiting (N/V). aspirin 2020-08 Yes 81mg Take 81 mg U nivers mg chewable 2-30 by mouth ity of tablet 18:33: daily. [address] Branch dexAMETHaso 2020-08 Yes 4mg Take 4 mg U nivers ne 2-30 by mouth ity of (DECADRON) 18:33: daily. [place] 4 mg tablet 50 Medical Branch losartan 25 2020-08 Yes 25mg Take 25 mg Univers mg tablet 2-30 by mouth ity of 18:33: daily. [address] Branch ondansetron 2020-08 Yes 8mg Take 8 mg U nivers 8 mg tablet 2-30 by mouth ity of 18:33: every 8 [place] [address] (eight) Medical hours as Branch needed for Nausea and Vomiting (N/V). aspirin 81 2020-08 Yes 81mg Take 81 mg U nivers mg chewable 2-30 by mouth ity of tablet 18:33: daily. [place] [address] Medical Branch dexAMETHaso 2020-08 Yes 4mg Take 4 mg U nivers ne 2-30 by mouth ity of (DECADRON) 18:33: daily. [place] 4 mg tablet 50 Medical Branch losartan 25 2020-08 Yes 25mg Take 25 mg Univers mg tablet 2-30 by mouth ity of 18:33: daily. [address] Branch ondansetron 2020-08 Yes 8mg Take 8 mg U nivers 8 mg tablet 2-30 by mouth ity of 18:33: every 8 [place] [address] (eight) Medical hours as Branch needed for Nausea and Vomiting (N/V). aspirin 81 2020-08 Yes 81mg Take 81 mg U nivers mg chewable 2-30 by mouth ity of tablet 18:33: daily. [address] Branch dexAMETHaso 2020-08 Yes 4mg Take 4 mg U nivers ne 2-30 by mouth ity of (DECADRON) 18:33: daily. [place] 4 mg tablet 50 Medical Branch losartan 25 2020-08 Yes 25mg Take 25 mg Univers mg tablet 2-30 by mouth ity of 18:33: daily. [address] Branch ondansetron 2020-08 Yes 8mg Take 8 mg U nivers 8 mg tablet 2-30 by mouth ity of 18:33: every 8 [place] [address] (eight) Medical hours as Branch needed for Nausea and Vomiting (N/V). aspirin 2020-08 Yes 81mg Take 81 mg U nivers mg chewable 2-30 by mouth ity of tablet 18:33: daily. [address] Branch dexAMETHaso 2020-08 Yes 4mg Take 4 mg U nivers ne 2-30 by mouth ity of (DECADRON) 18:33: daily. [place] 4 mg tablet 50 Medical Branch losartan 25 2020-08 Yes 25mg Take 25 mg Univers mg tablet 2-30 by mouth ity of 18:33: daily. [address] Branch ondansetron 2020-08 Yes 8mg Take 8 mg U nivers 8 mg tablet 2-30 by mouth ity of 18:33: every 8 [place] [address] (eight) Medical hours as Branch needed for Nausea and Vomiting (N/V). aspirin 81 2020-08 Yes 81mg Take 81 mg U nivers mg chewable 2-30 by mouth ity of tablet 18:33: daily. [address] Branch dexAMETHaso 2020-08 Yes 4mg Take 4 mg U nivers ne 2-30 by mouth ity of (DECADRON) 18:33: daily. [place] 4 mg tablet 50 Medical Branch losartan 25 2020-08 Yes 25mg Take 25 mg Univers mg tablet 2-30 by mouth ity of 18:33: daily. [address] ondansetron 2020-08 Yes 8mg Take 8 mg U nivers 8 mg tablet 2-30 by mouth ity of 18:33: every 8 [place] [address] (eight) Medical hours as Branch needed for Nausea and Vomiting (N/V). aspirin 81 2020-08 Yes 81mg Take 81 mg U nivers mg chewable 2-30 by mouth ity of tablet 18:33: daily. [address] dexAMETHaso 2020-08 Yes 4mg Take 4 mg U nivers ne 2-30 by mouth ity of (DECADRON) 18:33: daily. [place] [address] losartan 25 2020-08 Yes 25mg Take 25 mg Univers mg tablet 2-30 by mouth ity of 18:33: daily. [address] ondansetron 2020-08 Yes 8mg Take 8 mg U nivers 8 mg tablet 2-30 by mouth ity of 18:33: every 8 [place] [id number] (eight) Medical hours as Branch needed for Nausea and Vomiting (N/V). ondansetron 2020-08 Yes 4mg 4 mg, Slow Univers (ZOFRAN 2-30 IV Push, ity of (PF)) 18:26: Q6HPRN, [place] injection 4 08 Starting Medi sonja mg on [facility] 08/05/21 at 1226, Until Discontinu ed, DANNIE, Nausea and Vomiting (N/V) sucralfate 2020-08 Yes 1g 1 g, Oral, U nivers (CARAFATE) 2-30 AC+HS, ity of tablet 1 g 17:30: [place] dose [place] 00 on [facility] 08/05/21 Branch at 1130, Until Discontinu ed, Routine methocarbam 2020-08 Yes 500mg 500 mg, Un jn oL 2-30 Oral, TID, ity of (ROBAXIN) 17:15: [place] tablet 500 00 on [facility] 08/05/21 Branch at 1115, Until Discontinu ed, Routine glycerin/mi 2020-08 202- No 225mL 225 mL, U nivers neral oil 2-30 12-30 Rectal, ity of (AGLO 17:00: 18:14 ONCE, 1 [place] ENEMA) 00 :00 dose, On Medical (COMPOUNDED [facility] ) Enem 225 08/05/21 mL at 1100, Routine nitroglycer 2020-08 Yes .4mg 0.4 mg, Uni vers in 2-30 Sublingual ity of (NITROSTAT) 15:39: , Q5MIN [place] as sublingual 36 PRN, Medical tablet 0.4 Starting Branc h mg on [facility] 08/05/21 at 0939, Until Discontinu ed, Routine, Chest pain acetaminoph 2020-08 Yes 650mg 650 mg, Un jn en 2-30 Oral, ity of (TYLENOL) 15:39: Q6HPRN, [place] tablet 650 18 Starting Medic al mg on [facility] Branch 08/05/21 at 0939, Until Discontinu ed, Routine, Pain (scale 1-3) albuterol 2020-08 Yes 2{puff} 2 Puff, Un jn (VENTOLIN) 2-30 Inhalation ity of inhaler 2 15:34: , Q6HPRN, [place] as Puff 28 Starting Medical on [facility] Branch 08/05/21 at 0934, Until Discontinu ed, Routine, Shortness of Breath ondansetron 2020-08- No 4mg 4 mg, Slow Univers (ZOFRAN 2-30 12-30 IV Push, ity of (PF)) 15:00: 13:59 ONCE, 1 [place] injection 4 00 :00 dose, On Medi sonja mg [facility] Branch 08/05/21 at 0900, DANNIE morpHINE 2020-08- No 4mg 4 mg, Slow Un jn injection 4 2-30 12-30 IV Push, ity of mg 15:00: 13:59 ONCE, 1 [place] 00 :00 dose, On Medical [facility] Branch 08/05/21 at 0900, STAT colchicine 2020-08- No .6mg Take 0.6 Un jn 0.6 mg Cap 2-30 12-30 mg by ity of 09:42: 00:00 mouth [place] 14 :00 daily. Medical Branch methocarbam 2020-08- No [id number] 500mg Take 1 Univers oL 500 mg 2-30 01-10 tablet by ity of tablet 00:00: 05:59 mouth 3 [place] 00 :00 (three) Medical times Branch daily for 10 days. methocarbam 2020-08 No [id number] 500mg Take 1 Univers oL 500 mg - tablet by ity of tablet 00:00: 05:59 mouth 3 [place] 00 :00 (three) Medical times [place] daily for 10 days. methocarbam 2020-08 No [id number] 500mg Take 1 Univers oL 500 mg - tablet by ity of tablet 00:00: 05:59 mouth 3 [place] 00 :00 (three) Medical times [place] daily for 10 days. polyethylen 2020-08- No 17g Take 17 g Univers e glycol 10-04 by mouth ity of 3350 17 00:00: 05:59 daily. [place] gram powder 00 :00 Medical Branch sennoside- 2020-08- No 1{tbl} Take 1 U nivers docusate 10-04 tablet by ity o f sodium 00:00: 05:59 mouth [place] 8.6-50 mg 00 :00 daily. Medical per tablet Branch polyethylen 2020-08- No 17g Take 17 g Univers e glycol 10-04 by mouth ity of 3350 17 00:00: 05:59 daily. [place] gram powder 00 :00 Medical [place] sennoside- 2020-08- No 1{tbl} Take 1 U nivers docusate 10-04 tablet by ity o f sodium 00:00: 05:59 mouth [place] 8.6-50 mg 00 :00 daily. Medical per tablet [place] sennosides- 2020-08- No 1{tbl} Take 1 U nivers docusate 10-04 tablet by ity o f sodium 00:00: 05:59 mouth [place] 8.6-50 mg 00 :00 daily. Medical per tablet Branch polyethylen 2020-08- No 17g Take 17 g Univers e glycol -03 08- by mouth ity of 3350 17 00:00: 00:00 daily. [place] gram powder 00 :00 Medical Branch iopamidol 2020-08- No [id number] 120mL 120 mL, Univers (ISOVUE 2-25 12-25 [...] 15 :00 Medical Branch sucralfate 2020-08 Yes [id number] 1g Take 1 Univers 1 gram 2-25 tablet by ity of tablet 00:00: mouth [place] 00 before Medical meals and Branch at bedtime. sucralfate 2020-08 Yes [id number] 1g Take 1 Univers 1 gram 2-25 tablet by ity of tablet 00:00: mouth [place] 00 before Medical meals and Branch at bedtime. sucralfate 2020-08 Yes [id number] 1g Take 1 Univers 1 gram 2-25 tablet by ity of tablet 00:00: mouth [place] 00 before Medical meals and Branch at bedtime. pantoprazol 2020-08- No [id number] 20mg Take 1 Univers e 20 mg [...] 00 :00 every Medical morning. Branch sucralfate 2020-08 No [id number] 1g Take 1 Univers 1 gram 2-25 12-31 tablet by ity of tablet 00:00: 00:00 mouth [place] 00 :00 before Medical meals and Branch at bedtime. pantoprazol 2020-08- No 1{tbl} Take 1 U nivers e 20 mg EC 2-25 12-31 tablet by ity of tablet 00:00: 00:00 mouth [place] 00 :00 every Medical morning. Branch pantoprazol 2020-08- No [id number] 20mg Take 1 Univers e 20 mg EC 2-25 12-30 tablet by ity of tablet 00:00: 00:00 mouth [place] 00 :00 daily for Medical 21 days. [...] tablet 2-01 by mouth. ity of 00:00: [place] [facility] OLANZapine 2020- Yes 5mg Take 5 mg Un jn 5 mg tablet 2-01 by mouth. ity of 00:00: [facility] OLANZapine 2020-08 Yes 5mg Take 5 mg Un jn 5 mg tablet 2-01 by mouth. ity of 00:00: [place] [facility] OLANZapine 2020- Yes 5mg Take 5 mg Un jn 5 mg tablet 2-01 by mouth. ity of 00:00: [facility] OLANZapine 2020- Yes 5mg Take 5 mg Un jn 5 mg tablet 2-01 by mouth. ity of 00:00: [place] [facility] OLANZapine 2020- Yes 5mg Take 5 mg Un jn 5 mg tablet 2-01 by mouth. ity of 00:00: [place] [facility] OLANZapine 2020- Yes 5mg Take 5 mg Un jn 5 mg tablet 2-01 by mouth. ity of 00:00: [address] OLANZapine 2020- Yes 5mg Take 5 mg Un jn 5 mg tablet 2-01 by mouth. ity of 00:00: [facility] OLANZapine 2020-08 Yes 5mg Take 5 mg Un jn 5 mg tablet 2-01 by mouth. ity of 00:00: [facility] OLANZapine 2020-08 Yes 5mg Take 5 mg Un jn 5 mg tablet 2- by mouth. ity of 00:00: [facility] OLANZapine 2020-08 Yes 5mg Take 5 mg Un jn 5 mg tablet 2 by mouth. ity of 00:00: [facility] OLANZapine 2020-08 Yes 5mg Take 5 mg Un jn 5 mg tablet 2 by mouth. ity of 00:00: [facility] OLANZapine 2020-08 Yes 5mg Take 5 mg Un jn 5 mg tablet 2 by mouth. ity of 00:00: [facility] OLANZapine 2020-08 Yes 5mg Take 5 mg Un jn 5 mg tablet 2 by mouth. ity of 00:00: [facility] OLANZapine 2020-08 Yes 5mg Take 5 mg Un jn 5 mg tablet 2 by mouth. ity of 00:00: [facility] OLANZapine 2020-08- No 5mg QD Take 1 Meth [place] (ZYPREXA) 5 09-07 tablet (5 st MG tablet 00:00: 00:00 mg total) Ho spita 00 :00 by mouth l nightly as needed (chemo-ind uced nausea). OLANZapine 2020-08- No 5mg QD Take 1 Meth [place] (ZYPREXA) 5 09-07 tablet (5 st MG tablet 00:00: 00:00 mg total) Ho spita 00 :00 by mouth l nightly as needed (chemo-ind uced nausea). folic acid 2020-08- No 1mg QD Take [...] y of 00:00: 05:59 [place] 00 :00 [facility] foLIC acid 2020-08- No 1mg Take 1 mg U nivers 1 mg tablet 09-07 by mouth. it y of 00:00: 05:59 [place] 00 :00 Medical Branch foLIC acid 2021-1 2022- No 1mg Take 1 mg U nivers 1 mg tablet 09-07 by mouth. it y of 00:00: 05:59 [place] 00 :00 Medical Branch foLIC acid 2021-1 2022- No 1mg Take 1 mg U nivers 1 mg tablet 09-07 by mouth. it y of 00:00: 05:59 [place] 00 :00 Medical Branch foLIC acid 2021-1 2022- No 1mg Take 1 mg U nivers 1 mg tablet 09-07 by mouth. it y of 00:00: 05:59 [place] 00 :00 Medical Branch foLIC acid 2021-1 2022- No 1mg Take 1 mg U nivers 1 mg tablet 09-07 by mouth. it y of 00:00: 05:59 [place] 00 :00 Medical Branch foLIC acid 2021-1 2022- No 1mg Take 1 mg U nivers 1 mg tablet 09-07 by mouth. it y of 00:00: 05:59 [place] 00 :00 Medical Branch foLIC acid 2021-1 2022- No 1mg Take 1 mg U nivers 1 mg tablet 09-07 by mouth. it y of 00:00: 05:59 [place] 00 :00 Medical Branch foLIC acid 2021-1 2022- No 1mg Take 1 mg U nivers 1 mg tablet 09-07 by mouth. it y of 00:00: 05:59 [place] 00 :00 Medical Branch foLIC acid 2021-1 2022- No 1mg Take 1 mg U nivers 1 mg tablet 09-07 by mouth. it y of 00:00: 05:59 [place] 00 :00 Medical Branch foLIC acid 2021-1 2022- No 1mg Take 1 mg U nivers 1 mg tablet 09-07 by mouth. it y of 00:00: 05:59 [place] 00 :00 Medical Branch foLIC acid 2021-1 2022- No 1mg Take 1 mg U nivers 1 mg tablet 09-07 by mouth. it y of 00:00: 05:59 [place] 00 :00 Medical Branch foLIC acid 2021-1 2022- No 1mg Take 1 mg U nivers 1 mg tablet 09-07 by mouth. it y of 00:00: 05:59 [place] 00 :00 Medical Branch foLIC acid 2020-08- No 1mg Take 1 mg U nivers 1 mg tablet 09-07 by mouth. it y of 00:00: 05:59 [place] 00 :00 Medical Branch foLIC acid 2020-2021- No 1mg Take 1 mg U nivers 1 mg tablet 09-07 by mouth. it y of 00:00: 05:59 [place] 00 :00 Medical Branch albuterol Yes 2{puff} [...] (six) Medical hours as Branch needed. acetaminoph Yes 1{tbl} Take 1 Un jn en-codeine 3-06 tablet by ity of (TYLENOL-CO 00:00: mouth [place] DEINE #3) 00 every 8 Medical 300-30 mg (eight) Branch tablet hours as needed for Pain (scale 7-10) (MAY NOT TAKE AND WORK OR DRIVE VEHICLE). acetaminoph 0 Yes 1{tbl} Take 1 Un [...] AND WORK OR DRIVE VEHICLE). acetaminoph 2018-0 2021- No 1{tbl} Take 1 U nivers en-codeine 3-06 12-30 tablet by ity of (TYLENOL-CO 00:00: 00:00 mouth [place] DEINE #3) 00 :00 every 8 Medical 300-30 mg (eight) Branch tablet hours as needed for Pain (scale 7-10) (MAY NOT TAKE AND WORK OR DRIVE VEHICLE). aspirin 81 2017- Yes 81mg Take 81 mg U nivers mg chewable 1-24 by mouth ity of tablet 03:35: daily. [address] aspirin 81 2017-0 Yes 81mg Take 81 mg U nivers mg chewable 1-24 by mouth ity of tablet 03:35: daily. [address] aspirin 81 2017- Yes 81mg Take 81 mg U nivers mg chewable 1-24 by mouth ity of tablet 03:35: daily. [address] aspirin 81 2017- Yes 81mg Take 81 mg U nivers mg chewable 1-24 by mouth ity of tablet 03:35: daily. [address] aspirin 81 2017- Yes 81mg Take 81 mg U nivers mg chewable 1-24 by mouth ity of tablet 03:35: daily. [address] aspirin 81 2017-0 Yes 81mg Take 81 mg U nivers mg chewable 1-24 by mouth ity of tablet 03:35: daily. [address] aspirin 81 2017-0 Yes 81mg Take 81 mg U nivers mg chewable 1-24 by mouth ity of tablet 03:35: daily. [address] aspirin 81 2017-0 Yes 81mg Take 81 mg U nivers mg chewable 1-23 by mouth ity of tablet 21:35: daily. [address] Immunizations Ordered Immunization Filled Immunization Date Status Commen ts Source Name Name PFIZER COVID-19 MRNA Unknown Completed [facility] odist VACCINATION [facility] PFIZER COVID-19 MRNA Unknown Completed [facility] PFIZER COVID-19 MRNA Unknown Completed [facility] PFIZER COVID-19 MRNA Unknown Completed [facility] MRNA Unknown Completed [facility] PFIZER COVID-19 MRNA Unknown Completed [facility] PFIZER COVID-19 MRNA Unknown Completed [facility] PFIZER COVID-19 MRNA Unknown Completed [facility] Vital Signs Vital Name Observation Time Observation Value Comments Source HEIGHT 2023-05-22 09:00:00 182.9 cm WEIGHT 2023-05-22 09:00:00 75 kg HEIGHT 2023-05-22 09:00:00 182.9 cm WEIGHT 2023-05-22 09:00:00 75 kg Systolic blood 2021-10-08 20:00:00 156 mm[Hg] Univer sity of pressure [place] [facility] Diastolic blood 2021-10-08 20:00:00 88 mm[Hg] Unive rsity of pressure [place] [facility] Heart rate 2021-10-08 20:00:00 80 /min Universi ty of [place] [facility] Respiratory rate 2021-10-08 20:00:00 22 /min Univ ersity of [place] [facility] Oxygen saturation in 2021-10-08 20:00:00 97 /min University of Arterial blood by [place] [email or web address] sonja Pulse oximetry Branch Body temperature 2021-10-08 15:37:00 35.67 Carlita Univ ersity of [place] [facility] Body height 2021-10-08 15:37:00 182.9 cm [facility] [place] [facility] Body weight 2021-10-08 15:37:00 68.493 kg [facility] [place] [facility] BMI 2021-10-08 15:37:00 20.48 kg/m2 [facility] [place] [facility] Systolic blood 2021-09-20 22:07:00 128 mm[Hg] Univer sity of pressure [place] [facility] Diastolic blood 2021-09-20 22:07:00 80 mm[Hg] Unive rsity of pressure [place] [facility] Heart rate 2021-09-20 22:00:00 64 /min [facility] [place] [facility] Respiratory rate 2021-09-20 22:00:00 15 /min Univ ersity of [place] [facility] Oxygen saturation in 2021-09-20 22:00:00 100 /min University of Arterial blood by [place] [email or web address] sonja Pulse oximetry Branch Body temperature 2021-09-20 19:32:04 36.61 Carlita Univ ersity of [place] [facility] Body weight 2021-09-20 19:03:00 68.493 kg [facility] [place] [facility] BMI 2021-09-20 19:03:00 19.92 kg/m2 [facility] [place] [facility] Systolic blood 2021-08-06 21:19:00 149 mm[Hg] Univer sity of pressure [place] [facility] Diastolic blood 2021-08-06 21:19:00 110 mm[Hg] Unive rsity of pressure [place] [facility] Heart rate 2021-08-06 21:19:00 75 /min [facility] [place] [facility] Oxygen saturation in 2021-08-06 21:19:00 98 /min University of Arterial blood by [facility] sonja Pulse oximetry Branch Respiratory rate 2021-08-06 20:00:00 23 /min Univ ersity of [place] [facility] Body height 2021-08-06 19:59:00 185.4 cm [facility] [place] [facility] Body weight 2021-08-06 19:59:00 70.308 kg [facility] [place] [facility] BMI 2021-08-06 19:59:00 20.45 kg/m2 [facility] [place] [facility] Systolic blood 2021-08-05 20:04:00 115 mm[Hg] Univer sity of pressure [place] [facility] Diastolic blood 2021-08-05 20:04:00 64 mm[Hg] Unive rsity of pressure [place] [facility] Heart rate 2021-08-05 20:04:00 64 /min [facility] [place] [facility] Body temperature 2021-08-05 20:04:00 36.67 Carlita Univ ersity [facility] [place] [facility] Respiratory rate 2021-08-05 20:04:00 18 /min Univ ersity of [place] [facility] Oxygen saturation in 2021-08-05 20:04:00 95 /min University of Arterial blood by [facility] Pulse oximetry Branch Body height 2021-08-05 15:38:00 185.4 cm [facility] [place] [facility] Body weight 2021-08-05 15:38:00 70.308 kg [facility] [place] [facility] BMI 2021-08-05 15:38:00 20.45 kg/m2 [facility] [place] [facility] Systolic blood 2021-07-31 20:00:00 133 mm[Hg] Univer sity of pressure [place] [facility] Diastolic blood 2021-07-31 20:00:00 73 mm[Hg] Unive rsity of pressure [place] [facility] Heart rate 2021-07-31 20:00:00 65 /min [facility] [place] [facility] Respiratory rate 2021-07-31 20:00:00 16 /min [facility] Oxygen saturation in 2021-07-31 20:00:00 100 /min University Arterial blood by [facility] Pulse oximetry [place] Body temperature 2021-07-31 17:02:00 36.28 Carlita [facility] Body height 2021-07-31 17:02:00 185.4 cm [facility] Body weight 2021-07-31 17:02:00 75.751 kg [facility] BMI 2021-07-31 17:02:00 22.03 kg/m2 [facility] Systolic blood 2023-06-13 20:43:00 107 mm[Hg] [facility] pressure Diastolic blood 2023-06-13 20:43:00 65 mm[Hg] [facility] pressure Heart rate 2023-06-13 20:43:00 62 /min [facility] Body temperature 2023-06-13 20:43:00 36.56 Carlita [facility] Respiratory rate 2023-06-13 20:43:00 20 /min [facility] Body weight 2023-06-13 20:43:00 71.305 kg [facility] BMI 2023-06-13 20:43:00 20.74 kg/m2 [facility] Oxygen saturation in 2023-06-13 20:43:00 97 /min [facility] Arterial blood by Pulse oximetry Systolic blood 2023-05-30 11:20:00 111 mm[Hg] [facility] Diastolic blood 2023-05-30 11:20:00 64 mm[Hg] [facility] Heart rate 2023-05-30 11:20:00 59 /min [facility] Body temperature 2023-05-30 11:20:00 36.72 Carlita [facility] Respiratory rate 2023-05-30 11:20:00 18 /min [facility] Oxygen saturation in 2023-05-30 11:20:00 98 /min [facility] Arterial blood by Medical Ce nter Pulse oximetry Body height 2023-05-22 09:00:00 182.9 cm [facility] Body weight 2023-05-22 09:00:00 75 kg [facility] BMI 2023-05-22 09:00:00 22.42 kg/m2 [facility] Systolic blood 2022-07-18 18:15:00 111 mm[Hg] [facility] pressure Diastolic blood 2022-07-18 18:15:00 55 mm[Hg] [facility] pressure Heart rate 2022-07-18 18:15:00 75 /min [facility] Body temperature 2022-07-18 18:15:00 36.67 Carlita [facility] Body weight 2022-07-18 18:15:00 78.835 kg [facility] BMI 2022-07-18 18:15:00 22.93 kg/m2 [facility] Oxygen saturation in 2022-07-18 18:15:00 95 /min [facility] Arterial blood by Pulse oximetry Respiratory rate 2022-07-13 21:24:38 18 /min [facility] Procedures Procedure Date / Time Performing Clinician Source Performed POCT-GLUCOSE METER 2023-05-30 11:39:00 Kody [facility] BASIC METABOLIC PANEL 2023-05-30 05:14:00 [facility] Scot [facility] MAGNESIUM 2023-05-30 05:14:00 [facility] PHOSPHORUS 2023-05-30 05:14:00 [facility] CBC W/PLT COUNT & AUTO 2023-05-30 05:14:00 [facility] Scot [facility] DIFFERENTIAL [facility] CBC W/PLT COUNT & AUTO 2023-05-30 05:14:00 [facility] Scot [facility] DIFFERENTIAL [facility] (CELLAVISION MANUAL 2023-05-30 05:14:00 [facility] POCT-GLUCOSE METER 2023-05-29 21:35:00 [facility] POCT-GLUCOSE METER 2023-05-29 17:18:00 [facility] POCT-GLUCOSE METER 2023-05-29 11:18:00 [facility] POCT-GLUCOSE METER 2023-05-29 08:39:00 [facility] BASIC METABOLIC PANEL 2023-05-29 03:47:00 [facility] 2023-05-29 03:47:00 Scot Krause [facility] PHOSPHORUS 2023-05-29 03:47:00 Jimi [facility] CBC W/PLT COUNT & AUTO 2023-05-29 03:03:00 Jimi [facility] CBC W/PLT COUNT & AUTO 2023-05-29 03:03:00 [facility] (CELL[facility]ISION MAN[facility] 2023-05-29 03:03:00 [facility] POCT-GLUCOSE METER 2023-05-28 22:34:00 [facility] POCT-GLUCOSE METER 2023-05-28 17:39:00 [facility] BASIC METABOLIC PANEL 2023-05-28 12:36:00 Yane Vickers [facility] POCT-GLUCOSE METER 2023-05-28 11:30:00 [facility] BASIC METABOLIC PANEL 2023-05-28 03:50:00 Scot Krause [facility] MAGNESIUM 2023-05-28 03:50:00 Scot Krause [facility] PHOSPHORUS 2023-05-28 03:50:00 Jimi [facility] CBC W/PLT COUNT & AUTO 2023-05-28 03:50:00 Rogeriokaylandarrel [facility] CBC W/PLT COUNT & AUTO 2023-05-28 03:50:00 Re [facility] (CELLAVISION MANUAL 2023-05-28 03:50:00 Ny Grimaldo [facility] DIFF) [facility] POCT-GLUCOSE METER 2023-05-27 22:12:00 [facility] POCT-GLUCOSE METER 2023-05-27 13:35:00 AmadoTerry George [facility] MR BRAIN WITH & WITHOUT 2023-05-27 13:25:00 Kody [facility] IV CONTRAST [facility] POCT-GLUCOSE METER 2023-05-27 06:06:00 [facility] BASIC METABOLIC PANEL 2023-05-27 03:55:00 Jimi [facility] MAGNESIUM 2023-05-27 03:55:00 Rogerioriki [facility] PHOSPHORUS 2023-05-27 03:55:00 [facility] CBC W/PLT COUNT & AUTO 2023-05-27 03:55:00 [facility] DIFFERENTIAL [facility] CBC W/PLT COUNT & AUTO 2023-05-27 03:55:00 Kody [facility] POCT-GLUCOSE METER 2023-05-26 23:45:00 [facility] POCT-GLUCOSE METER 2023-05-26 16:29:00 [facility] POCT-GLUCOSE METER 2023-05-26 13:34:00 [facility] TISSUE EXAM 2023-05-26 11:20:00 [facility] CRANIECTOMY OR 2023-05-26 09:29:00 Jamal Orellana [facility] CRANIOTOMY, FOR Critical access hospital OF BRAIN NEOPLASM CRANIOTOMY, USING 2023-05-26 09:29:00 Jamal Orellana [facility] FRAMELESS STEREOTAXY Medical Doni ter US INTRAOPERATIVE 2023-05-26 09:29:00 Jamal Orellana [facility] POCT-GLUCOSE METER 2023-05-26 06:26:00 KodyClaude tompkins [facility] BASIC METABOLIC PANEL 2023-05-26 03:45:00 KanScot lyn [facility] MAGNESIUM 2023-05-26 03:45:00 Jimi, [place] [facility] PHOSPHORUS 2023-05-26 03:45:00 Jimi, [facility] CBC W/PLT COUNT & AUTO 2023-05-26 03:45:00 Jimi [facility] CBC W/PLT COUNT & AUTO 2023-05-26 03:45:00 Jimi [facility] POCT-GLUCOSE METER 2023-05-26 00:18:00 KodyClaude tompkins [facility] ABORH, MANUAL 2023-05-25 16:24:00 Alexia Red [facility] TYPE AND SCREEN, 2023-05-25 15:38:00 [facility], [facility] APTT 2023-05-25 15:21:00 [facility], [facility] PROTHROMBIN TIME/INR 2023-05-25 15:21:00 [facility], [facility] ECG 12-LEAD 2023-05-25 14:42:24 Kelby Yan [facility] ECG 12-LEAD 2023-05-25 14:42:24 Unknown, Hl7 [facility] ECG 12-LEAD 2023-05-25 14:40:56 Melanie [facility] ECG 12-LEAD 2023-05-25 14:40:56 Unknown, Hl7 [facility] POCT-GLUCOSE METER 2023-05-25 12:11:00 KodyClaude tompkins [facility] POCT-GLUCOSE METER 2023-05-25 05:50:00 Kody, [facility] BASIC METABOLIC PANEL 2023-05-25 04:30:00 Scot Krausedip [facility] MAGNESIUM 2023-05-25 04:30:00 Scot Krause Jerardo [facility] PHOSPHORUS 2023-05-25 04:30:00 Scot Krause [facility] CBC W/PLT COUNT & AUTO 2023-05-25 04:30:00 Scot Krause [facility] CBC W/PLT COUNT & AUTO 2023-05-25 04:30:00 Scot Krause [facility] POCT-GLUCOSE METER 2023-05-25 00:42:00 Kody [facility] POCT-GLUCOSE METER 2023-05-24 17:13:00 Kody [facility] POCT-GLUCOSE METER 2023-05-24 11:45:00 Kody [facility] BASIC METABOLIC PANEL 2023-05-24 02:33:00 Scot Krause [facility] MAGNESIUM 2023-05-24 02:33:00 Jimi Scot [facility] PHOSPHORUS 2023-05-24 02:33:00 Jimi [facility] CBC W/PLT COUNT & AUTO 2023-05-24 02:33:00 Scot Krause [facility] CBC W/PLT COUNT & AUTO 2023-05-24 02:33:00 Scot Krause [facility] MR THORACIC SPINE WITH & 2023-05-23 22:42:24 RogerioScot lynd ip [facility] WITHOUT IV CONTRAST Medical Cent er MR LUMBAR SPINE WITH & 2023-05-23 21:43:00 JimiScot Jerardo [facility] WITHOUT IV CONTRAST Medical Cent er MR CERVICAL SPINE WITH & 2023-05-23 20:35:00 RogerioScot lynd ip [facility] WITHOUT IV CONTRAST Medical [facility] er POCT-GLUCOSE METER 2023-05-23 16:15:00 Cindi Mcmahon [facility] POCT-GLUCOSE METER 2023-05-23 11:28:00 Terry Fischer [facility] POCT-GLUCOSE METER 2023-05-23 06:34:00 Terry Fischer [facility] CTA CAROTID 2023-05-23 04:10:16 Scot Krause [facility] CTA BRAIN 2023-05-23 04:08:39 Scot Krausedip [facility] CT BRAIN WITHOUT IV 2023-05-23 04:08:00 Scot Krauesdip I [facility] BASIC METABOLIC PANEL 2023-05-23 03:25:00 Scot Krausedip [facility] MAGNESIUM 2023-05-23 03:25:00 [facility] 2023-05-23 03:25:00 Scot Krausedip [facility] CBC W/PLT COUNT & AUTO 2023-05-23 03:25:00 [facility] W/[facility]T [facility] & AUTO 2023-05-23 03:25:00 Scot Krause [facility] POCT-GLUCOSE METER 2023-05-23 00:40:00 Reyes Jack [facility] Ce nter POCT-GLUCOSE METER 2023-05-22 18:34:00 Reyes Jack [facility] Ce nter XR ABDOMEN/KUB 1 VIEW 2023-05-22 17:51:20 Scot Krause [facility] XR ABDOMEN/KUB 1 VIEW 2023-05-22 17:49:30 Dennise Boo [facility] MR BRAIN WITH & WITHOUT 2023-05-22 15:27:00 Toshia Torres [facility] IV CONTRAST [facility] CT CHEST WITH IV 2023-05-22 14:00:00 Jimi, Scot Kurtz [facility] CT ABDOMEN/PELVIS WITH 2023-05-22 13:55:00 Jimi, Scot Kurtz [facility] CONTRAST [facility] CT BRAIN WITHOUT IV 2023-05-22 13:45:00 Rogerioriki, Scot Kurtz I [facility] POCT-GLUCOSE METER 2023-05-22 12:31:00 Reyes Jack [facility] nter RPR 2023-05-22 10:23:00 JimiScot [facility] LACTIC ACID, ARTERIAL 2023-05-22 10:23:00 James Hemph[address] [facility] POCT-GLUCOSE METER 2023-05-22 09:46:00 Reyes Jack [facility] nter PROTHROMBIN TIME/INR 2023-05-22 09:45:00 JimiScot [facility] APTT 2023-05-22 09:45:00 ManuelScot hannah [facility] COMPREHENSIVE METABOLIC 2023-05-22 09:43:00 JimiScot [facility] CBC W/PLT COUNT & AUTO 2023-05-22 09:43:00 JimiScot [facility] MAGNESIUM 2023-05-22 09:43:00 JimiScot [facility] PHOSPHORUS 2023-05-22 09:43:00 ManuelScot hannah [facility] CREATINE KINASE (CK) 2023-05-22 09:43:00 RogerioScot lyn [facility] PHENYTOIN LEVEL, TOTAL 2023-05-22 09:43:00 RogerioScot lyn [facility] HIGH SENSITIVITY 2023-05-22 09:43:00 RogerioScot lyn [facility] PROLACTIN 2023-05-22 09:43:00 Scot Krause [facility] PROCALCITONIN 2023-05-22 09:43:00 Jimi [facility] LACTIC ACID, VENOUS 2023-05-22 09:43:00 Scot Krause [facility] VITAMIN B12 2023-05-22 09:43:00 Jimi [facility] HC LAB HIV-1 AG 2023-05-22 09:43:00 Jimi [facility] W/HIV-1&2 [facility] CBC W/PLT COUNT & AUTO 2023-05-22 09:43:00 [facility] BLOOD GAS, ARTERIAL 2023-05-22 09:42:00 Jimi [facility] XR CHEST 1 VIEW PORTABLE 2023-05-22 09:27:00 Scot Krause [facility] BED[facility] EKG-SCANNED 2023-05-22 00:00:00 Provider, Julien [facility] ABSOLUTE NEUTROPHIL 2022-07-13 17:49:00 Jose Manuel Mendoza [facility] COUNT CBC WITH PLATELET AND 2022-07-13 17:49:00 Jose Manuel Mendoza [facility] DIFFERENTIAL COMPREHENSIVE METABOLIC 2022-07-13 17:49:00 Jose Manuel Mendoza [facility] PANEL MAGNESIUM LEVEL 2022-07-13 17:49:00 Jose Manuel Mendoza [facility] THYROID STIMULATING 2022-07-13 17:49:00 Jose Manuel Mendoza [facility] HORMONE T3 2022-07-13 17:49:00 Jose Manuel Mendoza [facility] T4, FREE 2022-07-13 17:49:00 Jose Manuel Mendoza [facility] ESTIMATED GFR 2022-07-13 17:49:00 Jose Manuel Mendoza [facility] MANUAL DIFFERENTIAL 2022-07-13 17:49:00 Jose Manuel Mendoza [facility] ABSOLUTE NEUTROPHIL 2022-06-15 17:27:00 Ceballos, [facility] COUNT CBC WITH PLATELET AND 2022-06-15 17:27:00 [facility] DIFFERENTIAL COMPREHENSIVE METABOLIC 2022-06-15 17:27:00 CeballosRobert perezdhu [facility] PANEL MAGNESIUM LEVEL 2022-06-15 17:27:00 [facility]ROID STIMULATING 2022-06-15 17:27:00 Ceballos, [facility] HORMONE T3 2022-06-15 17:27:00 Robert Ceballosdhvenkat [facility] T4, FREE 2022-06-15 17:27:00 Cameron Ceballos Ho spital ESTIMATED GFR 2022-06-15 17:27:00 Ceballos, [facility] Ho spital MANUAL DIFFERENTIAL 2022-06-15 17:27:00 Kira [facility] ASSIGNMENT OF BENEFITS 2022-02-23 21:25:46 Doctor Unassigned, No [facility] HEALTH - OTHER 2022-01-17 05:01:00 Doctor Unassigned, No [facility] - OTHER 2021-12-13 05:01:00 Doctor Unassigned, No [facility] CT ABDOMEN PELVIS W 2021-10-08 17:02:16 Wale Beard [facility] CONTRAST Medical Branch LIPASE 2021-10-08 15:48:00 Wale Beard [facility] COMP. METABOLIC PANEL 2021-10-08 15:48:00 Wale Beard [facility] ([id number]) [facility] [place] CBC WITH DIFF 2021-10-08 15:48:00 Singer [facility] URINALYSIS 2021-09-20 21:08:00 Blanche Bermudez [facility] CT ABDOMEN PELVIS W 2021-09-20 20:50:51 Blanche Bermudez [facility] CONTRAST Medical Branch MAGNESIUM 2021-09-20 19:53:00 Blanche Bermudez [facility] TROPONIN I 2021-09-20 19:53:00 Blanche Bermudez [facility] COMP. METABOLIC PANEL 2021-09-20 19:53:00 Blanche Bermudez [facility] ([id number]) [facility] CBC WITH DIFF 2021-09-20 19:53:00 Blanche Bermudez [facility] NOTICE OF PRIVACY 2021-09-20 18:56:11 Doctor Unassigned, No [facility] CONSENT/REFUSAL FOR 2021-09-20 18:55:46 Doctor Unassigned, No [facility] [place] DIAGNOSIS AND TREATMENT [facility] HOME HEALTH - OTHER 2021-08-12 06:01:00 Doctor Unassigned, No [facility] HOME HEALTH 485 2021-08-10 06:01:00 Doctor Unassigned, No [facility] XR CHEST 1 VW 2021-08-06 20:19:38 Tori Anne [facility] TROPONIN I 2021-08-06 20:11:00 Tori Anne [facility] COMP. METABOLIC PANEL 2021-08-06 20:11:00 Tori Anne [facility] ([id number]) [facility] CBC WITH DIFF 2021-08-06 20:11:00 Tori Anne [facility] CONSENT/REFUSAL FOR 2021-08-06 20:05:45 Doctor Unassigned, No [facility] [place] [facility] TROPONIN I 2021-08-05 19:21:00 Zelda Garcia [facility] TRANSTHORACIC ECHO (TTE) 2021-08-05 16:35:00 Zelda Garcia [facility] COMPLETE [facility] XR KUB 2021-08-05 15:50:00 Zelda Garcia [facility] XR CHEST 1 VW 2021-08-05 11:41:57 [facility]IP[facility] 2021-08-05 11:32:00 Barry [facility] TROPONIN I 2021-08-05 11:32:00 Barry Amarjit [facility] THYROID STIMULATING 2021-08-05 11:32:00 Zelda Garcia [facility] HORMONE [facility] COMP. METABOLIC PANEL 2021-08-05 11:32:00 Amarjit Reddy [facility] ([id number]) Medical Branch LIPID PANEL 2021-08-05 11:32:00 Jose [facility] ([id number])(TOTAL Medical Branch CHOLESTEROL, TRIGLYCERIDES, HDL) CBC WITH DIFF 2021-08-05 11:32:00 Amarjit Reddy [place] GLYCOSYLATED HEMOGLOBIN 2021-08-05 11:32:00 [facility] PROTHROMBIN TIME / INR 2021-08-05 11:32:00 Amarjit Reddy [facility] ACTIVATED PARTIAL 2021-08-05 11:32:00 Amarjit Reddy [facility] THRMPLAS ANISH [facility] N-TERMINAL PRO-BNP 2021-08-05 11:32:00 Amarjit Reddy [facility] COVID-19 (ID NOW RAPID 2021-08-05 11:32:00 Amarjit Reddy [facility] TESTING) Medical Branch URINALYSIS 2021-07-31 19:44:00 Tessy Lowery [facility] CT ABDOMEN PELVIS W 2021-07-31 19:24:25 Tessy Lowery [facility] CONTRAST [facility] CT THORAX W CONTRAST 2021-07-31 19:24:25 Tessy Lowery [facility] LIPASE 2021-07-31 17:36:00 Tessy Lowery [facility] TROPONIN I 2021-07-31 17:36:00 Tessy Lowery [facility] COMP. METABOLIC PANEL 2021-07-31 17:36:00 Tessy Lowery [facility] ([id number]) Medical Branch CBC WITH DIFF 2021-07-31 17:36:00 Tessy Lowery [facility] CONSENT/REFUSAL FOR 2021-07-31 16:42:16 Doctor Unassigned, No [facility] Name [facility] [place] NOTICE OF PRIVACY 2021-07-31 16:41:28 Doctor Unassigned, No Univ [facility] PRACTICES Name [facility] URIC ACID 2021-03-08 13:05:00 [facility] MAGNESIUM 2021-03-08 13:05:00 [facility] PROSTATIC SPECIFIC 2021-03-08 13:05:00 abilio [facility] ANTIGEN SCREEN Medical Branch FOLATE 2021-03-08 13:05:00 [facility] HEPATIC FUNCTION PANEL 2021-03-08 13:05:00 [facility] ([id number]) (ALB,T.PRO,BILI [facility] T,BU/BC,ALT,AST,ALK PHOS) BASIC METABOLIC PANEL 2021-03-08 13:05:00 [facility] (NA, K, CL, CO2, [facility] [place] GLUCOSE, BUN, CREATININE, CA) SEDIMENTATION RATE 2021-03-08 13:05:00 [facility] CBC WITH DIFF 2021-03-08 13:05:00 [facility] ADV BENEFICIARY NOTICE 2021-03-08 05:01:00 Doctor Unassigned, No [facility] OF [facility] PHYSICIAN ORDERS 2021-02-09 05:01:00 Doctor Unassigned, No [facility] ASSIGNMENT OF BENEFITS 2020-10-21 13:47:27 Doctor Unassigned, No [facility] Plan of Care Planned Activity Planned Date Details Comments Source Future Scheduled 2024-05-[address] [facility] Test 00:00:00 [facility] Scre[facility] (12+) [code = Tobacco Cessation Counseling and Screening (12+)] Future Scheduled 2024-05-[address] [facility] Test 00:00:00 [facility] Screening (12+) [code = Tobacco Cessation Counseling and Screening (12+)] Future Scheduled 2023-06-23 65+ PNEUMOCOCCAL Methodi [facility] Test 10:13:55 VACCINE (1 - PCV) [code = 65+ PNEUMOCOCCAL VACCINE (1 - PCV)] Future Scheduled 2023-06-23 [facility] 10:13:55 (procedure) [code = 591754507] Future Scheduled 2023-06-23 SHINGLES VACCINES (1 Met [facility] Test 10:13:55 of 2) [code = SHINGLES VACCINES (1 of 2)] Future Scheduled 2023-06-23 COVID-19 VACCINE (3 - [facility] Test 10:13:55 Pfizer risk series) [code = COVID-19 VACCINE (3 - Pfizer risk series)] Future Scheduled 2023-06-23 INFLUENZA VACCINE (#1) [facility] Test 10:13:55 [code = INFLUENZA VACCINE (#1)] Future Scheduled 2023-06-16 65+ [facility]OCCAL [facility] 07:06:14 VACCINE (1 - PCV) [code = 65+ PNEUMOCOCCAL VACCINE (1 - PCV)] Future Scheduled 2023-06-16 Hepatitis C screening [facility] Test 07:06:14 (procedure) [code = 703183417] Future Scheduled 2023-06-16 SHINGLES VACCINES (1 Met [facility] Test 07:06:14 of 2) [code = SHINGLES VACCINES (1 of 2)] Future Scheduled 2023-06-16 COVID-19 VACCINE (3 - [facility] Test 07:06:14 Pfizer risk series) [code = COVID-19 VACCINE (3 - Pfizer risk series)] Future Scheduled 2023-06-16 INFLUENZA VACCINE (#1) [facility] Test 07:06:14 [code = INFLUENZA VACCINE (#1)] Future Scheduled 2023-05-22 65+ [facility]OCCAL [facility] Test 15:24:20 VACCINE (1 - PCV) [code = 65+ PNEUMOCOCCAL VACCINE (1 - PCV)] Future Scheduled 2023-05-22 Hepatitis C screening [facility] Test 15:24:20 (procedure) [code = [id number]] Future Scheduled 2023-05-22 SHINGLES VACCINES (1 Met [facility] Test 15:24:20 of 2) [code = SHINGLES VACCINES (1 of 2)] Future Scheduled 2023-05-22 RSV VACCINES > 60 YR Met [facility] Test 15:24:20 (1 - 1-dose 60+ series) [code = RSV VACCINES > 60 YR (1 - 1-dose 60+ series)] Future Scheduled 2023-05-22 COVID-19 VACCINE (3 - [facility] Test 15:24:20 Pfizer risk series) [code = COVID-19 VACCINE (3 - Pfizer risk series)] Future Scheduled 2023-05-22 INFLUENZA VACCINE (#1) [facility] Test 15:24:20 [code = INFLUENZA VACCINE (#1)] Future Scheduled 2023-05-09 65+ PNEUMOCOCCAL Methodi Hospital Test 16:56:47 VACCINE (1 - PCV) [code = 65+ PNEUMOCOCCAL VACCINE (1 - PCV)] Future Scheduled 2023-05-09 Hepatitis C screening [facility] Test 16:56:47 (procedure) [code = [id number]] Future Scheduled 2023-05-09 SHINGLES VACCINES (1 [facility] Hospital Test 16:56:47 of 2) [code = SHINGLES VACCINES (1 of 2)] Future Scheduled 2023-05-09 COVID-19 VACCINE (3 - [facility] Test 16:56:47 Pfizer risk series) [code = COVID-19 VACCINE (3 - Pfizer risk series)] Future Scheduled 2023-05-09 INFLUENZA VACCINE (#1) [facility] Test 16:56:47 [code = INFLUENZA VACCINE (#1)] Future Scheduled 2023-04-07 Influenza Vaccine (#1[facility]00 [code = Influenza Medical Ce nter Vaccine (#1)] Future Scheduled 2023-04-07 Influenza Vaccine (#1[facility] 00:00:00 [code = Influenza Medical Ce nter Vaccine (#1)] Future Scheduled 2022-08-[address] [facility] Test 00:00:00 (12+) [code = Medical Center DEPRESSION SCREENING (12+)] Future Scheduled 2022-08-07 FALLS RISK SCREENING [facility] Test 00:00:00 [code = FALLS RISK Medical C enter SCREENING] Future Scheduled 2022-08-[address] [...] (3 - Pfizer risk series)] Future Scheduled 2021-02-11 COVID-19 VACCINE (3 - [...] FIRST YEAR if no IPPE)] Future Scheduled 1993-09-[address] [...] Center VACCINES (1 of 2)] Future Scheduled 1965 DTAP/TDAP/TD VACCINES CH I [...] HEPATITIS C Medical Center SCREENING] Future Scheduled 1964-01-25 HEPATITIS C [facility] 00:00[facility]00 [code = HEPATITIS C Medical Center SCREENING] Future Scheduled 1952-01-25 PNEUMOCOCCAL 65+ YRS [facility] Test 00:00:00 (1 - PCV) [code = Medical Ce nter PNEUMOCOCCAL 65+ YRS (1 - PCV)] Future Scheduled 1951-01-25 PNEUMOCOCCAL 65+ YRS [facility] Test 00:00:00 (1 - PCV) [code = Medical Ce nter PNEUMOCOCCAL 65+ YRS (1 - PCV)] Encounters Start End Encounter Admission Attending Care Care Encounter Source Date/Time Date/Time Type Type Clinicians Facility Department ID 2023-06-16 [id number] Common 09:23:01 [id number] [facility] 2023-05-27 Inpatient EL KODY, SLEH [facility] [id number] [facility]H 12:30:40 CLAUDE 2023-05-23 Inpatient EL SLEH SLEH [id number] SLEH 19:16:11 2023-05-23 Inpatient EL SLEH SLEH [id number] SLEH 19:16:00 2023-05-23 Inpatient EL SLEH SLEH [id number] SLEH 19:15:48 2023-05-23 Inpatient EL SLEH SLEH [id number] SLEH 03:56:28 2023-05-23 Inpatient EL SLEH SLEH [id number] SLEH 03:50:55 2023-05-23 Inpatient EL SLEH SLEH [id number] SLEH 03:50:51 2023-05-22 Inpatient EL RICCARDO SLEH SLEH [id number] SLEH 14:07:24 N, DESIREEDaliVenkat 2023-05-22 Inpatient EL SLEH SLEH [id number] SLEH 13:46:38 2023-05-22 Inpatient EL SLEH SLEH [id number] SLEH 13:46:16 2023-05-22 Inpatient EL SLEH SLEH [id number] SLEH 13:46:11 2023-06-16 2023-06-16 Orders Mica, 1.2.840.1 [id number] Methodi 00:00:00 00:00:00 Only Christy 48713.1.[address] 3.430.2.7 Hospit a .3.155450 l .8 2023-06-16 2023-06-16 Orders Refugio, 1.2.840.1 [id number] 2100 [id number] Methodi 00:00:00 00:00:00 Only Beatriz 19748.1.[address] 3.430.2.7 Hospit a .3.903371 l .8 2023-06-16 2023-06-16 Orders Mica, 1.2.840.1 [id number] 02347 Methodi 00:00:00 00:00:00 Only Christy 56469.1.[address] 3.430.2.7 Hospit a .3.304035 l .8 2023-06-16 2023-06-16 Orders Refugio, 1.2.840.1 [id number] [id number] Methodi 00:00:00 00:00:00 Only Beatriz 17059.1.[address] 3.430.2.7 Hospit a .3.857048 l .8 2023-06-13 2023-06-13 [facility] 1.2.840.1 [id number] Methodi 14:30:22 14:30:22 Encounter Piero Leonides 91903.1.[address] 3.430.2.7 Hospit a .3.299013 l .8 2023-06-13 2023-06-13 [facility] 1.2.840.1 [id number] Methodi 14:30:22 14:30:22 Encounter Piero Leonides 43401.1.[address] 3.430.2.7 Hospit a .3.547076 l .8 2023-06-13 2023-06-13 Office Ceballos, 1.2.840.1 [id number] Method 14:00:00 14:15:00 Visit Cameron 04966.1.[address] 3.430.2.7 Hospit a .3.658834 l .8 2023-06-13 2023-06-13 Office CEBALLOS, 1.2.840.1 [id number] [place] 00:00:00 00:00:00 Visit CAMERON 46154.1.1 [address] .3.261937 .8 2023-06-09 2023-06-09 Telephone Mica, 1.2.840.1 [id number] Methodi 00:00:00 00:00:[address] 3.430.2.7 Hospit a .3.287814 l .8 2023-06-09 2023-06-09 Ezequiel Osuna2.840.1 [id number] Methodi 00:00:00 00:00:[address] 3.430.2.7 Hospit a .3.298630 l .8 2023-05-22 2023-05-30 Inpatient ER [facility] Surgery [id number] SLE 09:08:00 13:44:00 [facility] 2023-05-22 2023-05-30 Hospital ER [facility] Eliseo Jack [facility] [id number] [facility] St 09:08:00 13:44:00 [facility]counter [facility] 2023-05-26 2023-05-26 Surgery Reyna [facility] [id number] [facility] [address] 09:00:00 15:04:00 Jamal [facility] 2023-05-26 2023-05-26 Anesthesia Roxanna Rivera [facility] [id number] [facility] St 09:29:00 12:34:00 Event Mode Garrett [facility] 2023-05-25 2023-05-25 Orders [facility] [id number] 00:00:00 00:00:00 Only [facility] 2023-05-22 2023-05-22 Outpatient [facility] [id number] SLE 18:09:30 18:09:30 ELISEO KENDRICK 2023-05-22 2023-05-22 Outpatient [facility] SLE SLE [id number] SLE 17:28:49 17:28:49 ELISEO KENDRICK 2023-05-22 2023-05-22 Outpatient [facility] [id number] SLE 15:40:38 15:40:38 2023-05-22 2023-05-22 Outpatient EL SLE SLE [id number] SLEH 12:38:48 12:38:48 2023-05-22 2023-05-22 Outpatient EL SLEH SLE [id number] SLEH 09:21:48 09:21:48 2023-05-22 2023-05-22 Outpatient EL SLEH SLE [id number] SLEH 09:21:35 09:21:35 2023-05-22 2023-05-22 Travel [facility] [id number] [facility] St 00:00:00 00:00:00 [facility] 2022-07-22 2022-07-22 Orders Ceballos, 1.2.840.1 [id number] Methodi 00:00:00 00:00:00 Only Cameron 93768.1.[address] 3.430.2.7 Hospit a .3.514619 l .8 2022-07-22 2022-07-22 Orders Ceballos, 1.2.840.1 [id number] Methodi 00:00:00 00:00:00 Only Cameron 75540.1.[address] 3.430.2.7 Hospit a .3.016892 l .8 2022-07-18 2022-07-18 Office Ceballos, 1.2.840.1 [id number] Methodi 11:30:00 12:20:31 Visit Cameron 95003.1.[address] 3.430.2.7 Hospit a .3.261666 l .8 2022-07-18 2022-07-18 Office Ceballos, 1.2.840.1 [id number] 0515 Methodi 11:30:00 12:20:31 Visit Cameron 00131.1.[address] 3.430.2.7 Hospit a .3.653469 l .8 2022-07-18 2022-07-18 Travel 1.2.840.1 1.2.309.332 8833 [id number] Methodi 00:00:00 00:00:[address] 3.430.2.7 0.2.7.3.698 Ho spita .3.430775 084.8 l .8 2022-07-18 2022-07-18 Orders Bubela, 1.2.840.1 [id number] 6139 Methodi 00:00:00 00:00:00 [place] [address].1.[address] 3.430.2.7 Hospit a .3.702062 l .8 2022-07-18 2022-07-18 Orders Bubela, 1.2.840.1 [id number] Methodi 00:00:00 00:00:00 [place] [address]63.1.[address] 3.430.2.7 Hospit a .3.483897 l .8 2022-07-18 2022-07-18 Travel 1.2.840.1 1.2.917.328 8501 [id number] Methodi 00:00:00 00:00:[address] 3.430.2.7 0.2.7.3.698 Ho spita .3.242500 084.8 l .8 2022-07-13 2022-07-13 Infusion Ceballos, 1.2.840.1 [id number] Methodi 11:30:00 14:30:[address] 3.430.2.7 Hospit a .3.472042 l .8 2022-07-13 2022-07-13 Infusion Ceballos, 1.2.840.1 [id number] Methodi 11:30:00 14:30:[address] 3.430.2.7 Hospit a .3.869310 l .8 2022-07-13 2022-07-13 Travel 1.2.840.1 1.2.186.671 9231 [id number] Methodi 00:00:00 00:00:[address] 3.430.2.7 0.2.7.3.698 Ho spita .3.614397 084.8 l .8 2022-07-13 2022-07-13 Travel 1.2.840.1 1.2.463.633 1185 [id number] Methodi 00:00:00 00:00:[address] 3.430.2.7 0.2.7.3.698 Ho spita .3.628836 084.8 l .8 2022-07-12 2022-07-12 Orders Gualberto, 1.2.840.1 [id number] Methodi 00:00:00 00:00:00 Only Javier 28832.1.[address] 3.430.2.7 Hospit a .3.657001 l .8 2022-07-12 2022-07-12 Orders Gualberto, 1.2.840.1 [id number] Methodi 00:00:00 00:00:00 Only Javier 48679.1.[address] 3.430.2.7 Hospit a .3.747096 l .8 2022-06-15 2022-06-15 Infusion Ceballos, 1.2.840.1 [id number] [id number] Methodi 11:30:00 14:30:[address] 3.430.2.7 Hospit a .3.759449 l .8 2022-06-15 2022-06-15 Oncology Rapelje, 1.2.840.1 [id number] Methodi 00:00:00 00:00:00 [facility] Jasmin 05988.1.1 347 s t ip 3.430.2.7 Hospit a .3.109727 l .8 2022-06-15 2022-06-15 Travel 1.2.840.1 1.2.321.477 4432 732192 Methodi 00:00:00 00:00:[address] 3.430.2.7 0.2.7.3.698 Ho spita .3.395247 084.8 l .8 2022-06-14 2022-06-14 Orders Ceballos, 1.2.840.1 [id number] 765236 4439 Methodi 00:00:00 00:00:00 Only Cameron 70288.1.[address] 3.430.2.7 Hospit a .3.156782 l .8 2022-06-07 2022-06-07 Office Ceballos, 1.2.840.1 [id number] 001670 3227 Methodi 09:45:00 10:40:15 Visit Cameron [address]4425.1.[address] 3.430.2.7 Hospit a .3.995582 l .8 2022-06-07 2022-06-07 Travel 1.2.840.1 1.2.298.354 3785 104223 Methodi 00:00:00 00:00:[address] 3.430.2.7 0.2.7.3.698 Ho spita .3.957575 084.8 l .8 2022-06-06 2022-06-06 Orders Chable, 1.2.840.1 [id number] [id number] 9998 Methodi 00:00:00 00:00:[address] 3.430.2.7 Hospit a .3.645146 l .8 2022-05-11 2022-05-11 Outpatient CEBALLOS, [facility] [id number] [place] 00:00:00 00:00:00 CAMERON 949 Method i 2022-05-10 2022-05-10 Outpatient CEBALLOS, [facility] [id number] [place] 00:00:00 00:00:00 CAMERON 779 Method i 2022-05-10 2022-05-10 Outpatient [facility] [id number] [place] 00:00:00 00:00:00 CAMERON 631 Method i 2022-05-06 2022-05-06 Outpatient CEBALLOS, [facility] [id number] [place] 00:00:00 00:00:00 CAMERON 039 Method i 2022-04-13 2022-04-13 Outpatient CEBALLOS, [facility] [id number] [place] 00:00:00 00:00:00 CAMERON 239 Method i 2022-04-12 2022-04-12 Outpatient CEBALLOS, [facility] [id number] [place] 00:00:00 00:00:00 CAMERON 050 Method i 2022-04-12 2022-04-12 Outpatient CEBALLOS, [facility] [id number] [place] 00:00:00 00:00:00 CAMERON 581 Method i 2022-03-16 2022-03-16 Outpatient CEBALLOS, [facility] [id number] [place] 00:00:00 00:00:00 CAMERON 964 Method i 2022-02-23 2022-02-23 Recruiting And Selection Consultant Ofelia, Millicent Lab Main [facility] 1.2.8 40.114 [id number] [facility] 17:00:00 17:15:00 Visit George Little 350.1.13.10 ity [facility] 4.2.7.2.[place] [phone] [address] 2022-02-23 2022-02-23 Outpatient R SIDNEY, [facility] [id number] [facility] 17:00:00 17:00:00 GEORGE crespo [facility] 2022-02-23 2022-02-23 Orders Doctor WEEKS 1.2.840.114 [id number] Univers 00:00:00 00:00:00 Only Unassigned, BERNA 350.1.13.10 ity of [place] [facility] 4.2.7.2.686 [place] [phone] [address] 2022-01-17 2022-01-17 Orders Doctor DESI 1.2.840.[id number] [place] [address] 00:00:00 00:00:00 Only Unassigned, BERNA 350.1.13.10 ity of [place] [facility] 4.2.7.2.686 [place] [phone] [address] 2022-01-10 2022-01-10 Outpatient CEBALLOS, [facility] [id number] [place] 00:00:00 00:00:00 CAMERON 387 Method i 2022-01-10 2022-01-10 Outpatient CEBALLOS, [facility] [id number] [place] 00:00:00 00:00:00 CAMERON 985 Method i 2021-12-13 2021-12-13 Orders Doctor DESI 1.2.840.114 [id number] [facility] 00:00:00 00:00:00 Only Unassigned, BERNA 350.1.13.10 ity of [place] [facility] 4.2.7.2.686 [place] [phone] [place] [address] [address] 2021-11-30 2021-11-30 Telephone [facility] 1.2.840.114 [id number] [facility] 00:00:00 00:00:00 Zelda PRIMARY 350.1.13.10 it y of [place].2.[place] [phone] Ok dic[address] 2021-11-29 2021-11-29 Outpatient CEBALLOS, [facility] [id number] [place] 00:00:00 00:00:00 CAMERON 578 Method i 2021-11-29 2021-11-29 Outpatient CEBALLOS, [facility] [id number] [place] 00:00:00 00:00:00 CAMERON 079 Method i 2021-11-15 2021-11-15 Outpatient CEBALLOS, [facility] [id number] [place] 00:00:00 00:00:00 CAMERON 460 Method i 2021-11-15 2021-11-15 Outpatient SHKEDY, [facility] [id number] [place] 00:00:00 00:00:00 PIERO 726 Method i 2021-11-02 2021-11-02 Outpatient CEBALLOS, [facility] [id number] [place] 00:00:00 00:00:00 CAMERON 520 Method i 2021-10-18 2021-10-18 Outpatient CEBALLOS, [facility] [id number] [place] 00:00:00 00:00:00 CAMERON 195 Method i 2021-10-08 2021-10-08 Emergency X , [facility] ERT [id number] Univers 09:34:00 14:40:00 WALE crespo [facility] 2021-10-08 2021-10-08 [facility] 1.2.881.144 [id number] Univers 09:34:00 14:40:00 Wale DIAMOND 350.1.13.10 i ayana estrada [place]TT[place]JUAN [place] 4.2.7.2.686 [facility] [phone] [facility] [address] 2021-10-05 2021-10-05 Outpatient SHKEDY, [facility] [id number] [place] 00:00:00 00:00:00 PIERO 880 Method i 2021-10-01 2021-10-01 Outpatient SHKEDY, [facility] [id number] [place] 00:00:00 00:00:00 PIERO 044 Method i 2021-10-01 2021-10-01 Outpatient SHKEDY, [facility] [id number] [place] 00:00:00 00:00:00 PIERO [address] 2021-09-29 2021-09-29 Outpatient SHKEDY, [facility] [id number] [place] 00:00:00 00:00:00 PIERO [address] 2021-09-29 2021-09-29 Outpatient SHKEDY, [facility] [id number] [place] 00:00:00 00:00:00 PIERO 794 Method i 2021-09-28 2021-09-28 Outpatient CEBALLOS, [facility] [id number] [place] 00:00:00 00:00:00 CAMERON 199 Method i 2021-09-28 2021-09-28 Outpatient CEBALLOS, [facility] [id number] [place] 00:00:00 00:00:00 CAMERON 325 Method i 2021-09-27 2021-09-27 Outpatient SHKEDY, [facility] [id number] [place] 00:00:00 00:00:00 PIERO 910 Method i 2021-09-27 2021-09-27 Outpatient SHKEDY, [facility] [id number] [place] 00:00:00 00:00:00 PIERO [address] 2021-09-23 2021-09-23 Outpatient SHKEDY, [facility] [id number] [place] 00:00:00 00:00:00 PIERO 908 Method i 2021-09-232021-09-23 Outpatient CHRIS [facility] [id number] [place] 00:00:00 00:00:00 PIERO 576 Method i 2021-09-21 2021-09-21 Outpatient RACHEL [facility] [id number] [place] 00:00:00 00:00:00 PIERO 355 Method i 2021-09-20 2021-09-20 Emergency [facility] [id number] Univers 13:04:00 16:25:00 BLANCHE itjo-ann of [facility] 2021-09-20 2021-09-20 Emergency [facility] 1.2.840.114 [id number] [facility] 13:04:00 16:25:00 Blanche DIAMOND 350.1.13.10 ity of [place].2.[place] [phone] [facility] [address] 2021-09-20 2021-09-20 Outpatient [facility] [id number] [place] 00:00:00 00:00:00 CAMERON 463 Method i 2021-09-20 2021-09-20 Orders Doctor DESI 1.2.840.[id number] [place] [address] 00:00:00 00:00:00 Only Unassigned, BERNA 350.1.13.10 ity of [place] [facility] 4.2.7.2.686 [place] [phone] [facility] 009 [address] 2021-09-15 2021-09-15 [facility]phone [facility] 1.2.926.059 [id number] [facility] 00:00:00 00:00:00 Yimi HOBSON 350.1.13.10 it y of [facility] 4.2.7.2.686 [place] [phone] Ok dical [address] 2021-09-14 2021-09-14 [facility] [id number] [place] 00:00:00 00:00:00 PIERO 716 Method i 2021-09-07 2021-09-07 [facility] [id number] [place] 00:00:00 00:00:00 PIERO 999 Method i 2021-08-30 2021-08-30 Outpatient CEBALLOS, H [facility] [id number] [place] 00:00:00 00:00:00 CAMERON [address] 2021-08-24 2021-08-24 Outpatient HMH [facility] [id number] [place] 00:00:00 00:00:[address] 2021-08-24 2021-08-24 Outpatient SHKEDY, H H [id number] [place] 00:00:00 00:00:00 PIERO [address] 2021-08-23 2021-08-23 Outpatient CEBALLOS, H H [id number] [place] 00:00:00 00:00:00 CAMERON [address] 2021-08-23 2021-08-23 Outpatient HMH H [id number] [place] 00:00:00 00:00:[address] 2021-08-20 2021-08-20 [id number] [place] 00:00:00 00:00:00 PIERO [address] 2021-08-19 2021-08-19 Outpatient HMH H [id number] [place] 00:00:00 00:00:[address] 2021-08-18 2021-08-18 Outpatient HMH HMH [id number] [place] 00:00:00 00:00:[address] 2021-08-17 2021-08-17 Outpatient HMH HMH [id number] [place] 00:00:00 00:00:[address] 2021-08-16 2021-08-16 Outpatient HMH HMH [id number] [place] 00:00:00 00:00:[address] 2021-08-16 2021-08-16 Outpatient CEBALLOS, H H [id number] [place] 00:00:00 00:00:00 CAMERON [address] 2021-08-13 2021-08-13 Outpatient HMH H [id number] [place] 00:00:00 00:00:[address] 2021-08-13 2021-08-13 [facility] [id number] [place] 00:00:00 00:00:00 PIERO [address] 2021-08-12 2021-08-12 Outpatient HMH H [id number] [place] 00:00:00 00:00:00 889 Method i 2021-08-12 2021-08-12 Outpatient CEBALLOS, [facility] [id number] [place] 00:00:00 00:00:00 CAMERON 602 Method i 2021-08-12 2021-08-12 Orders Doctor DESI 1.2.840.[id number] [place] [address] 00:00:00 00:00:00 Only Unassigned, BERNA 350.1.13.10 ity [facility] 4.2.7.2.686 [place] [phone] [address] 2021-08-10 2021-08-10 Outpatient [facility] [id number] [place] 00:00:00 00:00:00 028 Method i 2021-08-10 2021-08-10 Outpatient RACHEL, [facility] [id number] [place] 00:00:00 00:00:00 PIERO 825 Method i 2021-08-10 2021-08-10 Orders Doctor DESI 1.2.840.[id number] [place] [address] 00:00:00 00:00:00 Only Unassigned, BERNA 350.1.13.10 ity of [facility] 4.2.7.2.686 [place] [phone] [address] 2021-08-09 2021-08-09 [facility] [id number] [place] 00:00:00 00:00:00 PIERO 774 Method i 2021-08-09 2021-08-09 [facility] [id number] [place] 00:00:00 00:00:00 PIERO 020 Method i 2021-08-09 2021-08-09 Outpatient [facility] [id number] [place] 00:00:00 00:00:00 027 Method i 2021-08-06 2021-08-06 Emergency X RUBIO ANNE ERT [id number] Univers 13:53:00 15:20:00 TORI crespo [facility] 2021-08-06 2021-08-06 Emergency RUBIO Anne 1.2.018.477 [id number] Univers 13:53:00 15:20:00 Tori DIAMOND 350.1.13.10 ity of [place] 4.2.7.2.686 [facility] [phone] [facility] [address] 2021-08-06 2021-08-06 Transition BALDO Kim 1.2.840.114 [id number] Univers 00:00:00 00:00:00 of Vinayak SANTIAGO 350.1.13.10 it y of [place] 4.2.7.2.686 [facility] [phone] [facility] 403 [address] 2021-08-05 2021-08-05 Outpatient X [facility] [id number] [facility] 05:20:00 16:34:00 [facility] ity [facility] 2021-08-05 2021-08-05 Emergency Barry Amarjit NORIEGANIE 1.2.840. 114 [id number] [facility] 05:20:00 16:34:00 Manohar Garcia 350.1.13. 10 ity of [facility] 4.2.7.2.686 [place] [phone] [place] 048064 [place] 2021-08-03 2021-08-03 Outpatient [facility] [id number] [place] 00:00:00 00:00:00 024 Method i 2021-08-03 2021-08-03 Outpatient SHROSADY, [facility] [id number] [place] 00:00:00 00:00:00 PIERO 833 Method i 2021-08-03 2021-08-03 Emergency EGBERS, [facility] [id number] [place] 00:00:00 00:00:00 DANTE 955 Method i 2021-08-02 2021-08-02 Outpatient [facility] [id number] [place] 00:00:00 00:00:00 023 Method i 2021-07-31 2021-07-31 Emergency [facility] [id number] Univers 10:57:00 14:57:00 TESSY ity [facility] 2021-07-31 2021-07-31 Emergency [facility] 1.2.724.176 [id number] Univers 10:57:00 14:57:00 Tessy DIAMOND 350.1.13.10 ity of [place] 4.2.7.2.686 [facility] [phone] [facility] sonja 084 [place] 2021-07-29 2021-07-29 [facility] [id number] [place] 00:00:00 00:00:[address] 2021-07-29 2021-07-29 Outpatient RACHEL, [facility] [id number] [place] 00:00:00 00:00:00 PIERO [address] 2021-07-28 2021-07-28 Outpatient HMH [facility] [id number] [place] 00:00:00 00:00:[address] 2021-07-27 2021-07-27 Outpatient HMH [facility] [id number] [place] 00:00:00 00:00:[address] 2021-07-26 2021-07-26 Outpatient CEBALLOS, [facility] [id number] [place] 00:00:00 00:00:00 CAMERON [address] 2021-07-26 2021-07-26 Outpatient HMH [facility] [id number] [place] 00:00:00 00:00:[address] 2021-07-23 2021-07-23 Outpatient HMH [facility] [id number] [place] 00:00:00 00:00:[address] 2021-07-22 2021-07-22 Outpatient HMH [facility] [id number] [place] 00:00:00 00:00:[address] 2021-07-22 2021-07-22 Outpatient RACHEL, [facility] [id number] [place] 00:00:00 00:00:00 PIERO [address] 2021-07-21 2021-07-21 Outpatient HMH H [id number] [place] 00:00:00 00:00:[address] 2021-07-20 2021-07-20 Outpatient HMH H [id number] [place] 00:00:00 00:00:[address] 2021-07-20 2021-07-20 Outpatient CEBALLOS, [facility] [id number] [place] 00:00:00 00:00:00 CAMERON [address] 2021-07-19 2021-07-19 Outpatient HMH [facility] [id number] [place] 00:00:00 00:00:[address] 2021-07-16 2021-07-16 Outpatient HMH HMH [id number] [place] 00:00:00 00:00:[address] 2021-07-15 2021-07-15 Outpatient HMH HMH [id number] [place] 00:00:00 00:00:[address] 2021-07-14 2021-07-14 Outpatient HMH [facility]H [id number] [place] 00:00:00 00:00:[address] 2021-07-13 2021-07-13 Outpatient HMH [facility]H [id number] [place] 00:00:00 00:00:[address] 2021-07-13 2021-07-13 Outpatient SHKEDY, H H [id number] [place] 00:00:00 00:00:00 PIERO [address] 2021-07-12 2021-07-12 Outpatient HMH H [id number] [place] 00:00:00 00:00:[address] 2021-07-09 2021-07-09 Outpatient HMH HMH [id number] [place] 00:00:00 00:00:[address] 2021-07-08 2021-07-08 Outpatient HMH HMH [id number] [place] 00:00:00 00:00:[address] 2021-07-08 2021-07-08 Outpatient SHKEDY, H H [id number] [place] 00:00:00 00:00:00 PIERO [address] 2021-07-07 2021-07-07 Outpatient SHKEDY, H H [id number] [place] 00:00:00 00:00:00 PIERO [address] 2021-07-07 2021-07-07 Outpatient CEBALLOS, H [facility] [id number] [place] 00:00:00 00:00:00 CAMERON [address] 2021-07-07 2021-07-07 Outpatient HMH HMH [id number] [place] 00:00:00 00:00:[address] 2021-07-06 2021-07-06 Outpatient HMH [facility]H [id number] [place] 00:00:00 00:00:[address] 2021-07-05 2021-07-05 Outpatient [facility] [id number] [place] 00:00:00 00:00:[address] 2021-06-29 2021-06-29 Outpatient SHKEDY, [facility] [id number] [place] 00:00:00 00:00:00 PIREO [address] 2021-06-29 2021-06-29 Outpatient CEBALLOS, [facility] [id number] [place] 00:00:00 00:00:00 CAMERON [address] 2021-06-25 2021-06-25 Outpatient SHKEDY, [facility] [id number] [place] 00:00:00 00:00:00 PIERO [address] 2021-06-25 2021-06-25 Outpatient SHKEDY, [facility] [id number] [place] 00:00:00 00:00:00 PIERO [address] 2021-06-23 2021-06-23 Outpatient CEBALLOS, [facility] [id number] [place] 00:00:00 00:00:00 CAMERON [address] 2021-06-23 2021-06-23 Outpatient CEBALLOS, [facility] [id number] [place] 00:00:00 00:00:00 CAMERON [address] 2021-06-21 2021-06-21 Outpatient CEBALLOS, [facility] [id number] [place] 00:00:00 00:00:00 CAMERON [address] 2021-05-31 2021-05-31 Outpatient CEBALLOS, [facility] [id number] [place] 00:00:00 00:00:00 CAMERON [address] 2021-05-31 2021-05-31 Outpatient OOLUT, [facility] [id number] [place] 00:00:00 00:00:00 CAROLYN [address] 2021-04-27 2021-04-27 Outpatient OOLUT, [facility] [id number] [place] 00:00:00 00:00:00 CAROLYN [address] 2021-04-14 2021-04-14 Outpatient OOLUT, [facility] [id number] [place] 00:00:00 00:00:00 CAROLYN [address] 2021-04-14 2021-04-14 Outpatient PARMET, [facility] [id number] [place] 00:00:00 00:00:00 WALE Ahmadi9 Method i 2021-04-13 2021-04-13 Outpatient OOLUT, [facility] [id number] [place] 00:00:00 00:00:00 CAROLYN 682 Method i 2021-04-01 2021-04-01 Outpatient OOLUT, [facility] [id number] [place] 00:00:00 00:00:00 CAROLYN 447 Method i 2021-03-31 2021-03-31 Outpatient OOLUT, [facility] [id number] [place] 00:00:00 00:00:00 CAROLYN 630 Method i 2021-03-08 2021-03-08 Recruiting And Selection Consultant Ofelia, Adc Lab Main [facility] 1.2.8 40.114 [id number] Univers 07:44:04 07:59:04 Visit George Little 350.1.13.10 [facility] 4.2.7.2.686 [place] [phone] [address] 2021-03-08 2021-03-08 Outpatient Niesha LITTLE [facility] [id number] Univers 07:45:00 07:45:00 GEORGE crespo [facility] 2021-03-08 2021-03-08 Orders Doctor DESI 1.2.840.114 [id number] [facility] 00:00:00 00:00:00 Only Unassigned, BERNA 350.1.13.10 ity [facility] 4.2.7.2.686 [place] [phone] [address] 2021-02-19 2021-02-19 Outpatient OOLUT, [facility] [id number] [place] 00:00:00 00:00:00 CAROLYN 055 Method i 2021-02-09 2021-02-09 Outpatient Niesha MCCORD [facility] [id number] Univers 16:45:00 16:45:00 SANDRINE crespo [facility] 2021-02-09 2021-02-09 Recruiting And Selection Consultant Ofelia, Adc Lab Main [facility] 1.2.8 40.114 [id number] [facility] 16:22:14 16:37:14 Visit Sandrine Mccord 350.1.13.10 ity of [place] 4.2.7.2.686 [place] [facility] [phone] [facility] 353 [facility] 2021-02-09 2021-02-09 Orders Doctor DESI 1.2.840.114 [id number] Univers 00:00:00 00:00:00 Only Unassigned, BERNA 350.1.13.10 ity of [facility] 4.2.7.2.686 [place] [phone] [facility] 00[address] 2021-02-02 2021-02-02 Outpatient OOLUT, [facility] [id number] [place] 00:00:00 00:00:00 CAROLYN 319 Method i 2021-02-02 2021-02-02 Outpatient [facility] [id number] [place] 00:00:00 00:00:00 476 Method i 2021-02-02 2021-02-02 Outpatient [facility] [id number] [place] 00:00:00 00:00:00 478 Method i 2021-02-02 2021-02-02 Outpatient OOLUT, [facility] [id number] [place] 00:00:00 00:00:00 CAROLYN 479 Method i 2021-01-14 2021-01-14 Outpatient SEPTIMUS, [facility] [id number] [place] 00:00:00 00:00:00 TODD 242 Method i 2020-12-24 2020-12-24 Outpatient OOLUT, [facility] [id number] [place] 00:00:00 00:00:00 CAROLYN 345 Method i 2020-12-24 2020-12-24 Outpatient [facility] [id number] [place] 00:00:00 00:00:00 610 Method i 2020-11-28 2020-11-28 Hospital Flex [facility] 1.2.436.852 [id number] [facility] 10:50:00 23:59:00 Encounter Sandrine Diamond 350.1.13.10 ity of [place].2.[place] [id number] [facility] 801 [address] 2020-11-28 2020-11-28 Outpatient R AGLIECO, [facility] [id number] Univers 00:00:00 00:00:00 SANDRINE ity of [facility] 2020-10-21 2020-10-21 Outpatient R UNKNOWN, [facility] [id number] Univers 09:15:00 09:15:00 ATTENDING ity of [facility] 2020-10-21 2020-10-21 Recruiting And Selection Consultant Ofelia, Millicent Lab Main [facility] 1.2.8 40.114 [id number] Univers 08:53:13 09:08:13 Visit Unknown, Attending Brooke 350.1.13.1 0 ity of [place] 4.2.7.2.686 [place] [phone] Ok dic[address] 2020-10-21 2020-10-21 Orders Doctor DESI 1.2.840.114 [id number] Univers 00:00:00 00:00:00 Only Unassigned, BERNA 350.1.13.10 [facility] 4.2.7.2.686 [place] [phone] [facility] 009 [place] Results Test Description Test Time Test Comments Results Result Comments Source Tissue Exam 2023-05-31 15:17:28 Test Item Value Reference Range Interpretation Comme nts Case Report (test code = 104) Surgical Pathology Report Case: [id number] Authorizing Provider: Jamal Orellana MD Collected: 05/26/2023 11:20 AM Ordering Location: [facility] PERIOPERATIVE Received: 05/26/2023 02:46 PM SERVICES Pathologist: Zoltan Sol MD Specimen: Brain, left parietal brain metastasis DIAGNOSIS (test code = 3220) s3pipELeGWQzr1ydTXUpvWBmEhKvUuOeIvMxOp pc [file] HWgsKYE9NIwzUKB0qF== COMMENT (test code = 3359) z8puaURtPOXkqXDwFLUuZ7ounoUnTPEwkZWyJ9Kk svozNVnpZZ9lQO6ifFlxtOMjpYLxFBLqUuGsf2pf u087vJGjy9kxKCBXnesqsJy8qNlkH99jf3W8Kcqy T96akREkWXR7KDKvJQJoyWZrYWRzDDH7XLMfmXEb X1inQTPjNE0lximwPZbjJRgbTQXmzTF0LDWxzEAy H9KsNVCfLVldVVCjmsk3TkUwYl0hyLChxBncMXwb PDEdHWPdNXwsDQCePzGyJSvbCKjhd9QnvW0xqHqo bA5jbYMqcuIjpQ2lbB3maNntjr97jMBnMZexQN3a pYZniSNaxWNoNsXarlQgL6SyNVYcUQXbwVBtcNaj nTMau5n4xAKhaR6pAZJvESR8um8vseYth1HqjpCi LQVrjzZnNX5wfnJfjLcug2HqoXojjvpfoNIowQRs xM1tEFVtrmLvcVE6uC1jDSpveCgbV1biwqyuGJuh SI2lBBvvZYhvgnvzOvknQSxuU4AsyDLtamPnPHAe AJA2CTUwKUMftSIdkCpnQXP6qOXhfOIdpWSzlUVl yKJfUrQrQGXjAS3mkUGguNzmzwipNyEucS5kokst twL7dVV9CRFdmXqtVLGiq7VuBS1gHQGuprCejf5l nYQfVBSwscXLdF0fzxFNVtEzXJUhVDWroSHwuKYp mHCdd5InR9AydUAnIAGrsZpvMp8uUVBkQTe0fM2t XHroMH9jnSxwWNK7DUP2oJMnZPTzHOAruuxnRTY8 CPT Code(s) (test code = 3357) g4ppiYHgRHQoqUApBPVyP6vousJdKLLbqYXt Z3Bh kqdeXPjfUJ7zQL7qsZallMDohVYdKUOpQeIbr6bh e783nXXpj8baWZLXhdapcRm5oVkwH26hf5W9Xchh I35ehMDfWZF3CBJrYBPzeAZjAIPwEUJ4HPGjqSHh I1uwPOPiMX5ktirtVOmnEDpsYOSsiCR9JANxtUBz R9NcVNRlBLslPPTqsff3IdDcBz2mvVNunFuxIQuo QGWlCKKoGCtxFYJfYbNcKGrtLDwrJIl9FlVwTFN5 GQB6WFh1YYHgjy5= CLINICAL HISTORY (test code = 3356) p8cdqRWnPGCmfCPgWOJyD4icgaFwWEL hcWLoP8Ll yzwrEQmaBJ7uVE9cbDfhcZUzbGToRPFiIzFen3yj e358cMQuj4czMVKVjqpevFb0tMpxU82mj0U6Hixt L6jaPGHmJDlzLANsFLkslRQwUHq6UZMgaGKsnrHv TaAfEAZpuPKcaXA4XZXtQE9ycxroWOdrQSxaTIWg hrQ7UJXwiYUlH1CjEHUqVA0jgvuqMEF0OMciOHAl LUV8EvQgYXZdv5Wvipr2BgAcvYNwVQiulTRzuzpx agFhPCQsYBXQoGGjiFX2cZHhkSExdoOlZJf7ZXrq OOXqx8afGR4titO1xADhJGAmdXsstY4ymBVpZzNt yQ3lRITeGV8tG3HrS0wcf34cWIrhvSlpVQXzwk32 HOTtouxia1RuQCS9vV9rrJHlg8HkuWFsTRcuzFcc ZCWtBV2uqfApXKdyTrDvLHQts22mwF2xzMesQDnf VdUsyFTbxFR4KEceMFZgGX4mnPLzrD== GROSS DESCRIPTION (test code = a9osjSOxXVCdzLKPMCJoCDKpIY0amZvkfTy1 [facility] [id number]) YOAukjP8sENjWQiif2khHUU1d1ehyuKOMustWKGo HQ8lEBohYOItVO7uSnDoHLGzRrQeZKStlPKmzoXx LjWiDNBfqMCunNN1MADfKQ4wiicjFBwrEFtjIFRi rjD1KLHowIMgY2VyUUHfYJ0shdxuQXS2ZLIMTnuy Tl4laAWfdGzuMeOmSgGuQUEwJZSkWSFisQsrQEPo YKc1jY6BTselCFD2QMWTCaezGizspAtsw5XpoKZt XHNnIFxcaWQgNTEwMDAgXFxkYiBPVlIgIiAxNDI1 AfQpFIGuEYw0GIasBcOIMMA3RFNxJUXlETx0TThe SPkedORkCKRqBAYpIJYgFAdlqvR1b9wrFPYdkZNs CLD1NAgho3ugCIuiUNE4VQEoCzHjPRHhCB0XJlRb YBF3KtM2LNK4RcP7WHc4OEVFNoKhArNjZtitSnY0 VNUdXRw7EKi5BTsLZyH3AfQiWCsfYEpwRYV5RjPg QQs1MGPzNEidxzJiGRwuLezjVSzmY77nsNSrPSFN ClxwbGFpblxmczIyIEEuIEJyYWluXHBhciANClxw YNMeXL3XNRKiLMffGZIhVfOakCSbB4pgDFUpM36d d4NEq3SsAR6YESf5gwFmhmtgmJ5gBUOiydBjIPiq UlShERISDGUpfMTkYNSnwdOps5ZhCJtomcOyLCDc nDCgTFkkzTxokIicNIKjrQpqbsZxieChNG6oXPLu V3Oiw6Gpj83iauHeJzVtHGEdFTXyyQBgwFHrCLBv XYYbzLEkxuZjsnSzFODio6Unm3fvJlPufaQuLRXf XKM7CTHsQWX8YJDvWwZxgSLbk9B6yS2dPV4qSSFs ua7snK4qPOBlKxVwhFslt2UvZNS6rPdyoNZwlfQx hxBadkDhmBJirLPqmVJ3CXOawL3pURChIDNhMQDb wvYSFtvgVNRnVFxrn8MlYMryiCypNGAqHvRbYDtW rJiyvbYCbnn5WGmgHUJwVYBDZFAXXVXlUFQCDAsR EmylmVztPpWynOGrOlB1XJHizKRaWRM4XT4onUyb PBVhQ5RfV0LpsoL4TKCujcYXFawfUHGxEJ7BQCWe MjIgDQp9 MICROSCOPIC DESCRIPTION (test code = l0dgyXKbJFHhsUYrXFGjE1nzfuCnKD VhkCViR7Kp 3371) tzfbSIjoVP5kSF4liVtxsNPouEGgCYGgOjXlv0qj u981sBLsv6wxJEYQhbaczJi2sYteF46ur5T9Bagd V47uxHDkZPW8KVLlQHHnyLNmFTLqDUH5JLOhzPFm J4egHJPaDV9evccyCTvtFCvwKERyyNP6WHCplGPr X4MzLXKpHIeuMPJlahe7RwYqDe9nkJMowSpsBNdr EYRmJHGgYKhkXTWmJeFeNHPxTl3fyNKlPROblo1= SPECIAL STUDIES (test code = 3376) l0lscJKuHCXvxXUfIHBpE9ijypJnQQFe zWOqS2Ml [file] yI9mZdsoZUM6 Gross assessment was performed at (test [facility] enter, code = 2777) Department of Pathology, [address] [place] [id number], Technical component was performed at [facility] er, (test code = 2778) Department of Pathology, [address] [place] [id number], Professional component was performed at [facility] enter, (test code = 2779) Department of Pathology, [address] [place] [address], [id number] 15:17:28Surgical Pathology Report Case: [id number] Authorizing Provider: Jamal Orellana MD Collected: 05/26/2023 11:20 AM Ordering Location: [facility] PERIOPERATIVE Received: 05/26/2023 02:46 PM SERVICES Pathologist: Zoltan Sol MD Specimen: Brain, left parietal brain metastasis Brain, left parietal tumor,excision: - 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 Correlation with clinical and imaging findings is necessary to determine the primary site. Dr. Haydee Dunn reviewed the case and agrees.Block A2 hasadequate tumor cellularity for additional ancillary studies.34260, 64292, [id number] patient is a 78-year-old man with a history of lung adenocarcinoma (slides not reviewed) who presented with a hemorrhagic lesion in the left parietal area.A. BrainReceived in formalin labeled with the patient's name, accession number and "left parietal brain metastasis" is a 2.5 x 2.0 x 0.6 cm portion of hicks-pink soft tissue, which is entirely submitted in A1- A3.ESMER Ghotra, HT (ASCP)PerformedBlock A1- CK7: Positive in tumor- CK20: Negative in tumorBlock A2- TTF1: Patchy positive in tumor- NapsinA: Negativein tumor- CDX2: Patchy positive in tumor- Synaptophysin: Rare positive cells in tumor- Chromogranin:Negative in tumorThe interpretation of this case included the use of immunohistochemistry or specialstains.Control Slides Examined: In-house known positive controls were evaluated along with the test t issue. These control slides run alongside of the patients sample show appropriate staining. Internalpositive and negative controls when available are evaluated Immunohistochemistry technical testing was performed at [facility], Pathology Laboratory where it was developed and its performance characteristics were determined. It has not been cleared or approved by the U.S. Food and Drug Administration. The FDA has determined that such clearance or approval is not necessary. The test is used for clinical purposes. It should not be regarded as investigational or for research. Thislaboratory is certified under the Clinical Laboratory Improvement Amendments of 1988 (CLIA-88) as qualified to perform high complexity clinical laboratory testing.[facility], Department of Pathology, [address] [place] [address], [facility], [facility], [address] [place] [address], [facility], [facility], [address] [place] [address], AWS-Glucose [id number] 12:12:55 Test Item Value Reference Range Interpretation Comments POC-Glucose Meter (test 126 mg/dL 70-110 H : TE STED AT [facility] code = 1538) [address] [place] [address], [facility] 30: Supervisor Particleboard/Techni ranulfo ID = [id number] for [facility] Interpret[facility] (test Abnormal code = 69430-0) [facility]-Glucose [id number] 12:12:55 Test Item Value Reference Range Interpretation Comments POC-Glucose Meter (test 126 mg/dL 70-110 H : TE STED AT [facility] code = 1538) [address] [place], [address] 30: Supervisor Particleboard/Techni ranulfo ID = [id number] for Umeh, [place]umb[place] Lab Interpretation (test Abnormal code = 80874-2) [facility]-GLUCOSE [id number] 12:12:55 Test Item Value Reference Range Interpretation Comments POC-GLUCOSE METER 126 mg/dL 70-110 H : TESTED A T [facility] 6720 (BEAKER) (test code = [facility] Niesha [facility], 1538) [address]: Supervisor Particleboard/Techni ranulfo ID = [id number] for Um eh, Akumbu (CELLAVISION MANUAL DIFF)2023-05-30 06:40:31 Test Item Value [...] CONCENTRATION Adequate (CELLAVISION)(BEAKER) (test code = 3438) Supervisor Particleboard ID - Cecy OverholtUser comments: Slide comments:CBC W/PLT COUNT & AUTO [id number] 06:40:30 Test Item Value Reference Range Interpretation [...] WBC 0-0 (BEAKER) (test code = 413) [id number] 06:32:57 Test Item Value Reference Range Interpretation Comments PHOSPHORUS (BEAKER) 2.5 mg/dL 2.3-4.7 Specimen slightly (test code = 604) hemolyzed Supervisor Particleboard ID - emBASIC METABOLIC [id number] 06:32:57 Test Item Value Reference Range Interpretation [...] not appl icable for dialysis patien ts Supervisor Particleboard ID - pwRBTQIVYBX8775-10-41 06:32:56 Test Item Value Reference Range Interpretation Comments MAGNESIUM (BEAKER) 1.8 mg/dL 1.6-2.6 Specimen slightly (test code = 627) hemolyzed Supervisor Particleboard ID - emPOCT-GLUCOSE [id number] 21:47:39 Test Item Value Reference Range Interpretation Comments POC-GLUCOSE METER 119 mg/dL 70-110 H : TESTED A T [facility] 6720 (BEAKER) (test code = [facility], 153) [address]: Supervisor Particleboard/Techni ranulfo ID = [id number] for RIVERA GOMEZ POCT-GLUCOSE [id number] 18:13:39 Test Item Value Reference Range Interpretation Comments POC-GLUCOSE METER 97 mg/dL 70-110 : TESTED A T [facility] 6720 (BEAKER) (test code = [facility], 1538) [address]: Supervisor Particleboard/Techni ranulfo ID = [id number] for Ramirez , Cathleen (Amira) POCT-GLUCOSE [id number] 17:29:46 Test Item Value Reference Range Interpretation Comments POC-GLUCOSE METER 126 mg/dL 70-110 H : TESTED A T [facility] 6720 (BEAKER) (test code = [facility], 1538) [address]: Supervisor Particleboard/Techni ranulfo ID = [id number] for Ph am, Cathleen (Amira) POCT-GLUCOSE [id number] 08:51:08 Test Item Value Reference Range Interpretation Comments POC-GLUCOSE METER 118 mg/dL 70-110 H : TESTED A T [facility] 6720 (BEAKER) (test code = [facility], [facility]) [address]: Supervisor Particleboard/Techni ranulfo ID = [id number] for Ph am, Cathleen (Amira) [id number] 04:44:37 Test Item Value Reference Range Interpretation Comments PHOSPHORUS (BEAKER) (test code = 2.9 mg/dL 2.3-4.7 604) Supervisor Particleboard ID - ADMINBASIC METABOLIC [id number] 04:44:36 Test Item Value Reference Range Interpretation [...] not appl icable for dialysis patien ts Supervisor Particleboard ID - [id number] 04:44:36 Test Item Value Reference Range Interpretation Comments MAGNESIUM (BEAKER) (test code = 1.9 mg/dL 1.6-2.6 627) Supervisor Particleboard ID - ADMIN(CELLAVISION MANUAL DIFF)2023-05-29 04:27:23 Test [...] CONCENTRATION Adequate (CELLAVISION)(BEAKER) (test code = 3438) Supervisor Particleboard ID - Sid Sheehan comments: Slide comments:CBC W/PLT COUNT & AUTO [id number] 04:27:22 Test Item Value Reference Range Interpretation [...] 0-0 (BEAKER) (test code = 413) POCT-GLUCOSE [id number] 22:45:37 Test Item Value Reference Range Interpretation Comments POC-GLUCOSE METER 125 mg/dL 70-110 H : TESTED A T [facility] 6720 (BEAKER) (test code = [place]IPRIAN[place] Sc[address] [place], 1538) [address]: Supervisor Particleboard/Techni ranulfo ID = [id number] for TAMIKO PAEZ POCT-GLUCOSE [id number] 17:53:50 Test Item Value Reference Range Interpretation Comments POC-GLUCOSE METER 128 mg/dL 70-110 H : TESTED A T [facility] 6720 (BEAKER) (test code = CIPRIANO Scherer [facility], 1538) [address]: Supervisor Particleboard/Techni ranulfo ID = [id number] for FABIANO MANRIQUEZ BASIC METABOLIC [id number] 13:06:48 Test Item Value Reference Range Interpretation [...] high >=90 G2 Mildly decreased 60-89 G3a Mild ly to moderately 45-5 9 G3b Moderately to [...] not appl icable for dialysis patien ts Supervisor Particleboard ID - ADMINPOCT-GLUCOSE [id number] 11:42:37 Test Item Value Reference Range Interpretation Comments POC-GLUCOSE METER 136 mg/dL 70-110 H : TESTED A T [facility] 6720 (BEAKER) (test code = [place], 1538) [address]: Supervisor Particleboard/Techni ranulfo ID = [id number] for FABIANO MANRIQUEZ (CELLAVISION MANUAL DIFF)2023-05-28 07:08:51 [...] CONCENTRATION Adequate (CELLAVISION)(BEAKER) (test code = 3438) Supervisor Particleboard ID - Augie comments: Slide comments:CBC W/PLT COUNT & AUTO [id number] 07:08:36 Test Item Value Reference Range Interpretation [...] WBC 0-0 (BEAKER) (test code = 413) [id number] 04:48:49 Test Item Value Reference Range Interpretation Comments MAGNESIUM (BEAKER) (test code = 1.7 mg/dL 1.6-2.6 627) Supervisor Particleboard ID - [id number] 04:48:49 Test Item Value Reference Range Interpretation Comments PHOSPHORUS (BEAKER) (test code = 2.4 mg/dL 2.3-4.7 604) Supervisor Particleboard ID - ADMINBASIC METABOLIC [id number] 04:48:48 Test Item Value Reference Range Interpretation [...] not appl icable for dialysis patien ts Supervisor Particleboard ID - ADMINPOCT-GLUCOSE [id number] 22:23:51 Test Item Value Reference Range Interpretation Comments POC-GLUCOSE METER 121 mg/dL 70-110 H : TESTED A T [facility] 6720 (BEAKER) (test code = CIPRIANO Scherer [facility], 1538) [address]: Supervisor Particleboard/Techni ranulfo ID = [id number] for ALEXANDR REED MR BRAIN WITH & WITHOUT IV [id number] 16:44:24 [facility] 1945 Sex: MMRI Brain with and without [...] Signed By: Edison Sharif05/27/2023 16:46 CDTWorkstation Name: [id number] [id number] 13:49:51 Test Item Value Reference Range Interpretation Comments POC-GLUCOSE METER 109 mg/dL 70-110 : [facility] 6720 (VetCloud) (test code = [facility] [address] [facility], 153) [address]: Supervisor Particleboard/Techni ranulfo ID = [id number] for ESMER SCHNEIDER FABIANO POCT-GLUCOSE [id number] 07:42:10 Test Item Value Reference Range Interpretation Comments POC-GLUCOSE METER 164 mg/dL 70-110 H : TESTED A T [facility] 6720 ([employer]et[employer]) (test code = CIPRIANO Niesha [facility], 1538) 25[address]: Supervisor Particleboard/Techni ranulfo ID = [id number] for ALEXANDR REED [id number] 04:32:10 Test Item Value Reference Range Interpretation Comments MAGNESIUM (VetCloud) (test code = 1.8 mg/dL 1.6-2.6 627) Supervisor Particleboard ID - [id number] 04:32:10 Test Item Value Reference Range Interpretation Comments PHOSPHORUS (BEAKER) (test code = 1.9 mg/dL 2.3-4.7 L 604) Supervisor Particleboard ID - ADMINBASIC METABOLIC [id number] 04:32:09 Test Item Value Reference Range Interpretation [...] not appl icable for dialysis patien ts Supervisor Particleboard ID - ADMINCBC W/PLT COUNT & AUTO [id number] 04:14:45 Test Item Value Reference Range Interpretation [...] PERCENT (BEAKER) (test code = 2801) POCT-GLUCOSE [id number] 23:58:44 Test Item Value Reference Range Interpretation Comments POC-GLUCOSE METER 109 mg/dL 70-110 : TESTED Darrel Mcnally [facility] 6720 (BEAKER) (test code = [place], 1538) [address]: Supervisor Particleboard/Techni ranulfo ID = [id number] for ALEXANDR REED POCT-GLUCOSE [id number] 16:41:01 Test Item Value Reference Range Interpretation Comments POC-GLUCOSE METER 134 mg/dL 70-110 H : TESTED A T [facility] 6720 (BEAKER) (test code = [facility], 1538) 110[address]: Supervisor Particleboard/Techni ranulfo ID = [id number] for Mitzi Bolaños POCT-GLUCOSE [id number] 13:46:07 Test Item Value Reference Range Interpretation Comments POC-GLUCOSE METER 88 mg/dL 70-110 : TESTED A T [facility] 6720 (BEAKER) (test code = [facility], 1538) 92648: Supervisor Particleboard/Techni ranulfo ID = [id number] for Mitzi Bolaños POCT-GLUCOSE [id number] 06:38:40 Test Item Value Reference Range Interpretation Comments POC-GLUCOSE METER 104 mg/dL 70-110 : TESTED A T [facility] 6720 (BEAKER) (test code = [facility], 1538) [address]: Supervisor Particleboard/Techni ranulfo ID = [id number] for Tatiana Wilson BASIC METABOLIC [id number] 04:24:25 Test Item Value Reference Range Interpretation [...] not appl icable for dialysis patien ts Supervisor Particleboard ID - [id number] 04:24:25 Test Item Value Reference Range Interpretation Comments MAGNESIUM (BEAKER) (test code = 1.6 mg/dL 1.6-2.6 627) Supervisor Particleboard ID - [id number] 04:24:25 Test Item Value Reference Range Interpretation Comments PHOSPHORUS (BEAKER) (test code = 2.4 mg/dL 2.3-4.7 604) Supervisor Particleboard ID - MARCOCBC W/PLT COUNT & AUTO [id number] 04:22:48 Test Item Value Reference Range Interpretation [...] PERCENT (BEAKER) (test code = 2801) POCT-GLUCOSE [id number] 00:30:08 Test Item Value Reference Range Interpretation Comments POC-GLUCOSE METER 119 mg/dL 70-110 H : TESTED A T [facility] 6720 (BEAKER) (test code = [place], 1538) [address]: Supervisor Particleboard/Techni ranulfo ID = [id number] for Tatiana Wilson [id number] 15:46:50 Test Item Value Reference Range Interpretation Comments PARTIAL THROMBOPLASTIN TIME 27.4 seconds 22.5-36.0 (BEAKER) (test code = 760) PROTHROMBIN TIME/[id number] 15:46:14 Test Item Value Reference Range Interpretation Comments PROTIME (BEAKER) (test code = 15.5 seconds 11.9-14.2 H 759) INR (BEAKER) (test code = 370) 1.23 <=5.90 RECOMMENDED COUMADIN/WARFARIN INR THERAPY RANGESSTANDARD DOSE: 2.0 - 3.0 Includes: PROPHYLAXIS for venous thrombosis, systemic embolization; TREATMENT for venous thrombosis and/or pulmonary embolus.HIGH RISK: Target INR is 2.5-3.5 for patients with mechanical heart valves.POCT-GLUCOSE [id number] 13:00:10 Test Item Value Reference Range Interpretation Comments POC-GLUCOSE METER 124 mg/dL 70-110 H : TESTED A T [facility] 6720 (BEAKER) (test code = [place], 1538) [address]: Supervisor Particleboard/Techni ranulfo ID = [id number] for CARLOS RUSHING [id number] 06:38:02 Test Item Value Reference Range Interpretation Comments MAGNESIUM (BEAKER) (test code = 1.8 mg/dL 1.6-2.6 627) Supervisor Particleboard ID - [id number] 06:38:02 Test Item Value Reference Range Interpretation Comments PHOSPHORUS (BEAKER) (test code = 2.2 mg/dL 2.3-4.7 L 604) Supervisor Particleboard ID - BSBASIC METABOLIC [id number] 06:38:01 Test Item Value Reference Range Interpretation [...] is not appl icable for dialysis patien franky Supervisor Particleboard ID - BSPOCT-GLUCOSE [id number] 06:01:53 Test Item Value Reference Range Interpretation Comments POC-GLUCOSE METER 98 mg/dL 70-110 : TESTED A T [facility] 6720 (BEAKER) (test code = [place], 1538) [address]: Supervisor Particleboard/Techni ranulfo ID = [id number] for Nataliia schererTatiana CBC W/PLT COUNT & AUTO [id number] 05:44:39 Test Item Value Reference Range Interpretation [...] PERCENT (BEAKER) (test code = 2801) POCT-GLUCOSE [id number] 00:54:18 Test Item Value Reference Range Interpretation Comments POC-GLUCOSE METER 99 mg/dL 70-110 : TESTED A T [facility] 6720 (BEAKER) (test code = [facility], 1538) [address]: Supervisor Particleboard/Techni ranulfo ID = [id number] for Nataliia scherer Nadiaqamar POCT-GLUCOSE [id number] 17:25:03 Test Item Value Reference Range Interpretation Comments POC-GLUCOSE METER 83 mg/dL 70-110 : TESTED A T [facility] 6720 (BEAKER) (test code = [facility], 1538) 85394: Supervisor Particleboard/Techni ranulfo ID = [id number] for Spencer kwan Tony MR LUMBAR SPINE WITH & WITHOUT IV [id number] 12:52:58 [facility] : 1945 Sex: MMR [...] Signed By: Kinjal Ontiveros05/24/2023 12:55 CDTWorkstation Name: [id number] THORACIC SPINE WITH & WITHOUT IV [id number] 12:52:58 [facility] : 1945 Sex: MMR [...] Signed By: Kinjal Ontiveros05/24/2023 12:55 CDTWorkstation Name: [id number] CERVICAL SPINE WITH & WITHOUT IV [id number] 12:52:58 [facility] : 1945 Sex: MMR [...] Signed By: Kinjal Ontiveros05/24/2023 12:55 CDTWorkstation Name: [id number] METER 2023-05-24 11:56:31 Test Item Value Reference Range Interpretation Comments POC-GLUCOSE METER 112 mg/dL 70-110 H : TESTED A T [facility] 6720 (BEAKER) (test code = TANYASHANTI Scherer [facility], 1538) [address]: Supervisor Particleboard/Techni ranulfo ID = [id number] for Jonoteresa kwanTony [id number] 03:29:45 Test Item Value Reference Range Interpretation Comments MAGNESIUM (BEAKER) (test code = 1.8 mg/dL 1.6-2.6 627) Supervisor Particleboard ID - [id number] 03:29:45 Test Item Value Reference Range Interpretation Comments PHOSPHORUS (BEAKER) (test code = 2.1 mg/dL 2.3-4.7 L 604) Supervisor Particleboard ID - BSBASIC METABOLIC [id number] 03:29:44 Test Item Value Reference Range Interpretation [...] not appl icable for dialysis patien ts Supervisor Particleboard ID - BSCBC W/PLT COUNT & AUTO [id number] 03:00:34 Test Item Value Reference Range Interpretation [...] PERCENT (BEAKER) (test code = 2801) POCT-GLUCOSE [id number] 16:27:10 Test Item Value Reference Range Interpretation Comments POC-GLUCOSE METER 136 mg/dL 70-110 H : TESTED A T [facility] 6720 (BEAKER) (test code = [facility], 1538) 28[address]: Supervisor Particleboard/Techni ranulfo ID = [id number] for Eulalio Beatty POCT-GLUCOSE [id number] 11:41:17 Test Item Value Reference Range Interpretation Comments POC-GLUCOSE METER 110 mg/dL 70-110 : TESTED A T [facility] 6720 (BEAKER) (test code = [facility], 1538) 51892: Supervisor Particleboard/Techni ranulfo ID = [id number] for Renuka Beattye POCT-GLUCOSE [id number] 06:47:20 Test Item Value Reference Range Interpretation Comments POC-GLUCOSE METER 129 mg/dL 70-110 H : TESTED Darrel Mcnally [facility] 6720 (GRIFFIN) (test code = [place], 1538) [address]: Supervisor Particleboard/Techni ranulfo ID = [id number] for ALEXANDR REED CTA [id number] 06:32:39 [facility] : 1945 Sex: MCLINICAL [...] By: Jose Manuel Mata05/23/2023 06:35 CDTWorkstation Name: [id number] [id number] 06:32:39 [facility] : 1945 Sex: MCLINICAL [...] By: Jose Manuel Mata05/23/2023 06:35 CDTWorkstation Name: QPEEETU69ZV BRAIN WITHOUT IV [id number] 06:22:06[facility] : 1945 Sex: MCT [...] By: Jose Manuel Mata05/23/2023 06:24 CDTWorkstation Name: [id number] ABDOMEN/KUB 1 VIEW [id number] 04:57:08 [facility] : 1945 Sex: MCLINICAL [...] Signed By: Kody Francis05/23/2023 04:59 CDTWorkstation Name: [id number] 04:23:19 Test Item Value Reference Range Interpretation Comments PHOSPHORUS (BEAKER) (test code = 2.3 mg/dL 2.3-4.7 604) Supervisor Particleboard ID - EMBASIC METABOLIC [id number] 04:23:18 Test Item Value Reference Range Interpretation [...] De scription 1092) sq m Result G1 [place] or high >=90 G2 Mildly decreased [...] not appl icable for dialysis patien ts Supervisor Particleboard ID - [id number] 04:23:18 Test Item Value Reference Range Interpretation Comments MAGNESIUM (BEAKER) (test code = 1.9 mg/dL 1.6-2.6 627) Supervisor Particleboard ID - EMCBC W/PLT COUNT & AUTO [id number] 04:01:52 Test Item Value Reference Range Interpretation [...] PERCENT (BEAKER) (test code = 2801) POCT-GLUCOSE [id number] 00:52:01 Test Item Value Reference Range Interpretation Comments POC-GLUCOSE METER 148 mg/dL 70-110 H : TESTED A T [facility] 6720 (BEAKER) (test code = [place], 1538) [address]: Supervisor Particleboard/Techni ranulfo ID = [id number] for TAMAR YOBANI XR ABDOMEN/KUB 1 VIEW [id number] 21:54:06 [facility] : 1945 Sex: MEXAM: [...] Signed By: Justina Wells05/22/2023 21:56 CDTWorkstation Name: [id number]-[id number] 18:46:44 Test Item Value Reference Range Interpretation Comments POC-GLUCOSE METER 138 mg/dL 70-110 H : TESTED A T [facility] 6720 (GRIFFIN) (test code = [place], 1538) [address]: Supervisor Particleboard/Techni ranulfo ID = [id number] for Sadia Gutierrez MR BRAIN WITH & WITHOUT IV [id number] 15:59:08 [facility] : 1945 Sex: MMR [...] Signed By: Kinjal Ontiveros05/22/2023 16:01 CDTWorkstation Name: [id number] 15:34:57 Test Item Value Reference Range Interpretation Comments RPR SCREEN (BEAKER) (test code = Nonreactive Nonreactive 420) [id number] 15:00:23 Test Item Value Reference Range Interpretation Comments PROLACTIN (BEAKER) (test code = 14.55 ng/mL 3.46-19.40 758) Supervisor Particleboard ID - BSHIV-1 ANTIGEN WITH HIV-1/2 [id number] 15:00:23 Test Item Value Reference Range Interpretation Comments HIV-1 ANTIGEN WITH HIV 1\\T\\2 Nonreactive Nonreactive ANTIBODY (2) (BEAKER) (test code = 2586) Supervisor Particleboard ID - BSCT ABDOMEN/PELVIS WITH IV [id number] 14:50:05 [facility] : 1945 Sex: MTECHNIQUE: [...] Signed By: Varinder Bell05/22/2023 14:52 CDTWorkstation Name: MZQGYSZ82CS CHEST WITH IV [id number] 14:50:05 [facility] : 1945 Sex: MTECHNIQUE: [...] Signed By: Varinder Bell05/22/2023 14:52 CDTWorkstation Name: [id number] BRAIN WITHOUT IV [id number] 14:35:46 [facility] : 1945 Sex: MCT [...] Signed By: Edison Sharif05/22/2023 14:37 CDTWorkstation Name: [id number] [id number] 12:52:45 Test Item Value Reference Range Interpretation Comments POC-GLUCOSE METER 112 mg/dL 70-110 H : TESTED A T [facility] 6720 (BEAKER) (test code = CIPRIANO Scherer [facility], 1538) 14190: Supervisor Particleboard/Techni ranulfo ID = [id number] for Sadia Gutierrez VITAMIN [id number] 11:45:23 Test Item Value Reference Range Interpretation Comments VITAMIN B12 (BEAKER) (test code = 261 pg/mL 213-816 774) Supervisor Particleboard ID - bcLactic Acid, Vnmhurry5346-36-06 11:09:29 Test Item Value Reference Range Interpretation Comments Lactate, Art (test 0.7 mmol/L 0.5-2.0 Specimen code = 2874) slightly hemolyzed ZOË (test code = ZOË) Supervisor Particleboard ID - bc Lab Interpretation Normal (test code = 90094-0) [facility] [id number] 11:09:29 Test Item Value Reference Range Interpretation Comments Lactate, Art (test 0.7 mmol/L 0.5-2.0 Specimen code = 2874) slightly hemolyzed ZOË (test code = ZOË) Supervisor Particleboard ID - bc Lab Interpretation Normal (test code = 94787-8) [facility], [id number] 11:09:29 Test Item Value Reference Range Interpretation Comments LACTATE BLOOD 0.7 mmol/L 0.5-2.0 Specimen sligh tly ARTERIAL (2) (BEAKER) hemoly zed (test code = 2874) Supervisor Particleboard ID - [id number] 10:44:05 Test Item Value Reference Range Interpretation Comments PROCALCITONIN (BEAKER) (test code = < ng/mL <0.05 3036) SEPSIS RISK (ng/mL)Low: 0.05-0.50Intermediate: 0.51-2.00High: >=2.01HIGH SENSITIVITY TROPONIN [id number] 10:29:20 Test Item Value Reference Range Interpretation Comments HIGH SENSITIVITY TROPONIN I (test 31 pg/ml <=35 code = 4998315) Supervisor Particleboard ID - bcThe MACHINE HELPER STAT High Sensitivity Troponin-I results should be used in conjunctionwith other diagnostic information such as ECG, clinical observations and information, and patient symptoms to aid in the diagnosis of PA.PHENYTOIN LEVEL, [id number] 10:27:58 Test Item Value Reference Range Interpretation Comments PHENYTOIN (DILANTIN) (BEAKER) 12.9 ug/mL 10.0-20.0 (test code = 605) Supervisor Particleboard ID - bcCREATINE KINASE (CK)2023-05-22 10:23:22 Test Item Value Reference Range Interpretation Comments CREATINE KINASE TOTAL (BEAKER) (test 164 U/L 29-200 code = 380) Supervisor Particleboard ID - bcCOMPREHENSIVE METABOLIC [id number] 10:23:21 Test Item Value Reference Range Interpretation [...] not appl icable for dialysis patien ts Supervisor Particleboard ID - [id number] 10:23:21 Test Item Value Reference Range Interpretation Comments MAGNESIUM (BEAKER) (test code = 1.5 mg/dL 1.6-2.6 L 627) Supervisor Particleboard ID - [id number] 10:23:21 Test Item Value Reference Range Interpretation Comments PHOSPHORUS (BEAKER) (test code = 2.6 mg/dL 2.3-4.7 604) Supervisor Particleboard ID - [id number] 10:20:37 Test Item Value Reference Range Interpretation Comments PARTIAL THROMBOPLASTIN TIME 30.1 seconds 22.5-36.0 (GRIFFIN) (test code = 760) PROTHROMBIN TIME/[id number] 10:19:56 Test Item Value Reference Range Interpretation Comments PROTIME (GRIFFIN) (test code = 15.8 seconds 11.9-14.2 H 759) INR (GRIFFIN) (test code = 370) 1.27 <=5.90 RECOMMENDED COUMADIN/WARFARIN INR THERAPY RANGESSTANDARD DOSE: 2.0 - 3.0 Includes: PROPHYLAXIS for venous thrombosis, systemic embolization; TREATMENT for venous thrombosis and/or pulmonary embolus.HIGH RISK: Target INR is 2.5-3.5 for patients with mechanical heart valves.LACTIC ACID, [id number] 10:18:17 Test Item Value Reference Range Interpretation Comments LACTATE BLOOD VENOUS (2) (GRIFFIN) 0.63 mmol/L 0.50-2.00 (test code = 2872) Supervisor Particleboard ID - bcPOCT-GLUCOSE [id number] 09:58:42 Test Item Value Reference Range Interpretation Comments POC-GLUCOSE METER 119 mg/dL 70-110 H : TESTED A T [facility] 6720 (GRIFFIN) (test code = CIPRIANO [employer] [facility], 1538) [address]: Supervisor Particleboard/Techni ranulfo ID = [id number] for JOSE PICHARDO XR CHEST 1 VIEW PORTABLE / [id number] 09:56:36 [facility] : 1945 Sex: MCLINICAL HISTORY: ET tube placement TECHNIQUE: 1 view of the chest.COMPARISON: NoneIMPRESSION:ETT at the clavicles and right central line at the cavoatrial junction.There is left perihilar airspace opacity. There are no significanteffusions or cardiomegaly.Electronically Signed By: Jose Manuel Mata05/22/2023 09:58 CDT Workstation Name: [id number] W/PLT COUNT & AUTO [id number] 09:53:50 Test Item Value Reference Range Interpretation [...] (BEAKER) (test code = 2801) Blood gas, [id number] 09:52:23 Test Item Value Reference Range Interpretation Comments pH, Arterial (test code 7.36 7.35-7.45 = 2744-1) pCO2, Arterial (test 40 See_Comment [Autom ated code = 2019-03) message] The system which generated this result [...] 30.0 Lab Interpretation Abnormal (test code = 85384-0) [facility] [id number] 09:52:23 Test Item Value Reference Range Interpretation Comments pH, Arterial (test code 7.36 7.35-7.45 = 2744-1) pCO2, Arterial (test 40 See_Comment [Autom ated code = 2019-03) message] The system which generated this result [...] 30.0 Lab Interpretation Abnormal (test code = 37929-3) [facility], [id number] 09:52:23 Test Item Value Reference Range Interpretation [...] (test code = 1819) 30.0 CBC WITH [id number] 16:30:41 Test Item Value Reference Range Interpretation Comments WBC (test code = See_Comment LL [Automated 6426-2) message] The sy stem which generated this result transmitted reference range : 4.20 - 10.70 10*3/?L. The reference range was not used to interpret this result as normal/abnormal . RBC (test code = See_Comment L [Automated 735-8) message] The sy stem which generated this [...] (test code = 71.0 fL 38.5-51.6 H 32477-8) RDW-CV (test code = 21.2 % 12.1-15.4 H 788-0) PLT (test code = See_Comment L [Automated 777-3) message] The sy stem which generated this result transmitted reference range : 150 - 328 10*3/ ?L. The reference r costa was not used to interpret this result as normal/abnormal . MPV (test code = 9.0 fL 9.8-13.0 L 71630-6) NRBC/100 WBC (test See_Comment [Automat ed code = 5627867460) message] The system which generated this result transmitted reference range : 0.0 - 10.0 /100 WBCs. The refer ence range was not u sed to interpret th is result as normal/abnormal . NRBC x10^3 (test code <0.01 See_Comment [Auto mated = 5639021617) message] The s ystem which generated this result transmitted reference range : 10*3/?L. The reference range was not used to interpret this result as normal/abnormal . GRAN MAT (NEUT) % 55.3 % (test code = 770-8) IMM GRAN % (test code 0.00 % = 7933091800) LYMPH % (test code = 17.1 % 736-9) MONO % (test code = 27.1 % 5905-5) EOS % (test code = 0.5 % 713-8) BASO % (test code = 0.0 % 706-2) GRAN MAT x10^3(ANC) 1.10 10*3/uL 1.99-6.95 L (test code = 2297068592) IMM GRAN x10^3 (test <0.03 0.00-0.06 code = 9488397540) LYMPH x10^3 (test code 0.34 10*3/uL 1.09-3.23 L = 731-0) MONO x10^3 (test code 0.54 10*3/uL 0.36-1.02 = 742-7) EOS x10^3 (test code = <0.03 0.06-0.53 L 711-2) BASO x10^3 (test code <0.03 0.01-0.09 = 704-7) Lab Interpretation Abnormal (test code = 68651-5) [facility]. METABOLIC PANEL (98334)2021-10-08 16:25:27 Test Item Value Reference Range Interpretation Comments NA (test code = 143 mmol/L 135-145 7880103603) K (test code = 3.3 mmol/L 3.5-5.0 L 9293931102) CL (test code = 110 mmol/L 98-108 H 9629996557) CO2 TOTAL (test code = 26 mmol/L 23-31 3376085728) AGAP (test code = 2-16 5917707631) BUN (test code = 10 mg/dL 7-23 1991977647) GLUCOSE (test code = 111 mg/dL 70-110 H 4818011097) CREATININE (test code = 0.86 mg/dL 0.60-1.25 6402262377) TOTAL BILI (test code = 0.6 mg/dL 0.1-1.8 8492148422) CALCIUM (test code = 9.2 mg/dL 8.6-10.6 3386566734) T PROTEIN (test code = 7.6 g/dL 6.3-8.2 8309673354) ALBUMIN (test code = 3.6 g/dL 3.5-5.0 1315882686) ALK PHOS (test code = 98 U/L 34-122 9281022775) ALTv (test code = 15 U/L 5-50 1742-6) AST(SGOT) (test code = 36 U/L 13-40 3073832150) eGFR (test code = mL/min/1.73m2 5524902764) ZOË (test code = ZOË) Association of [...] tests). Lab Interpretation Abnormal (test code = 91399-4) [facility] 16:24:51 Test Item Value Reference Range Interpretation Comments LIPASE (test code = 8822751659) 53 U/L 0-220 Lab Interpretation (test code = Normal 80011-3) [facility] WITH [id number] 20:45:09 Test Item Value Reference Range Interpretation Comments WBC (test code = See_Comment L [Automated 4390-2) message] The sy stem which generated this [...] (test code = 63.5 fL 38.5-51.6 H 53872-7) RDW-CV (test code = 19.6 % 12.1-15.4 H 788-0) PLT (test code = See_Comment L [Automated 777-3) message] The sy stem which generated this result transmitted reference range : 150 - 328 10*3/ ?L. The reference r costa was not used to interpret this result as normal/abnormal . MPV (test code = 10.3 fL 9.8-13.0 79706-6) IPF % (test code = 2.0 % 1.2-10.7 Platelet count 5325960420) measured by fluorescence method. NRBC/100 WBC (test See_Comment [Automat ed code = 1065615597) message] The system which generated this result transmitted reference range : 0.0 - 10.0 /100 WBCs. The refer ence range was not u sed to interpret th is result as normal/abnormal . NRBC x10^3 (test code <0.01 See_Comment [Auto mated = 8020785360) message] The s ystem which generated this result transmitted reference range : 10*3/?L. The reference range was not used to interpret this result as normal/abnormal . GRAN MAT (NEUT) % 33.0 % (test code = 770-8) IMM GRAN % (test code 0.40 % = 7576476845) LYMPH % (test code = 36.4 % 736-9) MONO % (test code = 29.8 % 5905-5) EOS % (test code = 0.0 % 713-8) BASO % (test code = 0.4 % 706-2) GRAN MAT x10^3(ANC) 0.74 10*3/uL 1.99-6.95 L (test code = 8572681061) IMM GRAN x10^3 (test <0.03 0.00-0.06 code = 7054010809) LYMPH x10^3 (test code 0.82 10*3/uL 1.09-3.23 L = 731-0) MONO x10^3 (test code 0.67 10*3/uL 0.36-1.02 = 742-7) EOS x10^3 (test code = <0.03 0.06-0.53 L 711-2) BASO x10^3 (test code <0.03 0.01-0.09 = 704-7) ELLIPTO/OVAL (test 2+ See_Comment A [Automat ed code = 48178-9) message] The system which generated this result transmitted reference range : (none). The reference range was not used to interpret this result as normal/abnormal . PLT ESTIMATE (test Decreased Normal A code = 9317-9) Lab Interpretation Abnormal (test code = 47494-9) [facility] [id number] 20:30:22 Test Item Value Reference Interpretation Comments Range TROPONIN I (test 0.010 ng/mL See_Comment [Automated code = 7202347827) message] The system which generated this result transmitted reference range : <=0.034. The reference range was not used to interpret this result as normal/abnormal . ZOË (test code = Reference (Normal) OZË) Range (defined by the 99th percentile reference [...] biotin. Lab Interpretation Normal (test code = 21564-7) [facility]2022-[facility]-14 20:19:38 Test Item Value Reference Range Interpretation Comments MAGNESIUM (test code = 5024127589) 1.6 mg/dL 1.7-2.4 L Lab Interpretation (test code = Abnormal 28835-8) [facility]COMP. METABOLIC PANEL (63507)2021-09-20 20:19:18 Test Item Value Reference Range Interpretation Comments NA (test code = 140 mmol/L 135-145 4262103458) K (test code = 4.4 mmol/L 3.5-5.0 4559375834) CL (test code = 108 mmol/L 98-108 8814506922) CO2 TOTAL (test code = 28 mmol/L 23-31 5804498777) AGAP (test code = 2-16 5050759988) BUN (test code = 16 mg/dL 7-23 2226650136) GLUCOSE (test code = 96 mg/dL 70-110 7476432211) CREATININE (test code = 0.76 mg/dL 0.60-1.25 6052592100) TOTAL BILI (test code = 0.5 mg/dL 0.1-1.2 3307518354) CALCIUM (test code = 10.0 mg/dL 8.6-10.6 8299244821) T PROTEIN (test code = 9.0 g/dL 6.3-8.2 H 0408347498) ALBUMIN (test code = 4.3 g/dL 3.5-5.0 5776776536) ALK PHOS (test code = 107 U/L 34-122 3456801059) ALTv (test code = 16 U/L 5-50 1742-6) AST(SGOT) (test code = 24 U/L 13-40 4488644845) eGFR (test code = mL/min/1.73m2 5760643145) ZOË (test code = ZOË) Association of [...] tests). Lab Interpretation Abnormal (test code = 86010-7) [facility] [id number] 20:57:32 Test Item Value Reference Interpretation Comments Range TROPONIN I (test 0.011 ng/mL See_Comment [Automated code = 4285966632) message] The system which generated this result [...] biotin. Lab Interpretation Normal (test code = 30996-0) [facility]OL[facility] (51375)2021-08-06 20:46:53 Test Item Value Reference Range Interpretation Comments NA (test code = 135 mmol/L 135-145 6364994785) K (test code = 3.5 mmol/L 3.5-5.0 8327563949) CL (test code = 103 mmol/L 98-108 7645923154) CO2 TOTAL (test code = 25 mmol/L -31 3198974212) AGAP (test code = 2-16 8387606737) BUN (test code = 13 mg/dL 7-23 2807692735) GLUCOSE (test code = 117 mg/dL 70-110 H 3014292192) CREATININE (test code = 0.89 mg/dL 0.60-1.25 5635918768) TOTAL BILI (test code = 0.4 mg/dL 0.1-1.3 8237893297) CALCIUM (test code = 9.5 mg/dL 8.6-10.6 6975081742) T PROTEIN (test code = 8.4 g/dL 6.3-8.2 H 7646861927) ALBUMIN (test code = 3.8 g/dL 3.5-5.0 2892444759) ALK PHOS (test code = 128 U/L 34-122 H 2331463495) ALTv (test code = 17 U/L 5-50 1742-6) AST(SGOT) (test code = 21 U/L 13-40 2274846893) eGFR (test code = mL/min/1.73m2 0009281267) ZOË (test code = ZOË) Association of [...] tests). Lab Interpretation Abnormal (test code = 64661-0) [facility] CenterTroponin [id number] 20:10:47 Test Item Value Reference Interpretation Comments Range TROPONIN I (test 0.011 ng/mL See_Comment [Automated code = 2007896403) message] The system which generated this result [...] biotin. Lab Interpretation Normal (test code = 86032-8) [facility] CenterThyroid Stimulating Hormone (TSH)2021-08-05 17:22:42 Test Item Value Reference Range Interpretation Comments TSH (test code = See_Comment [Automated message] 5571585206) The system [employer] generated this result transmitted ref erence range: 0.45 - 4 .70 mIU/L. The refe rence range was not u sed to interpret this result as normal/abnor mal. Lab Interpretation (test Normal code = 48194-5) [facility] CenterGlycosylated Hemoglobin (A1C)2021-08-05 16:47:01 Test Item Value Reference Range Interpretation Comments HGB A1C (test code = 6.4 % 4.0-5.7 H 4548-4) ZOË (test code = ZOË) Reference RangesNormal: <5.7%Prediabetes: 5.7 - 6.4%Diabetes: > 6.5% Lab Interpretation (test Abnormal code = 13812-0) [facility] CenterLipid Panel (Total Cholesterol, Triglycerides, HDL)2021-08-05 16:46:16 Test Item Value Reference Range Interpretation Comments CHOL (test code = 156 mg/dL 120-200 4577043128) HDL (test code = 51 mg/dL >40 6345175714) HDLC RATIO (test code = See_Comment [Au tomated message] 8040568572) The system [employer] generated this result transmit joseph reference range : <=5.0. The refe rence range was not u sed to interpret th is result as normal/abnormal . TRIG (test code = 84 mg/dL 30-170 8209493454) LDL CHOL (test code = 88 mg/dL See_Comment [Auto mated message] 95577-3) The system [employer] generated this result transmit joseph reference range : <=160. The refe rence range was not u sed to interpret th is result as normal/abnormal . VLDL (test code = 17 mg/dL 5-60 9827156182) Lab Interpretation (test Normal code = 11973-2) [facility]CB WITH [id number] 12:37:41 Test Item Value Reference Range Interpretation [...] RDW-SD (test code = 44.4 fL 38.5-51.6 52790-6) RDW-CV (test code = 14.6 % 12.1-15.4 788-0) PLT (test code = See_Comment L [Automated 777-3) message] The sy stem which generated this result transmitted reference range : 150 - 328 10*3/ ?L. The reference r costa was not used to interpret this result as normal/abnormal . MPV (test code = 9.1 fL 9.8-13.0 L 08643-1) IPF % (test code = 1.3 % 1.2-10.7 Platelet count 0254901064) measured by fluorescence method. NRBC/100 WBC (test See_Comment [Automat ed code = 4407105384) message] The system which generated this result transmitted reference range : 0.0 - 10.0 /100 WBCs. The refer ence range was not u sed to interpret th is result as normal/abnormal . NRBC x10^3 (test code <0.01 See_Comment [Auto mated = 8878796712) message] The s ystem which generated this result transmitted reference range : 10*3/?L. The reference range was not used to interpret this result as normal/abnormal . GRAN MAT (NEUT) % 20.9 % (test code = 770-8) IMM GRAN % (test code 0.80 % = 6394829585) LYMPH % (test code = 45.0 % 736-9) MONO % (test code = 32.5 % 5905-5) EOS % (test code = 0.8 % 713-8) BASO % (test code = 0.0 % 706-2) GRAN MAT x10^3(ANC) 0.25 10*3/uL 1.99-6.95 L (test code = 2940285902) IMM GRAN x10^3 (test <0.03 0.00-0.06 code = 0076614630) LYMPH x10^3 (test code 0.54 10*3/uL 1.09-3.23 L = 731-0) MONO x10^3 (test code 0.39 10*3/uL 0.36-1.02 = 742-7) EOS x10^3 (test code = <0.03 0.06-0.53 L 711-2) BASO x10^3 (test code <0.03 0.01-0.09 = 704-7) REACT LYMPHS (test Rare code = 1693247787) Lab Interpretation Abnormal (test code = 95648-2) [facility]TROP[facility]IN [id number] 12:04:45 Test Item Value Reference Interpretation Comments Range TROPONIN I (test 0.034 ng/mL See_Comment [Automated code = 9283586658) message] The system which generated this result [...] biotin. Lab Interpretation Normal (test code = 37613-9) [facility] CenterN-TERMINAL [id number] 12:01:43 Test Item Value Reference Range Interpretation Comments NT-proBNP (test code 64 pg/mL See_Comment [Autom ated = 1789583692) message] The system which generated this result transmitted reference range : <=450. The reference range was not used to interpret this result as normal/abnormal . ZOË (test code = ZOË) Biotin has been reported to cause a negative bias, interpret results relative to patient's use of biotin. Lab Interpretation Normal (test code = 98633-8) [facility] CenterCOMP. METABOLIC PANEL (09095)2021-08-05 11:52:39 Test Item Value Reference Range Interpretation Comments NA (test code = 136 mmol/L 135-145 8441382427) K (test code = 3.8 mmol/L 3.5-5.0 1798068660) CL (test code = 104 mmol/L 98-108 5898033771) CO2 TOTAL (test code = 28 mmol/L 23-31 8763881546) AGAP (test code = 2-16 6414945846) BUN (test code = 10 mg/dL 7-23 1453661621) GLUCOSE (test code = 111 mg/dL 70-110 H 2646467374) CREATININE (test code = 0.73 mg/dL 0.60-1.25 3465974060) TOTAL BILI (test code = 0.5 mg/dL 0.1-1.3 2887490293) CALCIUM (test code = 8.9 mg/dL 8.6-10.6 4387565376) T PROTEIN (test code = 7.8 g/dL 6.3-8.2 9534836129) ALBUMIN (test code = 3.4 g/dL 3.5-5.0 L 1340453703) ALK PHOS (test code = 119 U/L 34-122 9799799644) ALTv (test code = 16 U/L 5-50 1742-6) AST(SGOT) (test code = 21 U/L 13-40 4204680296) eGFR (test code = mL/min/1.73m2 5010064535) ZOË (test code = ZOË) Association of [...] tests). Lab Interpretation Abnormal (test code = 04323-0) [facility]2021[facility] 11:52:24 Test Item Value Reference Range Interpretation Comments LIPASE (test code = 9980539910) 42 U/L 0-220 Lab Interpretation (test code = Normal 52627-1) [facility] CenterACTIVATED PARTIAL THRMPLAS [id number] 11:51:04 Test Item Value Reference Range Interpretation Comments APTT Patient (test See_Comment [Automat ed code = 3173-2) message] The system which generated this result transmitted reference range : 23 - 38 Seconds . The reference range was not used to interpr et this result as normal/abnormal . ZOË (test code = ZOË) The [facility] patient population mean normal value for aPTT is 30 seconds. Lab Interpretation Normal (test code = 48290-6) [facility] CenterPROTHROMBIN TIME / [id number] 11:49:03 Test Item Value Reference Range Interpretation [...] tions. Lab Interpretation (test Normal code = 61853-4) [facility] WITH [id number] 19:12:08 Test Item Value Reference Range Interpretation [...] RDW-SD (test code = 45.7 fL 38.5-51.6 34799-9) RDW-CV (test code = 15.1 % 12.1-15.4 788-0) PLT (test code = See_Comment L [Automated 777-3) message] The sy stem which generated this result transmitted reference range : 150 - 328 10*3/ ?L. The reference r costa was not used to interpret this result as normal/abnormal . MPV (test code = 8.8 fL 9.8-13.0 L 52429-2) NRBC/100 WBC (test See_Comment [Automat ed code = 5510285506) message] The system which generated this result transmitted reference range : 0.0 - 10.0 /100 WBCs. The refer ence range was not u sed to interpret th is result as normal/abnormal . NRBC x10^3 (test code <0.01 See_Comment [Auto mated = 2398761421) message] The s ystem which generated this result transmitted reference range : 10*3/?L. The reference range was not used to interpret this result as normal/abnormal . SEG % (test code = 54 % 33-76 52624-8) BAND % (test code = 1 % 0-1 99285-8) LYMPH % (test code = 35 % 14-54 35492-0) ATYP LYMPH % (test 5 % See_Comment H [Automat ed code = 9865157112) message] The system which generated this result transmitted reference range : <=0. The refere nce range was not u sed to interpret th is result as normal/abnormal . MONO % (test code = 5 % 0-4 H 31749-8) ANC (test code = 0.71 10*3/uL 1.99-6.95 L 753-4) ELLIPTO/OVAL (test 2+ See_Comment A [Automat ed code = 31111-3) message] The system which generated this result transmitted reference range : (none). The reference range was not used to interpret this result as normal/abnormal . Lab Interpretation Abnormal (test code = 02003-6) [facility]TR[facility] [id number] 18:33:21 Test Item Value Reference Interpretation Comments Range TROPONIN I (test 0.014 ng/mL See_Comment [Automated code = 6068617771) message] The system which generated this result [...] biotin. Lab Interpretation Normal (test code = 84774-7) [facility] CenterCOMP. METABOLIC PANEL (22065)2021-07-31 18:21:39 Test Item Value Reference Range Interpretation Comments NA (test code = 135 mmol/L 135-145 7712296121) K (test code = 3.7 mmol/L 3.5-5.0 7162424406) CL (test code = 104 mmol/L 98-108 8857696913) CO2 TOTAL (test code = 29 mmol/L 23-31 7689236046) AGAP (test code = 2-16 1392882033) BUN (test code = 15 mg/dL 7-23 1598256645) GLUCOSE (test code = 103 mg/dL 70-110 2116061320) CREATININE (test code = 0.69 mg/dL 0.60-1.25 0677195107) TOTAL BILI (test code = 0.7 mg/dL 0.1-1.3 4262293940) CALCIUM (test code = 9.0 mg/dL 8.6-10.6 2608396133) T PROTEIN (test code = 7.3 g/dL 6.3-8.2 4797236849) ALBUMIN (test code = 3.3 g/dL 3.5-5.0 L 0931017205) ALK PHOS (test code = 103 U/L 34-122 5131390596) ALTv (test code = 17 U/L 5-50 2-6) AST(SGOT) (test code = 22 U/L 13-40 2259927960) eGFR (test code = mL/min/1.73m2 1872866447) ZOË (test code = ZOË) Association of [...] tests). Lab Interpretation Abnormal (test code = 67138-1) [facility]21[facility] 18:21:39 Test Item Value Reference Range Interpretation Comments LIPASE (test code = 0565399514) 53 U/L 0-220 Lab Interpretation (test code = Normal 77757-5) [facility] CenterSARS-CoV-2 (COVID-19) RNA [Presence] in Respiratory specimen by KENDRA with probe [id number] 17:25:13 Test Item Value Reference Range Interpretation Comments SARS-CoV-2 (COVID-19) RNA Not detected Not-Detected [Presence] in Respiratory specimen by KENDRA with probe detection (test code = 44277-6) Whether 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 is employed in a healthcare setting (test code = 73684-5) Whether the patient has symptoms related to condition of interest (test code = 40713-9) Patient was hospitalized because of this condition (test code = 10782-5) Whether the patient was admitted to intensive care unit (ICU) for condition of interest (test code = 84830-4) Whether patient resides in a congregate care setting (test code = 12835-2) [facility] 16:58:49 Test Item Value Reference Range Interpretation Comments FOLATE SER (test code = 5.0 ng/mL 3.0-20.0 Biot in has been 3907045575) reported to cau se a positive bias, interpret resul ts relative to patient's use o f biotin. Lab Interpretation (test Normal code = 51477-8) [facility] WITH [id number] 14:07:55 Test Item Value Reference Range Interpretation [...] (test code = 52.4 fL 38.5-51.6 H 01623-6) RDW-CV (test code = 16.2 % 12.1-15.4 H 788-0) PLT (test code = See_Comment [Automated 777-3) message] The sy stem which generated this result transmitted reference range : 150 - 328 10*3/ ?L. The reference r costa was not used to interpret this result as normal/abnormal . MPV (test code = 9.0 fL 9.8-13.0 L 28324-7) NRBC/100 WBC (test See_Comment [Automat ed code = 5297739728) message] The system which generated this result transmitted reference range : 0.0 - 10.0 /100 WBCs. The refer ence range was not u sed to interpret th is result as normal/abnormal . NRBC x10^3 (test code <0.01 See_Comment [Auto mated = 8292187665) message] The s ystem which generated this result transmitted reference range : 10*3/?L. The reference range was not used to interpret this result as normal/abnormal . GRAN MAT (NEUT) % 34.1 % (test code = 770-8) IMM GRAN % (test code 0.00 % = 8941681782) LYMPH % (test code = 54.3 % 736-9) MONO % (test code = 11.0 % 5905-5) EOS % (test code = 0.3 % 713-8) BASO % (test code = 0.3 % 706-2) GRAN MAT x10^3(ANC) 1.12 10*3/uL 1.99-6.95 L (test code = 0579920860) IMM GRAN x10^3 (test <0.03 0.00-0.06 code = 6008279640) LYMPH x10^3 (test code 1.78 10*3/uL 1.09-3.23 = 731-0) MONO x10^3 (test code 0.36 10*3/uL 0.36-1.02 = 742-7) EOS x10^3 (test code = <0.03 0.06-0.53 L 711-2) BASO x10^3 (test code <0.03 0.01-0.09 = 704-7) REACT LYMPHS (test Rare code = 3019058163) Lab Interpretation Abnormal (test code = 60860-1) [facility] CenterPROSTATIC SPECIFIC ANTIGEN [id number] 14:06:34 Test Item Value Reference Range Interpretation Comments PSA (test code = 2.62 ng/mL See_Comment [Automated 9378337987) message] The system which generated this result transmitted reference range : <=4.00. The reference range was not used to interpret this result as normal/abnormal . ZOË (test code = ZOË) Biotin has been reported to cause a negative bias, interpret results relative to patient's use of biotin. Lab Interpretation Normal (test code = 72573-2) [facility] CenterSEDIMENTATION [id number] 13:55:57 Test Item Value Reference Range Interpretation Comments ESR (test code = See_Comment H [Automated message] 4035670863) The system URX h generated this result transmitted ref erence range: 0 - 10 m m/HR. The reference r costa was not used to interpret this result as normal/abnor mal. Lab Interpretation (test Abnormal code = 74287-2) [facility] CenterMAGNESIUM2021-08-02 13:36:52 Test Item Value Reference Range Interpretation Comments MAGNESIUM (test code = 3167785065) 1.8 mg/dL 1.7-2.4 Lab Interpretation (test code = Normal 84837-1) [facility] CenterBASI METABOLIC PANEL (NA, K, CL, CO2, GLUCOSE, BUN, CREATININE, CA)2021-03-08 13:36:32 Test Item Value Reference Range Interpretation Comments NA (test code = 139 mmol/L 135-145 [id number]) K (test code = 4.0 mmol/L 3.5-5.0 0243973407) CL (test code = 107 mmol/L 98-108 7123572460) CO2 TOTAL (test code 25 mmol/L 23-31 = 0664530231) AGAP (test code = 2-16 9215751455) BUN (test code = 19 mg/dL 7-23 3406017797) GLUCOSE (test code = 101 mg/dL 70-110 6772937566) CREATININE (test code 0.83 mg/dL 0.60-1.25 = 9303250865) CALCIUM (test code = 9.7 mg/dL 8.6-10.6 2496988448) eGFR (test code = mL/min/1.73m2 7320865889) ZOË (test code = ZOË) Association of [...] or urine or abnormalities in imaging tests). [id number] 13:36:31 Test Item Value Reference Range Interpretation Comments URIC ACID (test code = 7397123895) 4.6 mg/dL 3.6-8.0 Lab Interpretation (test code = Normal 72144-5) [facility]17[facility] (ALB,T.PRO,BILI T,BU/BC,ALT,AST,ALK PHOS)2021-03-08 13:36:31 Test Item Value Reference Range Interpretation Comments TOTAL BILI (test code = 1121536378) 0.6 mg/dL 0.1-1.1 BILI UNCON (test code = 5359475798) 0.4 mg/dL 0.1-1.1 BILI CONJ (test code = 4753552168) 0.0 mg/dL 0.0-0.3 T PROTEIN (test code = 2342400909) 8.1 g/dL 6.3-8.2 ALBUMIN (test code = 4671958595) 3.6 g/dL 3.5-5.0 ALK PHOS (test code = 0651801620) 100 U/L 34-122 ALTv (test code = 1742-6) 15 U/L 5-50 AST(SGOT) (test code = 0248742512) 21 U/L 13-40 Lab Interpretation (test code = Normal 03285-3) [facility]
[2023-06-23] MEDS ORDERED: ASPIRIN 81 MG CHEWABLE TABLET ONE (13:58)
--- NOTE | 2023-06-23 14:22 | EKG ---
Test Date: 2023-06-23 Test Time: 13:38:07 Greeting Card Maker: HB MEASUREMENT RESULTS: Intervals: Rate: 99 NE: 134 QRSD: 108 QT: 354 QTc: 454 Cornish: P: 77 NE: 134 QRS: -49 T: 87 INTERPRETIVE STATEMENTS: Normal sinus rhythm Left anterior fascicular block Nonspecific ST and T wave abnormality Abnormal ECG Compared to ECG 05/22/2023 06:28:04 Left anterior fascicular block now present ST (T wave) deviation now present Sinus tachycardia no longer present Left-axis deviation no longer present Incomplete right bundle-branch block no longer present Myocardial infarct finding no longer present Electronically Signed On 06-23-23 14:21:21 IMPERSONATOR CHARACTER by Forrest Purcell
--- NOTE | 2023-06-23 14:33 | RAD REPORT ---
EXAM DESCRIPTION: RAD - Chest Single View - 06/23/2023 2:25 pm CLINICAL HISTORY: CHEST PAIN Chest pain. COMPARISON: Chest Single View dated 05/22/2023 FINDINGS: Portable technique limits examination quality. Moderate opacity is present in the left lung base is probably related to infection/pneumonia. The hea rt is mildly enlarged in size. Right-sided port catheter its tip in the SVC. IMPRESSION: Opacity in the left lung base is noted suspicious for infection/pneumonia.
[2023-06-23 14:38] LABS: Protime INR 1.53
[2023-06-23 14:40] LABS: Absolute Lymphocytes (CBC) 0.9 K/uL (0.7-4.9); Hematocrit 40.5 % (39.6-49.0); Lymphocytes % 15.5 % (15.3-44.8); MCV 91.8 fL (80-100); MPV 6.9 fL (7.6-11.3); Platelets 241 thou/uL (152-406); RBC Red Blood Cell Count 4.41 M/uL (4.33-5.43)
[2023-06-23 14:54] LABS: Potassium 3.9 mEq/L (3.5-5.1)
[2023-06-23 15:08] LABS: SARS-COV-2 RT PCR NEGATIVE (NEGATIVE)
--- NOTE | 2023-06-23 15:26 | EDPHYS ---
Physician Documentation [facility] Name: James Calvo Age: 78 yrs Sex: Male : 1945 Arrival Date: 06/23/2023 Time: 13:24 Bed 5 Private MD: ED Physician Darius Castorena HPI: 06/23 13:34 This 78 yrs old Black Male presents to ER via Wheelchair with complaints of Chest Pain. jh7 13:34 Onset: The symptoms/episode began/occurred last night. Associated signs and symptoms: jh7 Pertinent positives: cough, Pertinent negatives: abdominal pain, fever, shortness of breath, vomiting, wheezing. Modifying factors: the patient symptoms are aggravated by coughing. hx of anemia. Historical: - Allergies: 13:36 No Known Allergies; nj1 - PMHx: 13:36 Anemia; nj1 - Immunization history:: Client reports having NOT received the Covid vaccine. - Social history:: Smoking status: Patient reports the use of cigarette tobacco products, smokes one-half pack cigarettes per day. ROS: 13:34 Constitutional: Negative for fever, chills, and weight loss, Eyes: Negative for injury, jh7 pain, redness, and discharge, ENT: Negative for injury, pain, and discharge, Neck: Negative for injury, pain, and swelling, Abdomen/GI: Negative for abdominal pain, nausea, vomiting, diarrhea, and constipation, Back: Negative for injury and pain, MS/Extremity: Negative for injury and deformity, Skin: Negative for injury, rash, and discoloration, Neuro: Negative for headache, weakness, numbness, tingling, and seizure, 13:34 Cardiovascular: Positive for chest pain, Negative for orthopnea, palpitations, 13:34 Respiratory: Positive for cough, Negative for shortness of breath, wheezing, 13:34 All other systems are negative, Exam: 13:34 Constitutional: This is a well developed, well nourished patient who is awake, alert, jh7 and in no acute distress. Head/Face: Normocephalic, atraumatic. Eyes: Pupils equal round and reactive to light, extra-ocular motions intact. Lids and lashes normal. Conjunctiva and sclera are non-icteric and not injected. Cornea within normal limits. Periorbital areas with no swelling, redness, or edema. ENT: Nares patent. No nasal discharge, no septal abnormalities noted. Oropharynx with no redness, swelling, or masses, exudates, or evidence of obstruction, uvula midline. Mucous membranes moist. Cardiovascular: Regular rate and rhythm with a normal S1 and S2. No gallops, murmurs, or rubs. Normal PMI, no JVD. No pulse deficits. Respiratory: Lungs have equal breath sounds bilaterally, clear to auscultation and percussion. No rales, rhonchi or wheezes noted. No increased work of breathing, no retractions or nasal flaring. Abdomen/GI: Soft, non-tender, with normal bowel sounds. No distension or tympany. No guarding or rebound. No evidence of tenderness throughout. Skin: Warm, dry with normal turgor. Normal color with no rashes, no lesions, and no evidence of cellulitis. Neuro: Awake and alert, GCS 15, oriented to person, place, time, and situation. Vital Signs: 13:34 BP 131 / 72; Pulse 102; Resp 18; Temp 97.7; Pulse Ox 98% ; Weight 75.75 kg; Height 6 nj1 ft. 1 in. ; Pain 10/10; 13:34 Body Mass Index 22.03 (75.75 kg, 185.42 cm) [facility] 13:34 Pain Scale: Adult nj1 MDM: 13:35 Patient medically screened. [facility] 15:30 Differential diagnosis: viral Infection, bacterial infection, bronchitis, pneumonia [facility] Acute AK, cardiac arrhythmia, costochondritis. Data reviewed: vital signs, nurses notes, lab test result(s), EKG, radiologic studies, plain films. I considered the following discharge prescriptions or medication management in the emergency department Medications were administered in the Emergency Department. See MAR. Independent interpretation of the following test(s) in the Emergency Department EKG: See my EKG interpretation above. Counseling: I had a detailed discussion with the patient and/or guardian regarding the historical points, exam findings, and any diagnostic results supporting the discharge/admit diagnosis, to return to the emergency department if symptoms worsen or persist or if there are any questions or concerns that arise at home. Response to treatment: the patient's symptoms have markedly improved after treatment. 06/23 13:41 Order name: Basic Metabolic Panel; Complete Time: 15:21 [facility] 06/23 13:41 Order name: CBC with Diff; Complete Time: 15:21 [facility] 06/23 13:41 Order name: NT PRO-BNP; Complete Time: 15:21 [facility] 06/23 13:41 Order name: PT-INR; Complete Time: 14:42 [facility] 06/23 13:41 Order name: Troponin HS; Complete Time: 15:21 [facility] 06/23 13:41 Order name: COVID-19/FLU A+B; Complete Time: 15:21 [facility] 06/23 14:36 Order name: Lactate w/ 2H reflex if indic.; Complete Time: 15:21 [facility] 06/23 13:41 Order name: XRAY Chest (1 view); Complete Time: 14:35 [facility] 06/23 13:41 Order name: EKG; Complete Time: 13:42 [facility] 06/23 13:41 Order name: Cardiac monitoring; Complete Time: 14:16 [facility] 06/23 13:41 Order name: EKG - Nurse/Tech; Complete Time: 13:43 [facility] 06/23 13:41 Order name: IV Saline Lock; Complete Time: 14:16 [facility] 06/23 13:41 Order name: Labs collected and sent; Complete Time: 14:16 [facility] 06/23 13:41 Order name: O2 Per Protocol; Complete Time: 14:16 [facility] 06/23 13:41 Order name: O2 Sat Monitoring; Complete Time: 14:16 [facility] EC:38 Rate is 99 beats/min. Rhythm is regular. QRS [place] is Normal. NE interval is normal at [facility] 134 msec. QRS interval is normal at 108 msec. QT interval is normal at 354 msec. No Q waves. Clinical impression: Normal sinus rhythm with left anterior fascicular block. Administered Medications: 13:45 Drug: Aspirin PO Chewable Tablet 324 mg PO once; 81 mg tablets x 4 Route: PO; nj1 14:16 Follow up: Response: No adverse reaction ph 15:25 Not Given (Physician Discretion): [id number] mg IVPB once over 1 hrs; (mix in 250 [facility] mL NS) Disposition Summary: 06/23/23 15:25 Discharge Ordered Notes: Location: Home [facility] Problem: new [facility] Symptoms: are unchanged [facility] Condition: Stable [facility] Diagnosis - Pneumonia, unspecified organism [facility] Followup: [facility] - With: Private Physician - When: 2 - 3 days - Reason: Recheck today's complaints Discharge Instructions: - Discharge Summary Sheet [facility] - Community-Acquired Pneumonia, Adult [facility] Forms: - Medication Reconciliation Form [facility] - Thank You Letter [facility] - Antibiotic Education [facility] - Patient Portal Instructions [facility] - Leadership Thank You Letter [facility] Prescriptions: - albuterol sulfate 90 mcg/actuation Inhalation HFA Aerosol Inhaler - inhale 1 puff INHALATION route every 4 to 6 hours As needed; 1 Each; Refills: [facility] 0, Product Selection Permitted - Augmentin 875-125 mg Oral Tablet - take 1 tablet ORAL route every 12 hours for 10 days; 20 tablet; Refills: 0, [facility] Product Selection Permitted - Tessalon Perles 100 mg Oral Capsule - take 1 capsule ORAL route every 8 hours As needed; 15 capsule; Refills: 0, [facility] Product Selection Permitted - Doxycycline Hyclate 100 mg Oral tablet - take 1 tablet ORAL route every 12 hours for 7 days; 14 tablet; Refills: 0, [facility] Product Selection Permitted Signatures: Dispatcher [employer] Dena Hampton Jennifer, HEAT TREATER APPRENTICE HEAT TREATER APPRENTICEDignity [facility] Essence Villa, RN RN nj1 Afshan Louis RN ph Corrections: (The following items were deleted from the chart) 14:38 14:31 Labs - recollect needed ordered. duane bc6
--- NOTE | 2023-06-23 15:26 | ER ---
Nurse's Notes [facility] Name: James Calvo Age: 78 yrs Sex: Male : 1945 Arrival Date: 06/23/2023 Time: 13:24 Bed 5 Private MD: Diagnosis: Pneumonia, unspecified organism Presentation: 06/23 13:34 Chief complaint: Patient states: Chest pain since yesterday, onset while sitting down, nj1 has not change in intensity. Coronavirus screen: Vaccine status: Patient reports being unvaccinated. Ebola Screen: Patient denies travel to an Ebola-affected area in the 21 days before illness onset. Initial Sepsis Screen: Does the patient meet any 2 criteria? HR > 90 bpm. No. Patient's initial sepsis screen is negative. Does the patient have a suspected source of infection? No. Patient's initial sepsis screen is negative. Risk Assessment: Do you want to hurt yourself or someone else? Patient reports no desire to harm self or others. Onset of symptoms was June 22, 2023. 13:34 Method Of Arrival: Wheelchair nj 13:34 Acuity: JAYA 2 nj1 Triage Assessment: 13:41 General: Appears in no apparent distress. comfortable, Behavior is calm, cooperative, nj1 appropriate for age. Pain: Complains of pain in chest Pain currently is 10 out of 10 on a pain scale. Neuro: Level of Consciousness is awake, alert, obeys commands, Oriented to person, place, time, situation. Neuro: Reports weakness since 3 days ago Malaise. Cardiovascular: Patient's skin is warm and dry. Chest pain. Respiratory: Airway is patent Respiratory effort is even, unlabored, Cough noted. Historical: - Allergies: 13:36 No Known Allergies; nj1 - PMHx: 13:36 Anemia; nj1 - Immunization history:: Client reports having NOT received the Covid vaccine. - Social history:: Smoking status: Patient reports the use of cigarette tobacco products, smokes one-half pack cigarettes per day. Vital Signs: 13:34 BP 131 / 72; Pulse 102; Resp 18; Temp 97.7; Pulse Ox 98% ; Weight 75.75 kg; Height 6 nj1 ft. 1 in. ; Pain 10/10; 13:34 Body Mass Index 22.03 (75.75 kg, 185.42 cm) nj1 13:34 Pain Scale: Adult mi1 ED Course: 13:25 Patient arrived in ED. rg4 13:35 [facility] Kenyon [facility] jh7 13:35 Darius Castorena MD is Attending Physician. 7 13:36 Triage completed. nj1 13:37 Arm band placed on right wrist. nj1 13:42 EKG completed in triage. Results shown to MD. nj1 14:09 Afshan Louis, RN is Primary Nurse. ph 14:26 COVID-19/FLU A+B Sent. bc6 14:26 Basic Metabolic Panel Sent. bc6 14:26 CBC with Diff Sent. bc6 14:26 NT PRO-BNP Sent. bc6 14:26 PT-INR Sent. bc6 14:27 XRAY Chest (1 view) In Process Unspecified. EDMS 14:27 Troponin HS Sent. bc6 14:27 Inserted saline lock: 22 gauge in right wrist, using aseptic technique. Blood collected.bc6 14:50 Lactate w/ 2H reflex if indic. Sent. bc6 Administered Medications: 13:45 Drug: Aspirin PO Chewable Tablet 324 mg PO once; 81 mg tablets x 4 Route: PO; nj1 14:16 Follow up: Response: No adverse reaction ph 15:25 Not Given (Physician Discretion): [id number] mg IVPB once over 1 hrs; (mix in 250 [facility] mL NS) Outcome: 15:25 Discharge ordered by . [facility] 16:40 Patient left the ED. ph Signatures: Dispatcher [employer] EDAK Afshan Louis, RN RN Rosemarie Guerrero rg4 Nayeli Kenyon FNP [place] [address] [address] Essence Villa, EYAD RN nj
[2023-06-23 16:52] VITALS: BP 131/72; TEMP 97.7; O2SAT 98
== END 2023-06-23 16:40 | disposition home or self-care (01) ==
LOC: ER 13:24
DX: J18.9 Pneumonia, unspecified organism (principal); Z11.52 Encounter for screening for COVID-19; F17.210 Nicotine dependence, cigarettes, uncomplicated
CPT/HCPCS: 93005; 85025; 80048; 36415; 85610; 83605; 84484; 83880; 0240U; 71045; 99284

== ENCOUNTER 2023-07-15 15:46 | Emergency (ER) | payer OTHER ==
[2023-07-15 16:33] LABS: Absolute Lymphocytes (CBC) 1.3 K/uL (0.7-4.9); Hematocrit 37.2 % (39.6-49.0); Lymphocytes % 39.2 % (15.3-44.8); MCV 90.6 fL (80-100); Platelets 198 thou/uL (152-406); RBC Red Blood Cell Count 4.11 M/uL (4.33-5.43)
[2023-07-15 16:51] LABS: ALT/SGPT 19 U/L (16-61); AST/SGOT 11 U/L (15-37); Albumin 3.2 g/dL (3.4-5.0); Alkaline Phosphatase 82 U/L (45-117); BUN Blood Urea Nitrogen 14 mg/dL (7-18); Bicarbonate 28 mEq/L (21-32); Bilirubin Direct < 0.1 mg/dL (0-0.2); Bilirubin Indirect, Calculated ND mg/dL (0.2-0.8); Bilirubin Total 0.5 mg/dL (0.2-1.0); Glomerular Filtration Rate 68 ml/min (=/>90); Glucose Level 98 mg/dL (74-106); Magnesium 1.8 mg/dL (1.6-2.4); NT PRO-BNP 148 pg/mL (<450); Potassium 3.8 mEq/L (3.5-5.1); Sodium Level 139 mEq/L (136-145); Troponin High Sensitivity 18.9 pg/mL (<58.9)
--- NOTE | 2023-07-15 17:44 | RAD REPORT ---
EXAM DESCRIPTION: CT - Head Brain Wo Cont - 07/15/2023 4:55 pm CLINICAL HISTORY: DIZZINESS COMPARISON: Head Brain Wo Cont dated 05/22/2023 TECHNIQUE: Noncontrast head CT images were obtained without IV contrast. Multiplanar reformats were generated and reviewed. All CT scans are performed using dose optimization technique as appropriate and may include automated exposure control or mA/KV adjustment according to patient size. FINDINGS: No parenchymal hemorrhage, mass, or edema. Left high parietal juxta cortical small region of encephalomalacia in the region of previously noted parenchymal hemorrhage. It is unclear whether t his was related to a hemorrhagic metastatic lesion, as no additional imaging is available in the inte rim since the prior CT. Overlying valerie hole. Midline structures are unremarkable. Bilateral frontoparietal predominantly isodense subdural collections, with some layering of mildly hy perdense material dependently, measuring up to 6 millimeter in thickness on the right and 5 millimete r on the left. Stable ventricular caliber. Mild diffuse parenchymal volume loss. Dean-white matter differentiation is preserved, without evidence of acute infarct. Mastoid air cells and visualized portions of the paranasal sinuses are clear. No acute bony findings. IMPRESSION: Bilateral frontoparietal predominantly isodense subdural collections as above, favored t o be of subacute or chronic age. No significant mass effect Resolved left high parietal parenchymal hemorrhage, with small region of juxta cortical encephalomala bree. Please correlate with surgical/ pathology results if available. The findings were communicated to Yumiko Llanes on 07/15/2023 at 17:35 hours.
--- NOTE | 2023-07-15 18:05 | RAD REPORT ---
EXAM DESCRIPTION: RADChest Single View07/15/2023 5:05 pm CLINICAL HISTORY: dizziness, fall COMPARISON: Chest Single View dated 06/23/2023; Chest Single View dated 05/22/2023 TECHNIQUE: Portable AP view of the chest. FINDINGS: Streaky left mid to lower lung opacity, partially improved since the prior exam. Elevation of the left hemidiaphragm again seen. Right chest wall port unchanged in position. No pneumothorax or effusion. The cardiomediastinal contours are unremarkable. IMPRESSION: Partially improved streaky left mid to lower lung opacity, may relate to improving pneum onia.
--- NOTE | 2023-07-15 18:06 | RAD REPORT ---
EXAM DESCRIPTION: RAD - Shoulder Left 2 View - 07/15/2023 5:05 pm CLINICAL HISTORY: PAIN COMPARISON: Shoulder Left 2 View dated 07/15/2013 TECHNIQUE: Internal and external rotation views of the left shoulder were obtained. FINDINGS: There is no fracture or dislocation. AC joint moderate degenerative changes. Suspected mil d glenohumeral joint degenerative changes. No acute or suspicious findings. IMPRESSION: No acute osseus abnormality. Degenerative changes as above.
--- NOTE | 2023-07-15 18:08 | EDPHYS ---
Physician Documentation [facility] Name: James Calvo Age: 78 yrs Sex: Male : 1945 Arrival Date: 07/15/2023 Time: 15:46 Bed 7 Private MD: ED Physician Lis Caraballo HPI: 07/15 17:43 This 78 yrs old Black Male presents to ER via EMS with complaints of Fall Injury, sb4 Shoulder Injury. 17:43 patient states that he was sitting on the toilet having a bowel movement today and when sb4 he got up his left leg had fallen asleep. he attempted to walk then got dizzy and ended up falling. he denies hitting his head, losing consciousness, or any blood thinner use. is only complaining of right shoulder pain. Historical: - Allergies: 15:49 No Known Allergies; ld1 - PMHx: 15:48 Anemia; lung cancer (Anemia); Brain cancer (Anemia); Seizure; ld1 - Immunization history:: Adult Immunizations up to date. - Social history:: Smoking status: unknown. - Immunization history: Last tetanus immunization: unknown. ROS: 17:44 Constitutional: Negative for fever, chills, and weight loss, sb4 17:44 MS/extremity: Positive for pain, of the anterior aspect of left shoulder, 17:44 All other systems are negative, Exam: 17:44 Constitutional: This is a well developed, well nourished patient who is awake, alert, sb4 and in no acute distress. Head/Face: Normocephalic, atraumatic. Eyes: Extra-ocular motions intact. Periorbital areas with no swelling, redness, or edema. ENT: Mucous membranes moist. Cardiovascular: Regular rate and rhythm with a normal S1 and S2. Respiratory: Lungs have equal breath sounds bilaterally, clear to auscultation and percussion. No rales, rhonchi or wheezes noted. No increased work of breathing, no retractions or nasal flaring. Abdomen/GI: Soft, non-tender, no distension. Skin: Warm, dry with normal turgor. Normal color with no rashes, no lesions, and no evidence of cellulitis. Neuro: Awake and alert, GCS 15, oriented to person, place, time, and situation. Motor strength 5/5 in all extremities. Sensory grossly intact. 17:44 Musculoskeletal/extremity: tenderness to palpitation on left shoulder, pain with ROM. Vital Signs: 15:49 BP 133 / 78; Pulse 67; Resp 18; Temp 97.3(O); Pulse Ox 100% on R/A; Weight 68.95 kg; ld1 Height 6 ft. 1 in. ; Pain 9/10; 16:23 BP 136 / 77; Pulse 65; Resp 21; Temp 97.3(O); Pulse Ox 100% on R/A; Pain 0/10; tm6 16:45 BP 123 / 95; Pulse 63; Resp 16; Pulse Ox 99% ; ko1 18:17 BP 120 / 79; Pulse 66; Resp 17; Pulse Ox 99% ; ko1 15:49 Body Mass Index 20.05 (68.95 kg, 185.42 cm) ld1 15:49 Pain Scale: Adult ld1 16:23 Pain Scale: Adult tm6 Durham Coma Score: 16:25 Eye Response: spontaneous(4). Motor Response: obeys commands(6). Verbal Response: ko1 oriented(5). Total: 15. Trauma Score (Adult): 16:25 Eye Response: spontaneous(1); Verbal Response: oriented(1); Motor Response: obeys ko1 commands(2); Systolic BP: > 89 mm Hg(4); Respiratory Rate: 10 to 29 per min(4); Durham Score: 15; Trauma Score: 12 MDM: 15:48 Patient medically screened. sb4 17:44 Differential diagnosis: closed head injury, contusion, sprain, strain, shoulder sb4 dislocation, clavicle fracture, humerus fracture. 17:58 Data reviewed: vital signs, nurses notes, lab test result(s), EKG, radiologic studies, sb4 and as a result, I will discharge patient. Consideration of Admission/Observation Escalation of care including admission/observation considered. Independent interpretation of the following test(s) in the Emergency Department X-Ray: My interpretation is my interpretation of the shoulder xray images are no acute fracture or dislocation. Discussion of test interpretation with radiology: I had a discussion with radiology regarding a test interpretation. head CT findings. Care significantly affected by the following chronic conditions: Cancer. Counseling: I had a detailed discussion with the patient and/or guardian regarding the historical points, exam findings, and any diagnostic results supporting the discharge/admit diagnosis, lab results, radiology results, to return to the emergency department if symptoms worsen or persist or if there are any questions or concerns that arise at home. 07/15 16:06 Order name: Basic Metabolic Panel; Complete Time: 16:52 sb4 12 16:06 Order name: CBC with Diff; Complete Time: 16:37 sb4 07/15 16:06 Order name: LFT's; Complete Time: 16:52 sb4 07/15 16:06 Order name: Magnesium; Complete Time: 16:52 sb4 07/15 16:06 Order name: NT PRO-BNP; Complete Time: 16:52 sb4 07/15 16:06 Order name: Troponin HS; Complete Time: 16:52 sb4 07/15 16:06 Order name: XRAY Chest (1 view); Complete Time: 18:06 sb4 07/15 16:06 Order name: Head Brain Wo Cont CT; Complete Time: 17:46 sb4 07/15 16:06 Order name: Shoulder Left (2 View) XRAY; Complete Time: 18:07 sb4 07/15 16:06 Order name: EKG; Complete Time: 16:07 sb4 07/15 16:06 Order name: Cardiac monitoring; Complete Time: 16:09 sb4 07/15 16:06 Order name: EKG - Nurse/Tech; Complete Time: 16:10 sb4 07/15 16:06 Order name: Labs collected and sent; Complete Time: 16:23 sb4 07/15 16:06 Order name: O2 Per Protocol; Complete Time: 16:09 sb4 07/15 16:06 Order name: O2 Sat Monitoring; Complete Time: 16:09 sb4 07/15 17:57 Order name: Shoulder Immobilizer; Complete Time: 18:25 sb4 EC:18 Rate is 64 beats/min. Rhythm is regular, Normal Sinus Rhythm with Occasional PVCs. MA sb4 interval is normal at 142 msec. QRS interval is normal at 112 msec. QT interval is normal at [address] changes noted. Clinical impression: No evidence of ischemia. Interpreted by me. Reviewed by me. Administered Medications: No medications were administered Disposition Summary: 07/15/23 18:08 Discharge Ordered Notes: Location: Home sb4 Problem: new sb4 Symptoms: are unchanged sb4 Condition: Stable sb4 Diagnosis - Fall on same level, unspecified sb4 - Contusion of left shoulder sb4 Followup: sb4 - With: Emergency Department - When: As needed - Reason: Trouble breathing, Worsening of condition Discharge Instructions: - Discharge Summary Sheet sb4 - Shoulder Pain, Zyst-nx-[id number] sb4 - Fall Prevention in the Home, Adult, [id number] sb4 Forms: - Medication Reconciliation Form sb4 - Thank You Letter sb4 - Antibiotic Education sb4 - Prescription Opioid Use sb4 - Patient Portal Instructions sb4 - Leadership Thank You Letter sb4 Signatures: Dispatcher [employer] EDMS La Anaya RN RN ld1 Mikki Veliz RN RN Yumiko Mcghee PAElliot PAElliot sb4 Inez Srivastava RN RN tm6 Corrections: (The following items were deleted from the chart) 15:49 15:48 Allergies: No Known Allergies; ld1 ld1 18:13 16:06 IV Saline Lock ordered. sb4 tm6
--- NOTE | 2023-07-15 18:08 | ER ---
Nurse's Notes [facility] Name: James Calvo Age: 78 yrs Sex: Male : 1945 Arrival Date: 07/15/2023 Time: 15:46 Bed 7 Private MD: Diagnosis: Fall on same level, unspecified;Contusion of left shoulder Presentation: 07/15 16:23 Chief complaint: EMS states: patient called EMS after getting dizzy in the bathroom and tm6 falling down. Coronavirus screen: Client denies travel out of the [place] in the last 14 days. Ebola Screen: Patient negative for fever greater than or equal to 101.5 degrees Fahrenheit, and additional compatible Ebola Virus Disease symptoms Patient denies exposure to infectious person. Patient denies travel to an Ebola-affected area in the 21 days before illness onset. No symptoms or risks identified at this time. Initial Sepsis Screen: Does the patient meet any 2 criteria? No. Patient's initial sepsis screen is negative. Does the patient have a suspected source of infection? No. Patient's initial sepsis screen is negative. Risk Assessment: Do you want to hurt yourself or someone else? Patient reports no desire to harm self or others. Onset of symptoms was July 15, 2023. 16:23 Method Of Arrival: EMS: [facility] tm6 16:23 Acuity: JAYA 3 tm6 16:25 Care prior to arrival: sling to left arm. Mechanism of Injury: Fall from standing ko1 position. Trauma event details: Injury occurred in the [facility]. Triage Assessment: 16:23 General: Appears in no apparent distress. Behavior is calm, cooperative. Pain: tm6 Complains of pain in left arm. EENT: Reports cannot open eyes. Neuro: Level of Consciousness is awake, alert, obeys commands, Oriented to person, place, time, situation. Cardiovascular: Capillary refill < 3 seconds Patient's skin is warm and dry. Rhythm is sinus rhythm. Respiratory: Airway is patent Respiratory effort is even, unlabored, Respiratory pattern is regular, symmetrical. GI: Abdomen is flat, non-distended. : No signs and/or symptoms were reported regarding the genitourinary system. Derm: No signs and/or symptoms reported regarding the dermatologic system. Musculoskeletal: Reports pain in left arm. Trauma Activation: Not Applicable Physician: ED Physician; Name: ; Notified At: ; Arrived At: Physician: General Surgeon; Name: ; Notified At: ; Arrived At: Physician: Radiology; Name: ; Notified At: ; Arrived At: Physician: Respiratory; Name: ; Notified At: ; Arrived At: Physician: Lab; Name: ; Notified At: ; Arrived At: Historical: - Allergies: 15:49 No Known Allergies; ld1 - PMHx: 15:48 Anemia; lung cancer (Anemia); Brain cancer (Anemia); Seizure; ld1 - Immunization history:: Adult Immunizations up to date. - Social history:: Smoking status: unknown. - Immunization history: Last tetanus immunization: unknown. Screenin:27 [facility] ED Fall Risk Assessment (Adult) History of falling in the last 3 months, tm6 including since admission No falls in past 3 months (0 pts). [facility] ED Fall Risk Assessment (Adult) History of falling in the last 3 months, including since admission Yes- physiologic fall (2 pts) Confusion or Disorientation No (0 pts) Intoxicated or Sedated No (0 pts) Impaired Gait Yes (1 pt) Mobility Assist Device Used No (0 pt) Altered Elimination No (0 pt) Score/Fall Risk Level 3 or more points = High Risk. Abuse screen: Denies threats or abuse. Denies injuries from another. Nutritional screening: No deficits noted. Tuberculosis screening: No symptoms or risk factors identified. Primary Survey: 16:25 NO uncontrolled hemorrhage observed. Breathing/Chest: Spontaneous respiratory effort, ko1 equal unlabored respirations, breath sounds clear bilaterally, regular pattern, symmetrical chest rise and fall. Respiratory effort: spontaneous, unlabored, Breath sounds: clear. Circulation: No external hemorrhage present. Regular and strong central pulse, skin warm/dry/normal color. Disability Pupils are equal, round, reactive to light and accommodation. Client is alert. Exposure/Environment: There is no evidence of uncontrolled external bleeding. Reassessment Breathing: Spontaneous respiratory effort, equal unlabored respirations, breath sounds clear bilaterally, regular pattern with symmetrical chest rise and fall. Circulation: No external hemorrhage noted. Regular and strong central pulse, skin warm/dry/normal color. Disability: Pupils Pupils are equal, round, reactive to light and accomodation. Assessment: 16:27 Reassessment: patient states he can open his eyes now Patient states feeling better. tm6 Vital Signs: 15:49 BP 133 / 78; Pulse 67; Resp 18; Temp 97.3(O); Pulse Ox 100% on R/A; Weight 68.95 kg; ld1 Height 6 ft. 1 in. ; Pain 9/10; 16:23 BP 136 / 77; Pulse 65; Resp 21; Temp 97.3(O); Pulse Ox 100% on R/A; Pain 0/10; tm6 16:45 BP 123 / 95; Pulse 63; Resp 16; Pulse Ox 99% ; ko1 18:17 BP 120 / 79; Pulse 66; Resp 17; Pulse Ox 99% ; ko1 15:49 Body Mass Index 20.05 (68.95 kg, 185.42 cm) ld1 15:49 Pain Scale: Adult ld1 16:23 Pain Scale: Adult tm6 Vassar Coma Score: 16:25 Eye Response: spontaneous(4). Motor Response: obeys commands(6). Verbal Response: ko1 oriented(5). Total: 15. Trauma Score (Adult): 16:25 Eye Response: spontaneous(1); Verbal Response: oriented(1); Motor Response: obeys ko1 commands(2); Systolic BP: > 89 mm Hg(4); Respiratory Rate: 10 to 29 per min(4); Cynthia Score: 15; Trauma Score: 12 ED Course: 15:48 Patient arrived in ED. ld1 15:48 Yumiko Llanes PA-C is [facility]. sb4 15:48 Lis Caraballo is Attending Physician. sb4 16:07 Inez Srivastava, RN is Primary Nurse. tm6 16:23 Basic Metabolic Panel Sent. ko1 16:23 CBC with Diff Sent. ko1 16:23 LFT's Sent. ko1 16:23 Magnesium Sent. ko1 16:23 NT PRO-BNP Sent. ko1 16:23 Troponin HS Sent. ko1 16:23 Arm band placed on right wrist. EKG completed in triage. Results shown to MD. tm6 16:25 Triage completed. tm6 16:25 Patient maintains SpO2 saturation greater than 95% on room air. ko1 16:27 No provider procedures requiring assistance completed. tm6 16:27 Patient has correct armband on for positive identification. Bed in low position. Call tm6 light in reach. Side rails up X2. Provided Education on: VS monitoring. Client placed on continuous cardiac and pulse oximetry monitoring. NIBP monitoring applied. monitoring coordinator on. Noise minimized. Lights dimmed. Warm blanket given. 16:57 Head Brain Wo Cont CT In Process Unspecified. EDMS 17:07 XRAY Chest (1 view) In Process Unspecified. EDMS 17:07 Shoulder Left (2 View) XRAY In Process Unspecified. EDMS 18:20 Patient did not have IV access during this emergency room visit. ko1 18:26 Thermoregulation: warm blanket given to patient. ko1 Administered Medications: No medications were administered Medication: 16:27 VIS not applicable for this client. tm6 Intake: 18:26 PO: 0ml; Total: 0ml. ko1 Outcome: 18:08 Discharge ordered by . sb4 18:26 Discharged to home via wheelchair, with family, ko1 18:26 Condition: improved 18:26 Discharge instructions given to patient, Instructed on discharge instructions, follow up and referral plans. Demonstrated understanding of instructions, follow-up care, 18:26 Patient's length of stay was not longer than 2 hours. ko1 18:27 Patient left the ED. ko1 Signatures: Dispatcher [employer] EDMS La Anaya RN RN ld1 Mikki Veliz RN RN ko1 Yumiko Llanes PA-C PA-Inez Perry RN RN tm6 Corrections: (The following items were deleted from the chart) 15:49 15:48 Allergies: No Known Allergies; ld1 ld1
[2023-07-15 18:34] VITALS: TEMP 97.3
[2023-07-15 18:35] VITALS: O2SAT 99
[2023-07-15 18:37] VITALS: BP 120/79
--- NOTE | 2023-07-18 13:52 | EKG ---
Test Date: 2023-07-15 Test Time: 16:13:30 Newspaper Writer: LEIDA MEASUREMENT RESULTS: Intervals: Rate: 64 IL: 142 QRSD: 112 QT: 422 QTc: 435 [place]: P: 60 IL: 142 QRS: -45 T: 80 INTERPRETIVE STATEMENTS: Sinus rhythm with premature supraventricular complexes Left anterior fascicular block Abnormal ECG Compared to ECG 06/23/2023 13:38:07 Atrial premature complex(es) now present ST (T wave) deviation no longer present Electronically Signed On 07-18-23 13:42:20 [employer] WORK[employer] by Forrest Purcell
== END 2023-07-15 18:27 | disposition home or self-care (01) ==
LOC: ER 15:46
DX: S40.012A Contusion of left shoulder, initial encounter (principal); W18.30XA Fall on same level, unspecified, initial encounter
CPT/HCPCS: 36415; 70450; 71045; 80048; 80076; 83735; 83880; 84484; 85025; 93005; 99285